=== PATIENT | female | born 1950 | race Caucasian/White ===

== ENCOUNTER 2016-02-27 21:38 | Emergency (ER) | payer OTHER, BC ==
[~2016-02-27] VITALS: Ht 160 cm; Wt 69.8 kg
[~2016-02-27 21:38] MED LIST: ATOR-22 PO; CZR50 PO
[2016-02-27 21:49] VITALS: Ht 160 cm; Wt 69.8 kg
[2016-02-27] MEDS ORDERED: ZPAK PO (21:57)
[2016-02-27] MEDS ORDERED: [UNRECOGNIZED DRUG - CODE] PO (21:57)
[2016-02-27] MEDS ORDERED: ALBUT/IPRATROP 3MG/0.5MG NEB 3 ML VIAL INH STA (22:27)
--- NOTE | 2016-02-27 22:45 | DIAGNOSTIC IMAGING REPORT ---
CHEST ONE VIEW PORTABLE CLINICAL HISTORY: EVALUATE RESPIRATORY DISTRESS. DYSPNEA dyspnea COMPARISON STUDY: 08/11/2015 FINDINGS: The bones soft tissues and hemidiaphragms are normal. The cardiomediastinal silhouette is normal. The lungs are clear. The pulmonary vasculature is normal. IMPRESSION: Negative chest. Electronically signed by: Pako Rodrigues M.D. 02/27/2016 10:43 PM
[2016-02-27 22:47] LABS: BASO % 0.2 %; BASO ABS # 0.01 K/uL (0-0.2); COMPLETE YES; EOS % 0.6 %; HEMATOCRIT 42.7 % (37-47); IG% 0.2 %; LYMPH ABS # 1.74 K/uL (1.2-3.4); MEAN CELL VOLUME 85.2 fL (80-100); MEAN CORPUSCULAR HEMOGLOBIN 29.3 pg (25-34); MEAN CORPUSCULAR HGB CONC 34.4 g/dl (32-36); MEAN PLATELET VOLUME 11.4 fL (7.4-10.4); MONO % 11.8 %; NEUT % 55.2 %; PLATELET COUNT 137 K/uL (130-400); RED BLOOD COUNT 5.01 M/uL (4.2-5.4); WHITE BLOOD COUNT 5.43 K/uL (4.8-10.8)
[2016-02-27 23:06] VITALS: O2SAT 93
[2016-02-27 23:28] LABS: ALT/SGPT 23 U/L (12-78); AST/SGOT 22 U/L (15-37); BLOOD UREA NITROGEN 12 mg/dl (7-18); BUN/CREATININE RATIO 12.4 (10-20); CHLORIDE 107 mmol/L (98-107); CREATININE 0.98 mg/dl (0.60-1.20); GLUCOSE 122 mg/dl (70-99); POTASSIUM 3.8 mmol/L (3.5-5.1); SODIUM 143 mmol/L (136-145)
[2016-02-27 23:32] LABS: ALKALINE PHOSPHATASE 93 U/L (45-117)
[2016-02-27] MEDS ORDERED: OSELTAMIVIR PHOSPHATE 75 MG CAP PO STA (23:41)
[2016-02-27 23:44] LABS: CALCIUM 8.7 mg/dl (8.5-10.1); CARBON DIOXIDE 27 mmol/L (21-32)
[2016-02-28] MEDS ORDERED: OSEL75CA12 PO (00:28)
[2016-02-28] MEDS ORDERED: ALBUTEROL HFA 8 GM INHALER INH ONE (00:30)
[2016-02-28 00:44] VITALS: BP 119/69; PULSE 81; TEMP 37.1; O2SAT 95
--- NOTE | 2016-02-28 02:32 | EMERGENCY ROOM VISIT NOTE ---
History Report prepared by Josselin: German Chapin Under the Supervision of: Dr. Pierre Wilson M.D. First contact with patient: 21:57 Chief Complaint: FLU LIKE SX Stated Complaint: FLU History of Present Illness The patient is a 66 year old female who presents to the Emergency Room with complaints of a persistent cough beginning last week. She has no history of lung problems. She has associated nausea and congestion. The patient states that she called her PCP's office four days ago, but was unable to be seen. Her PCP started her on a Zpak at this time. She feels that the Zpak has worsened her symptoms. Pt denies LOC, headache, fevers, chills, diaphoresis, visual changes, neck pain, chest pain, vomiting, abdominal pain, back pain, melena, hematochezia, urinary symptoms, numbness, weakness, lymphadenopathy, rash, or other complaints. Source of History: patient Onset: Last week Quality: other (cough) Timing: other (persistent) Associated Symptoms: + nausea, No abdominal pain, No vomiting Note: The patient has associated congestion. Review of Systems See HPI for pertinent positives and negatives. A total of ten systems were reviewed and were otherwise negative. Past Medical & Surgical Medical Problems: (1) Hypercholesteremia (2) Hypertension Family History Cancer Diabetes mellitus Gallbladder disease Heart disease Hypertension Social History Smoking Status: Never Smoker Marital Status: Housing Status: lives with family Occupation Status: retired Current/Historical Medications Scheduled Atorvastatin (Lipitor), 20 MG PO Q2D Azithromycin (Azithromycin), 1 TAB PO DIRECTED Dextromethorphan-Guaifenesin (Robitussin Cough & Chest 5-100 mg/5Ml), 1 ML PO DIRECTED Losartan Potassium (Cozaar *), 100 MG PO HS Oseltamivir (Tamiflu), 75 MG PO BID Allergies Coded Allergies: Pneumococcal Vaccine (Verified Allergy, Severe, REDNESS ,SWELLING @ SITE, 02/27/16) Aloe (Verified Allergy, Intermediate, RASH, 02/27/16) Penicillins (Verified Allergy, Intermediate, RASH, 02/27/16) Latex (Verified Adverse Reaction, Intermediate, "SORES IN MOUTH AFTER GOINGTO DENTIST", 02/27/16) Cefuroxime (Verified Adverse Reaction, Mild, C DIFF, 02/27/16) Physical Exam Vital Signs Date Time Temp Pulse Resp B/P Pulse Ox O2 Delivery O2 Flow Rate FiO2 02/28/16 00:44 37.1 81 16 119/69 95 02/27/16 23:45 97 18 94 Room Air 02/27/16 23:06 93 Room Air 02/27/16 23:06 Room Air 02/27/16 21:49 37.7 102 20 113/67 92 Room Air Physical Exam GENERAL: Awake, alert, well-appearing, in no distress HENT: Normocephalic, atraumatic. Oropharynx unremarkable. EYES: Normal conjunctiva. Sclera non-icteric. NECK: Supple. No nuchal rigidity. FROM. No JVD. RESPIRATORY: Few scattered rhonchi to auscultation. Heavy cough noted. CARDIAC: Regular rate, normal rhythm. Extremities warm and well perfused. Pulses equal. ABDOMEN: Soft, non-distended. No tenderness to palpation. No rebound or guarding. No masses. RECTAL: Deferred. MUSCULOSKELETAL: Chest examination reveals no tenderness. The back is symmetrical on inspection without obvious abnormality. There is no CVA tenderness to palpation. No joint edema. LOWER EXTREMITIES: Calves are equal size bilaterally and non-tender. No edema. No discoloration. NEURO: Normal sensorium. No sensory or motor deficits noted. SKIN: No rash or jaundice noted. Medical Decision & Procedures ER Provider Diagnostic Interpretation: X-ray: Per my interpretation, radiologist review. CHEST ONE VIEW PORTABLE FINDINGS: The bones soft tissues and hemidiaphragms are normal. The cardiomediastinal silhouette is normal. The lungs are clear. The pulmonary vasculature is normal. IMPRESSION: Negative chest. Electronically signed by: Pako Rodrigues M.D. Laboratory Results 02/27/16 22:25 Red Blood Count 5.01, Mean Corpuscular Volume 85.2, Mean Corpuscular Hemoglobin 29.3, Mean Corpuscular Hemoglobin Concent 34.4, Mean Platelet Volume 11.4, Neutrophils (%) (Auto) 55.2, Lymphocytes (%) (Auto) 32.0, Monocytes (%) (Auto) 11.8, Eosinophils (%) (Auto) 0.6, Basophils (%) (Auto) 0.2, Neutrophils # (Auto ) 3.00, Lymphocytes # (Auto) 1.74, Monocytes # (Auto) 0.64, Eosinophils # (Auto ) 0.03, Basophils # (Auto) 0.01 02/27/16 22:56 Test 02/27/16 22:25 02/27/16 22:49 02/27/16 22:55 02/27/16 22:56 White Blood Count 5.43 K/uL (4.8-10.8) Red Blood Count 5.01 M/uL (4.2-5.4) Hemoglobin 14.7 g/dL (12.0-16.0) Hematocrit 42.7 % (37-47) Mean Corpuscular Volume 85.2 fL (80-100) Mean Corpuscular Hemoglobin 29.3 pg (25-34) Mean Corpuscular Hemoglobin Concent 34.4 g/dl (32-36) Platelet Count 137 K/uL (130-400) Mean Platelet Volume 11.4 fL (7.4-10.4) Neutrophils (%) (Auto) 55.2 % Lymphocytes (%) (Auto) 32.0 % Monocytes (%) (Auto) 11.8 % Eosinophils (%) (Auto) 0.6 % Basophils (%) (Auto) 0.2 % Neutrophils # (Auto) 3.00 K/uL (1.4-6.5) Lymphocytes # (Auto) 1.74 K/uL (1.2-3.4) Monocytes # (Auto) 0.64 K/uL (0.11-0.59) Eosinophils # (Auto) 0.03 K/uL (0-0.5) Basophils # (Auto) 0.01 K/uL (0-0.2) RDW Standard Deviation 40.9 fL (36.4-46.3) RDW Coefficient of Variation 13.1 % (11.5-14.5) Immature Granulocyte % (Auto) 0.2 % Immature Granulocyte # (Auto) 0.01 K/uL (0.00-0.02) Influenza Type A Antigen POS for Influ A (NEG) Influenza Type B Antigen Neg for Influ B (NEG) Bedside Lactic Acid Venous 0.86 mmol/L (0.90-1.70) Anion Gap 9.0 mmol/L (3-11) Est Creatinine Clear Calc Drug Dose 52.2 ml/min Estimated GFR () 69.2 Estimated GFR (Non- 59.7 BUN/Creatinine Ratio 12.4 (10-20) Calcium Level 8.7 mg/dl (8.5-10.1) Total Bilirubin 0.3 mg/dl (0.2-1) Aspartate Amino Transf (AST/SGOT) 22 U/L (15-37) Alanine Aminotransferase (ALT/SGPT) 23 U/L (12-78) Alkaline Phosphatase 93 U/L (45-117) Troponin I < 0.015 ng/ml (0-0.045) Total Protein 7.1 gm/dl (6.4-8.2) Albumin 3.5 gm/dl (3.4-5.0) Globulin 3.6 gm/dl (2.5-4.0) Albumin/Globulin Ratio 1.0 (0.9-2) Laboratory results reviewed by me Medications Administered Medications (Trade) Dose Ordered Sig/Enoc Route Start Time Stop Time Status Last Admin Dose Admin Albuterol/ Ipratropium (Duoneb) 3 ml NOW STAT INH 02/27/16 22:27 02/27/16 22:28 DC 02/27/16 22:27 3 ML Oseltamivir Phosphate (Tamiflu Cap) 75 mg NOW STAT PO 02/27/16 23:41 02/27/16 23:42 DC 02/27/16 23:41 75 MG Albuterol (Ventolin Hfa Inhaler) 2 puffs NOW ONCE INH 02/28/16 00:30 02/28/16 00:31 DC 02/28/16 00:30 2 PUFFS ECG Indication: other (cough) Rate (beats per minute): 86 Rhythm: normal sinus Findings: no acute ischemic change, other (LAD. Poor R-wave progression. ) ED Course 2207: The patient was evaluated in room A9B. A complete history and physical exam was performed. 2227: Ordered DuoNeb 3 mL INH. 2302: I reassessed the patient. She is doing well. 2341: I checked in on the patient. She is feeling better. Ordered Tamiflu Cap 75 mg PO. 0005: I reevaluated the patient. Discussed results and discharge instructions: she verbalized understanding and agreement. 0030: Ordered Ventolin Hfa Inhaler 2 puffs INH. The patient is ready for discharge. Medical Decision Triage Nursing notes reviewed. The patient's presentation and history were concerning for respiratory complaints. Etiologies such as pneumonia, influenza, COPD, reactive airway disease, CHF, cardiac ischemia, pulmonary embolism, pneumothorax, musculoskeletal, infections , gastrointestinal, as well as others were entertained. The patient was evaluated. She had influenza-like symptoms. Chest x-ray was performed and was negative. CBC and chemistry panel unremarkable. Lactate was normal. Influenza testing was performed and came back positive for influenza A. She did receive a DuoNeb and was feeling better with this. She was treated with oral Tamiflu. She will be prescribed Tamiflu. If she worsens in any way she will be back. She will follow-up with her primary physician this week. I suspect that she got this from her who had flulike symptoms last week. By the evaluation outlined above other emergent etiologies such as those listed in the differential, as well as others, were deemed relatively unlikely. The patient and were informed about the findings as listed above. All questions were answered and they were pleased with the treatment. Return instructions were outlined and the patient was discharged in stable condition. The patient was referred to her PCP for follow-up for a recheck of the current condition. The chart was completed utilizing [employer] Speech voice recognition software. Grammatical errors, random word insertions, pronoun errors, and incomplete sentences are an occasional consequence of this system due to software limitations, ambient noise, and hardware issues. Any formal questions or concerns about the content, text, or information contained within the body of this dictation should be directly addressed to the physician for clarification. Impression Primary Impression: Influenza A Scribe Attestation The scribe's documentation has been prepared under my direction and personally reviewed by me in its entirety. I confirm that the note above accurately reflects all work, treatment, procedures, and medical decision making performed by me. Departure Information Dispostion Home / Self-Care Prescriptions Oseltamivir (Tamiflu) 75 Mg Cap 75 MG PO BID, #9 CAP Prov: Pierre Wilson MD 02/28/16 Referrals Matthew Schulz D.O. Pulmonary (PCP) Forms HOME CARE DOCUMENTATION FORM, IMPORTANT VISIT INFORMATION Patient Instructions A Signature Page, ED Flu, My [facility] Additional Instructions Diagnosis: 1. influenza A Tamiflu 75 mg twice daily for 5 days. Albuterol Inhaler: Take 2 puffs four times daily for seven days, then as needed. Acetaminophen(Tylenol) may be used for fever or pain. Use 1000mg every six hours as needed. Avoid using more than 4000mg in a 24 hour period. AND/OR Ibuprofen(Motrin, Advil) may be used for fever or pain. Use 600mg every six hours as needed. Take with food. Avoid using more than 2400mg in a 24 hour period. Do not use 2400mg per day for more than three consecutive days without physician direction. Prolonged inappropriate use can lead to stomach upset or ulcers. Controlling your fever with Tylenol and Ibuprofen as above will make you feel better. Rest and drink plenty of fluids. Avoid strenuous activity until your symptoms resolve and your breathing returns to normal. Return to the ER for chest pain, difficulty breathing, persistent fevers, vomiting, worsening of your condition, or as needed. Follow up with your primary physician in 2-3 days for a recheck of the current condition.
== END 2016-02-28 00:45 | disposition home or self-care (01) ==
LOC: C.EDB 21:39 → C.EDA 02-28 00:45
DX: J11.1 Influenza due to unidentified influenza virus with other respiratory manifestations (principal); E78.00 Pure hypercholesterolemia, unspecified; I10 Essential (primary) hypertension; Z83.3 Family history of diabetes mellitus; Z83.79 Family history of other diseases of the digestive system; Z82.49 Family history of ischemic heart disease and other diseases of the circulatory system

== ENCOUNTER 2017-01-19 07:50 | Inpatient (IN) | payer OTHER, BC ==
[~2017-01-19] VITALS: Ht 157.5 cm; Wt 74.3 kg
[~2017-01-19 07:50] MED LIST changes: +ZPAK PO; +[UNRECOGNIZED DRUG - CODE] PO
[2017-01-19] MEDS ORDERED: ONDANSETRON INJ 2 MG/ML 2 ML VIAL IV STA (08:14)
[2017-01-19] MEDS ORDERED: MoRPHine SULFATE 4 MG/ML 1 ML CARP\\VIAL IV STA ×2 (08:14→10:47)
[2017-01-19] MEDS ORDERED: OPTIRAY 320 IV PRN (08:30)
[2017-01-19 08:41] LABS: BASO % 0.3 %; BASO ABS # 0.03 K/uL (0-0.2); COMPLETE YES; EOS % 0.2 %; HEMATOCRIT 42.9 % (37-47); IG% 0.3 %; LYMPH % 13.1 %; LYMPH ABS # 1.24 K/uL (1.2-3.4); MEAN CELL VOLUME 86.7 fL (80-100); MEAN CORPUSCULAR HEMOGLOBIN 29.5 pg (25-34); MEAN PLATELET VOLUME 10.7 fL (7.4-10.4); MONO % 6.5 %; NEUT % 79.6 %; PLATELET COUNT 147 K/uL (130-400); RED BLOOD COUNT 4.95 M/uL (4.2-5.4); WHITE BLOOD COUNT 9.45 K/uL (4.8-10.8)
[2017-01-19 08:48] LABS: URINE APPEARANCE CLOUDY (CLEAR); URINE BILIRUBIN NEG (NEG); URINE COLOR DK YELLOW; URINE EPITHELIAL CELL AUTO >30 /lpf (0-5); URINE NITRITE NEG (NEG); URINE SPECIFIC GRAVITY 1.026 (1.000-1.030); UROBILINOGEN NEG (NEG)
[2017-01-19 08:50] LABS: MANUAL MICROSCOPIC REQUIRED? NO; REVIEW REQ? NO
[2017-01-19 08:57] LABS: BUN/CREATININE RATIO 15.2 (10-20); CALCIUM 10.3 mg/dl (8.5-10.1); CREATININE 0.88 mg/dl (0.60-1.20); POTASSIUM 3.8 mmol/L (3.5-5.1)
--- NOTE | 2017-01-19 09:03 | DIAGNOSTIC IMAGING REPORT ---
PA CHEST RADIOGRAPH AND UPRIGHT AND SUPINE AP RADIOGRAPHS OF THE ABDOMEN CLINICAL HISTORY: History of small bowel obstruction and malignancy. COMPARISON STUDY: KUB January 15, 2015 and chest radiograph August 26, 2016. FINDINGS: Lung volumes are normal. No consolidation is identified and there is no evidence of pulmonary edema. Cardiomediastinal silhouette is normal. There is no pneumothorax or pleural effusion. There are surgical clips within the lower abdomen and pelvis. There is no free air. There is oral contrast within the stomach and portions of the small bowel. Moderate small bowel dilatation is noted. IMPRESSION: 1. Moderate small bowel dilatation suggestive of a small bowel obstruction. 2. No free air. 3. No acute cardiopulmonary findings. Electronically signed by: Shon Aguayo M.D. 01/19/2017 9:01 AM Dictated Date/Time: 01/19/2017 8:59 AM
--- NOTE | 2017-01-19 11:28 | DIAGNOSTIC IMAGING REPORT ---
CT OF THE ABDOMEN AND PELVIS WITH CONTRAST CLINICAL HISTORY: Abdominal pain. History of malignancy. COMPARISON STUDY: CT of the abdomen and pelvis January 06, 2015 and abdominal series performed earlier today. TECHNIQUE: Following IV administration of 93 mL of Optiray-320, axial images of the abdomen and pelvis were obtained from the lung bases to the proximal femurs. Images were reviewed in the axial, sagittal, and coronal planes. IV contrast was administered without complication. A dose lowering technique was utilized adhering to the principles of ALARA. Oral contrast was administered. CT DOSE: 466.60 mGy.cm FINDINGS: The spleen, adrenal glands, kidneys and pancreas are unremarkable. A small amount of abdominal and pelvic ascites is noted. No pneumatosis, free air or portal venous gas is present. Several ventral hernias are noted, one of which contains small and large bowel. This does not result in the bowel obstruction. There is moderate dilatation of the proximal to mid small bowel with decompressed distal small bowel. Transition point within the right lower quadrant is noted shown on axial image 348 of 456. This is consistent with a moderate grade small bowel obstruction. Hepatic cysts are noted. A few lesions were not evident on CT of January 06, 2015. These include a 1.1 cm hypodense focus within segment 8 and an 8 mm hypodense focus within segment 7. No suspicious osseous lesion is present. The peritoneal/omental nodules seen on CT of January 06, 2015 have significantly decreased in size. At most, there are a few tiny residual nodules within the anterior abdomen shown on image 271 of 456. IMPRESSION: 1. Findings consistent with a moderate grade small bowel obstruction with transition point within the distal ileum, within the right lower quadrant. Statistically, this obstruction is due to adhesions. However, a malignant etiology cannot be excluded given the clinical history. 2. Significant interval decrease in size of multiple omental/peritoneal nodules shown on prior CT. At most, several tiny residual omental nodules. 3. Small amount of ascites. No pneumatosis, free air or portal venous gas. 4. Cholelithiasis. 5. A few hypodense hepatic lesions which were not evident on CT of January 06, 2015. These are indeterminate and should be assessed on subsequent imaging studies however may reflect cysts. Electronically signed by: Shon Aguayo M.D. 01/19/2017 11:27 AM Dictated Date/Time: 01/19/2017 11:12 AM
--- NOTE | 2017-01-19 12:09 | EMERGENCY ROOM VISIT NOTE ---
ED Visit Note First contact with patient: 08:01 I have seen and examined this patient with Pierre Rachel and generally agree with the treatment plan as discussed. Problem List Medical Problems: (1) Hypercholesteremia Status: Chronic (2) Hypertension Status: Chronic Current/Historical Medications Scheduled Atorvastatin (Lipitor), 20 MG PO Q2D Losartan Potassium (Cozaar *), 100 MG PO HS Allergies Coded Allergies: Pneumococcal Vaccine (Verified Allergy, Severe, REDNESS ,SWELLING @ SITE, 01/19/17) Aloe (Verified Allergy, Intermediate, RASH, 01/19/17) Penicillins (Verified Allergy, Intermediate, RASH, 01/19/17) Latex (Verified Adverse Reaction, Intermediate, "SORES IN MOUTH AFTER GOINGTO DENTIST", 01/19/17) Cefuroxime (Verified Adverse Reaction, Mild, C DIFF, 01/19/17) Vital Signs Date Time Temp Pulse Resp B/P (MAP) Pulse Ox O2 Delivery O2 Flow Rate FiO2 01/19/17 11:25 71 16 134/73 94 Room Air 01/19/17 10:53 78 15 146/85 94 Room Air 01/19/17 10:26 100 18 142/80 96 Room Air 01/19/17 09:19 75 01/19/17 09:13 77 16 148/84 95 Room Air 01/19/17 07:53 36.3 92 18 149/83 93 Room Air Laboratory Results 01/19/17 08:25 Red Blood Count 4.95, Mean Corpuscular Volume 86.7, Mean Corpuscular Hemoglobin 29.5, Mean Corpuscular Hemoglobin Concent 34.0, Mean Platelet Volume 10.7, Neutrophils (%) (Auto) 79.6, Lymphocytes (%) (Auto) 13.1, Monocytes (%) (Auto) 6.5, Eosinophils (%) (Auto) 0.2, Basophils (%) (Auto) 0.3, Neutrophils # (Auto) 7.52, Lymphocytes # (Auto) 1.24, Monocytes # (Auto) 0.61, Eosinophils # (Auto) 0.02, Basophils # (Auto) 0.03 01/19/17 08:25 Test 01/19/17 08:25 01/19/17 08:30 White Blood Count 9.45 K/uL (4.8-10.8) Red Blood Count 4.95 M/uL (4.2-5.4) Hemoglobin 14.6 g/dL (12.0-16.0) Hematocrit 42.9 % (37-47) Mean Corpuscular Volume 86.7 fL (80-100) Mean Corpuscular Hemoglobin 29.5 pg (25-34) Mean Corpuscular Hemoglobin Concent 34.0 g/dl (32-36) Platelet Count 147 K/uL (130-400) Mean Platelet Volume 10.7 fL (7.4-10.4) Neutrophils (%) (Auto) 79.6 % Lymphocytes (%) (Auto) 13.1 % Monocytes (%) (Auto) 6.5 % Eosinophils (%) (Auto) 0.2 % Basophils (%) (Auto) 0.3 % Neutrophils # (Auto) 7.52 K/uL (1.4-6.5) Lymphocytes # (Auto) 1.24 K/uL (1.2-3.4) Monocytes # (Auto) 0.61 K/uL (0.11-0.59) Eosinophils # (Auto) 0.02 K/uL (0-0.5) Basophils # (Auto) 0.03 K/uL (0-0.2) RDW Standard Deviation 41.3 fL (36.4-46.3) RDW Coefficient of Variation 13.1 % (11.5-14.5) Immature Granulocyte % (Auto) 0.3 % Immature Granulocyte # (Auto) 0.03 K/uL (0.00-0.02) Anion Gap 8.0 mmol/L (3-11) Est Creatinine Clear Calc Drug Dose 58.6 ml/min Estimated GFR () 78.8 Estimated GFR (Non- 68.0 BUN/Creatinine Ratio 15.2 (10-20) Calcium Level 10.3 mg/dl (8.5-10.1) Total Bilirubin 0.7 mg/dl (0.2-1) Direct Bilirubin 0.2 mg/dl (0-0.2) Aspartate Amino Transf (AST/SGOT) 16 U/L (15-37) Alanine Aminotransferase (ALT/SGPT) 22 U/L (12-78) Alkaline Phosphatase 80 U/L (45-117) Total Protein 7.0 gm/dl (6.4-8.2) Albumin 3.7 gm/dl (3.4-5.0) Lipase 141 U/L (73-393) Urine Color DK YELLOW Urine Appearance CLOUDY (CLEAR) Urine pH 5.0 (4.5-7.5) Urine Specific [place] 1.026 (1.000-1.030) Urine Protein 2+ (NEG) Urine Glucose (UA) NEG (NEG) Urine Ketones 1+ (NEG) Urine Occult Blood NEG (NEG) Urine Nitrite NEG (NEG) Urine Bilirubin NEG (NEG) Urine Urobilinogen NEG (NEG) Urine Leukocyte Esterase TRACE (NEG) Urine WBC (Auto) 5-10 /hpf (0-5) Urine RBC (Auto) 0-4 /hpf (0-4) Urine Hyaline Casts (Auto) 10-30 /lpf (0-5) Urine Epithelial Cells (Auto) >30 /lpf (0-5) Urine Bacteria (Auto) NEG (NEG) Medications Administered Medications (Trade) Dose Ordered Sig/Enoc Route Start Time Stop Time Status Last Admin Dose Admin Morphine Sulfate (MoRPHine SULFATE INJ) 4 mg NOW STAT IV 01/19/17 08:14 01/19/17 08:18 DC 01/19/17 08:31 4 MG Ondansetron HCl (Zofran Inj) 4 mg NOW STAT IV 01/19/17 08:14 01/19/17 08:18 DC 01/19/17 08:30 4 MG Morphine Sulfate (MoRPHine SULFATE INJ) 4 mg NOW STAT IV 01/19/17 10:47 01/19/17 10:48 DC 01/19/17 10:53 4 MG Departure Information Referrals Ana Laura Bourne D.O. (PCP) Patient Instructions My [facility]
[2017-01-19] MEDS ORDERED: ONDANSETRON INJ 2 MG/ML 2 ML VIAL IV PRN (12:30)
[2017-01-19 12:35] VITALS: O2SAT 94; Ht 157.5 cm; Wt 74.3 kg
[2017-01-19] MEDS ORDERED: ONDANSETRON INJ 2 MG/ML 2 ML VIAL ONE ×2 (13:00→13:57)
[2017-01-19] MEDS ORDERED: MoRPHine SULFATE 2 MG/ML CARP IV PRN (13:00)
--- NOTE | 2017-01-19 13:07 | History and Physical ---
History & Physical Date & Time of Service: Jan 19, 2017 at 13:07 Chief Complaint: Abd. Pain Primary Care Physician: Ana Laura Bourne D.O. History of Present Illness Source: patient, spouse, clinic records, hospital records 66 year-old female with PMH of Carcinoid tumor, small bowel obstruction, hysterectomy, small bowel resection, metastatic breast cancer present to the ER after developing constant abdominal pain associated with nausea and vomiting. Pt said that last night she developed 6/10 constant abdominal pain, located across the upper abdomen, non radiated, cramping that is more prominent in the LUQ. Pt said that around 3 am she started to vomit that was yellowish with food particles. Pt said that her last episode of vomiting was this morning at 7AM. She said that she feels bloating and her last BM was yesterday that was normal. Pt said that last week at the football game she developed the similar symptoms but that was resolved after few hours. Denies any chest pain, palpitation, dizziness, fever, dysuria and SOB. Past Medical/Surgical History Medical Problems: Hypercholesteremia Hypertension Carcinoid Tumor Small Bowel obstruction Hysterectomy Metastatic breast cancer Family History Cancer Diabetes mellitus Gallbladder disease Heart disease Hypertension Social History Smoking Status: Never Smoker Marital Status: Occupational Status: retired Immunizations History of Influenza Vaccine: Yes History of Tetanus Vaccine?: Yes History of Pneumococcal: No History of Hepatitis B Vaccine: No Multi-Drug Resistant Organisms History of MDRO: No Allergies Coded Allergies: Pneumococcal Vaccine (Verified Allergy, Severe, REDNESS ,SWELLING @ SITE, 01/19/17) Aloe (Verified Allergy, Intermediate, RASH, 01/19/17) Penicillins (Verified Allergy, Intermediate, RASH, 01/19/17) Latex (Verified Adverse Reaction, Intermediate, "SORES IN MOUTH AFTER GOINGTO DENTIST", 01/19/17) Cefuroxime (Verified Adverse Reaction, Mild, C DIFF, 01/19/17) Home Medications Scheduled Atorvastatin (Lipitor), 20 MG PO Q2D Losartan Potassium (Cozaar *), 100 MG PO HS Review of Systems Constitutional: No fever, No chills Eyes: No eye pain ENT: No unusual epistaxis, No nasal symptoms, No sore throat Respiratory: No cough, No sputum, No shortness of breath, No dyspnea on exertion Cardiovascular: No chest pain, No claudication, No palpitations Abdomen: + pain, + nausea, + vomiting, No diarrhea Musculoskeletal: No calf pain Genitourinary - Female: No dysuria, No urinary frequency Neurologic: No paralysis, No weakness Psychiatric: No substance abuse Endocrine: No excessive thirst Hematologic / Lymphatic: No abnormal bleeding/bruising Integumentary: No rash, No itch Physical Exam Vital Signs Date Time Temp Pulse Resp B/P (MAP) Pulse Ox O2 Delivery O2 Flow Rate FiO2 01/19/17 12:50 71 16 131/81 94 Room Air 01/19/17 12:35 94 Room Air 01/19/17 12:00 80 18 133/73 95 Room Air 01/19/17 11:25 71 16 134/73 94 Room Air 01/19/17 10:53 78 15 146/85 94 Room Air 01/19/17 10:26 100 18 142/80 96 Room Air 01/19/17 09:19 75 01/19/17 09:13 77 16 148/84 95 Room Air 01/19/17 07:53 36.3 92 18 149/83 93 Room Air General Appearance: WD/WN, no apparent distress Head: normocephalic, atraumatic Eyes: PERRL, sclerae normal ENT: hearing grossly normal Neck: no JVD, trachea midline Respiratory/Chest: lungs clear, no respiratory distress, no accessory muscle use Cardiovascular: no JVD, no murmur Abdomen/GI: + tenderness (More prominenet pain in LUQ ), + pertinent finding ( Hypoactive BS) Back: no CVA tenderness Extremities/Musculoskelatal: no calf tenderness Neurologic/Psych: no motor/sensory deficits, alert, oriented x 3 Skin: warm/dry, no rash Diagnostics Laboratory Results Results Past 24 Hours Test 01/19/17 08:25 01/19/17 08:30 Range/Units White Blood Count 9.45 4.8-10.8 K/uL Red Blood Count 4.95 4.2-5.4 M/uL Hemoglobin 14.6 12.0-16.0 g/dL Hematocrit 42.9 37-47 % Mean Corpuscular Volume 86.7 80-100 fL Mean Corpuscular Hemoglobin 29.5 25-34 pg Mean Corpuscular Hemoglobin Concent 34.0 32-36 g/dl Platelet Count 147 130-400 K/uL Mean Platelet Volume 10.7 7.4-10.4 fL Neutrophils (%) (Auto) 79.6 % Lymphocytes (%) (Auto) 13.1 % Monocytes (%) (Auto) 6.5 % Eosinophils (%) (Auto) 0.2 % Basophils (%) (Auto) 0.3 % Neutrophils # (Auto) 7.52 1.4-6.5 K/uL Lymphocytes # (Auto) 1.24 1.2-3.4 K/uL Monocytes # (Auto) 0.61 0.11-0.59 K/uL Eosinophils # (Auto) 0.02 0-0.5 K/uL Basophils # (Auto) 0.03 0-0.2 K/uL RDW Standard Deviation 41.3 36.4-46.3 fL RDW Coefficient of Variation 13.1 11.5-14.5 % Immature Granulocyte % (Auto) 0.3 % Immature Granulocyte # (Auto) 0.03 0.00-0.02 K/uL Sodium Level 141 136-145 mmol/L Potassium Level 3.8 3.5-5.1 mmol/L Chloride Level 106 98-107 mmol/L Carbon Dioxide Level 28 21-32 mmol/L Anion Gap 8.0 3-11 mmol/L Blood Urea Nitrogen 13 7-18 mg/dl Creatinine 0.88 0.60-1.20 mg/dl Est Creatinine Clear Calc Drug Dose 58.6 ml/min Estimated GFR () 78.8 Estimated GFR (Non- 68.0 BUN/Creatinine Ratio 15.2 10-20 Random Glucose 160 70-99 mg/dl Calcium Level 10.3 8.5-10.1 mg/dl Total Bilirubin 0.7 0.2-1 mg/dl Direct Bilirubin 0.2 0-0.2 mg/dl Aspartate Amino Transf (AST/SGOT) 16 15-37 U/L Alanine Aminotransferase (ALT/SGPT) 22 12-78 U/L Alkaline Phosphatase 80 45-117 U/L Total Protein 7.0 6.4-8.2 gm/dl Albumin 3.7 3.4-5.0 gm/dl Lipase 141 73-393 U/L Urine Color DK YELLOW Urine Appearance CLOUDY CLEAR Urine pH 5.0 4.5-7.5 Urine Specific [place] 1.026 1.000-1.030 Urine Protein 2+ NEG Urine Glucose (UA) NEG NEG Urine Ketones 1+ NEG Urine Occult Blood NEG NEG Urine Nitrite NEG NEG Urine Bilirubin NEG NEG Urine Urobilinogen NEG NEG Urine Leukocyte Esterase TRACE NEG Urine WBC (Auto) 5-10 0-5 /hpf Urine RBC (Auto) 0-4 0-4 /hpf Urine Hyaline Casts (Auto) 10-30 0-5 /lpf Urine Epithelial Cells (Auto) >30 0-5 /lpf Urine Bacteria (Auto) NEG NEG Diagnostic Radiology CT OF THE ABDOMEN AND PELVIS WITH CONTRAST CLINICAL HISTORY: Abdominal pain. History of malignancy. COMPARISON STUDY: CT of the abdomen and pelvis January 06, 2015 and abdominal series performed earlier today. TECHNIQUE: Following IV administration of 93 mL of Optiray-320, axial images of the abdomen and pelvis were obtained from the lung bases to the proximal femurs. Images were reviewed in the axial, sagittal, and coronal planes. IV contrast was administered without complication. A dose lowering technique was utilized adhering to the principles of ALARA. Oral contrast was administered. CT DOSE: 466.60 mGy.cm FINDINGS: The spleen, adrenal glands, kidneys and pancreas are unremarkable. A small amount of abdominal and pelvic ascites is noted. No pneumatosis, free air or portal venous gas is present. Several ventral hernias are noted, one of which contains small and large bowel. This does not result in the bowel obstruction. There is moderate dilatation of the proximal to mid small bowel with decompressed distal small bowel. Transition point within the right lower quadrant is noted shown on axial image 348 of 456. This is consistent with a moderate grade small bowel obstruction. Hepatic cysts are noted. A few lesions were not evident on CT of January 06, 2015. These include a 1.1 cm hypodense focus within segment 8 and an 8 mm hypodense focus within segment 7. No suspicious osseous lesion is present. The peritoneal/omental nodules seen on CT of January 06, 2015 have significantly decreased in size. At most, there are a few tiny residual nodules within the anterior abdomen shown on image 271 of 456. IMPRESSION: 1. Findings consistent with a moderate grade small bowel obstruction with transition point within the distal ileum, within the right lower quadrant. Statistically, this obstruction is due to adhesions. However, a malignant etiology cannot be excluded given the clinical history. 2. Significant interval decrease in size of multiple omental/peritoneal nodules shown on prior CT. At most, several tiny residual omental nodules. 3. Small amount of ascites. No pneumatosis, free air or portal venous gas. 4. Cholelithiasis. 5. A few hypodense hepatic lesions which were not evident on CT of January 06, 2015. These are indeterminate and should be assessed on subsequent imaging studies however may reflect cysts. Electronically signed by: Shon Aguayo M.D. 01/19/2017 11:27 AM Dictated Date/Time: 01/19/2017 11:12 AM PA CHEST RADIOGRAPH AND UPRIGHT AND SUPINE AP RADIOGRAPHS OF THE ABDOMEN CLINICAL HISTORY: History of small bowel obstruction and malignancy. COMPARISON STUDY: KUB January 15, 2015 and chest radiograph August 26, 2016. FINDINGS: Lung volumes are normal. No consolidation is identified and there is no evidence of pulmonary edema. Cardiomediastinal silhouette is normal. There is no pneumothorax or pleural effusion. There are surgical clips within the lower abdomen and pelvis. There is no free air. There is oral contrast within the stomach and portions of the small bowel. Moderate small bowel dilatation is noted. IMPRESSION: 1. Moderate small bowel dilatation suggestive of a small bowel obstruction. 2. No free air. 3. No acute cardiopulmonary findings. Electronically signed by: Shon Aguayo M.D. 01/19/2017 9:01 AM Dictated Date/Time: 01/19/2017 8:59 AM Impression Assessment and Plan Small Bowel Obstruction Present with abdominal pain associated with nausea and vomitin Possible related to adhesion CT abd/pelvis showed findings consistent with a moderate grade small bowel obstruction with transition point within the distal ileum, within the right lower quadrant. Continue pain control, Zofran and IVF Keep NPO Consider NGT insertion if vomiting reoccurs Surgery consult Repeat Abdominal Xray Continue monitor HTN On losartan Hold PO med since NPO Dyslipidemia Hold statin since NPO Hepatic Lesion Outpatient monitor DVT px Heparin subq (risk of DVT due to hx of cancer) SCDs CODE STATUS FULL CODE Level of Care Med/Surg Advanced Directives Existing Living Will: No Existing Power of Finance Professor: No Resuscitation Status FULL RESUSCITATION VTE Prophylaxis VTE Risk Assessment Done? Y/N: Yes Risk Level: Moderate Given or contraindicated: Unfractionated heparin SQ
[2017-01-19 13:20] VITALS: BP 131/81; PULSE 71; TEMP 36.3; O2SAT 94
--- NOTE | 2017-01-19 13:24 | Surgery Consultation ---
Consultation Date of Consultation: Jan 19, 2017. Attending Physician: History of Present Illness History of Present Illness: Ms. Felipe is a 66 year-old white female who ambulates into the ED accompanied by her complaining of bilateral mid quadrant abdominal pain. Historically patient reports carcinoid cancer, small bowel obstruction, 2 small bowel resections, hysterectomy, metastatic breast cancer and abdominal hernias. Patient reports a acute onset of bilateral mid quadrant abdominal pain that started approximately 10 hours ago. Since that time the pain has been constant and gradually increasing in intensity. The pain is currently described as cramping with left-sided prominence. The pain is nonradiating. She reports she has mild relief of her pain after vomiting. She has not identified any aggravating factors related to the pain. She currently rates her discomfort 6/ 10. Associated with the pain there has been sensations of abdominal bloating, decreased appetite, nausea, vomiting and decrease in bowel movements. Patient denies fevers, chills, sweats, skin eruptions, skin color changes, upper respiratory tract symptoms, shortness of breath, chest pain, diarrhea, constipation, rectal bleeding, black/tarry stools, urinary symptoms, hematuria, vaginal bleeding, vaginal discharge, back/flank pain. 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, pt denies bloody stool, no weight loss, Past Medical/Surgical History Medical Problems: (1) Allergic reaction Status: Acute (2) Chest pain Status: Acute (3) Musculoskeletal chest pain Status: Acute (4) Right-sided chest pain Status: Acute Family History Cancer Diabetes mellitus Gallbladder disease Heart disease Hypertension Social History Smoking Status: Never Smoker Smokeless Tobacco Use: No Alcohol Use: none Drug Use: none Marital Status: Housing Status: lives with family Occupation Status: retired Allergies Coded Allergies: Pneumococcal Vaccine (Verified Allergy, Severe, REDNESS ,SWELLING @ SITE, 01/19/17) Aloe (Verified Allergy, Intermediate, RASH, 01/19/17) Penicillins (Verified Allergy, Intermediate, RASH, 01/19/17) Latex (Verified Adverse Reaction, Intermediate, "SORES IN MOUTH AFTER GOINGTO DENTIST", 01/19/17) Cefuroxime (Verified Adverse Reaction, Mild, C DIFF, 01/19/17) Home Medications Scheduled Atorvastatin (Lipitor), 20 MG PO Q2D Losartan Potassium (Cozaar *), 100 MG PO HS Current Inpatient Medications Current Inpatient Medications Medications (Trade) Dose Ordered Sig/Enoc Route Start Time Stop Time Status Last Admin Dose Admin Ioversol (Optiray 320) 111 ml UD PRN IV 01/19/17 08:30 01/23/17 08:29 Ondansetron HCl (Zofran Inj) 4 mg Q6H PRN IV 01/19/17 12:30 02/18/17 12:29 UNV Morphine Sulfate (MoRPHine SULFATE INJ) 2 mg Q3HWA PRN IV 01/19/17 13:00 02/02/17 12:59 UNV Sodium Chloride 1,000 ml @ 80 mls/hr [id number] IV 01/19/17 13:00 02/18/17 12:59 UNV Heparin Sodium (Porcine) (Heparin Sq 5000 Unit/0.5ml) 5,000 unit Q12 SQ 01/19/17 21:00 02/18/17 20:59 UNV Ondansetron HCl (Zofran Inj) 4 mg Q4H PRN IV 01/19/17 13:15 02/18/17 13:14 UNV Review of Systems Constitutional: No fever, No chills, No sweats, No weight loss, No weakness, No fatigue, No problem reported Eyes: No worsening of vision, No eye pain, No redness, No discharge, No diplopia, No problem reported ENT: No hearing loss, No unusual epistaxis, No nasal symptoms, No sore throat, No tinnitus, No dental problems, No trouble swallowing, No problem reported Respiratory: No cough, No sputum, No wheezing, No shortness of breath, No dyspnea on exertion, No dyspnea at rest, No hemoptysis, No problem reported Cardiovascular: No chest pain, No orthopnea, No PND, No edema, No claudication , No palpitations, No problem reported Abdomen: + pain, + nausea, + vomiting, + problem reported (2 time small bowel resection, ) Musculoskeletal: No joint pain, No muscle pain, No swelling, No calf pain, No problem reported Genitourinary - Female: + problem reported (hysterectomy for tumor), No dysuria , No urinary frequency, No urinary urgency, No urinary incontinence, No urinary retention, No hematuria, No dysmenorrhea, No menorrhagia, No metrorrhagia, No rash, No vaginal bleeding, No vaginal discharge, No vaginal itching, No vulvodynia, No Neurologic: No memory loss, No paralysis, No weakness, No numbness/tingling, No vertigo, No balance problems, No problem reported Psychiatric: No depression symptoms, No anhedonism, No anxiety, No insomnia, No substance abuse, No problem reported Endocrine: No fatigue, No excessive thirst, No excessive urination, No problem reported Hematologic / Lymphatic: No abnormal bleeding/bruising, No clotting problems, No swollen lymph nodes, No night sweats, No problem reported Physical Exam Date Time Temp Pulse Resp B/P (MAP) Pulse Ox O2 Delivery O2 Flow Rate FiO2 01/19/17 12:50 71 16 131/81 94 Room Air 01/19/17 12:35 94 Room Air 01/19/17 12:00 80 18 133/73 95 Room Air 01/19/17 11:25 71 16 134/73 94 Room Air 01/19/17 10:53 78 15 146/85 94 Room Air 01/19/17 10:26 100 18 142/80 96 Room Air 01/19/17 09:19 75 01/19/17 09:13 77 16 148/84 95 Room Air 01/19/17 07:53 36.3 92 18 149/83 93 Room Air General Appearance: WD/WN, no apparent distress Head: normocephalic Eyes: normal inspection ENT: normal ENT inspection Neck: supple, no adenopathy Respiratory/Chest: chest non-tender, lungs clear, normal breath sounds Cardiovascular: regular rate, rhythm, no edema, no gallop, no JVD, no murmur Abdomen/GI: normal bowel sounds, non tender, soft, no organomegaly, no pulsatile mass, + tenderness (slight tenderness epigastric area, no rebound pain , ) Extremities/Musculoskelatal: normal inspection, no calf tenderness, normal capillary refill Neurologic/Psych: no motor/sensory deficits, alert, normal mood/affect Skin: normal color, warm/dry, no rash Laboratory Results Last 24 Hours Test 01/19/17 08:25 01/19/17 08:30 White Blood Count 9.45 K/uL Red Blood Count 4.95 M/uL Hemoglobin 14.6 g/dL Hematocrit 42.9 % Mean Corpuscular Volume 86.7 fL Mean Corpuscular Hemoglobin 29.5 pg Mean Corpuscular Hemoglobin Concent 34.0 g/dl Platelet Count 147 K/uL Mean Platelet Volume 10.7 fL Neutrophils (%) (Auto) 79.6 % Lymphocytes (%) (Auto) 13.1 % Monocytes (%) (Auto) 6.5 % Eosinophils (%) (Auto) 0.2 % Basophils (%) (Auto) 0.3 % Neutrophils # (Auto) 7.52 K/uL Lymphocytes # (Auto) 1.24 K/uL Monocytes # (Auto) 0.61 K/uL Eosinophils # (Auto) 0.02 K/uL Basophils # (Auto) 0.03 K/uL RDW Standard Deviation 41.3 fL RDW Coefficient of Variation 13.1 % Immature Granulocyte % (Auto) 0.3 % Immature Granulocyte # (Auto) 0.03 K/uL Sodium Level 141 mmol/L Potassium Level 3.8 mmol/L Chloride Level 106 mmol/L Carbon Dioxide Level 28 mmol/L Anion Gap 8.0 mmol/L Blood Urea Nitrogen 13 mg/dl Creatinine 0.88 mg/dl Est Creatinine Clear Calc Drug Dose 58.6 ml/min Estimated GFR () 78.8 Estimated GFR (Non- 68.0 BUN/Creatinine Ratio 15.2 Random Glucose 160 mg/dl Calcium Level 10.3 mg/dl Total Bilirubin 0.7 mg/dl Direct Bilirubin 0.2 mg/dl Aspartate Amino Transf (AST/SGOT) 16 U/L Alanine Aminotransferase (ALT/SGPT) 22 U/L Alkaline Phosphatase 80 U/L Total Protein 7.0 gm/dl Albumin 3.7 gm/dl Lipase 141 U/L Urine Color DK YELLOW Urine Appearance CLOUDY Urine pH 5.0 Urine Specific [place] 1.026 Urine Protein 2+ Urine Glucose (UA) NEG Urine Ketones 1+ Urine Occult Blood NEG Urine Nitrite NEG Urine Bilirubin NEG Urine Urobilinogen NEG Urine Leukocyte Esterase TRACE Urine WBC (Auto) 5-10 /hpf Urine RBC (Auto) 0-4 /hpf Urine Hyaline Casts (Auto) 10-30 /lpf Urine Epithelial Cells (Auto) >30 /lpf Urine Bacteria (Auto) NEG Assessment & Plan CT scan-IMPRESSION: 1. Findings consistent with a moderate grade small bowel obstruction with transition point within the distal ileum, within the right lower quadrant. Statistically, this obstruction is due to adhesions. However, a malignant etiology cannot be excluded given the clinical history. 2. Significant interval decrease in size of multiple omental/peritoneal nodules shown on prior CT. At most, several tiny residual omental nodules. 3. Small amount of ascites. No pneumatosis, free air or portal venous gas. 4. Cholelithiasis. 5. A few hypodense hepatic lesions which were not evident on CT of January 06, 2015. These are indeterminate and should be assessed on subsequent imaging studies however may reflect cysts. Assessment: pt is a 66 year old female who presents with 1 day history abdominal pain, with nausea and vomiting, CT scan- SMO, scar or recurrent tumor Plan; NG tube insertion, IV fluid control pain, repeat labs in am, will F/U.
[2017-01-19] MEDS ORDERED: NURSING VERBAL MED ORDER ONE (14:00)
[2017-01-19] MEDS: SODIUM CHLORIDE 0.9% 1000ML 1,000 ML IV SCH (14:28)
[2017-01-19 14:45] LABS: PARTIAL THROMBOPLASTIN RATIO 0.9; PROTHROMBIN TIME (PATIENT) 10.6 SECONDS (9.0-12.0)
[2017-01-19 14:53] VITALS: BP 125/71; PULSE 87; TEMP 36.5; O2SAT 94
[2017-01-19] MEDS: HEPARIN SOD 5000 UNIT/0.5 ML CARP SQ SCH (20:39)
[2017-01-19 23:39] VITALS: BP 111/64; PULSE 94; TEMP 36.5; O2SAT 91
[2017-01-20] MEDS: SODIUM CHLORIDE 0.9% 1000ML 1,000 ML IV SCH (01:36)
[2017-01-20 05:33] LABS: HEMATOCRIT 40.6 % (37-47); MEAN CELL VOLUME 88.6 fL (80-100); MEAN CORPUSCULAR HEMOGLOBIN 28.2 pg (25-34); MEAN CORPUSCULAR HGB CONC 31.8 g/dl (32-36); MEAN PLATELET VOLUME 10.8 fL (7.4-10.4); PLATELET COUNT 135 K/uL (130-400); RED BLOOD COUNT 4.58 M/uL (4.2-5.4); WHITE BLOOD COUNT 6.27 K/uL (4.8-10.8)
[2017-01-20] MEDS: HYDROmorphone INJ 1 MG/ML SYR IV PRN (05:53)
[2017-01-20 06:20] LABS: BUN/CREATININE RATIO 17.2 (10-20); CALCIUM 8.3 mg/dl (8.5-10.1); CREATININE 0.81 mg/dl (0.60-1.20); MAGNESIUM 1.8 mg/dl (1.8-2.4); POTASSIUM 3.4 mmol/L (3.5-5.1)
[2017-01-20] MEDS: NSS + 20MEQ KCL 1000ML 1,000 ML IV SCH ×2 (07:11→17:36)
--- NOTE | 2017-01-20 07:43 | EMERGENCY ROOM VISIT NOTE ---
ED Visit Note First contact with patient: 08:01 Chief Complaint: Abdominal pain History of Present Illness: Ms. Felipe is a 66 year-old white female who ambulates into the ED accompanied by her complaining of bilateral mid quadrant abdominal pain. Historically patient reports carcihoid cancer, small bowel obstruction, 2 small bowel resections, hysterectomy, metastatic breast cancer and abdominal hernias. Patient reports a acute onset of bilateral mid quadrant abdominal pain that started approximately 10 hours ago. Since that time the pain has been constant and gradually increasing in intensity. The pain is currently described as cramping with left-sided prominence. The pain is nonradiating. She reports she has mild relief of her pain after vomiting. She has not identified any aggravating factors related to the pain. She currently rates her discomfort 6/ 10. Associated with the pain there has been sensations of abdominal bloating, decreased appetite, nausea, vomiting and decrease in bowel movements. Patient denies fevers, chills, sweats, skin eruptions, skin color changes, upper respiratory tract symptoms, shortness of breath, chest pain, diarrhea, constipation, rectal bleeding, black/tarry stools, urinary symptoms, hematuria, vaginal bleeding, vaginal discharge, back/flank pain. Review of Systems: As noted above in history of present illness. All body systems were reviewed and found to be negative as noted above. Past Medical History: As previously noted and hypertension. Current Medications: Cozaar and Lipitor. Allergies to Medications: Cefuroxime, latex, penicillin, pneumococcal vaccination. Social History: Patient is not employed; she lives with her and feels safe in her home environment; she denies tobacco use and admits that social alcohol use. Physical Examination: Vital Signs: Date Time Temp Pulse Resp B/P (MAP) Pulse Ox O2 Delivery O2 Flow Rate FiO2 01/19/17 12:00 80 18 133/73 95 Room Air 01/19/17 11:25 71 16 134/73 94 Room Air 01/19/17 10:53 78 15 146/85 94 Room Air 01/19/17 10:26 100 18 142/80 96 Room Air 01/19/17 09:19 75 01/19/17 09:13 77 16 148/84 95 Room Air 01/19/17 07:53 36.3 92 18 149/83 93 Room Air GENERAL: 66-year-old female in mild distress due to pain, nontoxic-appearing, afebrile and hemodynamically stable. NEUROLOGICAL: Awake, alert and oriented to person, place and time. Answering questions appropriately and following commands. Normal gait. Good hand eye coordination. SKIN: Warm, dry and pink. No soft tissue eruptions or trauma noted. HEENT: Atraumatic and normocephalic. PERRLA. Sclera white and conjunctiva pink. Oral cavity moist and pink. Pharynx is nonerythematous or edematous. Speech normal. No lymphadenopathy. Trachea midline. No jugular venous distention. BACK: No tenderness over the bony spine. No CVA tenderness. THORAX: Lungs sounds are clear to auscultation and equal bilaterally with symmetrical chest wall. No wheezing, rales or rhonchi. No crepitus, tenderness , subcutaneous air or deformities noted. HEART: Regular rate and rhythm. No gallops, rubs or murmurs are appreciated. ABDOMEN: Mildly distended in the lower abdomen. Soft with diffuse tenderness throughout the left side of the abdomen and epigastric area and in the right mid quadrant area. Tenderness on the left is associated with mild guarding. Decreased bowel sounds in all quadrants. No rigidity or organomegaly. EXTREMITIES: Moves all extremities well on command and with purpose. All distal neurovascular statuses are intact and equal bilaterally. ED Course: Patient is assessed as noted above. Patient's medication list was reviewed. Laboratory Testing: Test 01/19/17 08:25 01/19/17 08:30 Range/Units White Blood Count 9.45 4.8-10.8 K/uL Red Blood Count 4.95 4.2-5.4 M/uL Hemoglobin 14.6 12.0-16.0 g/dL Hematocrit 42.9 37-47 % Mean Corpuscular Volume 86.7 80-100 fL Mean Corpuscular Hemoglobin 29.5 25-34 pg Mean Corpuscular Hemoglobin Concent 34.0 32-36 g/dl Platelet Count 147 130-400 K/uL Mean Platelet Volume 10.7 7.4-10.4 fL Neutrophils (%) (Auto) 79.6 % Lymphocytes (%) (Auto) 13.1 % Monocytes (%) (Auto) 6.5 % Eosinophils (%) (Auto) 0.2 % Basophils (%) (Auto) 0.3 % Neutrophils # (Auto) 7.52 1.4-6.5 K/uL Lymphocytes # (Auto) 1.24 1.2-3.4 K/uL Monocytes # (Auto) 0.61 0.11-0.59 K/uL Eosinophils # (Auto) 0.02 0-0.5 K/uL Basophils # (Auto) 0.03 0-0.2 K/uL RDW Standard Deviation 41.3 36.4-46.3 fL RDW Coefficient of Variation 13.1 11.5-14.5 % Immature Granulocyte % (Auto) 0.3 % Immature Granulocyte # (Auto) 0.03 0.00-0.02 K/uL Prothrombin Time 10.6 9.0-12.0 SECONDS Prothromb Time International Ratio 1.0 0.9-1.1 Activated Partial Thromboplast Time 23.4 21.0-31.0 SECONDS Partial Thromboplastin Ratio 0.9 Sodium Level 141 136-145 mmol/L Potassium Level 3.8 3.5-5.1 mmol/L Chloride Level 106 98-107 mmol/L Carbon Dioxide Level 28 21-32 mmol/L Anion Gap 8.0 3-11 mmol/L Blood Urea Nitrogen 13 7-18 mg/dl Creatinine 0.88 0.60-1.20 mg/dl Est Creatinine Clear Calc Drug Dose 58.6 ml/min Estimated GFR () 78.8 Estimated GFR (Non- 68.0 BUN/Creatinine Ratio 15.2 10-20 Random Glucose 160 70-99 mg/dl Calcium Level 10.3 8.5-10.1 mg/dl Total Bilirubin 0.7 0.2-1 mg/dl Direct Bilirubin 0.2 0-0.2 mg/dl Aspartate Amino Transf (AST/SGOT) 16 15-37 U/L Alanine Aminotransferase (ALT/SGPT) 22 12-78 U/L Alkaline Phosphatase 80 45-117 U/L Total Protein 7.0 6.4-8.2 gm/dl Albumin 3.7 3.4-5.0 gm/dl Lipase 141 73-393 U/L Urine Color DK YELLOW Urine Appearance CLOUDY CLEAR Urine pH 5.0 4.5-7.5 Urine Specific Lena 1.026 1.000-1.030 Urine Protein 2+ NEG Urine Glucose (UA) NEG NEG Urine Ketones 1+ NEG Urine Occult Blood NEG NEG Urine Nitrite NEG NEG Urine Bilirubin NEG NEG Urine Urobilinogen NEG NEG Urine Leukocyte Esterase TRACE NEG Urine WBC (Auto) 5-10 0-5 /hpf Urine RBC (Auto) 0-4 0-4 /hpf Urine Hyaline Casts (Auto) 10-30 0-5 /lpf Urine Epithelial Cells (Auto) >30 0-5 /lpf Urine Bacteria (Auto) NEG NEG Acute Abdominal Series: Were read by myself and the radiologist showing a normal -appearing chest with no signs of infiltrates, effusions, pneumothorax. Normal heart silhouette and bony anatomy. Abdominal component shows moderate small bowel dilatation consistent with a small bowel obstruction. No free air. Contrast Abdominal/Pelvic CT: Was reviewed by myself and read by the radiologist and shows moderate grade small bowel obstruction with the transition point within the distal ileum in the right lower quadrant. Significant interval decrease in size of multiple peritoneal nodules from previous CT. Small amount of ascites but no pneumatosis, free air or portal gas. Cholelithiasis. A few hypodense hepatic lesions that were not present on previous CT. Patient was hydrated with normal saline and initially received 4 mg of morphine IV for pain and 4 mg of Zofran IV for nausea. Patient was reassessed multiple times during her stay in the emergency department. On return from her CT patient reports she had a mild increase in pain and received an additional 4 mg of morphine IV for pain per Patient's case was reviewed with Dr. Valencia; we agreed on diagnostic approach , treatment, disposition and plan per Patient's case was consulted with case management and Dr. Mathur, hospitalist , for medical observation/admission. Patient was educated about today's findings. Clinical Impression: Small bowel obstruction. Decision-Making: Initially my differential diagnosis I considered small bowel obstruction, perforated viscus, constipation, colitis, and other causes. Disposition and Plan: Patient to be brought in the hospital by the hospitalist; please see their notes and orders for final disposition and plan.
[2017-01-20 07:44] VITALS: BP 132/74; PULSE 70; TEMP 36.8; O2SAT 94
[2017-01-20] MEDS: HEPARIN SOD 5000 UNIT/0.5 ML CARP SQ SCH ×2 (08:38→20:49)
[2017-01-20] MEDS ORDERED: POTASSIUM CHLR 10 MEQ / WTR 10 MEQ in PREMIXED WATER 100 ML IV SCH (09:00)
[2017-01-20] MEDS ORDERED: NURSING VERBAL MED ORDER ONE ×2 (09:15→16:00)
--- NOTE | 2017-01-20 09:47 | DIAGNOSTIC IMAGING REPORT ---
ABDOMEN 2 VIEWS HISTORY: bowel obstruction COMPARISON: Abdomen and pelvis CT 01/19/2017. FINDINGS: Oral contrast within the bowel now or size within the colon. Gas-filled dilated loops of small bowel persist. These measure up to 1.8 cm. Therefore, these findings are consistent with a partial small bowel obstruction. Multiple colonic diverticula. Surgical clips seen within the abdomen and pelvis. No pneumoperitoneum. No pneumatosis. Nasogastric tube terminates in the stomach. The lung bases are clear. IMPRESSION: Gas-filled distended loops of small bowel persist. However, the oral contrast now resides within the large bowel. Therefore, these findings are consistent with a partial small bowel obstruction. Electronically signed by: Ajith Longoria M.D. 01/20/2017 9:46 AM Dictated Date/Time: 01/20/2017 9:44 AM
[2017-01-20] MEDS: ONDANSETRON INJ 2 MG/ML 2 ML VIAL IV PRN (09:50)
--- NOTE | 2017-01-20 13:44 | Progress Note ---
Medicine Progress Note Date & Time of Visit: Jan 20, 2017 at 13:36. Subjective Pt was seen and examined Lying in bed with no distress Pt said that her abdominal pain improves slightly She has not had a BM yet She said that this morning she was feeling nauseated Denies any chest pain, palpitation, dizziness and SOB Objective Last 8 Hrs Date Time Temp Pulse Resp B/P (MAP) Pulse Ox O2 Delivery O2 Flow Rate FiO2 01/20/17 07:44 36.8 70 16 132/74 (93) 94 Room Air 01/20/17 07:15 Room Air Physical Exam: General- No acute distress Head- atraumatic Eyes- PERRL, EOMI ENT- oropharynx clear Neck- supple, no JVD Lungs- clear to auscultation Heart- regular rhythm Abdomen- Unable to hear bowel sounds,mild distention, +mild tenderness Extremities- no calf tenderness Neuro- alert, oriented x 3; PERRL, EOMI; no facial palsy; no dysarthria Skin- warm & dry Laboratory Results: Last 24 Hours Test 01/20/17 05:10 White Blood Count 6.27 K/uL Red Blood Count 4.58 M/uL Hemoglobin 12.9 g/dL Hematocrit 40.6 % Mean Corpuscular Volume 88.6 fL Mean Corpuscular Hemoglobin 28.2 pg Mean Corpuscular Hemoglobin Concent 31.8 g/dl RDW Standard Deviation 43.6 fL RDW Coefficient of Variation 13.5 % Platelet Count 135 K/uL Mean Platelet Volume 10.8 fL Sodium Level 141 mmol/L Potassium Level 3.4 mmol/L Chloride Level 108 mmol/L Carbon Dioxide Level 28 mmol/L Anion Gap 5.0 mmol/L Blood Urea Nitrogen 14 mg/dl Creatinine 0.81 mg/dl Est Creatinine Clear Calc Drug Dose 63.6 ml/min Estimated GFR () 87.1 Estimated GFR (Non- 75.2 BUN/Creatinine Ratio 17.2 Random Glucose 112 mg/dl Calcium Level 8.3 mg/dl Magnesium Level 1.8 mg/dl Total Bilirubin 0.8 mg/dl Aspartate Amino Transf (AST/SGOT) 13 U/L Alanine Aminotransferase (ALT/SGPT) 16 U/L Alkaline Phosphatase 65 U/L Total Protein 5.7 gm/dl Albumin 2.8 gm/dl Globulin 2.9 gm/dl Albumin/Globulin Ratio 1.0 Assessment & Plan Small Bowel Obstruction Present with abdominal pain associated with nausea and vomiting Possible related to adhesion since pt had many surgeries in the past CT abd/pelvis showed findings consistent with a moderate grade small bowel obstruction with transition point within the distal ileum, within the right lower quadrant. Continue pain control, Zofran and IVF Keep NPO Surgery on board Continue NGT insertion with low suction Abd Xray showed Gas-filled distended loops of small bowel persist Continue monitor Hypokalemia Continue K supplement mixed with NS HTN On losartan Hold PO med since NPO Stable Dyslipidemia Hold statin since NPO Hepatic Lesion Outpatient monitor DVT px Heparin subq (risk of DVT due to hx of cancer) SCDs CODE STATUS FULL CODE Consultants: Surgery Current Inpatient Medications: Current Inpatient Medications Medications (Trade) Dose Ordered Sig/Enoc Route Start Time Stop Time Status Last Admin Dose Admin Ioversol (Optiray 320) 111 ml UD PRN IV 01/19/17 08:30 01/23/17 08:29 Heparin Sodium (Porcine) (Heparin Sq 5000 Unit/0.5ml) 5,000 unit Q12 SQ 01/19/17 21:00 02/18/17 20:59 01/20/17 08:38 5,000 UNIT Ondansetron HCl (Zofran Inj) 4 mg Q4H PRN IV 01/19/17 13:15 02/18/17 13:14 01/20/17 09:50 4 MG Hydromorphone HCl (Dilaudid Inj) 1 mg Q4HWA PRN IV 01/19/17 14:15 02/02/17 14:14 01/20/17 05:53 1 MG Potassium Chloride/Sodium Chloride 1,000 ml @ 100 mls/hr Q10H IV 01/20/17 06:30 02/19/17 06:29 01/20/17 07:11 100 MLS/HR
[2017-01-20 15:11] VITALS: BP 134/77; PULSE 70; TEMP 36.9; O2SAT 94
--- NOTE | 2017-01-20 16:23 | Surgery Progress Note ---
Surgery Progress Note Date of Service Jan 20, 2017. Subjective + feeling well pt feels better, no abdominal pain, NG 500ml, but not pass gas or BM yet, Objective Vital Signs: Date Time Temp Pulse Resp B/P (MAP) Pulse Ox O2 Delivery O2 Flow Rate FiO2 01/20/17 15:11 36.9 70 16 134/77 (96) 94 Room Air 01/20/17 07:44 36.8 70 16 132/74 (93) 94 Room Air 01/20/17 07:15 Room Air 01/19/17 23:39 36.5 94 16 111/64 (80) 91 Room Air 01/19/17 23:25 Room Air 01/19/17 16:20 Room Air General Appearance: WD/WN, no apparent distress Head: normocephalic Neck: supple, no adenopathy Respiratory/Chest: chest non-tender, lungs clear, normal breath sounds Cardiovascular: regular rate, rhythm, no edema, no gallop, no JVD Abdomen: normal bowel sounds, non tender, non distended, soft, no organomegaly Extremities: normal range of motion, non-tender, normal inspection Laboratory Results: Results Past 24 Hours Test 01/20/17 05:10 Range/Units White Blood Count 6.27 4.8-10.8 K/uL Red Blood Count 4.58 4.2-5.4 M/uL Hemoglobin 12.9 12.0-16.0 g/dL Hematocrit 40.6 37-47 % Mean Corpuscular Volume 88.6 80-100 fL Mean Corpuscular Hemoglobin 28.2 25-34 pg Mean Corpuscular Hemoglobin Concent 31.8 32-36 g/dl RDW Standard Deviation 43.6 36.4-46.3 fL RDW Coefficient of Variation 13.5 11.5-14.5 % Platelet Count 135 130-400 K/uL Mean Platelet Volume 10.8 7.4-10.4 fL Sodium Level 141 136-145 mmol/L Potassium Level 3.4 3.5-5.1 mmol/L Chloride Level 108 98-107 mmol/L Carbon Dioxide Level 28 21-32 mmol/L Anion Gap 5.0 3-11 mmol/L Blood Urea Nitrogen 14 7-18 mg/dl Creatinine 0.81 0.60-1.20 mg/dl Est Creatinine Clear Calc Drug Dose 63.6 ml/min Estimated GFR () 87.1 Estimated GFR (Non- 75.2 BUN/Creatinine Ratio 17.2 10-20 Random Glucose 112 70-99 mg/dl Calcium Level 8.3 8.5-10.1 mg/dl Magnesium Level 1.8 1.8-2.4 mg/dl Total Bilirubin 0.8 0.2-1 mg/dl Aspartate Amino Transf (AST/SGOT) 13 15-37 U/L Alanine Aminotransferase (ALT/SGPT) 16 12-78 U/L Alkaline Phosphatase 65 45-117 U/L Total Protein 5.7 6.4-8.2 gm/dl Albumin 2.8 3.4-5.0 gm/dl Globulin 2.9 2.5-4.0 gm/dl Albumin/Globulin Ratio 1.0 0.9-2 Assessment & Plan F/U SBO continue treatment pt requests to sign to DR. Ferrer service tomorrow,
[2017-01-20] MEDS: PANTOprazole INJ 40 MG in SYRINGE 0 ML IV SCH (17:36)
[2017-01-20 22:48] VITALS: BP 151/83; PULSE 82; TEMP 37.2; O2SAT 95
[2017-01-21] MEDS: HYDROmorphone INJ 1 MG/ML SYR IV PRN
[2017-01-21] MEDS: ONDANSETRON INJ 2 MG/ML 2 ML VIAL IV PRN
[2017-01-21] MEDS: NSS + 20MEQ KCL 1000ML 1,000 ML IV SCH ×3 (02:49→23:48)
[2017-01-21 07:21] VITALS: BP_SYST 148; BP_SYST 149; BP_DIAS 78; BP_DIAS 89; PULSE 70; PULSE 82; TEMP 36.4; TEMP 37.1; O2SAT 93; O2SAT 96
[2017-01-21] MEDS: HEPARIN SOD 5000 UNIT/0.5 ML CARP SQ SCH ×2 (07:31→20:45)
[2017-01-21] MEDS: PANTOprazole INJ 40 MG in SYRINGE 0 ML IV SCH ×2 (07:34→20:44)
--- NOTE | 2017-01-21 08:45 | Surgery Progress Note ---
Surgery Progress Note Date of Service Jan 21, 2017. Subjective feeling better, formed BM last night, some flatus this AM, NG clamped for about an hour so far Objective Vital Signs: Date Time Temp Pulse Resp B/P (MAP) Pulse Ox O2 Delivery O2 Flow Rate FiO2 01/21/17 08:09 Room Air 01/21/17 07:21 37.1 82 17 149/78 (101) 93 Room Air 01/20/17 23:55 Room Air 01/20/17 22:48 37.2 82 18 151/83 (105) 95 Room Air 01/20/17 15:45 Room Air 01/20/17 15:11 36.9 70 16 134/77 (96) 94 Room Air Physical Exam: nasogastric drainage (390 overnight) Abdomen: non tender, soft, + distended (minimal) Laboratory Results: Results Past 24 Hours Test 01/21/17 08:26 Range/Units Assessment & Plan PSBO CT contrast in colon on yesterday XR passing flatus, had BM will clamp NG a few hours, should be able to remove later today discussed with Dr. Dee, Dr. Quach will be back tomorrow
[2017-01-21 09:16] LABS: BUN/CREATININE RATIO 12.9 (10-20); CREATININE 0.72 mg/dl (0.60-1.20); POTASSIUM 3.7 mmol/L (3.5-5.1)
[2017-01-21 09:18] LABS: ALB/GLOB RATIO 0.9 (0.9-2)
--- NOTE | 2017-01-21 09:29 | DIAGNOSTIC IMAGING REPORT ---
ABDOMEN 2 VIEWS CLINICAL HISTORY: SBO pain. Obstruction. COMPARISON STUDY: 01/20/2017 FINDINGS: Moderately improved bowel gas pattern. Contrast persists within the colon. Small bowel distention right central region is mildly improved with a 4.7 cm diameter liver small bowel currently measuring 3.5 cm. IMPRESSION: Improving study with no evidence for obstructive change on the current exam. Mild residual ileus. Nasogastric tube within the mid stomach. The above report was generated using voice recognition software. It may contain grammatical, syntax or spelling errors. Electronically signed by: Pako Rodrigues M.D. 01/21/2017 9:27 AM Dictated Date/Time: 01/21/2017 9:26 AM
[2017-01-21] MEDS ORDERED: MINERAL OIL 30 ML UDC PO ONE (10:45)
[2017-01-21] MEDS: SENNA 8.8 MG/5 ML UDP NG SCH ×2 (11:00→20:44)
[2017-01-21 15:05] VITALS: BP 158/79; PULSE 80; TEMP 37.1; O2SAT 95
--- NOTE | 2017-01-21 16:52 | Progress Note ---
Medicine Progress Note Date & Time of Visit: Jan 21, 2017 at 13:45. Subjective Pt was seen and examined Lying in bed with no distress Pt said that her abdominal pain improved She said that she had a small bowel movement last night she said that she feels her face is swelling Denies any chest pain, palpitation, dizziness and SOB Objective Last 8 Hrs Date Time Temp Pulse Resp B/P (MAP) Pulse Ox O2 Delivery O2 Flow Rate FiO2 01/21/17 15:15 Room Air 01/21/17 15:05 37.1 80 16 158/79 (105) 95 Room Air Physical Exam: General- No acute distress Head- atraumatic Eyes- PERRL, EOMI ENT- oropharynx clear Neck- supple, no JVD Lungs- clear to auscultation Heart- regular rhythm Abdomen- Hypoactive bowel sounds, +mild tenderness Extremities- no calf tenderness Neuro- alert, oriented x 3; PERRL, EOMI; no facial palsy; no dysarthria Skin- warm & dry Laboratory Results: Last 24 Hours Test 01/21/17 08:26 Sodium Level 144 mmol/L Potassium Level 3.7 mmol/L Chloride Level 108 mmol/L Carbon Dioxide Level 25 mmol/L Anion Gap 11.0 mmol/L Blood Urea Nitrogen 9 mg/dl Creatinine 0.72 mg/dl Est Creatinine Clear Calc Drug Dose 71.6 ml/min Estimated GFR () 100.4 Estimated GFR (Non- 86.7 BUN/Creatinine Ratio 12.9 Random Glucose 76 mg/dl Calcium Level 9.0 mg/dl Total Bilirubin 0.8 mg/dl Aspartate Amino Transf (AST/SGOT) 12 U/L Alanine Aminotransferase (ALT/SGPT) 16 U/L Alkaline Phosphatase 70 U/L Total Protein 6.5 gm/dl Albumin 3.1 gm/dl Globulin 3.4 gm/dl Albumin/Globulin Ratio 0.9 Assessment & Plan Small Bowel Obstruction Present with abdominal pain associated with nausea and vomiting Possible related to adhesion since pt had many surgeries in the past CT abd/pelvis showed findings consistent with a moderate grade small bowel obstruction with transition point within the distal ileum, within the right lower quadrant. Continue pain control, Zofran and IVF Keep NPO Surgery on board Continue NGT insertion with low suction Abd Xray showed Gas-filled distended loops of small bowel persist Continue monitor 01/21 Clinically improved NGT clamped, Plan to removed today Repeat xray showed improving study with no evidence for obstructive change on the current exam. Mild residual ileus. Continue NPO Continue PPI surgery on board Hypokalemia Continue K supplement mixed with NS Stable HTN BP elevated On losartan Hold PO med since NPO Will start on prn hydralazine Stable Dyslipidemia Hold statin since NPO Hepatic Lesion Outpatient monitor DVT px Heparin subq (risk of DVT due to hx of cancer) SCDs CODE STATUS FULL CODE Consultants: Surgery Current Inpatient Medications: Current Inpatient Medications Medications (Trade) Dose Ordered Sig/Enoc Route Start Time Stop Time Status Last Admin Dose Admin Ioversol (Optiray 320) 111 ml UD PRN IV 01/19/17 08:30 01/23/17 08:29 Heparin Sodium (Porcine) (Heparin Sq 5000 Unit/0.5ml) 5,000 unit Q12 SQ 01/19/17 21:00 02/18/17 20:59 01/21/17 07:31 5,000 UNIT Ondansetron HCl (Zofran Inj) 4 mg Q4H PRN IV 01/19/17 13:15 02/18/17 13:14 01/21/17 00:00 4 MG Hydromorphone HCl (Dilaudid Inj) 1 mg Q4HWA PRN IV 01/19/17 14:15 02/02/17 14:14 01/21/17 00:00 1 MG Potassium Chloride/Sodium Chloride 1,000 ml @ 100 mls/hr Q10H IV 01/20/17 06:30 02/19/17 06:29 01/21/17 15:04 100 MLS/HR Pantoprazole Sodium 40 mg/ Syringe 10 ml @ 5 mls/min BID IV 01/20/17 16:15 02/19/17 16:14 01/21/17 07:34 5 MLS/MIN Senna (Senokot Syrup) 8.8 mg BID NG 01/21/17 11:00 02/20/17 10:59 01/21/17 11:00 8.8 MG
[2017-01-21] MEDS ORDERED: HydrALAZINE HCL 20 MG/ML VIAL IV. PRN (17:00)
[2017-01-21 23:00] VITALS: BP 146/72; PULSE 73; TEMP 37; O2SAT 96
[2017-01-22 06:10] LABS: HEMATOCRIT 36.4 % (37-47); MEAN CELL VOLUME 87.5 fL (80-100); MEAN CORPUSCULAR HEMOGLOBIN 28.8 pg (25-34); MEAN PLATELET VOLUME 10.7 fL (7.4-10.4); PLATELET COUNT 122 K/uL (130-400); RED BLOOD COUNT 4.16 M/uL (4.2-5.4); WHITE BLOOD COUNT 5.51 K/uL (4.8-10.8)
--- NOTE | 2017-01-22 07:07 | Surgery Progress Note ---
Surgery Progress Note Date of Service Jan 22, 2017. Subjective + ambulating, + bowel movement, + flatus, + diet (tea last night), No nausea Objective Vital Signs: Date Time Temp Pulse Resp B/P (MAP) Pulse Ox O2 Delivery O2 Flow Rate FiO2 01/21/17 23:45 Room Air 01/21/17 23:00 37.0 73 14 146/72 (96) 96 Room Air 01/21/17 15:15 Room Air 01/21/17 15:05 37.1 80 16 158/79 (105) 95 Room Air 01/21/17 08:09 Room Air 01/21/17 07:21 37.1 82 17 149/78 (101) 93 Room Air Abdomen: non tender, non distended, soft Laboratory Results: Results Past 24 Hours Test 01/21/17 08:26 01/22/17 05:23 Range/Units Sodium Level 144 136-145 mmol/L Potassium Level 3.7 3.5-5.1 mmol/L Chloride Level 108 98-107 mmol/L Carbon Dioxide Level 25 21-32 mmol/L Anion Gap 11.0 3-11 mmol/L Blood Urea Nitrogen 9 7-18 mg/dl Creatinine 0.72 0.60-1.20 mg/dl Est Creatinine Clear Calc Drug Dose 71.6 ml/min Estimated GFR () 100.4 Estimated GFR (Non- 86.7 BUN/Creatinine Ratio 12.9 10-20 Random Glucose 76 70-99 mg/dl Calcium Level 9.0 8.5-10.1 mg/dl Total Bilirubin 0.8 0.2-1 mg/dl Aspartate Amino Transf (AST/SGOT) 12 15-37 U/L Alanine Aminotransferase (ALT/SGPT) 16 12-78 U/L Alkaline Phosphatase 70 45-117 U/L Total Protein 6.5 6.4-8.2 gm/dl Albumin 3.1 3.4-5.0 gm/dl Globulin 3.4 2.5-4.0 gm/dl Albumin/Globulin Ratio 0.9 0.9-2 White Blood Count 5.51 4.8-10.8 K/uL Red Blood Count 4.16 4.2-5.4 M/uL Hemoglobin 12.0 12.0-16.0 g/dL Hematocrit 36.4 37-47 % Mean Corpuscular Volume 87.5 80-100 fL Mean Corpuscular Hemoglobin 28.8 25-34 pg Mean Corpuscular Hemoglobin Concent 33.0 32-36 g/dl RDW Standard Deviation 40.8 36.4-46.3 fL RDW Coefficient of Variation 12.7 11.5-14.5 % Platelet Count 122 130-400 K/uL Mean Platelet Volume 10.7 7.4-10.4 fL Assessment & Plan PSBO, improving clears for breakfast, consider advancing after that will recheck later today Addendum: seen with Dr. Quach will advance diet as belia today to low fiber probably keep here overnight
[2017-01-22 07:11] VITALS: BP 152/82; PULSE 71; TEMP 37.1; O2SAT 94
[2017-01-22] MEDS: PANTOprazole INJ 40 MG in SYRINGE 0 ML IV SCH ×2 (08:52→20:38)
[2017-01-22] MEDS: SENNA 8.8 MG/5 ML UDP NG SCH ×2 (08:52→20:42)
[2017-01-22] MEDS: HEPARIN SOD 5000 UNIT/0.5 ML CARP SQ SCH ×2 (08:54→20:39)
[2017-01-22] MEDS: NSS + 20MEQ KCL 1000ML 1,000 ML IV SCH (11:48)
[2017-01-22 15:00] VITALS: BP 130/75; PULSE 71; TEMP 36.9; O2SAT 94
--- NOTE | 2017-01-22 18:33 | Progress Note ---
Internal Med Progress Note Date of Service: Jan 22, 2017. Provider Documentation: SUBJECTIVE: feels fine diet advanced to low fiber diet , tolerating diet had bowel movement earlier no nausea or vomiting , no abdominal pain OBJECTIVE: Vital Signs-as noted below Exam: General-well appearing female , no sign of distress Eyes-sclera non icteric , PERRLA/EOMI ENT-moist oral membrane, normal oropharynx Neck-trachea midline , no thyromegaly Lungs-clear to auscultate , no wheeze or rales Heart-regular S1/S2 Abdomen-soft, non tender ,bowel sound active Extremities-no lower ext edema, no rash or deformity Neuro-AAO x3, no focal deficit Lab data as noted below. ASSESSMENT & PLAN: Small Bowel Obstruction resolved with conservative approach with bowel rest and IVF abdominal pain has resolved , tolerating low fiber diet Present with abdominal pain associated with nausea and vomiting hx of multiple bowel surgery /hx of carcinoid tumor of intestine s/p resection / s/p total abdominal hysterectomy for mets /prior hx of bowel obstruction due to adhesion s/p resection CT abd/pelvis showed findings consistent with a moderate grade small bowel obstruction with transition point within the distal ileum, within the right lower quadrant. appreciate input form surgery initially required complete bowel rest with NG suction Clinically improved Repeat xray showed improving study with no evidence for obstructive change on the current exam. Mild residual ileus. NG tube removed ,gradual advancement of diet tolerating low fiber diet IVF D/davin Hypokalemia due to GI loss corrected HTN oral meds resumed Hepatic Lesion Outpatient monitor pt follows with Heme Onc in [place] DVT px Heparin subq (risk of DVT due to hx of cancer) SCDs CODE STATUS FULL CODE DISPOSITION possible discharge home tomorrow Medicine follow up with Dr Bourne Vital Signs: Date Time Temp Pulse Resp B/P (MAP) Pulse Ox O2 Delivery O2 Flow Rate FiO2 01/22/17 15:10 Room Air 01/22/17 15:00 36.9 71 16 130/75 (93) 94 Room Air 01/22/17 07:30 Room Air 01/22/17 07:11 37.1 71 16 152/82 (105) 94 Room Air 01/21/17 23:45 Room Air Lab Results: Results Past 24 Hours Test 01/22/17 05:23 Range/Units White Blood Count 5.51 4.8-10.8 K/uL Red Blood Count 4.16 4.2-5.4 M/uL Hemoglobin 12.0 12.0-16.0 g/dL Hematocrit 36.4 37-47 % Mean Corpuscular Volume 87.5 80-100 fL Mean Corpuscular Hemoglobin 28.8 25-34 pg Mean Corpuscular Hemoglobin Concent 33.0 32-36 g/dl RDW Standard Deviation 40.8 36.4-46.3 fL RDW Coefficient of Variation 12.7 11.5-14.5 % Platelet Count 122 130-400 K/uL Mean Platelet Volume 10.7 7.4-10.4 fL
[2017-01-22 23:12] VITALS: BP 136/79; PULSE 62; TEMP 36.9; O2SAT 95
--- NOTE | 2017-01-22 23:49 | Discharge Instructions ---
Discharge Instructions Date of Service Jan 22, 2017. Admission Reason for Admission: Sbo(Small Bowel Obstruction) Discharge Discharge Diagnosis / Problem: SMALL BOWEL OBSTRUCTION Discharge Goals Goal(s): Decrease discomfort, Improve function, Increase independence, Improve disease control, Diagnostic testing, Therapeutic intervention Activity Recommendations Activity Limitations: resume your previous activity . Instructions / Follow-Up Instructions / Follow-Up HOSPITAL FOLLOW UP 01/25/2017 9:50 AM Ana Laura Bourne DO [facility] INCIDENTAL FINDING OF FEW HYPODENSE LESION IN LIVER NEEDS REPEAT CT ABDOMEN /PELVIS IN 4-6 WEEKS TO RE EVALUATE FOLLOW UP WITH HEME ON[facility] DR Jacque Patel MD AT [place] PER SCHEDULE Current Hospital Diet Patient's current hospital diet: Low Fiber Diet Discharge Diet Recommended Diet: Low Fiber Diet Pending Studies Studies pending at discharge: no Medical Emergencies . Who to Call and When: Medical Emergencies: If at any time you feel your situation is an emergency, please call 911 immediately. . Non-Emergent Contact Non-Emergency issues call your: Primary Care Provider . . "Provider Documentation" section prepared by Tia Mo. . VTE Core Measure Inpt VTE Proph given/why not?: Unfractionated heparin SQ
--- NOTE | 2017-01-23 06:47 | SURGERY PROGRESS NOTE ---
DATE: 01/23/2017 Regina is doing very well. She ate low fiber diet yesterday including mashed potatoes and some chicken without any problem. She has no abdominal discomfort. She has moved her bowel, continues to have some diarrhea. Her last vitals showed a temperature of 36.9, pulse 62, respirations 14, blood pressure 136/79, O2 sats 95 on room air. At this point, the patient is completely back to normal; therefore, from my point of view, she can be discharged. I would see her back in the office on a p.r.n. basis. I advised her to keep on a low fiber diet and also keep track of her oral intake to see if certain foods trigger this abdominal bloating since we know she has gallstones. I am not 100% sure that all the etiology is based on a bowel obstruction, although that precipitated possible and could have been a biliary attack according to her history and sequence of events. Having said this, at this point, I have nothing further to add. There is no further testing that needs to be done and we will see her on a p.r.n. basis.
[2017-01-23 07:42] VITALS: BP 148/86; PULSE 61; TEMP 36.9; O2SAT 96
[2017-01-23 07:44] VITALS: O2SAT 96
[2017-01-23] MEDS: SENNA 8.8 MG/5 ML UDP NG SCH (08:30)
[2017-01-23] MEDS: HEPARIN SOD 5000 UNIT/0.5 ML CARP SQ SCH (08:36)
[2017-01-23] MEDS ORDERED: LOSARTAN POTASSIUM 50 MG TAB PO SCH (09:00)
[2017-01-23] MEDS ORDERED: PANTOprazole SOD 40 MG TAB PO SCH (09:00)
[2017-01-23] MEDS ORDERED: ATORVASTATIN 20 MG TAB PO SCH (09:00)
--- NOTE | 2017-01-23 12:12 | Discharge Summary ---
Discharge Summary Date of Service Jan 23, 2017. Discharge Summary Admission Date: Jan 19, 2017 at 12:20 Discharge Date: Jan 23, 2017 Discharge Disposition: Home Principal Diagnosis: SMALL BOWEL OBSTRUCTION-RESOLVED Procedures: XRAY OF ABDOMEN : 01/21/17 : IMPRESSION: Improving study with no evidence for obstructive change on the current exam. Mild residual ileus. Nasogastric tube within the mid stomach. CT ABDOMEN /PELVIS : IMPRESSION: 1. Findings consistent with a moderate grade small bowel obstruction with transition point within the distal ileum, within the right lower quadrant. Statistically, this obstruction is due to adhesions. However, a malignant etiology cannot be excluded given the clinical history. 2. Significant interval decrease in size of multiple omental/peritoneal nodules shown on prior CT. At most, several tiny residual omental nodules. 3. Small amount of ascites. No pneumatosis, free air or portal venous gas. 4. Cholelithiasis. 5. A few hypodense hepatic lesions which were not evident on CT of January 06, 2015. These are indeterminate and should be assessed on subsequent imaging studies however may reflect cysts. Consultations: Surgery Medication Reconciliation Continued Medications: Atorvastatin (Lipitor) 20 Mg Tab 20 MG PO Q2D, TAB Losartan Potassium (Cozaar *) 100 Mg Tab 100 MG PO HS, 0 Refills Admission Information HPI (per Admitting provider): 66 year-old female with PMH of Carcinoid tumor, small bowel obstruction, hysterectomy, small bowel resection, metastatic breast cancer present to the ER after developing constant abdominal pain associated with nausea and vomiting. Pt said that last night she developed 6/10 constant abdominal pain, located across the upper abdomen, non radiated, cramping that is more prominent in the LUQ. Pt said that around 3 am she started to vomit that was yellowish with food particles. Pt said that her last episode of vomiting was this morning at 7AM. She said that she feels bloating and her last BM was yesterday that was normal. Pt said that last week at the football game she developed the similar symptoms but that was resolved after few hours. Denies any chest pain, palpitation, dizziness, fever, dysuria and SOB. Physical Exam (per Admitting): General Appearance: WD/WN, no apparent distress Head: normocephalic, atraumatic Eyes: PERRL, sclerae normal ENT: hearing grossly normal Neck: no JVD, trachea midline Respiratory/Chest: lungs clear, no respiratory distress, no accessory muscle use Cardiovascular: no JVD, no murmur Abdomen/GI: + tenderness (More prominenet pain in LUQ ), + pertinent finding (Hypoactive BS) Back: no CVA tenderness Extremities/Musculoskelatal: no calf tenderness Neurologic/Psych: no motor/sensory deficits, alert, oriented x 3 Skin: warm/dry, no rash Hospital Course PHYSICAL EXAM : Exam: General-well appearing female , no sign of distress Eyes-sclera non icteric , PERRLA/EOMI ENT-moist oral membrane, normal oropharynx Neck-trachea midline , no thyromegaly Lungs-clear to auscultate , no wheeze or rales Heart-regular S1/S2 Abdomen-soft, non tender ,bowel sound active Extremities-no lower ext edema, no rash or deformity Neuro-AAO x3, no focal deficit Small Bowel Obstruction resolved with conservative approach with bowel rest and IVF abdominal pain has resolved , tolerating low fiber diet Presented with abdominal pain associated with nausea and vomiting hx of multiple bowel surgery /hx of carcinoid tumor of intestine s/p resection / s/p total abdominal hysterectomy for mets /prior hx of bowel obstruction due to adhesion s/p resection CT abd/pelvis showed findings consistent with a moderate grade small bowel obstruction with transition point within the distal ileum, within the right lower quadrant. appreciate input form surgery initially required complete bowel rest with NG suction Clinically improved Repeat xray showed improving study with no evidence for obstructive change on the current exam. Mild residual ileus. NG tube removed ,gradual advancement of diet tolerating low fiber diet stable to be discharged home today Hypokalemia due to GI loss corrected HTN oral meds resumed Hepatic Lesion Outpatient monitor pt follows with [facility] in [place] DVT px Heparin subq (risk of DVT due to hx of cancer) SCDs CODE STATUS FULL CODE DISPOSITION discharge home today Medicine follow up with Dr Bourne Total time spent on discharge = 35 MINS This includes examination of the patient, discharge planning, medication reconciliation, and communication with other providers. Discharge Instructions Discharge Instructions Date of Service Jan 22, 2017. Admission Reason for Admission: Sbo(Small Bowel Obstruction) Discharge Discharge Diagnosis / Problem: SMALL BOWEL OBSTRUCTION Discharge Goals Goal(s): Decrease discomfort, Improve function, Increase independence, Improve disease control, Diagnostic testing, Therapeutic intervention Activity Recommendations Activity Limitations: resume your previous activity . Instructions / Follow-Up Instructions / Follow-Up HOSPITAL FOLLOW UP 01/25/2017 9:50 AM Ana Laura Bourne DO [facility] INCIDENTAL FINDING OF FEW HYPODENSE LESION IN LIVER NEEDS REPEAT CT ABDOMEN /PELVIS IN 4-6 WEEKS TO RE EVALUATE FOLLOW UP WITH HEME ONC DR Jacque Patel MD AT [place] PER SCHEDULE Current Hospital Diet Patient's current hospital diet: Low Fiber Diet Discharge Diet Recommended Diet: Low Fiber Diet Pending Studies Studies pending at discharge: no Medical Emergencies . Who to Call and When: Medical Emergencies: If at any time you feel your situation is an emergency, please call 911 immediately. . Non-Emergent Contact Non-Emergency issues call your: Primary Care Provider . . "Provider Documentation" section prepared by Tia Mo. . VTE Core Measure Inpt VTE Proph given/why not?: Unfractionated heparin SQ Additional Copies To Ana Laura Bourne,[employer]
[2017-01-23 12:40] VITALS: BP 148/86; PULSE 61; TEMP 36.9; O2SAT 96
== END 2017-01-23 13:33 | disposition home or self-care (01) | DRG 390 ==
LOC: C.EDB 07:51 → C.MSW 12:20 → ENRESERV 12:47
PROVIDERS: ADMIT Internal Medicine; ATTEND Hospitalist
DX: K56.51 Intestinal adhesions [bands], with partial obstruction (principal); E87.6 Hypokalemia; K76.9 Liver disease, unspecified; I10 Essential (primary) hypertension; E78.00 Pure hypercholesterolemia, unspecified; E78.5 Hyperlipidemia, unspecified; Z51.81 Encounter for therapeutic drug level monitoring; Z79.899 Other long term (current) drug therapy; Z85.3 Personal history of malignant neoplasm of breast; Z82.49 Family history of ischemic heart disease and other diseases of the circulatory system; Z85.030 Personal history of malignant carcinoid tumor of large intestine; Z98.890 Other specified postprocedural states; Z90.710 Acquired absence of both cervix and uterus; Z83.3 Family history of diabetes mellitus

== ENCOUNTER 2018-05-06 16:06 | Inpatient (IN) ==
[2018-05-06] MEDS ORDERED: SODIUM CHLORIDE 0.9% 1000ML 500 ML IV ONE (17:32)
[2018-05-06] MEDS ORDERED: ONDANSETRON INJ 2 MG/ML 2 ML VIAL IV STA (17:32)
[2018-05-06] MEDS ORDERED: HYDROmorphone INJ 0.5 MG/0.5 ML SYR IV STA (17:32)
[2018-05-06] MEDS ORDERED: SODIUM CHLORIDE 0.9% 1000ML 1,000 ML IV SCH (17:45)
[2018-05-06 18:02] LABS: Albumin Level 3.6 gm/dl (3.4-5.0); Appearance Urine Clear (Clear); BUN Creatinine Ratio 14.9 (10-20); Bacteria Urine Automated Negative (Negative); Bilirubin Urine Negative (Negative); Blood Urine Trace (Negative); Calcium 9.1 mg/dl (8.5-10.1); Color Urine Yellow; Creatinine Clr Calc Pharmacy 47.6 ml/min; Epithelial Cell Urine Auto >30 /lpf (0-5); Est GFR (Non-African American) 56.1; Glucose Urine UA Negative (Negative); Ketones Urine 1+ (Negative); Leukocyte Esterase Urine Trace (Negative); Nitrite Urine Negative (Negative); Potassium 3.6 mmol/L (3.5-5.1); Protein Urine Negative (Negative); RBC Urine Automated 0-4 /hpf (0-4); Specific Gravity Urine 1.018 (1.000-1.030); Urobilinogen Urine Negative (Negative)
[2018-05-06 18:04] LABS: Albumin Globulin Ratio 0.9 (0.9-2); Bilirubin,Total 1.5 mg/dl (0.2-1); Total Protein 7.6 gm/dl (6.4-8.2)
[2018-05-06 18:25] LABS: Eosinophils # (auto) 0.04 K/uL (0-0.5); Eosinophils % (auto) 1.3 %; Hematocrit (blood only) 40.3 % (37-47); Hemoglobin 13.9 g/dL (12.0-16.0); Immature Granulocytes # (auto) 0.02 K/uL (0.00-0.02); Immature Granulocytes % (auto) 0.6 %; Lymphocytes # (auto) 1.13 K/uL (1.2-3.4); Lymphocytes % (auto) 35.3 %; Mean Corpuscular Hgb Conc 34.5 g/dL (32-36); Mean Corpuscular Volume 89.2 fL (80-100); Monocytes # (auto) 0.59 K/uL (0.11-0.59); Monocytes % (auto) 18.4 %; Neutrophils # (auto) 1.42 K/uL (1.4-6.5); Neutrophils % (auto) 44.4 %; Ovalocytes 1+; Platelet Count 97 K/uL (130-400); Platelet Estimate Decreased (Normal); RDW Coefficient of Variation 13.6 % (11.5-14.5); RDW Standard Deviation 44.3 fL (36.4-46.3); Red Blood Count 4.52 M/uL (4.2-5.4)
[2018-05-06] MEDS ORDERED: IOVERSOL 100ml IV PRN (18:51)
--- NOTE | 2018-05-06 19:18 | CT Scan Report ---
CT SCAN OF THE ABDOMEN AND PELVIS WITH IV CONTRAST CLINICAL HISTORY: Generalized abdominal pain. History of carcinoid tumor. COMPARISON STUDY: Abdominal CT dated 01/19/2017. Abdominal MRI dated 12/20/2010. TECHNIQUE: Following the IV administration of 94 cc of Optiray 320, CT scan of the abdomen and pelvi s is performed from the lung bases to the proximal femora. Images are reviewed in the axial, sagittal , and coronal planes. IV contrast was administered without complication. A dose lowering technique wa s utilized adhering to the principles of ALARA. CT DOSE: 367.89 mGy.cm FINDINGS: Lung bases: The heart is normal in size and without pericardial effusion. The lung bases are clear. T here is a small hiatal hernia. Liver: The contrast-enhanced liver is normal in size heterogeneous in attenuation. There is nodularit y of the hepatic surface contour suggesting early change of cirrhosis. There is no intrahepatic bilia ry ductal dilatation. The hepatic veins and portal veins are patent. Scattered hepatic cysts measure up to 14 mm. Additional subcentimeter hepatic hypodensities also likely represent cysts but are too s mall for definitive characterization. There is a subtle 14 mm lesion in the right lobe of the diaphra gm seen on image #51. This is been present dating back to 2010 and likely represents a small hemangio ma. Gallbladder: There are calcified gallstones, with no CT evidence of acute cholecystitis. Spleen: Normal in size and attenuation. Pancreas: There is moderate glandular atrophy of the pancreas. Scattered cystic foci within the pancr eas measuring up to 11 mm. 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 Adrenal glands: Unremarkable. Kidneys: The contrast enhanced kidneys demonstrate cortical atrophy and are without hydronephrosis. T he kidneys enhance symmetrically. Abdominal vasculature: The abdominal aorta is normal in course and caliber noting moderate atheroscle rotic calcification. Bowel: There is a large ventral hernia which contains a nonobstructed segment of the transverse colon . There are postoperative changes from small bowel resection, with small amount of stool is noted in the lower abdomen. The proximal small bowel loops are distended and fluid-filled, measuring up to 4.1 cm in diameter. The distal small bowel and colon are decompressed, and there is a transition point i nvolving matted loops of small bowel in the pelvis on image #[id number]. The appearance is consistent with a small bowel obstruction. No focally thick walled bowel loops are identified. There is no pneumatosis intestinalis or portal venous gas. There is mild colonic diverticulosis without CT evidence of acute diverticulitis. The appendix is not identified and reported surgically absent. Peritoneum: There is no intraperitoneal free air or abdominal ascites. Numerous subcentimeter mesente laura nodules/nodes are similar to previous. Lymphadenopathy: None. Pelvic viscera: The bladder is normal as visualized. The uterus is surgically absent. No adnexal lesi on is seen. Skeletal structures: The skeletal structures are osteopenic. Mild lumbosacral spondylosis is noted. N o lytic or blastic lesions are seen. IMPRESSION: 1. Findings are consistent with a small bowel obstruction. A transition point is identified in the pe lvis, and this is likely related to adhesions. 2. No focally thick walled bowel loops are identified. There is no intraperitoneal free air, pneumato sis intestinalis, or portal venous gas. 3. A large fat-containing ventral hernia contains a nonobstructed segment of the transverse colon. 4. Cholelithiasis. 5. Numerous tiny mesenteric nodules/nodes are similar to previous. There is no evidence of progressiv e metastatic disease in the abdomen or pelvis. 6. Additional findings as above. Electronically signed by: Mohamud Fallon M.D. 05/06/2018 7:16 PM
--- NOTE | 2018-05-06 21:45 | Emergency Department Note ---
Entered by Julio C Talamantes acting as a scribe for Rubi Dillon MD History of Present Illness General Chief complaint: Abdominal Pain Stated complaint: ABDOMINAL PAIN, VOMITING Source: patient History of Present Illness Onset (ago): day(s) 2 Location: abdomen Pain Consistency: + other (persistent) Quality: + other (pain traveling from the left to center abdomen) Associated symptoms: + nausea/vomiting and + other (low-grade fevers; feels somewhat bloated); no chest pain and no shortness of breath The patient is a 68 year old female who presents to the Emergency Room with complaints of persistent abdominal pain beginning two days ago. The patient reports that her pain started on the left side and has now traveled to the center abdomen. She notes that it temporarily felt improved yesterday but worsened again this morning. She states that she vomited two days ago and yesterday, but not today. She also notes that she has been eating less and feels somewhat bloated. She reports that she had a very small bowel movement yesterday and a small amount of diarrhea today without blood. She notes a low-grade fever two days ago. She denies chest pain or shortness of breath. 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 She notes that she is currently being treated with PRT for her cancer at [facility]. She notes that her most recent imaging showed that her tumors were stable. She also reports a history of small bowel obstruction that resolved without surgical intervention. Home Medications Home Medications Medication Instructions Recorded Confirmed Type atorvastatin 10 mg PO PM 05/06/18 05/06/18 History cholecalciferol (vitamin D3) 1 cap PO WK 05/06/18 05/06/18 History ondansetron HCl 8 mg PO DIRECTED PRN 05/06/18 05/06/18 History prochlorperazine maleate 10 mg PO DIRECTED PRN 05/06/18 05/06/18 History Allergies Allergy/AdvReac Type Severity Reaction Status Date / Time pneumococcal vaccine Allergy Severe REDNESS Verified 05/06/18 20:12 ,SWELLING @ SITE aloe Allergy Intermediate RASH Verified 05/06/18 20:12 Penicillins Allergy Intermediate RASH Verified 05/06/18 20:12 capecitabine Allergy Rash Unverified 05/06/18 20:12 latex AdvReac Intermediate "SORES IN Verified 05/06/18 20:12 MOUTH AFTER GOINGTO DENTIST" cefuroxime AdvReac Mild C DIFF Verified 05/06/18 20:12 Past Med/Surg History Medical History Ductal carcinoma in situ (DCIS) of left breast (Acute 12/28/13) "Abnormal left breast mammogram Status post needle localization lumpectomy revealing DCIS Stage pTisNX ER negative and DC negative 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" On 07/12/14 17:09 Nargis Maher wrote "Abnormal left breast mammogram Status post needle localization lumpectomy revealing DCIS Stage pTisNX 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" Carcinoid tumor (Acute) Hypertension (Chronic) Hypercholesteremia (Chronic) SBO (small bowel obstruction) (Acute) Surgical History H/O: hysterectomy (Acute) Hx of resection of small bowel (Acute) Family History Other Cancer Diabetes Gallbladder disease Heart disease Hypertension Social History Communication Ability: Effective Beliefs That Will Affect Care: None marital status: Current Living Situation: Spouse Other Information That Helps Us Care for You: No Feels Safe at Home: Yes Safety Concerns: Feels Safe At This Time Smoking Status: Never smoker Hx Alcohol Use: Yes Hx Substance Use: No Review of Systems See HPI for pertinent positives & negatives. and A total of 10 systems reviewed and were otherwise negative Physical Exam Vital Signs Vital Signs - 24 hr 05/07/18 07:45 05/07/18 12:00 05/07/18 15:01 Temperature 36.8 C 36.8 C Temperature Source Oral Oral Pulse Rate [Apical] 72 Pulse Rate [Right Finger] 76 Pulse Rhythm [Apical] Regular Pulse Strength [Apical] Normal Respiratory Rate 16 17 Respiratory Effort / Characteristics Non-Labored Spontaneous Non-Labored Spontaneous Respiratory Depth Normal Normal Normal Respiratory Pattern Regular Regular Blood Pressure [Left Arm] 122/70 113/63 Blood Pressure Mean [Left Arm] 87 79 Blood Pressure Position [Left Arm] Lying Lying Pulse Oximetry 95 96 Oxygen Delivery Method Room Air Room Air Room Air 05/07/18 22:55 Temperature 36.7 C Temperature Source Oral Pulse Rate [Apical] Pulse Rate [Right Finger] 65 Pulse Rhythm [Apical] Pulse Strength [Apical] Respiratory Rate 14 Respiratory Effort / Characteristics Respiratory Depth Respiratory Pattern Blood Pressure [Left Arm] 111/66 Blood Pressure Mean [Left Arm] 81 Blood Pressure Position [Left Arm] Lying Pulse Oximetry 97 Oxygen Delivery Method Room Air Vital signs reviewed. General: Well-appearing female, in no significant distress. HEENT: No scleral icterus, PERRLA, neck supple. Atraumatic. Cardiovascular: Regular rate and rhythm, no extra sounds. Pulmonary: Clear to auscultation bilaterally, normal work of breathing. Abdomen: Soft, nontender, mildly distended with positive tympani to percussion, positive bowel sounds. Musculoskeletal: Atraumatic, no peripheral edema. Neurologic: Patient awake alert and oriented x 3. Skin: Warm, dry, no rash Course 1726: Past medical records reviewed. The patient was evaluated in room A4B, and a complete history and physical examination were performed. 1939: I updated the patient on results. 1942: I consulted Dr. Thiago Garces Hospitalist. The patient will be reevaluated for hospitalization. Consultations Consultation #1: I consulted Dr. Thiago Garces Hospitalist. The patient will be reevaluated for hospitalization. Time: 19:43 Administered Medications Acetaminophen (Tylenol) 650 mg PO Q4H PRN PRN Reason: pain/fever Stop: 06/05/18 22:07 Last Admin: 05/07/18 13:23 Dose: 650 mg Documented by: [id number] Atorvastatin Calcium (Lipitor) 10 mg PO PM ANGELICA Stop: 06/06/18 20:59 Last Admin: 05/07/18 20:42 Dose: 10 mg Documented by: [id number] Potassium Chloride/Sodium Chloride (Normal Saline W/20 Meq Kcl) 20 meq in 1,000 mls @ 125 mls/hr IV .Q8H ANGELICA Stop: 06/05/18 21:44 Last Infusion: 05/07/18 22:14 Dose: 125 mls/hr Documented by: [id number] Admin: 05/07/18 19:40 Dose: 125 mls/hr Documented by: [id number] Infusion: 05/07/18 19:40 Dose: 125 mls/hr Documented by: [id number] Infusion: 05/07/18 11:49 Dose: 125 mls/hr Documented by: [id number] Admin: 05/07/18 11:49 Dose: 75 mls/hr Documented by: [id number] Infusion: 05/07/18 11:49 Dose: 75 mls/hr Documented by: [id number] Infusion: 05/07/18 06:17 Dose: 75 mls/hr Documented by: [id number] Admin: 05/06/18 23:27 Dose: 75 mls/hr Documented by: [id number] Prochlorperazine 5 mg/ Syringe 5 mls @ 5 mls/min IV Q6H PRN PRN Reason: Nausea And Vomiting Stop: 06/05/18 22:07 Last Admin: 05/06/18 23:27 Dose: 5 mls/min Documented by: [id number] Ketorolac Tromethamine (Toradol) 15 mg IV Q4H PRN PRN Reason: Pain Stop: 05/11/18 22:08 Last Admin: 05/07/18 20:44 Dose: 15 mg Documented by: [id number] Tramadol HCl (Ultram) 25 mg PO Q4H PRN PRN Reason: Pain Stop: 06/05/18 22:08 Last Admin: 05/07/18 19:28 Dose: 25 mg Documented by: [id number] Admin: 05/07/18 08:28 Dose: 25 mg Documented by: [id number] Admin: 05/06/18 23:27 Dose: 25 mg Documented by: [id number] Discontinued Medications Hydromorphone HCl (Dilaudid) 0.5 mg IV NOW STA Stop: 05/06/18 17:33 Last Admin: 05/06/18 17:55 Dose: 0.5 mg Documented by: [id number] Sodium Chloride (Nss 1000ml) 500 mls @ 999 mls/hr IV .Q31M ONE Stop: 05/06/18 18:02 Last Infusion: 05/06/18 18:33 Dose: 0 mls/hr Documented by: [id number] Admin: 05/06/18 17:54 Dose: 999 mls/hr Documented by: [id number] Sodium Chloride (Nss 1000ml) 1,000 mls @ 125 mls/hr IV .Q8H ANGELICA Stop: 06/05/18 17:44 Last Infusion: 05/06/18 23:16 Dose: 0 mls/hr Documented by: [id number] Admin: 05/06/18 18:33 Dose: 125 mls/hr Documented by: [id number] Ondansetron HCl (Zofran) 4 mg IV NOW STA Stop: 05/06/18 17:33 Last Admin: 05/06/18 17:55 Dose: 4 mg Documented by: [id number] Medical Decision Making Differential Diagnosis Differential diagnosis: Etiologies such as appendicitis, diverticulitis, PUD, biliary pathology, UTI, pancreatitis, small bowel obstruction, mesenteric ischemia, aortic pathology, infections, inflammatory bowel disease, renal colic, as well as others were entertained. Medical Records Attestation: I reviewed the patient's medical records. Home Medications Current Medication List: was personally reviewed by me Laboratory Data Attestation: I reviewed the patient's lab results. Result diagrams: 05/06/18 17:22 05/06/18 17:22 Lab Results 05/06/18 05/06/18 05/06/18 Range/Units 17:22 17:22 17:22 WBC 3.20 L (4.8-10.8) K/uL RBC 4.52 (4.2-5.4) M/uL Hgb 13.9 (12.0-16.0) g/dL Hct 40.3 (37-47) % MCV 89.2 (80-100) fL MCH 30.8 (25-34) pg MCHC 34.5 (32-36) g/dL RDW Std Deviation 44.3 (36.4-46.3) fL RDW Coeff of Katelyn 13.6 (11.5-14.5) % Plt Count 97 L (130-400) K/uL MPV 10.0 (7.4-10.4) fL Immature Gran % (Auto) 0.6 % Neut % (Auto) 44.4 % Lymph % (Auto) 35.3 % [place] % (Auto) 18.4 % Eos % (Auto) 1.3 % Baso % (Auto) 0.0 % Immature Gran # (Auto) 0.02 (0.00-0.02) K/uL Neut # (Auto) 1.42 (1.4-6.5) K/uL Lymph # (Auto) 1.13 L (1.2-3.4) K/uL [place] # (Auto) 0.59 (0.11-0.59) K/uL Eos # (Auto) 0.04 (0-0.5) K/uL Baso # (Auto) 0.00 (0-0.2) K/uL Platelet Estimate Decreased (Normal) Ovalocytes 1+ Sodium 136 (136-145) mmol/L Potassium 3.6 (3.5-5.1) mmol/L Chloride 101 (98-107) mmol/L Carbon Dioxide 28 (21-32) mmol/L Anion Gap 7.0 (3-11) BUN 15 (7-18) mg/dl Creatinine 1.02 (0.6-1.2) mg/dl Est Cr Clr Drug Dosing 47.6 ml/min Est GFR ( Amer) 65.0 Est GFR (Non-Af Amer) 56.1 BUN/Creatinine Ratio 14.9 (10-20) Glucose 98 (70-99) mg/dl Lactate (0.4-2.0) mmol/L Calcium 9.1 (8.5-10.1) mg/dl Magnesium (1.8-2.4) mg/dl Total Bilirubin 1.5 H (0.2-1) mg/dl AST 17 (15-37) U/L ALT 24 (12-78) U/L Alkaline Phosphatase 95 (45-117) U/L Total Protein 7.6 (6.4-8.2) gm/dl Albumin 3.6 (3.4-5.0) gm/dl Globulin 4.0 (2.5-4.0) gm/dl Albumin/Globulin Ratio 0.9 (0.9-2) Lipase 95 (73-393) U/L Urine Color Yellow Urine Appearance Clear (Clear) Urine pH 5.0 (4.5-7.5) Ur Specific [place] 1.018 (1.000-1.030) Urine Protein Negative (Negative) Urine Glucose (UA) Negative (Negative) Urine Ketones 1+ H (Negative) Urine Blood Trace H (Negative) Urine Nitrite Negative (Negative) Urine Bilirubin Negative (Negative) Urine Urobilinogen Negative (Negative) Ur Leukocyte Esterase Trace H (Negative) Urine WBC (Auto) 1-5 (0-5) /hpf Urine RBC (Auto) 0-4 (0-4) /hpf U Hyaline Cast (Auto) 1-5 (0-5) /lpf U Epithel Cells (Auto) >30 H (0-5) /lpf Urine Bacteria (Auto) Negative (Negative) 05/06/18 05/06/18 Range/Units 17:22 17:46 WBC (4.8-10.8) K/uL RBC (4.2-5.4) M/uL Hgb (12.0-16.0) g/dL Hct (37-47) % MCV (80-100) fL MCH (25-34) pg MCHC (32-36) g/dL RDW Std Deviation (36.4-46.3) fL RDW Coeff of Katelyn (11.5-14.5) % Plt Count (130-400) K/uL MPV (7.4-10.4) fL Immature Gran % (Auto) % Neut % (Auto) % Lymph % (Auto) % [place] % (Auto) % Eos % (Auto) % Baso % (Auto) % Immature Gran # (Auto) (0.00-0.02) K/uL Neut # (Auto) (1.4-6.5) K/uL Lymph # (Auto) (1.2-3.4) K/uL [place] # (Auto) (0.11-0.59) K/uL Eos # (Auto) (0-0.5) K/uL Baso # (Auto) (0-0.2) K/uL Platelet Estimate (Normal) Ovalocytes Sodium (136-145) mmol/L Potassium (3.5-5.1) mmol/L Chloride (98-107) mmol/L Carbon Dioxide (21-32) mmol/L Anion Gap (3-11) BUN (7-18) mg/dl Creatinine (0.6-1.2) mg/dl Est Cr Clr Drug Dosing ml/min Est GFR ( Amer) Est GFR (Non-Af Amer) BUN/Creatinine Ratio (10-20) Glucose (70-99) mg/dl Lactate 1.1 (0.4-2.0) mmol/L Calcium (8.5-10.1) mg/dl Magnesium 2.0 (1.8-2.4) mg/dl Total Bilirubin (0.2-1) mg/dl AST (15-37) U/L ALT (12-78) U/L Alkaline Phosphatase (45-117) U/L Total Protein (6.4-8.2) gm/dl Albumin (3.4-5.0) gm/dl Globulin (2.5-4.0) gm/dl Albumin/Globulin Ratio (0.9-2) Lipase (73-393) U/L Urine Color Urine Appearance (Clear) Urine pH (4.5-7.5) Ur Specific [place] (1.000-1.030) Urine Protein (Negative) Urine Glucose (UA) (Negative) Urine Ketones (Negative) Urine Blood (Negative) Urine Nitrite (Negative) Urine Bilirubin (Negative) Urine Urobilinogen (Negative) Ur Leukocyte Esterase (Negative) Urine WBC (Auto) (0-5) /hpf Urine RBC (Auto) (0-4) /hpf U Hyaline Cast (Auto) (0-5) /lpf U Epithel Cells (Auto) (0-5) /lpf Urine Bacteria (Auto) (Negative) Imaging Data Radiologist's Impression: Radiology results as stated below per my review and the radiologist's in terpretation: CT SCAN OF THE ABDOMEN AND PELVIS WITH IV CONTRAST CLINICAL HISTORY: Generalized abdominal pain. History of carcinoid tumor. COMPARISON STUDY: Abdominal CT dated 01/19/2017. Abdominal MRI dated 12/20/2010. TECHNIQUE: Following the IV administration of 94 cc of Optiray 320, CT scan of the abdomen and pelvis is performed from the lung bases to the proximal femora. Images are reviewed in the axial, sagittal, and coronal planes. IV contrast was administered without complication. A dose lowering technique was utilized adhering to the principles of ALARA. CT DOSE: 367.89 mGy.cm FINDINGS: Lung bases: The heart is normal in size and without pericardial effusion. The lung bases are clear. There is a small hiatal hernia. Liver: The contrast-enhanced liver is normal in size heterogeneous in attenuation. There is nodularity of the hepatic surface contour suggesting early change of cirrhosis. There is no intrahepatic biliary ductal dilatation. The hepatic veins and portal veins are patent. Scattered hepatic cysts measure up to 14 mm. Additional subcentimeter hepatic hypodensities also likely represent cysts but are too small for definitive characterization. There is a subtle 14 mm lesion in the right lobe of the diaphragm seen on image #51. This is been present dating back to 2011 and likely represents a small hemangioma. Gallbladder: There are calcified gallstones, with no CT evidence of acute cholecystitis. Spleen: Normal in size and attenuation. Pancreas: There is moderate glandular atrophy of the pancreas. Scattered cystic foci within the pancreas measuring up to 11 mm. These are unchanged dating back to 2011 and likely represent sidebranch IPMN's. Adrenal glands: Unremarkable. Kidneys: The contrast enhanced kidneys demonstrate cortical atrophy and are without hydronephrosis. The kidneys enhance symmetrically. Abdominal vasculature: The abdominal aorta is normal in course and caliber noting moderate atherosclerotic calcification. Bowel: There is a large ventral hernia which contains a nonobstructed segment of the transverse colon. There are postoperative changes from small bowel resection, with small amount of stool is noted in the lower abdomen. The proximal small bowel loops are distended and fluid-filled, measuring up to 4.1 cm in diameter. The distal small bowel and colon are decompressed, and there is a transition point involving matted loops of small bowel in the pelvis on image #283. The appearance is consistent with a small bowel obstruction. No focally thick walled bowel loops are identified. There is no pneumatosis intestinalis or portal venous gas. There is mild colonic diverticulosis without CT evidence of acute diverticulitis. The appendix is not identified and reported surgically absent. Peritoneum: There is no intraperitoneal free air or abdominal ascites. Numerous subcentimeter mesenteric nodules/nodes are similar to previous. Lymphadenopathy: None. Pelvic viscera: The bladder is normal as visualized. The uterus is surgically absent. No adnexal lesion is seen. Skeletal structures: The skeletal structures are osteopenic. Mild lumbosacral spondylosis is noted. No lytic or blastic lesions are seen. IMPRESSION: 1. Findings are consistent with a small bowel obstruction. A transition point is identified in the pelvis, and this is likely related to adhesions. 2. No focally thick walled bowel loops are identified. There is no intraperitoneal free air, pneumatosis intestinalis, or portal venous gas. 3. A large fat-containing ventral hernia contains a nonobstructed segment of the transverse colon. 4. Cholelithiasis. 5. Numerous tiny mesenteric nodules/nodes are similar to previous. There is no evidence of progressive metastatic disease in the abdomen or pelvis. 6. Additional findings as above. Electronically signed by: Mohamud Fallon M.D. 05/06/2018 7:16 PM Blood Pressure Blood Pressure Findings: Normal blood pressure Blood Pressure Disposition: did not require urgent referral MDM Narrative This patient was evaluated and appeared to be in no significant distress. IV access was obtained and laboratory work was drawn. Patient was placed on the cardiac technician. She was hydrated with normal saline solution, given IV Dilaudid and Zofran. CT imaging of the abdomen and pelvis reveals evidence of SBO. Patient has a history of recurrent SBO as well as carcinoid tumor of the bowel. Patient's laboratory work is fairly reassuring. She was not enthusiastic about an NG tube, stating she had "been through that before." As the patient is not actively vomiting and her pain is well controlled, an NG tube was not initiated in the emergency department. The case was discussed with the hospitalist service, Dr. Barros. He will evaluate the patient for further management. Impression & Plan SBO (small bowel obstruction) Discharge Plan Visit Data *Final* Discharge Date/Time: 05/06/18 22:26 Chief Complaint: Abdominal Pain Stated Complaint: ABDOMINAL PAIN, VOMITING ED Provider: Rubi Dillon Discharge Problem: SBO (small bowel obstruction) Patient Disposition: Admitted As Inpatient Discharge Instructions Interventions: ED Discharge Assessment Last Done: 05/06/18 22:26 The scribe's documentation has been prepared under my direction and personally reviewed by me in its entirety. I confirm that the note above accurately reflects all work, treatment, procedures, and medical decision making performed by me.
--- NOTE | 2018-05-06 21:58 | History & Physical Report ---
Date of Service May 06, 2018 Assessment & Plan (1) SBO (small bowel obstruction): Recurrent SBO Secondary to adhesions Past hx extensive surgery for intra-abdominal metastatic neuroendocrine tumor responsive to ongoing ongoing PRRT as of recent outpatient CT done at [place], [place] breast cancer left status post surgery, radiation hypertension, stable episodic thrombocytopenia GMF Bowel rest NGT decompression if with recurrent emesis Surgery consult RE recurrent SBO (Patient requesting for Dr. Quach.) DVT prophylaxis. SCDs RE thrombocytopenia Full code History of Present Illness Chief Complaint: Abdominal pain Primary Care Provider: Justyna Lee History obtained from patient, family, and records. Medical history significant for metastatic neuroendocrine tumor status post surgery, chemotherapy, ongoing PRRT (peptide receptor radionuclide therapy), breast cancer left status post surgery/radiation, hypertension, hyperlipidemia, episodic thrombocytopenia. Recent confinement December 2016 for small bowel obstruction which resolved with conservative management. Few days history of achy left-sided abdominal pain which crossed over to the right associated with nausea, emesis, loose stools episodes. No fever, no chills. Patient seen at PCP's office today and subsequently directed to the emergency room. 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 Allergies Allergy/AdvReac Type Severity Reaction Status Date / Time pneumococcal vaccine Allergy Severe REDNESS Verified 05/06/18 20:12 ,SWELLING @ SITE aloe Allergy Intermediate RASH Verified 05/06/18 20:12 Penicillins Allergy Intermediate RASH Verified 05/06/18 20:12 capecitabine Allergy Rash Unverified 05/06/18 20:12 latex AdvReac Intermediate "SORES IN Verified 05/06/18 20:12 MOUTH AFTER GOINGTO DENTIST" cefuroxime AdvReac Mild C DIFF Verified 05/06/18 20:12 Home Medications Home Medications Medication Instructions Recorded Confirmed Type atorvastatin 10 mg PO PM 05/06/18 05/06/18 History cholecalciferol (vitamin D3) 1 cap PO WK 05/06/18 05/06/18 History ondansetron HCl 8 mg PO DIRECTED PRN 05/06/18 05/06/18 History prochlorperazine maleate 10 mg PO DIRECTED PRN 05/06/18 05/06/18 History Past Med/Surg History Medical History Ductal carcinoma in situ (DCIS) of left breast (Acute 12/28/13) "Abnormal left breast mammogram Status post needle localization lumpectomy revealing DCIS Stage pTisNX ER negative and LA negative 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" On 07/12/14 17:09 Nargis Maher wrote "Abnormal left breast mammogram Status post needle localization lumpectomy revealing DCIS Stage pTisNX 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" Carcinoid tumor (Acute) Hypertension (Chronic) Hypercholesteremia (Chronic) SBO (small bowel obstruction) (Acute) Surgical History H/O: hysterectomy (Acute) Hx of resection of small bowel (Acute) Family History Other Cancer Diabetes Gallbladder disease Heart disease Hypertension Social History Communication Ability: Effective Beliefs That Will Affect Care: None marital status: Current Living Situation: Spouse Other Information That Helps Us Care for You: No Feels Safe at Home: Yes Safety Concerns: Feels Safe At This Time Smoking Status: Never smoker Hx Alcohol Use: Yes Hx Substance Use: No Review of Systems As per HPI, all 10 systems reviewed, all other ROS negative Physical Exam Vital Signs (Past 24 Hours): Last Vital Signs Pulse 79 05/06/18 21:10 Resp 14 05/06/18 21:10 BP 124/64 05/06/18 21:00 Pulse Ox 92 05/06/18 21:10 Physical Exam: GENERAL: Comfortable, looks younger than stated age, pleasant, no respiratory distress SKIN: Normal color, warm HEENT: Bespectacled, pink palpebral conjunctivae, no ptosis, dry buccal mucosa NECK : Supple, no tenderness CHEST : CTA, no tenderness HEART : RRR, no obvious murmurs ABDOMEN: Some distention, healed incisional scars, no overt tenderness EXTREMITIES : No LE swelling/tenderness, no other conspicuous deformities noted NEUROLOGIC : Coherent, no facial asymmetry, no other gross focality Results & Data Laboratory Results Laboratory Results WBC 3.20 K/uL (4.8-10.8) L 05/06/18 17: RBC 4.52 M/uL (4.2-5.4) 05/06/18 17: Hgb 13.9 g/dL (12.0-16.0) 05/06/18: Hct 40.3 % (37-47) 05/06/18 17: MCV 89.2 fL (80-100) 05/06/18 17: MCH 30.8 pg (25-34) 05/06/18: MCHC 34.5 g/dL (32-36) 05/06/18: RDW Std Deviation 44.3 fL (36.4-46.3) 05/06/18: RDW Coeff of Katelyn 13.6 % (11.5-14.5) 05/06/18: Plt Count 97 K/uL (130-400) L 05/06/18: MPV 10.0 fL (7.4-10.4) 05/06/18: Immature Gran % (Auto) 0.6 % 05/06/18: Neut % (Auto) 44.4 % 05/06/18: Lymph % (Auto) 35.3 % 05/06/18 17: [place] % (Auto) 18.4 % 05/06/18: Eos % (Auto) 1.3 % 05/06/18: Baso % (Auto) 0.0 % 05/06/18: Immature Gran # (Auto) 0.02 K/uL (0.00-0.02) 05/06/18: Neut # (Auto) 1.42 K/uL (1.4-6.5) 05/06/18: Lymph # (Auto) 1.13 K/uL (1.2-3.4) L 05/06/18 17: [place] # (Auto) 0.59 K/uL (0.11-0.59) 05/06/18: Eos # (Auto) 0.04 K/uL (0-0.5) 05/06/18 17:22 Baso # (Auto) 0.00 K/uL (0-0.2) 05/06/18 17:22 Platelet Estimate Decreased (Normal) 05/06/18 17:22 Ovalocytes 1+ 05/06/18 17:22 Sodium 136 mmol/L (136-145) 05/06/18 17:22 Potassium 3.6 mmol/L (3.5-5.1) 05/06/18 17:22 Chloride 101 mmol/L (98-107) 05/06/18 17:22 Carbon Dioxide 28 mmol/L (21-32) 05/06/18 17:22 Anion Gap 7.0 (3-11) 05/06/18 17:22 BUN 15 mg/dl (7-18) 05/06/18 17:22 Creatinine 1.02 mg/dl (0.6-1.2) 05/06/18 17:22 Est Cr Clr Drug Dosing 47.6 ml/min 05/06/18 17:22 Est GFR ( Amer) 65.0 05/06/18 17:22 Est GFR (Non-Af Amer) 56.1 05/06/18 17:22 BUN/Creatinine Ratio 14.9 (10-20) 05/06/18 17:22 Glucose 98 mg/dl (70-99) 05/06/18 17:22 Lactate 1.1 mmol/L (0.4-2.0) 05/06/18 17:46 Calcium 9.1 mg/dl (8.5-10.1) 05/06/18 17:22 Magnesium 2.0 mg/dl (1.8-2.4) 05/06/18 17:22 Total Bilirubin 1.5 mg/dl (0.2-1) H 05/06/18 17:22 AST 17 U/L (15-37) 05/06/18 17:22 ALT 24 U/L (12-78) 05/06/18 17:22 Alkaline Phosphatase 95 U/L (45-117) 05/06/18 17:22 Total Protein 7.6 gm/dl (6.4-8.2) 05/06/18 17:22 Albumin 3.6 gm/dl (3.4-5.0) 05/06/18 17: Globulin 4.0 gm/dl (2.5-4.0) 05/06/18 17: Albumin/Globulin Ratio 0.9 (0.9-2) 05/06/18 17: Lipase 95 U/L (73-393) 05/06/18 17:22 Urine Color Yellow 05/06/18 17: Urine Appearance Clear (Clear) 05/06/18: Urine pH 5.0 (4.5-7.5) 05/06/18: Ur Specific [place] 1.018 (1.000-1.030) 05/06/18 17: Urine Protein Negative (Negative) 05/06/18: Urine Glucose (UA) Negative (Negative) 05/06/18: Urine Ketones 1+ (Negative) H 05/06/18 17: Urine Blood Trace (Negative) H 05/06/18 17: Urine Nitrite Negative (Negative) 05/06/18: Urine Bilirubin Negative (Negative) 05/06/18: Urine Urobilinogen Negative (Negative) 05/06/18 17: Ur Leukocyte Esterase Trace (Negative) H 05/06/18 17:22 Urine WBC (Auto) 1-5 /hpf (0-5) 05/06/18: Urine RBC (Auto) 0-4 /hpf (0-4) 05/06/18: U Hyaline Cast (Auto) 1-5 /lpf (0-5) 05/06/18: U Epithel Cells (Auto) >30 /lpf (0-5) H 05/06/18: Urine Bacteria (Auto) Negative (Negative) 05/06/18 17:[address] abdomen pelvis: 1. Findings are consistent with a small bowel obstruction. A transition point is identified in the pelvis, and this is likely related to adhesions. 2. No focally thick walled bowel loops are identified. There is no intraperitoneal free air, pneumatosis intestinalis, or portal venous gas. 3. A large fat-containing ventral hernia contains a nonobstructed segment of the transverse colon. 4. Cholelithiasis. 5. Numerous tiny mesenteric nodules/nodes are similar to previous. There is no evidence of progressive metastatic disease in the abdomen or pelvis.
[2018-05-06] MEDS ORDERED: ACETAMINOPHEN 325 MG TAB PO PRN (22:08)
[2018-05-06] MEDS ORDERED: PROCHLORPERAZINE 5 MG in SYRINGE 4 ML IV PRN (22:08)
[2018-05-06] MEDS ORDERED: LORazepam 0.25 MG/0.5 ML VIAL IV PRN (22:09)
[2018-05-06] MEDS: NSS + 20MEQ KCL 20 MEQ/1,000 ML BAG IV SCH (23:27)
[2018-05-06] MEDS: TRAMADOL HCL 50 MG TABLET PO PRN (23:27)
[2018-05-07] MEDS: TRAMADOL HCL 50 MG TABLET PO PRN ×2 (08:28→19:28)
--- NOTE | 2018-05-07 11:25 | Surgery Consultation ---
Date of Consultation May 07, 2018 Assessment & Plan (1) SBO (small bowel obstruction): Her symptoms are already improving, she has not needed an NG. She can begin clear liquids. Will continue to follow. History of Present Illness Attending Physician: Lawrence Cai MD History of Present Illness 68 y/o female 8 years s/p resection of small bowel carcinoid admitted last night for SBO. She had some discomfort LUQ Saturday when waking up that progressed during the day to N/V. Had small loose BM on Saturday. Saw PCP yesterday who referred her to the ED. Pain and bloating are improved, she is now passing flatus. No vomiting since Saturday. Had ex lap for SBO in 2014 and was treated conservatively for several days in 01/11. Has been following low fiber diet but did have salad later last week. Has been getting PRRT in [place] since Nov. Has had 3 treatments, her last one is scheduled in 2 weeks. Allergies Allergy/AdvReac Type Severity Reaction Status Date / Time pneumococcal vaccine Allergy Severe REDNESS Verified 05/06/18 20:12 ,SWELLING @ SITE aloe Allergy Intermediate RASH Verified 05/06/18 20:12 Penicillins Allergy Intermediate RASH Verified 05/06/18 20:12 capecitabine Allergy Rash Unverified 05/06/18 20:12 latex AdvReac Intermediate "SORES IN Verified 05/06/18 20:12 MOUTH AFTER GOINGTO DENTIST" cefuroxime AdvReac Mild C DIFF Verified 05/06/18 20:12 Home Medications Home Medications Medication Instructions Recorded Confirmed Type atorvastatin 10 mg PO PM 05/06/18 05/06/18 History cholecalciferol (vitamin D3) 1 cap PO WK 05/06/18 05/06/18 History ondansetron HCl 8 mg PO DIRECTED PRN 05/06/18 05/06/18 History prochlorperazine maleate 10 mg PO DIRECTED PRN 05/06/18 05/06/18 History Patient History Medical History Ductal carcinoma in situ (DCIS) of left breast (Acute 12/28/13) "Abnormal left breast mammogram Status post needle localization lumpectomy revealing DCIS Stage pTisNX ER negative and [place] negative 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" On 07/12/14 17:09 Nargis Mays Maher wrote "Abnormal left breast mammogram Status post needle localization lumpectomy revealing DCIS Stage pTisNX 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" Carcinoid tumor (Acute) Hypertension (Chronic) Hypercholesteremia (Chronic) SBO (small bowel obstruction) (Acute) Surgical History H/O: hysterectomy (Acute) Hx of resection of small bowel (Acute) Family History Other Cancer Diabetes Gallbladder disease Heart disease Hypertension Social History Communication Ability: Effective Beliefs That Will Affect Care: None marital status: Current Living Situation: Spouse Other Information That Helps Us Care for You: No Feels Safe at Home: Yes Safety Concerns: Feels Safe At This Time Smoking Status: Never smoker Hx Alcohol Use: Yes Hx Substance Use: No Review of Systems Constitutional: no fever and no chills Gastrointestinal: + abdominal pain, + bloating, + nausea and + vomiting Physical Exam Vital Signs (Past 24 Hours): Last Vital Signs Temp 36.8 C 05/07/18 07:45 Pulse 72 05/07/18 07:45 Resp 16 05/07/18 07:45 BP 122/70 05/07/18 07:45 Pulse Ox 95 05/07/18 07:45 Constitutional: WD/WN, vitals as above no acute distress does not have NG Respiratory: normal respiratory effort Cardiovascular: Rate/Rhythm: regular rate Gastrointestinal (Abdomen): Inspection/Auscultation: + abdominal surgical scar (lower midline hernia, soft ); abdomen not distended Percussion/Palpation: abdomen soft; abdomen nontender
[2018-05-07] MEDS: NSS + 20MEQ KCL 20 MEQ/1,000 ML BAG IV SCH ×2 (11:49→19:40)
[2018-05-07] MEDS: ATORVASTATIN 10 MG TAB PO SCH (20:42)
[2018-05-07] MEDS: KETOROLAC TROMETHAMINE 15 MG/ML VIAL IV PRN (20:44)
--- NOTE | 2018-05-07 21:43 | Hospitalist Progress Note ---
Date of Service May 07, 2018 Assessment & Plan (1) SBO (small bowel obstruction): Recurrent SBO CT abd/pelvis showed findings are consistent with a small bowel obstruction. Clinically improves Surgery on board, conservative management Continue IVF and pain controlled NPO for now L Breast cancer Status post surgery and radiation Stable Hypertension BP stable Thrombocytopenia No signs of bleeding Monitor platelet DVT prophylaxis. SCDs due thrombocytopenia Full code Subjective Pt was seen and examined Lying in bed with no distress Pt said that pain improves denies any chest pain, palpitation, diszziness, N/V Physical Exam Vital Signs (Past 24 Hours): Last Vital Signs Temp 36.8 C 05/07/18 15:01 Pulse 76 05/07/18 15:01 Resp 17 05/07/18 15:01 BP 113/63 05/07/18 15:01 Pulse Ox 96 05/07/18 15:01 Physical Exam: General- No acute distress Head- atraumatic Eyes- PERRL, EOMI, ENT- oropharynx clear Neck- supple, no JVD Lungs- clear to auscultation Heart- regular rhythm Abdomen- normal bowel sounds, nontender Extremities- no calf tenderness Neuro- alert, oriented x 3; PERRL, EOMI; no facial palsy; no dysarthria Skin- warm & dry
[2018-05-08] MEDS: NSS + 20MEQ KCL 20 MEQ/1,000 ML BAG IV SCH ×3 (03:38→20:25)
--- NOTE | 2018-05-08 06:30 | Surgery Progress Note ---
Date of Service May 08, 2018 Assessment & Plan (1) SBO (small bowel obstruction): PAD 2 increase diet slowly will likely return gi function today keep in hospital until bowels move Her symptoms are already improving, she has not needed an NG. She can begin clear liquids. Will continue to follow. Subjective feels much better passing flatus Physical Exam Vital Signs (Past 24 Hours): Last Vital Signs Temp 36.7 C 05/07/18 22:55 Pulse 65 05/07/18 22:55 Resp 14 05/07/18 22:55 BP 111/66 05/07/18 22:55 Pulse Ox 97 05/07/18 22:55 Physical Exam: comfortable no pain abd completely benign
[2018-05-08] MEDS: KETOROLAC TROMETHAMINE 15 MG/ML VIAL IV PRN ×4 (07:26→23:23)
[2018-05-08] MEDS: ATORVASTATIN 10 MG TAB PO SCH (20:25)
--- NOTE | 2018-05-08 21:40 | Hospitalist Progress Note ---
Date of Service May 08, 2018 Assessment & Plan (1) SBO (small bowel obstruction): Recurrent SBO CT abd/pelvis showed findings are consistent with a small bowel obstruction. Clinically improves Surgery on board, conservative management Continue IVF and pain controlled Tolerated clear liquid diet, will advance as tolerated Will repeat abdominal xray in am L Breast cancer Status post surgery and radiation Stable Hypertension BP stable Thrombocytopenia No signs of bleeding Monitor platelet DVT prophylaxis. SCDs due thrombocytopenia Full code Disposition Possible discharge tomorrow if stable Subjective Pt was seen and examined Lying in bed with no distress Pt said that pain improves She said that she had a small BM today Tolerated clear liquid diet Denies any chest pain, palpitation and SOB Physical Exam Vital Signs (Past 24 Hours): Last Vital Signs Temp 36.7 C 05/08/18 15:02 Pulse 70 05/08/18 15:02 Resp 16 05/08/18 15:02 BP 120/75 05/08/18 15:02 Pulse Ox 97 05/08/18 15:02 Physical Exam: General- No acute distress Head- atraumatic Eyes- PERRL, EOMI, ENT- oropharynx clear Neck- supple, no JVD Lungs- clear to auscultation Heart- regular rhythm; no murmur Abdomen- nontender Extremities- no calf tenderness Neuro- alert, oriented x 3; PERRL, EOMI; no facial palsy; no dysarthria Skin- warm & dry
[2018-05-09 06:23] LABS: BUN Creatinine Ratio 7.8 (10-20); Calcium 8.8 mg/dl (8.5-10.1); Creatinine Clr Calc Pharmacy 67.7 ml/min; Est GFR (Non-African American) 85.4; Magnesium 1.7 mg/dl (1.8-2.4)
--- NOTE | 2018-05-09 07:26 | Surgery Progress Note ---
Date of Service May 09, 2018 Assessment & Plan (1) SBO (small bowel obstruction): PAD 3 can be discharged from my point of view eating and bowels moving discussed with pt incisional hernia indication for surgery at this time leave alone but if it continues to be symp then reevaluate for elective surgery if her general well being allows return to our office prn PAD 2 increase diet slowly will likely return gi function today keep in hospital until bowels move Her symptoms are already improving, she has not needed an NG. She can begin clear liquids. Will continue to follow. Subjective feels much better bowels moving some discomfort ventral hernia Physical Exam Vital Signs (Past 24 Hours): Last Vital Signs Temp 36.7 C 05/08/18 23:21 Pulse 69 05/08/18 23:21 Resp 15 05/08/18 23:21 BP 146/85 H 05/08/18 23:21 Pulse Ox 96 05/08/18 23:21 Physical Exam: alert in no distress abd neg ventral incisional hernia easily reducible
[2018-05-09] MEDS ORDERED: MAGNESIUM SULFATE / D5W 1 GM/100 ML BAG IV ONE (08:22)
--- NOTE | 2018-05-09 08:36 | XRay Report ---
XR [facility]UB CLINICAL HISTORY: 68 years-old Female presenting with f/u SBO. TECHNIQUE: Single supine view of the abdomen was obtained. COMPARISON: 01/21/2017. FINDINGS: Gaseous distention of small bowel with an apparent diameter of 6 cm in the left mid abdomen though th is is likely affected by magnification. Gas is also noted in the colon. Surgical clips project over t he mid abdomen and pelvis. No gross pneumoperitoneum. Allowing for bowel gas and stool, no calcifications to suggest nephrolithiasis. Osseous structures normal. Lung bases clear. Partially visualized left axillary or left breast surgic al clips. IMPRESSION: 1. Small bowel gaseous distention concerning for obstruction. Consider CT for further characterizati on if there is clinical assessment. The degree of apparent small bowel wall thickening is likely affe cted by magnification. Electronically signed by: Sylvester Warren M.D. 05/09/2018 8:35 AM
[2018-05-09] MEDS: NSS + 20MEQ KCL 20 MEQ/1,000 ML BAG IV SCH (13:00)
--- NOTE | 2018-05-09 16:37 | Hospitalist Progress Note ---
Date of Service May 09, 2018 Assessment & Plan (1) SBO (small bowel obstruction): Recurrent SBO CT abd/pelvis showed findings are consistent with a small bowel obstruction. Clinically improves Surgery on board, conservative management Continue IVF and pain controlled Diet advanced to soft and tolerated well Xray done showed small bowel gaseous distention concerning for obstruction. L Breast cancer Status post surgery and radiation Stable Hypertension BP stable Thrombocytopenia No signs of bleeding Monitor platelet DVT prophylaxis. SCDs due thrombocytopenia Full code Disposition Follow up with PCP Dr. Lee on 05/15 @ 11:05 AM (Dr. Abraham's Colleague) Subjective Pt was seen and examined Lying in bed with no distress Pt said that she feels much better She said that she tolerated her diet she had a BM Pain improves significantly denies any chest pain, palpitation, dizziness and SOB Physical Exam Vital Signs (Past 24 Hours): Last Vital Signs Temp 36.9 C 05/09/18 15:04 Pulse 70 05/09/18 15:04 Resp 16 05/09/18 15:04 BP 143/81 H 05/09/18 15:04 Pulse Ox 97 05/09/18 15:04 Physical Exam: General- No acute distress Head- atraumatic Eyes- PERRL, EOMI, ENT- oropharynx clear Neck- supple, no JVD Lungs- clear to auscultation Heart- regular rhythm; no murmur Abdomen- nontender, +BS Extremities- no calf tenderness Neuro- alert, oriented x 3; PERRL, EOMI; no facial palsy; no dysarthria Skin- warm & dry
--- NOTE | 2018-05-11 11:43 | Discharge Summary ---
Date of Service May 14, 2018 Admission HPI Per Admitting Provider History obtained from patient, family, and records. Medical history significant for metastatic neuroendocrine tumor status post surgery, chemotherapy, ongoing PRRT (peptide receptor radionuclide therapy), breast cancer left status post surgery/radiation, hypertension, hyperlipidemia, episodic thrombocytopenia. Recent confinement December 2016 for small bowel obstruction which resolved with conservative management. Few days history of achy left-sided abdominal pain which crossed over to the right associated with nausea, emesis, loose stools episodes. No fever, no chills. Patient seen at PCP's office today and subsequently directed to the emergency room. 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
--- NOTE | 2018-05-12 09:08 | Discharge Summary ---
Date of Service May 09, 2018 Admission HPI Per Admitting Provider History obtained from patient, family, and records. Medical history significant for metastatic neuroendocrine tumor status post surgery, chemotherapy, ongoing PRRT (peptide receptor radionuclide therapy), breast cancer left status post surgery/radiation, hypertension, hyperlipidemia, episodic thrombocytopenia. Recent confinement December 2016 for small bowel obstruction which resolved with conservative management. Few days history of achy left-sided abdominal pain which crossed over to the right associated with nausea, emesis, loose stools episodes. No fever, no chills. Patient seen at PCP's office today and subsequently directed to the emergency room. 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 Admission Exam Per Admitting Provider GENERAL: Comfortable, looks younger than stated age, pleasant, no respiratory distress SKIN: Normal color, warm HEENT: Bespectacled, pink palpebral conjunctivae, no ptosis, dry buccal mucosa NECK : Supple, no tenderness CHEST : CTA, no tenderness HEART : RRR, no obvious murmurs ABDOMEN: Some distention, healed incisional scars, no overt tenderness EXTREMITIES : No LE swelling/tenderness, no other conspicuous deformities noted NEUROLOGIC : Coherent, no facial asymmetry, no other gross focality Principal Diagnosis SBO (small bowel obstruction) Discharge Exam General- No acute distress Head- atraumatic Eyes- PERRL, EOMI, ENT- oropharynx clear Neck- supple, no JVD Lungs- clear to auscultation Heart- regular rhythm; no murmur Abdomen- nontender, +BS Extremities- no calf tenderness Neuro- alert, oriented x 3; PERRL, EOMI; no facial palsy; no dysarthria Skin- warm & dry Discharge Data Allergies Allergy/AdvReac Type Severity Reaction Status Date / Time pneumococcal vaccine Allergy Severe REDNESS Verified 05/06/18 20:12 ,SWELLING @ SITE aloe Allergy Intermediate RASH Verified 05/06/18 20:12 Penicillins Allergy Intermediate RASH Verified 05/06/18 20:12 capecitabine Allergy Rash Unverified 05/06/18 20:12 latex AdvReac Intermediate "SORES IN Verified 05/06/18 20:12 MOUTH AFTER GOINGTO DENTIST" cefuroxime AdvReac Mild C DIFF Verified 05/06/18 20:12 Consultations 05/06/18 19:43 ED Decision to Admit Stat 05/06/18 22:08 Consult General Surgery Routine Ordered Studies 05/06/18 17:32 CT abd pelvis IV con only Stat [facility] [place] [phone] CT Scan Report Patient: Stephen ROBERTS Date: 05/06/18 MR#: [id number] Acct ID:[id number]: Date: 1950[address] Zip: [place] [address] Age: 68Location: ED Sex: F Room/Bed: Att Phy: Diagnosis: ABDOMINAL PAIN, VOMITING Patricia Phy: Justyna Lee, DOService Date: 05/06/18 Fam Phy: Interpreting Phy: Mohamud Fallon MD Admit Phy: Ordering Phy: Rubi Dillon M.D. cc: ~ CT SCAN OF THE ABDOMEN AND PELVIS WITH IV CONTRAST CLINICAL HISTORY: Generalized abdominal pain. History of carcinoid tumor. COMPARISON STUDY: Abdominal CT dated 01/19/2017. Abdominal MRI dated 12/20/2010. TECHNIQUE: Following the IV administration of 94 cc of Optiray 320, CT scan of the abdomen and pelvis is performed from the lung bases to the proximal femora. Images are reviewed in the axial, sagittal, and coronal planes. IV contrast was administered without complication. A dose lowering technique was utilized adhering to the principles of ALARA. CT DOSE: 367.89 mGy.cm FINDINGS: Lung bases: The heart is normal in size and without pericardial effusion. The lung bases are clear. There is a small hiatal hernia. Liver: The contrast-enhanced liver is normal in size heterogeneous in attenuation. There is nodularity of the hepatic surface contour suggesting early change of cirrhosis. There is no intrahepatic biliary ductal dilatation. The hepatic veins and portal veins are patent. Scattered hepatic cysts measure up to 14 mm. Additional subcentimeter hepatic hypodensities also likely represent cysts but are too small for definitive characterization. There is a subtle 14 mm lesion in the right lobe of the diaphragm seen on image #51. This is been present dating back to 2010 and likely represents a small hemangioma. Gallbladder: There are calcified gallstones, with no CT evidence of acute cholecystitis. Spleen: Normal in size and attenuation. Pancreas: There is moderate glandular atrophy of the pancreas. Scattered cystic foci within the pancreas measuring up to 11 mm. These are unchanged dating back to 2010 and likely represent sidebranch IPMN's. Adrenal glands: Unremarkable. Kidneys: The contrast enhanced kidneys demonstrate cortical atrophy and are without hydronephrosis. The kidneys enhance symmetrically. Abdominal vasculature: The abdominal aorta is normal in course and caliber noting moderate atherosclerotic calcification. Bowel: There is a large ventral hernia which contains a nonobstructed segment of the transverse colon. There are postoperative changes from small bowel resection, with small amount of stool is noted in the lower abdomen. The proximal small bowel loops are distended and fluid-filled, measuring up to 4.1 cm in diameter. The distal small bowel and colon are decompressed, and there is a transition point involving matted loops of small bowel in the pelvis on image #283. The appearance is consistent with a small bowel obstruction. No focally thick walled bowel loops are identified. There is no pneumatosis intestinalis or portal venous gas. There is mild colonic diverticulosis without CT evidence of acute diverticulitis. The appendix is not identified and reported surgically absent. Peritoneum: There is no intraperitoneal free air or abdominal ascites. Numerous subcentimeter mesenteric nodules/nodes are similar to previous. Lymphadenopathy: None. Pelvic viscera: The bladder is normal as visualized. The uterus is surgically absent. No adnexal lesion is seen. Skeletal structures: The skeletal structures are osteopenic. Mild lumbosacral spondylosis is noted. No lytic or blastic lesions are seen. IMPRESSION: 1. Findings are consistent with a small bowel obstruction. A transition point is identified in the pelvis, and this is likely related to adhesions. 2. No focally thick walled bowel loops are identified. There is no intraperitoneal free air, pneumatosis intestinalis, or portal venous gas. 3. A large fat-containing ventral hernia contains a nonobstructed segment of the transverse colon. 4. Cholelithiasis. 5. Numerous tiny mesenteric nodules/nodes are similar to previous. There is no evidence of progressive metastatic disease in the abdomen or pelvis. 6. Additional findings as above. Electronically signed by: Mohamud Fallon M.D. 05/06/2018 7:16 PM Dictated: 05/06/181902 Transcribed: 05/06/181902 XR [facility]UB CLINICAL HISTORY: 68 years-old Female presenting with f/u SBO. TECHNIQUE: Single supine view of the abdomen was obtained. COMPARISON: 01/21/2017. FINDINGS: Gaseous distention of small bowel with an apparent diameter of 6 cm in the left mid abdomen though this is likely affected by magnification. Gas is also noted in the colon. Surgical clips project over the mid abdomen and pelvis. No gross pneumoperitoneum. Allowing for bowel gas and stool, no calcifications to suggest nephrolithiasis. Osseous structures normal. Lung bases clear. Partially visualized left axillary or left breast surgical clips. IMPRESSION: 1. Small bowel gaseous distention concerning for obstruction. Consider CT for further characterization if there is clinical assessment. The degree of apparent small bowel wall thickening is likely affected by magnification. Electronically signed by: Sylvester Warren M.D. 05/09/2018 8:35 AM Dictated: 05/09/18832 Transcribed: 05/09/18832 Hospital Course (1) SBO (small bowel obstruction): Recurrent SBO CT abd/pelvis showed findings are consistent with a small bowel obstruction. Clinically improves Surgery on board, conservative management Continue IVF and pain controlled Diet advanced to soft and tolerated well Xray done showed small bowel gaseous distention concerning for obstruction. L Breast cancer Status post surgery and radiation Stable Hypertension BP stable Thrombocytopenia No signs of bleeding Monitor platelet DVT prophylaxis. SCDs due thrombocytopenia Full code Disposition Follow up with PCP Dr. Lee on 05/15 @ 11:05 AM (Dr. Abraham's Colleague) Total Time Total Time Spent Total Time Spent (In Minutes): 35 minutes Total Time Includes: Examination of the Patient, Discharge Planning, Medication Reconciliation, Communication With Other Providers and Other Discharge Plan Discharge Items Patient Disposition: Home - Self-Care Reason For Visit: SBO Discharge Diagnosis: SBO (small bowel obstruction) Discharge Goals: Decrease discomfort, Improve disease control, Improve function and Increase independence Activity: Resume your previous activity Activity Comment: As tolerated Non-emergency contact: Primary Care Provider Call non-emergency contact if: you have any medication questions Follow-up/Referrals: Justyna Lee [Primary Care Provider] - Diet: Heart Healthy Addtl Provider Instructions: Follow up with your primary care provider (Please call to schedule for the follow up) Advanced diet as tolerated Prescriptions: Continued atorvastatin 10 mg tablet 10 mg PO PM RF: 0 cholecalciferol (vitamin D3) 50,000 unit capsule 1 cap PO WK RF: 0 ondansetron HCl 8 mg tablet 8 mg PO DIRECTED PRN (Reason: Nausea) RF: 0 prochlorperazine maleate 10 mg tablet 10 mg PO DIRECTED PRN (Reason: Nausea) RF: 0 Stand-Alone Forms: Call Back Authorization, [facility] Discharge Orders: Discharge Order (Routine); Ordered 05/09/18 Ordered By: Lawrence Cai Admission Data Admit Date/Time: 05/06/18 22:02 Attending Provider: Lawrence Cai Admit Provider: Manfred Das Primary Care Provider: Justyna Lee Other Providers: Manfred Das ; Ga Quach Service: Surgical Services Other Interventions: Discharge Summary Assessment (RN) Last Done: 05/09/18 17:18 DC Date/Time DO NOT enter until pt leaves facility: 05/09/18 17:49
== END 2018-05-09 17:49 | disposition home or self-care (01) | DRG 389 ==
LOC: ED 16:06 → 3W 22:02

== ENCOUNTER 2018-08-21 05:12 | Inpatient (IN) ==
--- NOTE | 2018-08-13 15:06 | PAT Medication Instructions ---
Medication Instructions Date of Service August 13, 2018 Home Medications atorvastatin 10 mg PO PM multivitamin 1 tab PO DAILY ondansetron HCl [Zofran] 8 mg PO TID PRN prochlorperazine maleate [Compazine] 10 mg PO TID PRN DO NOT take the morning of surgery multivitamin 1 tab PO DAILY Take morning of surgery With a small sip of water, OTHERWISE NOTHING TO EAT OR DRINK AFTER MIDNIGHT: ondansetron HCl [Zofran] 8 mg PO TID PRN (if needed) prochlorperazine maleate [Compazine] 10 mg PO TID PRN (if needed) Take evening before surgery ondansetron HCl [Zofran] 8 mg PO TID PRN (if needed) prochlorperazine maleate [Compazine] 10 mg PO TID PRN (if needed) Other Notes If you have any questions please call us at [phone] or [phone] or [phone] or [phone]
--- NOTE | 2018-08-14 08:28 | Anesthesiology Consultation ---
Date of Service August 14, 2018 Assessment & Plan (1) Encounter for pre-operative examination: - Possible difficult intubation due to anatomy Chart Review Chart Review: Acceptable Risk for Surgery and Patient seen in Pre Admission Testing Teaching & Discussion Pre-Anesthesia Teaching/Discussion Notes: Instructed NPO after midnight before surgery,except medications with 15 cc of water. Medication instructions provided according to the PAT guidelines. History Surgery Operation Date: 08/21/18 07:00 Proposed Procedures p Exploratory Laparotomy, Lysis of Adhesions, Possible Bowel Resection, Possible Incisional Hernia Repair with Mesh - Ga Quach MD Height/Weight Height: 5 ft 2.5 in Weight: 64.1 kg Allergies Allergy/AdvReac Type Severity Reaction Status Date / Time pneumococcal vaccine Allergy Severe REDNESS, Verified 08/13/18 15:04 SWELLING AT SITE aloe Allergy Intermediate RASH Verified 08/13/18 14:13 latex Allergy Intermediate MOUTH Verified 08/13/18 15:04 SORES (AT DENTIST) Penicillins Allergy Intermediate RASH Verified 08/13/18 14:13 capecitabine Allergy Mild Rash Unverified 08/13/18 14:13 cefuroxime AdvReac Mild C. DIFF Verified 08/13/18 15:04 nickel AdvReac Mild Rash Verified 08/13/18 14:14 Additional Notes: *OR made aware of nickel/latex allergy* Medications Home Medications Medication Instructions Recorded Confirmed Last Taken atorvastatin 10 mg PO PM 05/06/18 08/13/18 05/05/18 multivitamin 1 tab PO DAILY 08/13/18 08/13/18 Unknown ondansetron HCl [Zofran] 8 mg PO TID PRN 08/13/18 08/13/18 Unknown prochlorperazine maleate 10 mg PO TID PRN 08/13/18 08/13/18 Unknown [Compazine] Past Medical History Medical History Ductal carcinoma in situ (DCIS) of left breast (Acute 12/28/13) S/P XRT Carcinoid tumor (Acute) RADIATION (TARGETED TREATMENT) COMPLETED 04/2018, S/P CHEMO (SUMMER 2017) Hypertension (Chronic) HX OF Hypercholesteremia (Chronic) SBO (small bowel obstruction) (Acute) Abdominal adhesions GERD (gastroesophageal reflux disease) IN SETTING OF SBO Osteoarthritis Exercise / Class Metabolic Activity II 4-5 Yardwork/Stairs/Walk up hill Past Family History Family History Father Diabetes Sister Diabetes Mother Diabetes Grandmother (Maternal) Family hx of colon cancer Other Cancer Gallbladder disease Heart disease Hypertension Past Surgical History Surgical History Hx of resection of small bowel (Acute) TUMORS REMOVED (2 SURGERIES) H/O total hysterectomy History of appendectomy History of carpal tunnel release RT History of colonoscopy History of esophagogastroduodenoscopy (EGD) History of tooth extraction Hx of lumpectomy LEFT Past Anesthesia History No Hx of Anesthesia Complications and No Family Hx of Anesthesia Complications History of PONV No Hx of PONV and Hx of Motion Sickness Social History Smoking Status: Never smoker Do You Dip or Chew Tobacco: No Hx Alcohol Use: Yes Alcohol type: wine alcohol intake frequency: holidays/special occasions only Hx Substance Use: No substance use type: does not use Review of Systems Patient denies chest pain, shortness of breath, dyspnea on exertion, joint pain, reflux, cough, wheezing, palpitations. Physical Exam Vital Signs VITALS BP 120/79 P 81 TEMP 98.6 SP02 96%RA RESP 18 PHYSICAL Full neck and c-spine range of motion. Full TMJ range of motion. TMD 3 finger breaths Mallampati Score4 (small oral opening) Dentition: intact, lower front wire retainer Lungs: clear throughout to auscultation Cardiac: regular rate and rhythm, no murmurs noted Spine: normal Carotid arteries: negative bruit Extremities: no edema Testing Laboratory Results 08/14/18 08:35 Blood Type O Negative 08/14/18 08:35 Antibody Screen NEGATIVE 08/14/18 08:35 Surgeon made aware of low WBC/platelets* 08/11/18 SODIUM 144 POTASSIUM 4.1 CHLORIDE 104 CO2 27 BUN 14 CREATININE 1.0 GLUCOSE 107 Electrocardiogram Date: 08/14/18 NSR at 79bpm. LAD. Chest X-Ray Date: 08/14/18 Findings: + NAD
--- NOTE | 2018-08-14 08:57 | XRay Report ---
XR chest Pre-admission PA/Lat CLINICAL HISTORY: pat preoperative evaluation COMPARISON STUDY: No previous studies for comparison. FINDINGS: The bones soft tissues and hemidiaphragms are normal. The cardiomediastinal silhouette is n ormal. The lungs are clear. The pulmonary vasculature is normal. IMPRESSION: Negative chest. The above report was generated using voice recognition software. It may contain grammatical, syntax or spelling errors. Electronically signed by: Pako Rodrigues M.D. 08/14/2018 8:56 AM
[2018-08-14 10:55] LABS: Basophils # (auto) 0.01 K/uL (0-0.2); Basophils % (auto) 0.3 %; Eosinophils # (auto) 0.03 K/uL (0-0.5); Eosinophils % (auto) 0.8 %; Hematocrit (blood only) 37.8 % (37-47); Hemoglobin 12.9 g/dL (12.0-16.0); Immature Granulocytes # (auto) 0.01 K/uL (0.00-0.02); Immature Granulocytes % (auto) 0.3 %; Lymphocytes # (auto) 1.07 K/uL (1.2-3.4); Mean Corpuscular Hgb Conc 34.1 g/dL (32-36); Mean Corpuscular Volume 92.4 fL (80-100); Mean Platelet Volume 10.1 fL (7.4-10.4); Monocytes # (auto) 0.43 K/uL (0.11-0.59); Monocytes % (auto) 11.7 %; Neutrophils # (auto) 2.14 K/uL (1.4-6.5); Neutrophils % (auto) 57.9 %; Platelet Count 119 K/uL (130-400); RDW Coefficient of Variation 13.6 % (11.5-14.5); Red Blood Count 4.09 M/uL (4.2-5.4); White Blood Count 3.69 K/uL (4.8-10.8)
[2018-08-21] MEDS ORDERED: LR 15ML/HR IV SCH (06:00)
[2018-08-21] MEDS ORDERED: fentaNYL citrate 100 MCG/2 ML VIAL ONE ×2 (06:17→09:54)
[2018-08-21] MEDS ORDERED: MIDAZOLAM HCL 1 MG/ML 2ML VIAL ONE (06:17)
[2018-08-21] MEDS ORDERED: LIDOCAINE HCL 2% 2 ML VIAL/AMP(20MG/ML) INFIL ONE (06:19)
[2018-08-21] MEDS ORDERED: ONDANSETRON INJ 2 MG/ML 2 ML VIAL ONE (06:19)
[2018-08-21] MEDS ORDERED: DEXAMETHASONE SOD INJ 4 MG/ML VIAL ONE (06:19)
[2018-08-21] MEDS ORDERED: ROCURONIUM BROMIDE 10 MG/ML 5 ML VIAL ONE ×2 (06:19→07:49)
[2018-08-21] MEDS ORDERED: PROPOFOL IV EMULSION 10 MG/ML 20 ML VIAL IV ONE (06:19)
[2018-08-21] MEDS ORDERED: SCOPOLAMINE 1.5 MG TDSY ONE (06:34)
[2018-08-21] MEDS ORDERED: ATROPINE SULFATE 0.1 MG/ML 10ML SYR IV PRN (06:35)
[2018-08-21] MEDS ORDERED: ePHEDrine sulfate 50 MG/ML AMP IV PRN (06:35)
[2018-08-21] MEDS ORDERED: ONDANSETRON INJ 2 MG/ML 2 ML VIAL IV PRN (06:35)
--- NOTE | 2018-08-21 06:36 | History & Physical Bridge Note ---
Date of Service August 21, 2018 History & Physical Bridge Note I have examined the patient, reviewed the History & Physical and in the interval since the performance of the History & Physical I have noted the following changes of clinical significance: no changes noted all questioned answered passing flatus and bm but still bloated to be here later
[2018-08-21] MEDS ORDERED: GLYCOPYRROLATE 0.2 MG/ML VIAL ONE ×2 (07:33→09:34)
[2018-08-21] MEDS ORDERED: NEOSTIGMINE METHYLSULFATE 5 MG/5 ML SYR ONE (07:33)
[2018-08-21] MEDS ORDERED: HYDROmorphone INJ 2 MG/ML SYR/VIAL ONE (07:37)
[2018-08-21] MEDS ORDERED: SODIUM CHLORIDE 0.9% INJ 10 ML VIAL ONE ×2 (07:37)
[2018-08-21] MEDS ORDERED: PHENYLEPHRINE 100MCG/ML 5ML SYR ONE (07:56)
[2018-08-21] MEDS ORDERED: ALBUMIN HUMAN 5% 12.5 GM/250 ML VIAL IV ONE (08:59)
--- NOTE | 2018-08-21 09:54 | Post Operative Brief Note ---
Immediate Post Op Note v1 Date of Surgery August 21, 2018 Pre & Post Diagnosis Operation Date: 08/21/18 07:00 Pre-Op Diagnosis: Recurrent Small Bowel Obstruction, Incisional Hernia Post-Op Diagnosis: recurrent small bowel obstruction, abdominal carcinomatosis, Incisional Hernia Procedure Operation Date: 08/21/18 07:00 Actual Procedures p Exploratory Laparotomy, Lysis of Adhesions, Side to Side Ilealcolonic Anastomosis, Biopsy Abdominal Implant with Frozen Section, Repair Incisional Hernia Repair with Compartment Separation(Not Applicable) - Ga Quach MD Surgeon Ga Quach MD Cogeneration Operator B DARY JEFFREY Estimated Blood Loss 150 Findings Consistent with Post-Op Diagnosis Drains Rodrigo Drain (19Fr x2)
--- NOTE | 2018-08-21 10:21 | Operative Report ---
Post Operative Report Pre & Post Diagnosis Operation Date: 08/21/18 07:00 Pre-Op Diagnosis: Recurrent Small Bowel Obstruction, Incisional Hernia Post-Op Diagnosis: recurrent small bowel obstruction, abdominal carcinomatosis, Incisional Hernia Procedure Operation Date: 08/21/18 07:00 Actual Procedures p Exploratory Laparotomy, Lysis of Adhesions, Side to Side Ilealcolonic Jennifer stomosis, Biopsy Abdominal Implant with Frozen Section, Repair Incisional Hernia Repair with Compartment Separation(Not Applicable) - Ga Quach MD The patient was brought into the operating theater supine position general endotracheal anesthesia systemic antibiotics given abdomen prepped with solution Betadine properly draped timeout was had patient identified a [place] catheter had been placed made an elliptical incision around the upper aspect of the midline incision the area where the hernia was the incision approximately 12 cm long deepened subcutaneous tissue which we immediately met the significant amount of fibrosis in the scar on the wall defect identified some omentum preperitoneal fat was coming through the area took a while to find a plane of dissection we worked on both sides and on the undersurface of the abdominal wall after we had entered the abdominal defect we found that to get more exposure we needed to enlarge the incision eventually were used to hold midline almost to the symphysis pubis try to free up these adhesions we worked in the upper aspect first treatment were able to get into plane of dissection on the omentum laterally on the left side a week small bowel. We worked on that side is sufficient enough that then lead in the inferior aspect of the incision in the midline on the fascia followed small bowel was stuck to the omentum and the omentum was stuck to the anterior abdominal wall which we were able then to free up there is a significant amount of fibrosis no true tumor was appreciated it seemed like loops of bowel was going to that area creating partial obstruction I took a biopsy of that area which was mostly fibrotic tissue did not see anything impinging the bowel itself and they felt that this was probably a carcinoid adan or looked at the slides and it was similar to what they had a initial surgery about 9 years ago. We continued dissecting which were most other times is lysing these abdominal adhesions to the point that we had to take it even out of the pelvis with small bowel: Obviously was decompressed near the ileocecal valve we worked backwards and about 2 feet away from that there was a conglomerate of the small bowel come together there was no true obstruction noted. At this point I contemplated but resecting this area in total but I was concerned and eventually it was not obstructed and she may end up with a small bowel syndrome so there was not a significant amount of small bowel at this point I elected to do a side to side anastomosis from the descending colon to the proximal jejunal proximal ileum with 3-0 silk our layer 3-0 chromic interlayer as a bypass in case it would obstruct. We did take another area of biopsy of the omentum and send the summary for frozen section and this frozen section revealed that it was a little more aggressive type of tissue than initially felt and the pathologist was not sure if this was a carcinoid that is involved with time. Of note there was no significant palpable tumors in the abdomen these were small fibrotic areas in fact even towards the omentum and the mesenteric to the small bowel there was an area that has multiple small 2 to 3 mm implants on the surface of his mesentery and area about 10 cm or so this point an NG tube was positioned in the stomach marked at 65 or 55 the pelvis was drained with a Rodrigo drain down to the right lower quadrant stab wound the patient had an incisional hernia that at this point obviously with the bowel resection did not want to put any mesh therefore I freed the fascia anteriorly from the subcutaneous tissue and did a compartment separation in the upper aspect of the incision. With this point she was lax enough that then we were able to close the wound with a continuous #1 PDS one cephalad one caudad. Area about 2 inches or so then I put an interrupted [id number] of 2-0 PDS also his foot was buried subcutaneous retention suture placed a Rodrigo drain in the subcu attached to skin edge with 2- 0 silk the abdominal wall fascia fatty tissue was then reapproximated to the fascia with interrupted 2 and 1 PDS and the wound was closed with #1 Vicryl. [place] for skin edges. Dressing was applied procedure was tolerated well approximately 150 cc blood loss addendumb Blayne jeffrey was present throughout the procedure helped with exposure retraction and wound closure Surgeon Ga Quach MD Research Associate Molecular Biology Markus JEFFREY Estimated Blood Loss 150 Findings Consistent with Post-Op Diagnosis Specimens biopsy x2 Description of Procedure merda I attest to the content of the Intraoperative Record and any orders documented therein. Any exceptions are noted below.
[2018-08-21] MEDS: fentaNYL citrate 100 MCG/2 ML VIAL IV PRN ×4 (10:22→10:44)
[2018-08-21] MEDS: HYDROmorphone INJ 1 MG/ML SYRINGE IV PRN ×8 (10:50→11:32)
[2018-08-21] MEDS ORDERED: METOCLOPRAMIDE HCL INJ 5 MG/ML 2 ML VIAL IV STA (11:14)
[2018-08-21] MEDS ORDERED: METOCLOPRAMIDE HCL INJ 5 MG/ML 2 ML VIAL ONE (11:15)
[2018-08-21] MEDS ORDERED: ACETAMINOPHEN 1,000 MG/100 ML VIAL IV STA (11:36)
[2018-08-21] MEDS ORDERED: NALOXONE HCL 0.4 MG/1 ML VIAL/CARP IV PRN (11:36)
[2018-08-21] MEDS ORDERED: ACETAMINOPHEN 1000 MG/100 ML IV IV ONE (11:38)
[2018-08-21] MEDS ORDERED: HYDROmorphone HCL 0.5MG/ML 50 ML CASSETTE IV ONE (11:39)
[2018-08-21] MEDS: HYDROmorphone HCL 0.5MG/ML 50 ML CASSETTE IV PRN ×3 (11:52→16:11)
--- NOTE | 2018-08-21 12:26 | Anesthesiology Progress Note ---
Date of Service August 21, 2018 Anesthesia Post Procedure Vital Signs Vital Signs: Temp Pulse Pulse Resp BP Pulse Ox 08/21/18 11:50 98.6 F 90 12 155/66 H 100 08/21/18 11:40 92 H 13 140/60 100 08/21/18 11:30 91 H 12 156/65 H 100 08/21/18 11:20 90 14 153/63 H 100 08/21/18 11:10 88 15 151/66 H 100 08/21/18 11:00 90 13 163/66 H 100 08/21/18 10:50 88 12 146/61 H 100 08/21/18 10:40 83 12 158/69 H 100 08/21/18 10:29 85 16 148/65 H 100 08/21/18 10:15 88 14 145/77 H 100 08/21/18 10:09 98.1 F 89 18 155/63 H 100 08/21/18 05:31 97.7 F 80 20 131/70 96 Pain Intensity Abdomen: Pain Intensity: 6 Transfer of Care Handoff Completed per policy Notes Mental Status: alert / awake / arousable and participated in evaluation Patient Amnestic to Procedure: Yes Nausea / Vomiting: adequately controlled Pain: adequately controlled Airway Patency, RR, SpO2: stable & adequate BP & HR: stable & adequate Hydration State: stable & adequate Anesthetic Complications: no major complications apparent and Pt Satisfied with anesthetic care
[2018-08-21 13:15] LABS: INR 1.3 (0.9-1.1); Prothrombin Time 13.5 Seconds (9.0-12.0)
[2018-08-21] MEDS: SODIUM CHLORIDE 0.9% 1000ML 1,000 ML IV SCH (13:23)
[2018-08-21] MEDS: LACTATED RINGER'S 1,000 ML IV SCH ×2 (13:24→20:56)
[2018-08-21] MEDS: cefOXitin 2,000 MG in DEXTROSE 5% 50 ML IV SCH ×2 (14:04→18:19)
[2018-08-21] MEDS ORDERED: KETOROLAC TROMETHAMINE 15 MG/ML VIAL IV ONE (16:03)
[2018-08-21] MEDS: ACETAMINOPHEN 1,000 MG/100 ML VIAL IV SCH (20:58)
[2018-08-21] MEDS: HEPARIN SOD 5,000 UNIT/0.5 ML VIAL SQ SCH (21:01)
[2018-08-21] MEDS: KETOROLAC TROMETHAMINE 15 MG/ML VIAL IV PRN (23:45)
[2018-08-22] MEDS: cefOXitin 2,000 MG in DEXTROSE 5% 50 ML IV SCH ×2 (00:03→05:26)
[2018-08-22] MEDS: ACETAMINOPHEN 1,000 MG/100 ML VIAL IV SCH ×3 (03:06→20:33)
[2018-08-22] MEDS: LACTATED RINGER'S 1,000 ML IV SCH (05:26)
[2018-08-22] MEDS: HEPARIN SOD 5,000 UNIT/0.5 ML VIAL SQ SCH ×3 (05:26→21:27)
[2018-08-22 05:57] LABS: BUN Creatinine Ratio 19.3 (10-20); Calcium 8.6 mg/dl (8.5-10.1); Creatinine Clr Calc Pharmacy 42.6 ml/min; Est GFR (African American) 59.3; Est GFR (Non-African American) 51.2; Hematocrit (blood only) 32.7 % (37-47); Hemoglobin 11.4 g/dL (12.0-16.0); Mean Corpuscular Hgb Conc 34.9 g/dL (32-36); Mean Corpuscular Volume 90.1 fL (80-100); Potassium 4.4 mmol/L (3.5-5.1); RDW Coefficient of Variation 13.9 % (11.5-14.5); RDW Standard Deviation 45.7 fL (36.4-46.3); Red Blood Count 3.63 M/uL (4.2-5.4); White Blood Count 6.06 K/uL (4.8-10.8)
[2018-08-22 06:12] LABS: Mean Platelet Volume 9.7 fL (7.4-10.4); Platelet Count 75 K/uL (130-400)
[2018-08-22] MEDS: KETOROLAC TROMETHAMINE 15 MG/ML VIAL IV PRN ×2 (06:17→17:38)
[2018-08-22 06:25] LABS: Basophils # (auto) 0.01 K/uL (0-0.2); Basophils % (auto) 0.2 %; Echinocytes 2+; Eosinophils # (auto) 0.01 K/uL (0-0.5); Eosinophils % (auto) 0.2 %; Immature Granulocytes # (auto) 0.01 K/uL (0.00-0.02); Immature Granulocytes % (auto) 0.2 %; Lymphocytes # (auto) 0.91 K/uL (1.2-3.4); Monocytes # (auto) 0.84 K/uL (0.11-0.59); Monocytes % (auto) 13.9 %; Neutrophils # (auto) 4.28 K/uL (1.4-6.5); Neutrophils % (auto) 70.5 %
--- NOTE | 2018-08-22 08:46 | Surgery Progress Note ---
Date of Service August 22, 2018 Assessment & Plan (1) Hx of resection of small bowel: POD 1 ex lap, extensive HTAIS, ileocolic bypass, component separation for hernia repair seen with Dr. Quach cont SHEET METAL INSTALLER, Toradol, Ofirmev remove NG, keep on sips/ice for today d/c tafoya Subjective pain control better, stood at bedside last night Physical Exam Gastrointestinal (Abdomen): Inspection/Auscultation: + abdomen distended (mild) Percussion/Palpation: abdomen soft dressing dry, CAMILLE #1 10 cc, #2 20 cc Results & Data Vital Signs (Past 12 Hours) Vital Signs Temp Pulse Resp BP Pulse Ox 08/22/18 07:00 36.6 C 73 16 110/70 93 08/22/18 03:10 36.7 C 80 16 104/68 94 08/21/18 23:53 36.6 C 81 20 103/66 95
[2018-08-22] MEDS: D5W AND 1/2NSS 1,000 ML IV SCH ×2 (10:09→17:37)
--- NOTE | 2018-08-22 10:46 | Anesthesiology Progress Note ---
Date of Service August 22, 2018 Anesthesia Post Procedure Vital Signs Vital Signs: Temp Pulse Pulse Resp BP BP Pulse Ox 08/22/18 07:00 36.6 C 73 16 110/70 93 08/22/18 03:10 36.7 C 80 16 104/68 94 08/21/18 23:53 36.6 C 81 20 103/66 95 08/21/18 19:34 37.3 C 78 14 111/69 98 08/21/18 15:28 36.3 C L 86 7 L 123/73 97 08/21/18 14:25 86 14 125/74 97 08/21/18 13:26 92 H 12 128/71 99 08/21/18 12:55 86 12 133/72 100 08/21/18 12:25 36.7 C 89 12 146/74 H 100 08/21/18 11:50 37.0 C 90 12 155/66 H 100 08/21/18 11:40 92 H 13 140/60 100 08/21/18 11:30 91 H 12 156/65 H 100 08/21/18 11:20 90 14 153/63 H 100 08/21/18 11:10 88 15 151/66 H 100 08/21/18 11:00 90 13 163/66 H 100 08/21/18 10:50 88 12 146/61 H 100 Pain Intensity Abdomen: Pain Intensity: 6 Notes Mental Status: alert / awake / arousable and participated in evaluation Patient Amnestic to Procedure: Yes Nausea / Vomiting: adequately controlled Pain: adequately controlled Airway Patency, RR, SpO2: stable & adequate BP & HR: stable & adequate Hydration State: stable & adequate Anesthetic Complications: no major complications apparent and Pt Satisfied with anesthetic care
[2018-08-22] MEDS: SODIUM CHLORIDE 0.9% 1000ML 1,000 ML IV SCH (11:57)
[2018-08-23] MEDS: D5W AND 1/2NSS 1,000 ML IV SCH ×3 (01:17→17:23)
[2018-08-23] MEDS: ACETAMINOPHEN 1,000 MG/100 ML VIAL IV SCH ×2 (04:05→12:40)
[2018-08-23] MEDS: HEPARIN SOD 5,000 UNIT/0.5 ML VIAL SQ SCH ×3 (05:25→21:16)
[2018-08-23 07:17] LABS: Hematocrit (blood only) 28.7 % (37-47); Hemoglobin 9.8 g/dL (12.0-16.0); Mean Corpuscular Hgb Conc 34.1 g/dL (32-36); Mean Corpuscular Volume 92.3 fL (80-100); RDW Standard Deviation 47.1 fL (36.4-46.3); Red Blood Count 3.11 M/uL (4.2-5.4); White Blood Count 4.52 K/uL (4.8-10.8)
[2018-08-23 07:44] LABS: Mean Platelet Volume 9.7 fL (7.4-10.4); Platelet Count 84 K/uL (130-400)
[2018-08-23] MEDS: KETOROLAC TROMETHAMINE 15 MG/ML VIAL IV PRN ×2 (07:56→17:37)
[2018-08-23 08:00] LABS: BUN Creatinine Ratio 23.9 (10-20); Calcium 9.1 mg/dl (8.5-10.1); Creatinine Clr Calc Pharmacy 57.1 ml/min; Est GFR (African American) 84.6; Potassium 3.5 mmol/L (3.5-5.1)
[2018-08-23 08:03] LABS: Basophils # (auto) 0.01 K/uL (0-0.2); Basophils % (auto) 0.2 %; Echinocytes 2+; Eosinophils # (auto) 0.04 K/uL (0-0.5); Eosinophils % (auto) 0.9 %; Lymphocytes # (auto) 0.63 K/uL (1.2-3.4); Lymphocytes % (auto) 13.9 %; Monocytes # (auto) 0.52 K/uL (0.11-0.59); Monocytes % (auto) 11.5 %; Neutrophils # (auto) 3.32 K/uL (1.4-6.5); Neutrophils % (auto) 73.5 %
--- NOTE | 2018-08-23 11:14 | Surgery Progress Note ---
Date of Service August 23, 2018 Assessment & Plan (1) SBO (small bowel obstruction): POD#2 from lysis of adhesions, ileocolic bypass, hernia repair with component separation. Doing well overall. Will continue to increase activity and ambulate. She would like to try clear liquids today - given passage of flatus, this is reasonable. Will start clears. Present on Admission?: Yes Subjective Pt feels well overall. pain is well controlled with pain medications. Passing some flatus but no bowel movement yet. Mild nausea this morning, now resolved. No concerns. Physical Exam Constitutional: WD/WN, vitals as above Respiratory: normal respiratory effort, lungs clear to auscultation Cardiovascular: RRR, no murmur, no edema Gastrointestinal (Abdomen): Inspection/Auscultation: abdomen normal to inspection, normal bowel sounds and + abdominal surgical incision (dressing dry, CAMILLE drains serosanguinous, incision clean) Percussion/Palpation: abdomen soft Neurologic: PERRL, EOMI, accommodation nl, no face palsy, no dysarthria Psychiatric: A+Ox3, euthymic affect Results & Data Vital Signs (Past 12 Hours) Vital Signs Temp Pulse Resp BP Pulse Ox 08/23/18 07:44 36.8 C 87 16 120/61 99 08/23/18 03:39 36.8 C 89 18 114/74 95 08/22/18 23:24 36.7 C 82 17 107/66 94
[2018-08-23] MEDS: SODIUM CHLORIDE 0.9% 1000ML 1,000 ML IV SCH (12:40)
[2018-08-23] MEDS: HYDROmorphone HCL 0.5MG/ML 50 ML CASSETTE IV PRN (15:13)
[2018-08-23] MEDS: ONDANSETRON INJ 2 MG/ML 2 ML VIAL IV PRN (15:49)
[2018-08-24] MEDS: D5W AND 1/2NSS 1,000 ML IV SCH ×3 (01:26→17:49)
[2018-08-24] MEDS: HEPARIN SOD 5,000 UNIT/0.5 ML VIAL SQ SCH ×3 (05:52→21:54)
[2018-08-24] MEDS: ACETAMINOPHEN 1,000 MG/100 ML VIAL IV PRN ×2 (06:05→19:51)
[2018-08-24 06:23] LABS: Hematocrit (blood only) 28.4 % (37-47); Hemoglobin 9.5 g/dL (12.0-16.0); Mean Corpuscular Hgb Conc 33.5 g/dL (32-36); Mean Corpuscular Volume 92.8 fL (80-100); RDW Standard Deviation 47.8 fL (36.4-46.3); Red Blood Count 3.06 M/uL (4.2-5.4)
[2018-08-24 06:53] LABS: Mean Platelet Volume 9.6 fL (7.4-10.4); Platelet Count 75 K/uL (130-400)
[2018-08-24 07:01] LABS: BUN Creatinine Ratio 12.8 (10-20); Calcium 8.4 mg/dl (8.5-10.1); Creatinine Clr Calc Pharmacy 63.3 ml/min; Est GFR (African American) 95.8; Est GFR (Non-African American) 82.7; Potassium 3.4 mmol/L (3.5-5.1)
[2018-08-24 07:18] LABS: Echinocytes 2+; Eosinophils # (auto) 0.04 K/uL (0-0.5); Eosinophils % (auto) 1.9 %; Giant Platelets 1+; Immature Granulocytes # (auto) 0.01 K/uL (0.00-0.02); Immature Granulocytes % (auto) 0.5 %; Lymphocytes # (auto) 0.55 K/uL (1.2-3.4); Lymphocytes % (auto) 26.2 %; Monocytes # (auto) 0.34 K/uL (0.11-0.59); Monocytes % (auto) 16.2 %; Neutrophils # (auto) 1.16 K/uL (1.4-6.5); Neutrophils % (auto) 55.2 %
[2018-08-24] MEDS ORDERED: PROCHLORPERAZINE MALEATE 10 MG TAB PO PRN (09:36)
--- NOTE | 2018-08-24 09:39 | Surgery Progress Note ---
Date of Service August 24, 2018 Assessment & Plan (1) SBO (small bowel obstruction): POD#3 from lysis of adhesions, ileocolic bypass, hernia repair with component separation. Doing well overall. Will continue to increase activity and ambulate. Will continue clear liquids given intermittent nausea at times. Patch to be removed today - PO compazine ordered if needed in addition to zofran. Subjective pain control adequate. still passing small amounts of flatus. Not hungry and had episodes of nausea at times yesterday. Did not eat much of the clear liquids. Review of Systems Review of Systems: All systems reviewed & are unremarkable except as noted in HPI & below Physical Exam Constitutional: WD/WN, vitals as above Respiratory: normal respiratory effort, lungs clear to auscultation Cardiovascular: RRR, no murmur, no edema Gastrointestinal (Abdomen): Inspection/Auscultation: abdomen normal to inspection, normal bowel sounds and + abdominal surgical incision (dressing dry, CAMILLE drains serosanguinous, incision clean) Percussion/Palpation: abdomen soft Neurologic: PERRL, EOMI, accommodation nl, no face palsy, no dysarthria Psychiatric: A+Ox3, euthymic affect Results & Data Vital Signs (Past 12 Hours) Vital Signs Temp Pulse Resp BP Pulse Ox 08/24/18 07:39 36.8 C 73 18 119/63 95 08/23/18 23:12 36.5 C 83 18 114/71 95
[2018-08-24] MEDS: SODIUM CHLORIDE 0.9% 1000ML 1,000 ML IV SCH (09:40)
[2018-08-24] MEDS: ONDANSETRON INJ 2 MG/ML 2 ML VIAL IV PRN ×2 (12:01→20:12)
[2018-08-24] MEDS: KETOROLAC TROMETHAMINE 15 MG/ML VIAL IV PRN (12:01)
[2018-08-24] MEDS: HYDROmorphone HCL 0.5MG/ML 50 ML CASSETTE IV PRN (23:19)
[2018-08-25] MEDS: D5W AND 1/2NSS 1,000 ML IV SCH ×4 (01:06→20:26)
[2018-08-25] MEDS: ONDANSETRON INJ 2 MG/ML 2 ML VIAL IV PRN ×2 (04:08→22:01)
[2018-08-25] MEDS: HEPARIN SOD 5,000 UNIT/0.5 ML VIAL SQ SCH (05:52)
[2018-08-25] MEDS: KETOROLAC TROMETHAMINE 15 MG/ML VIAL IV PRN ×2 (06:01→16:41)
--- NOTE | 2018-08-25 07:46 | Surgery Progress Note ---
Date of Service no real complaints some nausea passing flatus feels rumbling August 25, 2018 Assessment & Plan (1) Hx of resection of small bowel: POD # 4 all questions answered will go slow with inc oral intake given long standing obstructive symptoms bowel disteded and thickened may take bit longer to regain activity lab reordered for today POD 1 ex lap, extensive THAIS, ileocolic bypass, component separation for hernia repair seen with Dr. 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
[2018-08-25 08:02] LABS: Hematocrit (blood only) 25.9 % (37-47); Hemoglobin 8.7 g/dL (12.0-16.0); Mean Corpuscular Hgb Conc 33.6 g/dL (32-36); Mean Corpuscular Volume 93.2 fL (80-100); RDW Coefficient of Variation 14.3 % (11.5-14.5); RDW Standard Deviation 48.4 fL (36.4-46.3); Red Blood Count 2.78 M/uL (4.2-5.4); White Blood Count 1.74 K/uL (4.8-10.8)
[2018-08-25 08:11] LABS: Mean Platelet Volume 8.9 fL (7.4-10.4); Platelet Count 77 K/uL (130-400)
[2018-08-25 08:24] LABS: BUN Creatinine Ratio 6.9 (10-20); Calcium 8.6 mg/dl (8.5-10.1); Est GFR (African American) 100.7; Est GFR (Non-African American) 86.9; Potassium 3.3 mmol/L (3.5-5.1)
[2018-08-25 08:33] LABS: Acanthocytes 1+; Eosinophils # (auto) 0.05 K/uL (0-0.5); Eosinophils % (auto) 2.9 %; Immature Granulocytes # (auto) 0.01 K/uL (0.00-0.02); Immature Granulocytes % (auto) 0.6 %; Lymphocytes # (auto) 0.59 K/uL (1.2-3.4); Lymphocytes % (auto) 33.9 %; Monocytes % (auto) 17.2 %; Neutrophils # (auto) 0.79 K/uL (1.4-6.5); Neutrophils % (auto) 45.4 %
[2018-08-25] MEDS ORDERED: POTASSIUM CHLORIDE 20 MEQ TABCR PO STA (09:41)
--- NOTE | 2018-08-25 10:19 | Hospitalist Consultation ---
Date of Consultation August 25, 2018 Assessment & Plan (1) History of abdominal surgery: -Postop day #4 small bowel obstruction release with lysis of adhesions, ileocolic bypass, hernia repair Dr. Quach -Patient with history of recurrent SBO's in the past due to underlying carcinomatosis -Currently tolerating clear liquids -Pain management as per surgery -CAMILLE drains in place -output 655 cc to date (2) Neutropenia: (3) Pancytopenia: -Labs today show WBC 1.7K, H&H 8.7/25.9, platelets 77K, ANC 790 -Received Lutathera at the end of April -Case was discussed with ELEANOR Marx with [facility] (where patient follows); [phone] -Suspect bone marrow suppression from stress of surgery in combination with previous chemotherapy treatments received -No fevers, no role for Neupogen at this time -Neutropenic precautions -Continue to follow labs; if counts continue to be low will re-discuss case with [facility] (4) Hypokalemia: -Mild, K+ 3.3 -Check magnesium -Replace, follow labs (5) Carcinoid tumor: -Received PRRT (peptide receptor radionuclide therapy) with Lutathera -Follows with [facility] in [facility] (6) DVT prophylaxis: -SQ heparin as per general surgery Thank you for this consultation. We will follow the patient with you during their hospital stay. You can reach a [facility] via pager @ [phone]. Supervising Physician Co-Signing Physician Notes I have seen and examined with nurse practitioner and agree with the assessment and plan as above and would like to comment this is a patient under general surgery team who on 08/21/18 had Exploratory Laparotomy, Lysis of Adhesions, Side to Side Ilealcolonic Anastomosis, Biopsy Abdominal Implant with Frozen Section, Repair Incisional Hernia Repair with Compartment Separation because of preop diagnosis of recurrent small bowel obstruction and history of incisional hernia with history of abdominal carcinomatosis The main consult question that hospitalist medicine team is asked to assess is leukopenia and neutropenia -Given that patient has not had fever on this admission and no underlying signs of infection at this time, patient does not require IV antibiotics for the neut ropenia. -if patient has a febrile temperature then blood cultures and urine cultures should be drawn and patient should be started on cefepime IV -there does not seem to be a role for NEUPOGEN (filgrastim) Injections at this time - will advise waiting for WBC cell counts and neutrophils to increase over time -agree with current neutropenic precautions -continue to monitor CBC and platelets - would hold heparin subcutaneous for now and encourage ambulation and SCDs while blood counts are low and as patient also getting ketorolac for pain -agree with not using scheduled narcotic medications to avoid worsening of ileus for hypokalemia and hypomagnesemia -patient's serum potassium is 3.3 and oral potassium supplements were given -serum magnesium 1.8 , ordered 2 grams of IV magnesium Other medical management as described by nurse practitioner Surgical management of the CAMILLE drains and for possible ileus On exam General: no distress Abdomen: there are dressing and 2 CAMILLE drains with serosanguinous fluid Lungs: clear to auscultation bilaterally Heart: regular rate Neuro: awake and alert and moves the extremities Extremities: no edema History of Present Illness Reason for Consultation: Leukopenia Requesting Physician: Dr. Quach Attending Physician: Dr. Jensen History of Present Illness 68-year-old female who is POD#4 small bowel obstruction release with lysis of adhesions, ileocolic bypass, hernia repair by Dr. Quach. Postoperatively, the patient has been doing well. She reports her pain is well controlled. She is having some nausea that is been controlled with Zofran and Compazine. No vomiting. She is passing flatus however no bowel movement yet. She is tolerating clear liquids. Patient denies chest pain shortness of breath. No lightheadedness or dizziness. Urinating without difficulty. Labs today show pancytopenia and we are consulted for evaluation. Allergies Allergy/AdvReac Type Severity Reaction Status Date / Time pneumococcal vaccine Allergy Severe REDNESS, Verified 08/21/18 05:37 SWELLING AT SITE aloe Allergy Intermediate RASH Verified 08/21/18 05:37 latex Allergy Intermediate MOUTH Verified 08/21/18 05:37 SORES (AT DENTIST) Penicillins Allergy Intermediate RASH Verified 08/21/18 05:37 capecitabine Allergy Mild Rash Verified 08/21/18 05:37 cefuroxime AdvReac Mild C. 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) RADIATION (TARGETED TREATMENT) COMPLETED 04/2018, S/P CHEMO (SUMMER 2017) Hypertension (Chronic) HX OF Hypercholesteremia (Chronic) Surgical History History of mastectomy (Chronic) H/O exploratory laparotomy (Chronic) SBO release x 3 History of carpal tunnel surgery (Chronic) H/O: hysterectomy (Chronic) Family History Father Diabetes Sister Diabetes Mother Diabetes Grandmother (Maternal) Family hx of colon cancer Social History Preferred Language: Rwandan Communication Ability: Effective Pnp Required: No Beliefs That Will Affect Care: None marital status: Current Living Situation: Spouse Other Information That Helps Us Care for You: No Feels Safe at Home: Yes Safety Concerns: Feels Safe At This Time Smoking Status: Never smoker Do You Dip or Chew Tobacco: No Second Hand Exposure: No Tobacco Cessation Education Requested by Patient: No Hx Alcohol Use: Yes Alcohol type: wine Hx Substance Use: No Review of Systems Review of Systems: ROS per HPI, all other systems reviewed and negative Physical Exam Constitutional: WD/WN, vitals as above Eyes: PERRL, conjunctivae normal, anicteric sclerae ENMT: external ear and nose normal, oropharynx normal Respiratory: normal respiratory effort, lungs clear to auscultation Cardiovascular: Rate/Rhythm: regular rate and regular rhythm Vessels: normal peripheral pulses Extremities: no edema Gastrointestinal (Abdomen): Inspection/Auscultation: + abdominal surgical incision (Surgical dressing dry and intact, CAMILLE drains x2 in place draining serosanguineous drainage); abdomen not distended and + abnormal bowel sounds (Hypoactive) Percussion/Palpation: + abdomen tender (Incisional) and abdomen soft; no hepatosplenomegaly Musculoskeletal: no cyanosis or clubbing, extremities motor strength 5/5 Skin: no rashes, warm and dry Neurologic: PERRL, EOMI, accommodation nl, no face palsy, no dysarthria Psychiatric: A+Ox3, euthymic affect Results & Data Vital Signs (Past 12 Hours) Vital Signs Temp Pulse Resp BP Pulse Ox 08/25/18 07:00 37.0 C 78 16 147/78 H 97 08/25/18 03:58 36.9 C 74 17 138/78 96 08/24/18 23:08 36.7 C 82 18 144/74 H 96 Laboratory Results Short CBC 08/25/18 Range/Units 07:46 WBC 1.74 L (4.8-10.8) K/uL Hgb 8.7 L (12.0-16.0) g/dL Hct 25.9 L (37-47) % Plt Count 77 L (130-400) K/uL BMP 08/25/18 07:46 Sodium 145 Potassium 3.3 L Chloride 111 H Carbon Dioxide 28 BUN 5 L D Creatinine 0.71 Glucose 150 H Calcium 8.6
[2018-08-25] MEDS: ACETAMINOPHEN 1,000 MG/100 ML VIAL IV PRN ×2 (11:07→21:56)
[2018-08-25] MEDS: MAGNESIUM SULFATE / D5W 1 GM/100 ML BAG IV SCH ×2 (12:25→13:42)
--- NOTE | 2018-08-25 15:10 | Oncology Consultation ---
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 She was found to have a lysis and adhesion. She underwent side to side to ileocolonic anastomosis, biopsy from abdominal implants and also underwent repair of incisional hernia. She is postop day 4. She also has a pancytopenia which is multifactorial including include surgical stress, underlying metastatic disease, and previous treatment for her disease. The last treatment she received was the peptide receptor radionuclide therapy (Lutahera )which is a form of radiation therapy. She received total of 4 doses of this treatment. Currently she is neutropenic but afebrile. She is at high risk for developing neutropenic fever. If she continues to drop her WBC count, start her on Neupogen 5 microgram/kg per day. She also has thrombocytopenia for the same reasons. As far as her platelet counts are above 20,000 and there is no bleeding, we can continue to monitor her. In case of any bleeding or the platelet counts below 20,000, transfuse platelet. 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 She received all her treatment at [facility] and she will continue to follow after the discharge. She has a follow-up appointment in October 2018. No treatment is needed at this point for metastatic neuroendocrine tumor. She will be seen by Dr. Jacobson at [facility] in 10/2018 History of Present Illness Reason for Consultation: Patient with history of a metastatic neuroendocrine tumor was admitted with a intestinal obstruction. 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 She was initially diagnosed in 2010 and underwent small bowel resection on 12/2010 for partial small bowel obstruction. Pathology was con sistent with a well-differentiated intermediate grade neuroendocrine tumor. Since she remained on surveillance with progressive enlargement to ovarian mass on imaging on 09/2013. She underwent a total abdominal hysterectomy and BSO on 09/2013 and pathology was consistent with metastatic well-differentiated grade 2 neuroendocrine tumor, 1/3 lymph nodes were positive for metastatic disease. She was started on Sandostatin with significant diarrhea then changed to lanreotide which was also poorly tolerated and discontinued. She required repeated small bowel resection for the local recurrence in 12/2014. She did well until 11/16/2015 when she presented with new disease and it was decided to follow her clinically. In 2016 she presented with the small bowel obstruction again. Symptoms improved with conservative management. In 04/2017 she had a PET scan done which shows metastatic disease involving the liver, omental/peritoneal disease, disease to the posterior mediastinum, left n kinza base. There was suspicious activity in pancreas. She was initially started on combination of capecitabine and temozolomide. But she developed a generalize rash after cycle 1 of this chemotherapy and capecitabine and was subsequently discontinued. She had a prior intolerance to Sandostatin. She was continued on single agent temozolomide but develop skin rash and thrombocytopenia. [address] scan shows further disease progression and she was started on PRRT with Lutathera. She received total of 4 doses. She had a follow-up gallium 68 scan on 07/10/2018 and shows a reduce tumor burden with no new disease. Now she was admitted with recurrent small bowel obstruction and abdominal carcinomatosis. She underwent exploratory laparotomy and a [id number] ileocolonic anastomosis. Biopsy of the implant is a consistent with metastatic well-differentiated neuroendocrine tumor grade 1 after 3 and the omental biopsies also positive for metastatic disease On admission her WBC count was 3.69 hemoglobin 12.9 and platelet count 119. After the surgery the blood counts went down and the last blood work done today shows WBC count 1.74 hemoglobin 8.7 and platelet count [id number] ANC is 790 Attending Physician: Eb Jensen MD Allergies Allergy/AdvReac Type Severity Reaction Status Date / Time pneumococcal vaccine Allergy Severe REDNESS, Verified 08/21/18 05:37 SWELLING AT SITE aloe Allergy Intermediate RASH Verified 08/21/18 05:37 latex Allergy Intermediate MOUTH Verified 08/21/18 05:37 SORES (AT DENTIST) Penicillins Allergy Intermediate RASH Verified 08/21/18 05:37 capecitabine Allergy Mild Rash Verified 08/21/18 05:37 cefuroxime AdvReac Mild C. 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) RADIATION (TARGETED TREATMENT) COMPLETED 04/2018, S/P CHEMO (SUMMER 2017) Hypertension (Chronic) HX OF Hypercholesteremia (Chronic) Surgical History History of mastectomy (Chronic) H/O exploratory laparotomy (Chronic) SBO release x 3 History of carpal tunnel surgery (Chronic) H/O: hysterectomy (Chronic) Family History Father Diabetes Sister Diabetes Mother Diabetes Grandmother (Maternal) Family hx of colon cancer Social History Preferred Language: Uruguayan Communication Ability: Effective 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 HEENT: No change in visual acuity, blurred or double vision. No epistaxis, facial pain, nasal discharge or change in hearing. Denies dysphagia, no muscosal ulceration, or sores noted. Cardiovascular: No chest pain, BLACKWELL, or palpitations Respiratory: No shortness of breath, cough, hemoptysis, or pleuritic chest pain Gastrointestinal: abdominal pain on and off, No nausea, vomiting, diarrhea, rectal pain or bleeding Genitourinary: Denies Hematuria or dysuria Musculoskeletal: No bone pain Skin: No skin rash or lesions noted Endocrine: No symptoms of hypothyroidism or hyperglycemia Hematologic: No bleeding or lymph nodes noted As mentioned above, all of the systems were reviewed in full and are unremarkable Physical Exam Physical Exam: PHYSICAL EXAMINATION: General Appearance: Healthy appearing patient in no acute distress HEENT: No oral or pharyngeal masses, ulceration or thrush noted, no sinus tenderness. Neck is supple with no thyromegaly or JVD noted. Lymph Nodes: No lymphadenopathy noted in the occipital, pre and post auricular, cervical, supra and infraclavicular, axillary, epitrochlear, inguinal, and popliteal region. Lungs/Thorax: Clear to auscultation, no accessory muscles of respiration being used. Heart: Regular rate and rhythm, normal S1, S2, no appreciable murmurs, rubs, gallops Abdomen: Soft, generalize tendernes , bowel sounds present, no appreciable hepatosplenomegaly Extremeties: Good pulses bilaterally, no peripheral edema. Skin: Normal skin tone with no rash, petechiae, ecchymosis noted. Musculoskeletal: No pain on palpation over bony prominence, no edema, no evidence of gout, no joint or bony deformity Results & Data Vital Signs (Past 12 Hours) Vital Signs Temp Pulse Resp BP Pulse Ox 08/25/18 11:11 36.8 C 79 16 145/76 H 97 08/25/18 07:00 37.0 C 78 16 147/78 H 97 08/25/18 03:58 36.9 C 74 17 138/78 96
[2018-08-25] MEDS: SODIUM CHLORIDE 0.9% 1000ML 1,000 ML IV SCH (15:55)
[2018-08-25] MEDS: HYDROmorphone HCL 0.5MG/ML 50 ML CASSETTE IV PRN (23:00)
[2018-08-26] MEDS: D5W AND 1/2NSS 1,000 ML IV SCH (03:21)
[2018-08-26 06:52] LABS: Hematocrit (blood only) 26.9 % (37-47); Hemoglobin 9.1 g/dL (12.0-16.0); Mean Corpuscular Hgb Conc 33.8 g/dL (32-36); Mean Corpuscular Volume 92.1 fL (80-100); RDW Coefficient of Variation 14.2 % (11.5-14.5); RDW Standard Deviation 48.1 fL (36.4-46.3); Red Blood Count 2.92 M/uL (4.2-5.4); White Blood Count 2.42 K/uL (4.8-10.8)
[2018-08-26 07:17] LABS: Acanthocytes 1+; Basophils # (auto) 0.01 K/uL (0-0.2); Basophils % (auto) 0.4 %; Eosinophils # (auto) 0.04 K/uL (0-0.5); Eosinophils % (auto) 1.7 %; Immature Granulocytes # (auto) 0.01 K/uL (0.00-0.02); Immature Granulocytes % (auto) 0.4 %; Lymphocytes # (auto) 0.62 K/uL (1.2-3.4); Lymphocytes % (auto) 25.6 %; Mean Platelet Volume 9.5 fL (7.4-10.4); Monocytes # (auto) 0.38 K/uL (0.11-0.59); Monocytes % (auto) 15.7 %; Neutrophils # (auto) 1.36 K/uL (1.4-6.5); Neutrophils % (auto) 56.2 %; Platelet Count 73 K/uL (130-400)
[2018-08-26] MEDS: HYDROmorphone HCL 0.5MG/ML 50 ML CASSETTE IV PRN (07:18)
[2018-08-26 07:26] LABS: BUN Creatinine Ratio 3.9 (10-20); Calcium 8.7 mg/dl (8.5-10.1); Creatinine Clr Calc Pharmacy 74.3 ml/min; Est GFR (African American) 106.1; Est GFR (Non-African American) 91.5; Magnesium 1.9 mg/dl (1.8-2.4); Potassium 3.3 mmol/L (3.5-5.1)
[2018-08-26] MEDS: KETOROLAC TROMETHAMINE 15 MG/ML VIAL IV PRN ×2 (07:30→19:13)
[2018-08-26] MEDS ORDERED: POTASSIUM CHLORIDE 20 MEQ TABCR PO STA (07:48)
[2018-08-26] MEDS ORDERED: MAGNESIUM SULFATE / D5W 1 GM/100 ML BAG IV ONE (08:00)
[2018-08-26] MEDS ORDERED: POTASSIUM CHLORIDE / WTR 10 MEQ/100 ML PLCT IV SCH (08:00)
--- NOTE | 2018-08-26 08:07 | Hospitalist Progress Note ---
Date of Service August 26, 2018 Assessment & Plan (1) History of abdominal surgery: -this is a patient under general surgery team who on 08/21/18 had Exploratory Laparotomy, Lysis of Adhesions, Side to Side Ilealcolonic Anastomosis, Biopsy Abdominal Implant with Frozen Section, Repair Incisional Hernia Repair with Compartment Separation because of preop diagnosis of recurrent small bowel obstruction and history of incisional hernia with history of abdominal carcinomatosis -since 08/25/18 afternoon, patient has been able to move her bowels multiple times -she is on clear liquid diet - continue and defer to general surgery on when she can be advanced the diet -patient has active IV fluid orders since 08/22/18 - as patient is passing bowel movements, will stop IV fluids on 08/26/18, defer to general surgery if they feel need to put back on IV fluids later -as per patient, general surgery will plan to take out the 2 CAMILLE drains from abdomen later on 08/26/18 (2) Neutropenia: on neutropenic precautions (3) Pancytopenia: -since the surgery on 08/21/18 , patient has been having worsening pancytopenia -patient on neutropenic precautions but no fever and not on antibiotics -however, as of 08/26/18, the WBC increasing to 2.42 and neutrophil increased to 1.36 compared to 08/25/18 when medicine was and oncology services were consulted. Also Hgb increased mildly to 9.1 compared to 08/25/18 -no NEUPOGEN (filgrastim) has been given at this time. Neupogen 5 microgram/kg per day was recommended by oncology services if counts are downtrending but Neupogen does not appear to not be needed at this time -agree with Oncology " As far as her platelet counts are above 20,000 and there is no bleeding, we can continue to monitor her. In case of any bleeding or the platelet counts below 20,000, transfuse platelet" -continue to monitor CBC and platelets -heparin subcutaneous was held since 08/25/18 for now and encourage ambulation and SCDs while blood counts are low and as patient also getting ketorolac prn for pain (4) Hypokalemia: Hypokalemia -medicine service gave oral potassium when serum potassium 3.3 on 08/25/18 -serum potassium remains 3.3 on 08/26/18, offered IV potassium replacements but patient preferrer oral potassium supplements, 40 meq ordered Hypomagnesemia -serum magnesium 1.8 on 08/25/18 and magnesium supplements were given -ideally should keep serum magnesium as 2 to optimize potassium repeltion -serum magnesium is 1.9 on 08/26/18, give IV magnesium (5) Carcinoid tumor: -Received PRRT (peptide receptor radionuclide therapy) with [facility] -Follows with [facility] in [facility]; further oncology information can be obtained ELEANOR Marx [phone] at [facility] (6) DVT prophylaxis: -hold subcutaneous heparin, encourage SCDs and ambulation Subjective since 08/25/18, patient reports as least 4 bowel movements which are first bowel movements since yesterday. as per patient, general surgery will plan to take out the 2 CAMILLE drains from abdomen later on 08/26/18. some abdomen discomfort but corina ent tolerating discomfort. no acute distress. no vomiting. she has been able to take liquid diet and pills. no shortness of breath. no chest pain. no lightheadedness. patient reports she has been able to ambulate Physical Exam Constitutional: WD/WN, vitals as above Eyes: PERRL, conjunctivae normal, anicteric sclerae EOM intact bilaterally ENMT: external ear and nose normal, oropharynx normal Neck: trachea midline, no thyromegaly normal visual inspection Respiratory: normal respiratory effort, lungs clear to auscultation Cardiovascular: RRR, no murmur, no edema Gastrointestinal (Abdomen): abdomen binders, 2 CAMILLE drains Musculoskeletal: no cyanosis or clubbing, extremities motor strength 5/5 Head/Neck/Chest: normocephalic and head atraumatic Neurologic: PERRL, EOMI, accommodation nl, no face palsy, no dysarthria CN's II-XI intact bilaterally Psychiatric: A+Ox3, euthymic affect Results & Data Vital Signs (Past 12 Hours) Vital Signs Temp Pulse Resp BP BP Pulse Ox 08/26/18 07:06 37.2 C 76 16 153/82 H 97 08/26/18 04:15 36.9 C 82 16 132/71 97 08/25/18 23:35 36.8 C 86 16 126/74 97
[2018-08-26] MEDS: SODIUM CHLORIDE 0.9% 1000ML 1,000 ML IV SCH (08:14)
[2018-08-26] MEDS ORDERED: OXYCODONE/ACETAMINOPHEN 5mg/325mg TAB PO PRN (08:57)
--- NOTE | 2018-08-26 09:03 | Surgery Progress Note ---
Date of Service August 26, 2018 Assessment & Plan (1) H/O exploratory laparotomy: POD 5 THAIS, ileocolic bypass, hernia repair seen earlier by Dr. 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
[2018-08-26] MEDS ORDERED: HYDROmorphone INJ 0.5 MG/0.5 ML SYR IV PRN (09:06)
[2018-08-26] MEDS: ACETAMINOPHEN 1,000 MG/100 ML VIAL IV PRN (11:03)
[2018-08-26] MEDS: ONDANSETRON INJ 2 MG/ML 2 ML VIAL IV PRN (19:07)
[2018-08-26] MEDS: OXYCODONE/ACETAMINOPHEN 5mg/325mg TAB PO PRN (23:41)
[2018-08-27 07:58] LABS: Hematocrit (blood only) 26.7 % (37-47); Mean Corpuscular Hgb Conc 33.7 g/dL (32-36); Mean Corpuscular Volume 91.8 fL (80-100); RDW Coefficient of Variation 13.9 % (11.5-14.5); RDW Standard Deviation 46.6 fL (36.4-46.3); Red Blood Count 2.91 M/uL (4.2-5.4); White Blood Count 2.97 K/uL (4.8-10.8)
--- NOTE | 2018-08-27 07:59 | Surgery Progress Note ---
Date of Service feels better tolerated more solid food loose bm August 27, 2018 Assessment & Plan (1) H/O exploratory laparotomy: POD 6 plan d/c today all questions answered will see in office 1 week lab pending ( medical records inaccurate multiple loose bm per pt but none report in I and O) instructions given POD 5 THAIS, ileocolic bypass, hernia repair seen earlier by Dr. 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
[2018-08-27 08:01] LABS: Mean Platelet Volume 9.6 fL (7.4-10.4); Platelet Count 75 K/uL (130-400)
[2018-08-27 08:22] LABS: Basophils # (auto) 0.01 K/uL (0-0.2); Basophils % (auto) 0.3 %; Dohle Bodies 1+; Echinocytes 1+; Eosinophils # (auto) 0.06 K/uL (0-0.5); Immature Granulocytes # (auto) 0.03 K/uL (0.00-0.02); Lymphocytes % (auto) 23.6 %; Monocytes # (auto) 0.37 K/uL (0.11-0.59); Monocytes % (auto) 12.5 %; Neutrophils % (auto) 60.6 %; Ovalocytes 1+
[2018-08-27 08:35] LABS: Albumin Globulin Ratio 0.8 (0.9-2); Albumin Level 2.4 gm/dl (3.4-5.0); BUN Creatinine Ratio 8.7 (10-20); Bilirubin,Total 0.7 mg/dl (0.2-1); Calcium 8.9 mg/dl (8.5-10.1); Creatinine Clr Calc Pharmacy 76.8 ml/min; Est GFR (African American) 107.2; Est GFR (Non-African American) 92.5; Phosphorus 3.4 mg/dl (2.5-4.9); Potassium 3.6 mmol/L (3.5-5.1); Total Protein 5.4 gm/dl (6.4-8.2)
[2018-08-27] MEDS: OXYCODONE/ACETAMINOPHEN 5mg/325mg TAB PO PRN (09:11)
--- NOTE | 2018-08-27 10:00 | Hospitalist Progress Note ---
Date of Service August 27, 2018 Assessment & Plan (1) History of abdominal surgery: Post op day# 6 S/P Exploratory laparotomy, lysis of adhesions, ileocolic bypass, repair incisional hernia repair for H/O recurrent SBO and H/O abdominal carcinomatosis by Dr Quach -Primary team advanced diet from clear liquids to low fiber diet on 08/26/18. Pt eating small amounts and reports tolerating -Reports 7 BM's on 08/26/18 -CAMILLE drains removed on 08/26/18 -Incentive spirometry -H/H stable at 11/20 -Pain controlled (2) Neutropenia: (3) Pancytopenia: WBC: 2.97 (was 2.42 on 08/26/18 and 1.74 on 08/25/18 H/H: 9.0/26.7 (was 9.1/26.9 on 08/26/18 and 8.7/25.9 on 08/25/18 Plt: 75. (was 73 on 08/26/28 and 77 on 08/25/18) Neutrophil 60% (was 45% on 08/25/18) Pt developed worsening pancytopenia after surgery and moderate neutropenia on 08/25/18 -Was on neutropenic precautions -Today no longer neutropenic. Improving WBC, Hgb, Plt as above -No fever/chills, no signs of infection. Was not on antibiotics -Dr Lucero with [facility] hematology/oncology was consulted on 08/25/18. It was recommended if pt had continued downtrending WBC to start Neupogen, and if Plt dropped below 20,000 or active bleeding to transfuse, however this was not needed. -Pt had no bleeding (4) Hypokalemia: K: 3.6 today. Was 3.3 on 08/25/18 & 08/26/18 -Had oral potassium supplement on 08/25/18 and 08/26/18 -Pt now eating and drinking (5) Hypomagnesemia: Magnesium: 2.0 today. Was 1.8 on 08/25/18 -IV magnesium supplements were given -Pt now transitioned to low fiber diet and tolerating for past 24 hours (6) Carcinoid tumor: H/O neuroendocrine tumor, abdominal carcinomatosis. -Follows with [facility] in [facility]; further oncology information can be obtained ELEANOR Marx [phone] at [facility] -Received peptide receptor radionuclide therapy with [facility] in 04/2018 (7) DVT prophylaxis: -Initially was on SQ heparin, which was then discontinued secondary to pancytopenia. Current SCDs and ambulation Disposition: Per primary team anticipated D/C home today. Medicine team agrees with d/c as long as pt can tolerate lunch today. Follow up appointment made for September 04, 2018 at 11:05AM with Dr Lee, Primary Care Provider Pt was seen and care coordinated with Dr Archuleta. See addendum Supervising Physician Co-Signing Physician Notes I have seen and examined the patient and have discussed the case with the provider above. I agree with the assessment and plan as stated. Physical exam performed with surgical site healing well, and soft nontender abdomen. She is feeling well and feels ready to go home. She has been hemodynamically stable and afebrile and is oxygenating, mentating and ambulating at her baseline. Stable for discharge from my perspective. Geremias, Subjective Pt seen and examined. Sitting up in bed Reports is doing well. Having some mild incisional abdominal pain. Reports 7 loose bowel movements yesterday. None yet this morning. Reports passing flatus. Started low fiber diet yesterday and pt states is "taking it slow" and eating small amounts and is tolerating. Denies N/V. Abdominal drains removed yesterday. No fevers recorded. Has been able to ambulate. Denies chills, diaphoresis, hematochezia, melena, CADET, dizziness, syncope, epistaxis, vision changes, neck pain, CP, SOB, orthopnea, cough, sore throat, choking, paresthesias, weakness, extremity edema, rashes, urinary symptoms. Review of Systems Review of Systems: All systems reviewed & are unremarkable except as noted in HPI & below Physical Exam Physical Exam: General: no acute distress, WDWN Head: normocephalic, atraumatic Eyes: PERRL, EOM's intact, conjunctiva non-injected, anicteric ENT: normal inspection external ears, nose, mucous membranes moist Neck: supple, trachea midline Lungs: clear, no respiratory distress, no wheezing/rhonchi/rales CV: RRR, no murmur, no JVD, no pretibial edema Abd: vertical incision mid abdomen with lila in place without erythema or discharge. bilateral lower abdomen with dressings in place and are dry and intact. normal BS, soft, mild tenderness to slight palpation Ext: no cyanosis, no calf tenderness Neuro: A&O x 3, no focal deficits noted, normal affect Skin: warm, dry Results & Data Vital Signs (Past 12 Hours) Vital Signs Temp Pulse Resp BP Pulse Ox 08/27/18 07:43 36.9 C 80 16 155/83 H 95 08/26/18 23:31 36.9 C 96 H 16 143/80 H 97 Laboratory Results Short CBC 08/27/18 Range/Units 07:36 WBC 2.97 L (4.8-10.8) K/uL Hgb 9.0 L (12.0-16.0) g/dL Hct 26.7 L (37-47) % Plt Count 75 L (130-400) K/uL BMP 08/27/18 07:36 Sodium 143 Potassium 3.6 Chloride 106 Carbon Dioxide 32 BUN 5 L Creatinine 0.61 Glucose 107 H Calcium 8.9 Liver Function 08/27/18 Range/Units 07:36 Total Bilirubin 0.7 (0.2-1) mg/dl AST 30 (15-37) U/L ALT 86 H (12-78) U/L Alkaline Phosphatase 237 H (45-117) U/L Albumin 2.4 L (3.4-5.0) gm/dl
--- NOTE | 2018-08-29 12:21 | Discharge Summary ---
Date of Service August 29, 2018 Principal Diagnosis 1. Metastatic Neuroendocrine tumor 2. Incisional hernia, recurrent small bowel obstructions 3. Pancytopenia, improved Discharge Data Allergies Allergy/AdvReac Type Severity Reaction Status Date / Time pneumococcal vaccine Allergy Severe REDNESS, Verified 08/21/18 05:37 SWELLING AT SITE aloe Allergy Intermediate RASH Verified 08/21/18 05:37 latex Allergy Intermediate MOUTH Verified 08/21/18 05:37 SORES (AT DENTIST) Penicillins Allergy Intermediate RASH Verified 08/21/18 05:37 capecitabine Allergy Mild Rash Verified 08/21/18 05:37 cefuroxime AdvReac Mild C. DIFF Verified 08/21/18 05:37 nickel AdvReac Mild Rash Verified 08/21/18 05:37 Consultations 08/25/18 08:42 Consult Oncology Routine 08/25/18 08:45 Consult Hospitalist Routine Procedures Performed Operation Date: 08/21/18 07:00 Actual Procedures p Exploratory Laparotomy, Lysis of Adhesions, Side to Side Ilealcolonic Anastomosis, Biopsy Abdominal Implant with Frozen Section, Repair Incisional Hernia Repair with Compartment Separation(Not Applicable) - Ga Quach MD Hospital Course (1) Carcinomatosis: 68 y/o female with history of carcinoid tumor with recurrent small bowel obstruction and incisional hernia taken to the operating room for exploration, lysis of adhesions and hernia repair with compartment separation. We also perf ormed a ileocolic bypass to prevent a future obstruction in an area of concern which would have otherwise required a more extensive resection. She was transferred to the surgical floor for post-op care. MACHINE CUTTER was used for analgesia and subcutaneous heparin for DVT prophylaxis. Nasogastric tube was removed on postop day 1 and clear liquids started on day 2. She had some nausea that was improving by day 4 when bowel function began to return. She then had pancytopenia, oncology and hospitalist services were consulted. She was placed on neutropenic precautions but by the next day her white count had increased above 2,000 and platelet count remained stable in the 70,000 range. No additional treatment was needed. She tolerated an advancing diet and radha drains were removed on day 5. On day 6 her white count was 3,000. She was tolerating low fiber diet and oral analgesics. Her incision was clean and dry. She was stable for discharge. Will follow-up in one week with Dr. Quach and with her PCP for repeat labs. Total Time Total Time Spent Total Time Spent (In Minutes): 15 Discharge Plan Discharge Items Patient Disposition: Home - Home Health Services Reason For Visit: Small Bowel Obstruction Discharge Diagnosis: lysis of adhesions, hernia repair Discharge Goals: Decrease discomfort Activity: Per 'Additional Instructions' section Lifting: No more than 10 pounds Bathing: No limitations Bathing Comment: ok to shower Driving/Machine Use Comment: when pain free Non-emergency contact: Surgeon Call non-emergency contact if: you have any medication questions, your pain is not controlled, you have a fever, your temperature is above 101.5, your wound has increased redness and your wound has increased drainage Follow-up/Referrals: Ga Quach MD [Surgeon] - (In 1 week, call to make an appt) Justyna Lee DO [Primary Care Provider] - Diet: Regular Addtl Provider Instructions: Prescriptions: New oxycodone-acetaminophen [Percocet] 5-325 mg tablet 1 - 2 tab PO Q4H PRN (Reason: pain) Qty: 15 RF: 0 Continued multivitamin Tablet 1 tab PO DAILY RF: 0 ondansetron HCl [Zofran] 8 mg Tablet 8 mg PO TID PRN (Reason: Nausea) RF: 0 prochlorperazine maleate [Compazine] 10 mg Tablet 10 mg PO TID PRN (Reason: Nausea) RF: 0 atorvastatin 10 mg tablet 10 mg PO PM RF: 0 Stand-Alone [facility] Discharge Orders: Discharge Order (Routine); Ordered 08/27/18 Ordered By: Enio Cisneros Admission Data Admit Date/Time: 08/21/18 10:21 Attending Provider: Ga Quach Admit Provider: Ga Quach Primary Care Provider: Justyna Lee Other Providers: Sami Gupta Sabrina M. Service: Surgical Services Other Interventions: Discharge Summary Assessment (RN) Last Done: 08/27/18 13:17 DC Date/Time DO NOT enter until pt leaves facility: 08/27/18 13:29
== END 2018-08-27 13:29 | disposition home health service (06) | DRG 329 ==
LOC: ASU 05:12 → SUATTDRO 10:21 → 3N 10:21
DX: D61.810 Antineoplastic chemotherapy induced pancytopenia; Z85.060 Personal history of malignant carcinoid tumor of small intestine; D05.10 Intraductal carcinoma in situ of unspecified breast; Z88.0 Allergy status to penicillin; Z83.3 Family history of diabetes mellitus; C78.6 Secondary malignant neoplasm of retroperitoneum and peritoneum; E78.00 Pure hypercholesterolemia, unspecified; E87.6 Hypokalemia; Z80.3 Family history of malignant neoplasm of breast; E83.42 Hypomagnesemia; K21.9 Gastro-esophageal reflux disease without esophagitis; I10 Essential (primary) hypertension; K43.0 Incisional hernia with obstruction, without gangrene; Z91.040 Latex allergy status; Z92.3 Personal history of irradiation; K63.5 Polyp of colon; H90.12 Conductive hearing loss, unilateral, left ear, with unrestricted hearing on the contralateral side

== ENCOUNTER 2018-08-30 20:49 | Inpatient (IN) ==
[2018-08-30] MEDS ORDERED: ONDANSETRON INJ 2 MG/ML 2 ML VIAL IV PRN (21:11)
[2018-08-30] MEDS ORDERED: PROMETHAZINE HCL 25 MG in SODIUM CHLORIDE 0.9% 50 ML IV PRN (21:11)
[2018-08-30] MEDS ORDERED: HYDROmorphone INJ 1 MG/ML SYRINGE IV PRN (21:11)
[2018-08-30] MEDS ORDERED: PROMETHAZINE HCL 12.5 MG in SODIUM CHLORIDE 0.9% 50 ML IV PRN (21:11)
[2018-08-30] MEDS ORDERED: SODIUM CHLORIDE 0.9% 1000ML 1,000 ML IV SCH (21:15)
--- NOTE | 2018-08-30 21:17 | History & Physical Report ---
Date of Service August 30, 2018 Assessment & Plan (1) H/O exploratory laparotomy: We will admit the patient to the hospital with nausea and abdominal pain and low-grade fever. We will treat her with IV fluid antiemetic IV pain medication and check a C. difficile. I am going to empirically give her p.o. Vanco in light of her recent neutropenia. We will check her laboratories closely and treat her as indicated. I am asking [facility] hospitalist to see the patient help me with her care. We will likely check her CAT scan in the morning. We are considering empiric IV antibiotics. History of Present Illness She has had a fever over 100 that her has documented. Primary Care Provider: Justyna Lee, Patient is to be directly admitted to the hospital after her called me from home and explained she is having nausea and abdominal pain and low-grade fever. On 08/21/2018 Dr. Quach performed extensive abdominal operation for small bowel obstruction. 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 He also closed an incisional hernia with a separation technique, there is no mesh placed. She has had nausea but no vomiting is able to drink. During her recent hospitalization he was neutropenic thrombocytopenia there was some sideration of treating her with Neupogen. Allergies Allergy/AdvReac Type Severity Reaction Status Date / Time pneumococcal vaccine Allergy Severe REDNESS, Verified 08/21/18 05:37 SWELLING AT SITE aloe Allergy Intermediate RASH Verified 08/21/18 05:37 latex Allergy Intermediate MOUTH Verified 08/21/18 05:37 SORES (AT DENTIST) Penicillins Allergy Intermediate RASH Verified 08/21/18 05:37 capecitabine Allergy Mild Rash Verified 08/21/18 05:37 cefuroxime AdvReac Mild C. DIFF Verified 08/21/18 05:37 nickel AdvReac Mild Rash Verified 08/21/18 05:37 Home Medications Home Medications Medication Instructions Recorded Confirmed Type atorvastatin 10 mg PO PM 05/06/18 08/21/18 History multivitamin 1 tab PO DAILY 08/13/18 08/21/18 History ondansetron HCl [Zofran] 8 mg PO TID PRN 08/13/18 08/21/18 History prochlorperazine maleate 10 mg PO TID PRN 08/13/18 08/21/18 History [Compazine] oxycodone-acetaminophen [Percocet] 1 - 2 tab PO Q4H PRN #15 tab 08/27/18 Rx Past Med/Surg History Social History Preferred Language: Tam[place] Communication Ability: Effective Beliefs That Will Affect Care: None marital status: Current Living Situation: Spouse Feels Safe at Home: Yes Smoking Status: Never smoker Second Hand Exposure: No Hx Alcohol Use: Yes Alcohol type: wine Hx Substance Use: No Review of Systems Review of Systems: All systems reviewed & are unremarkable except as noted in HPI & below Physical Exam Physical Exam: Clinically does not appear to be significantly ill. She is awake and alert her sclera are anicteric Neck is supple skin is pale She is breathing comfortably he has a regular rate Abdomen is mildly distended her incision is intact without erythema he does have some lila. He does have some ecchymosis from heparin injections. He does have active bowel is minimal tenderness her extremities are well-perfused and will
[2018-08-30 21:44] LABS: Hematocrit (blood only) 28.9 % (37-47); Hemoglobin 9.8 g/dL (12.0-16.0); Mean Corpuscular Volume 90.9 fL (80-100); RDW Coefficient of Variation 13.6 % (11.5-14.5); RDW Standard Deviation 44.9 fL (36.4-46.3); Red Blood Count 3.18 M/uL (4.2-5.4); White Blood Count 5.72 K/uL (4.8-10.8)
--- NOTE | 2018-08-30 21:49 | XRay Report ---
XR chest 1V portable HISTORY: 68 years-old Female r/o infiltrate acute shortness breath COMPARISON: Chest radiograph 08/14/2018 TECHNIQUE: Portable AP view of the chest FINDINGS: Unchanged mild right hemidiaphragmatic elevation. Cardiomediastinal and hilar silhouettes are within normal limits. There is no pneumothorax, pleural effusion, focal airspace consolidation or overt pulm onary edema. Bones of the chest appear grossly intact. IMPRESSION: No acute process. The above report was generated using voice recognition software. It may contain grammatical, syntax o r spelling errors. Electronically signed by: Bart Miller M.D. 08/30/2018 9:48 PM
[2018-08-30 21:59] LABS: Prothrombin Time 9.9 Seconds (9.0-12.0)
[2018-08-30] MEDS ORDERED: VANCOMYCIN HCL 250 MG/5 ML SOLN PO SCH (22:00)
[2018-08-30] MEDS ORDERED: RASPBERRY SYRUP 5 ML UDP PO SCH (22:00)
[2018-08-30 22:07] LABS: Albumin Level 2.5 gm/dl (3.4-5.0); Aspartate Aminotransferase 17 U/L (15-37); BUN Creatinine Ratio 11.3 (10-20); Blood Urea Nitrogen 8 mg/dl (7-18); Calcium 8.7 mg/dl (8.5-10.1); Carbon Dioxide 30 mmol/L (21-32); Chloride 104 mmol/L (98-107); Est GFR (African American) 102.9; Est GFR (Non-African American) 88.8; Glucose 183 mg/dl (70-99); Magnesium 1.7 mg/dl (1.8-2.4); Potassium 2.8 mmol/L (3.5-5.1); Sodium 140 mmol/L (136-145)
[2018-08-30 22:10] LABS: Alanine Aminotransferase 35 U/L (12-78); Albumin Globulin Ratio 0.7 (0.9-2); Alkaline Phosphatase 182 U/L (45-117); Bilirubin Direct 0.1 mg/dl (0-0.2); Bilirubin,Total 0.4 mg/dl (0.2-1); Globulin 3.5 gm/dl (2.5-4.0); Phosphorus 2.5 mg/dl (2.5-4.9)
[2018-08-30] MEDS ORDERED: POTASSIUM CHLORIDE 20 MEQ TABCR PO STA (22:20)
--- NOTE | 2018-08-30 22:29 | Hospitalist Consultation ---
Date of Consultation August 30, 2018 Assessment & Plan (1) Diarrhea: Final Assessment and Recommendations as follows : Diarrhea Rule out recurrent C. difficile Recent confinement for recurrent SBO status post surgery. Patient not septic. Hypokalemia, hypomagnesemia secondary to diarrheal illness hx metastatic neuroendocrine tumor status post surgery, chemotherapy hx PRRT (peptide receptor radionuclide therapy) breast cancer left status post surgery/radiation hypertension, stable Not currently on maintenance medications Hyperglycemia rule out DM Postop anemia, hemoglobin at baseline Chronic thrombocytopenia Stool C. difficile DC oral vancomycin if stool C. difficile negative Replace electrolytes Check hemoglobin A1c DVT prophylaxis. SCDs RE thrombocytopenia Thank you very much for this consultation. Dr. Archuleta will follow patient's progress. History of Present Illness Reason for Consultation: Medical management Requesting Physician: Dr. Dee Attending Physician: Lorenzo Dee MD, FACS History of Present Illness PCP : Dr. Lee History obtained from patient, family, and records. Medical history significant for metastatic neuroendocrine tumor status post surgery, chemotherapy, hx PRRT (peptide receptor radionuclide therapy), breast cancer left status post surgery/radiation, hypertension, hyperlipidemia, episodic thrombocytopenia, past history C. difficile. Recent confinement August 21 to August 29, 2018 under surgery service for recurrent SBO, incisional hernia status post surgery. Pancytopenia developed during confinement. Leukopenia improving upon discharge. Hemoglobin noted to be 9 at time of discharge. Loose stools also noted during confinement which was deemed post obstructive as per patient. No stool C. difficile test during confinement. At home, patient noted persistent nonbloody diarrhea symptoms, about 10 times a day as per patient associated with achy right-sided abdominal pain. Some nausea, no emesis. Low-grade fever as per patient at home. Denies cough, dysuria, chest pain, S OB. Patient requested by surgeon direct support professional home health to come to hospital as a direct admission. Patient received first dose of oral Vancomycin for presumptive C. difficile upon arrival at the floor. 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 Beliefs That Will Affect Care: None marital status: Current Living Situation: Spouse Feels Safe at Home: Yes Safety Concerns: Feels Safe At This Time Smoking Status: Never smoker Second Hand Exposure: No Hx Alcohol Use: No Hx Substance Use: No Review of Systems Review of Systems: As per HPI, all 10 systems reviewed, all other ROS negative Physical Exam Physical Exam: GENERAL: Pleasant, comfortable, no respiratory distress SKIN: Pallor , warm HEENT: Bespectacled, pale palpebral conjunctivae, no ptosis, dry buccal mucosa NECK : Supple, no tenderness CHEST : CTA, no tenderness HEART : RRR, no obvious murmurs ABDOMEN: Well coaptated incision with lila, ecchymosis, right anterior abdomen, some distention, right-sided abdominal tenderness EXTREMITIES : No LE swelling/tenderness, no other conspicuous deformities noted NEUROLOGIC : Coherent, no facial asymmetry, no other gross focality Results & Data Laboratory Results Laboratory Results WBC 5.72 K/uL (4.8-10.8) 08/30/18 21:28 RBC 3.18 M/uL (4.2-5.4) L 08/30/18 21:28 Hgb 9.8 g/dL (12.0-16.0) L 08/30/18 21:28 Hct 28.9 % (37-47) L 08/30/18 21:28 MCV 90.9 fL (80-100) 08/30/18 21:28 MCH 30.8 pg (25-34) 08/30/18 21:28 RDW Std Deviation 44.9 fL (36.4-46.3) 08/30/18 21:28 RDW Coeff of Katelyn 13.6 % (11.5-14.5) 08/30/18 21:28 PT 9.9 Seconds (9.0-12.0) 08/30/18 21:30 INR 1.0 (0.9-1.1) 08/30/18 21:30 Sodium 140 mmol/L (136-145) 08/30/18 21:28 Potassium 2.8 mmol/L (3.5-5.1) L 08/30/18 21:28 Chloride 104 mmol/L (98-107) 08/30/18 21:28 Carbon Dioxide 30 mmol/L (21-32) 08/30/18 21:28 Anion Gap 6.0 (3-11) 08/30/18 21:28 BUN 8 mg/dl (7-18) 08/30/18 21:28 Creatinine 0.69 mg/dl (0.6-1.2) 08/30/18 21:28 Est Cr Clr Drug Dosing Not Reportable 08/30/18 21:28 Est GFR ( Amer) 102.9 08/30/18 21:28 Est GFR (Non-Af Amer) 88.8 08/30/18 21:28 BUN/Creatinine Ratio 11.3 (10-20) 08/30/18 21:28 Glucose 183 mg/dl (70-99) H 08/30/18 21:28 Calcium 8.7 mg/dl (8.5-10.1) 08/30/18 21:28 Phosphorus 2.5 mg/dl (2.5-4.9) 08/30/18 21:28 Magnesium 1.7 mg/dl (1.8-2.4) L 08/30/18 21:28 Total Bilirubin 0.4 mg/dl (0.2-1) 08/30/18 21:28 Direct Bilirubin 0.1 mg/dl (0-0.2) 08/30/18 21:28 AST 17 U/L (15-37) 08/30/18 21:28 ALT 35 U/L (12-78) 08/30/18 21:28 Alkaline Phosphatase 182 U/L (45-117) H 08/30/18 21:28 Total Protein 6.0 gm/dl (6.4-8.2) L 08/30/18 21:28 Albumin 2.5 gm/dl (3.4-5.0) L 08/30/18 21:28 Globulin 3.5 gm/dl (2.5-4.0) 08/30/18 21:28 Albumin/Globulin Ratio 0.7 (0.9-2) L 08/30/18 21:28 Diagnostic Findings Chest x-ray: No acute process
[2018-08-30 22:30] LABS: Mean Corpuscular Hgb Conc 33.9 g/dL (32-36); Mean Platelet Volume 9.7 fL (7.4-10.4); Platelet Count 89 K/uL (130-400)
[2018-08-30] MEDS ORDERED: LACTATED RINGER'S 1,000 ML IV SCH (22:30)
[2018-08-30] MEDS ORDERED: MAGNESIUM SULFATE / D5W 1 GM/100 ML BAG IV ONE (22:30)
[2018-08-30 22:31] LABS: Acanthocytes 1+; Basophils # (auto) 0.02 K/uL (0-0.2); Basophils % (auto) 0.3 %; Eosinophils # (auto) 0.08 K/uL (0-0.5); Eosinophils % (auto) 1.4 %; Immature Granulocytes # (auto) 0.02 K/uL (0.00-0.02); Immature Granulocytes % (auto) 0.3 %; Lymphocytes # (auto) 0.86 K/uL (1.2-3.4); Monocytes # (auto) 0.53 K/uL (0.11-0.59); Monocytes % (auto) 9.3 %; Neutrophils # (auto) 4.21 K/uL (1.4-6.5); Neutrophils % (auto) 73.7 %; Ovalocytes 1+; Schistocytes 1+
[2018-08-30] MEDS: ACETAMINOPHEN 1,000 MG/100 ML VIAL IV PRN (22:51)
[2018-08-31] MEDS ORDERED: POTASSIUM CHLORIDE 20 MEQ TABCR PO ONE
[2018-08-31] MEDS: NORMOSOL-R 1,000 ML IV SCH ×2 (00:21→09:00)
[2018-08-31] MEDS ORDERED: MAGNESIUM SULFATE / D5W 1 GM/100 ML BAG IV ONE (02:30)
[2018-08-31] MEDS: ACETAMINOPHEN 1,000 MG/100 ML VIAL IV PRN (05:35)
[2018-08-31 06:58] LABS: Hematocrit (blood only) 25.2 % (37-47); Hemoglobin 8.6 g/dL (12.0-16.0); Mean Corpuscular Hgb Conc 34.1 g/dL (32-36); Mean Corpuscular Volume 91.6 fL (80-100); RDW Coefficient of Variation 13.8 % (11.5-14.5); RDW Standard Deviation 45.2 fL (36.4-46.3); Red Blood Count 2.75 M/uL (4.2-5.4); White Blood Count 5.28 K/uL (4.8-10.8)
[2018-08-31 07:27] LABS: Platelet Count 88 K/uL (130-400)
[2018-08-31 07:28] LABS: Basophils # (auto) 0.01 K/uL (0-0.2); Basophils % (auto) 0.2 %; Eosinophils # (auto) 0.07 K/uL (0-0.5); Eosinophils % (auto) 1.3 %; Immature Granulocytes # (auto) 0.03 K/uL (0.00-0.02); Immature Granulocytes % (auto) 0.6 %; Lymphocytes # (auto) 0.86 K/uL (1.2-3.4); Lymphocytes % (auto) 16.3 %; Monocytes # (auto) 0.57 K/uL (0.11-0.59); Monocytes % (auto) 10.8 %; Neutrophils # (auto) 3.74 K/uL (1.4-6.5); Neutrophils % (auto) 70.8 %; Ovalocytes 1+
[2018-08-31 07:38] LABS: BUN Creatinine Ratio 12.1 (10-20); Calcium 8.7 mg/dl (8.5-10.1); Creatinine Clr Calc Pharmacy 84.6 ml/min; Est GFR (African American) 110.9; Est GFR (Non-African American) 95.7; Magnesium 2.6 mg/dl (1.8-2.4); Potassium 3.8 mmol/L (3.5-5.1)
--- NOTE | 2018-08-31 07:57 | Progress Note ---
Date of Service August 31, 2018 Assessment & Plan (1) Diarrhea: K+ improved , wbc up- less abd pain c diff neg, off Vanco check CT , no oral contrast- pts request try metamucil and Imodium overall doing better Subjective see a/p Results & Data Vital Signs (Past 12 Hours) Vital Signs Temp Pulse Pulse Resp BP Pulse Ox 08/31/18 07:06 37.2 C 76 18 134/73 96 08/31/18 03:36 36.7 C 85 18 120/75 97 08/31/18 00:32 92 H 08/30/18 23:00 87 08/30/18 22:36 37 C 92 H 16 124/73 96
[2018-08-31] MEDS: HYDROmorphone INJ 0.5 MG/0.5 ML SYR IV PRN ×3 (08:59→22:45)
[2018-08-31] MEDS ORDERED: HEPARIN SOD 5,000 UNIT/0.5 ML VIAL SQ SCH (09:00)
[2018-08-31] MEDS: PSYLLIUM 58.6% POWDER PACKET PO SCH ×2 (09:01→22:42)
[2018-08-31] MEDS: POTASSIUM CHLORIDE 20 MEQ TABCR PO SCH (09:01)
[2018-08-31] MEDS: MULTIVITAMIN TAB PO SCH (09:02)
[2018-08-31] MEDS ORDERED: IOVERSOL 100ml IV PRN (09:52)
--- NOTE | 2018-08-31 10:26 | CT Scan Report ---
ABDOMEN AND PELVIS CT WITH IV CONTRAST CT DOSE: 279.42 mGy.cm HISTORY: Draining abdominal wall wound. History of prior fat-containing ventral abdominal wall hernia and carcinoid tumor. wound drainage TECHNIQUE: Multiaxial CT images of the abdomen and pelvis were performed following the use of intrave nous contrast. A dose lowering technique was utilized adhering to the principles of ALARA. COMPARISON STUDY: CT abdomen and pelvis 05/06/2018, PET CT 07/10/2018 FINDINGS: Mild dependent subsegmental bibasilar atelectasis. The imaged inferior cardiac chambers are unremarka ble with trace pericardial effusion. There is suggested hepatic steatosis. There are a few scattered cysts noted throughout the liver. Mild marginal nodularity of the inferior right hepatic lobe. Indete rminate slightly hypodense 9 mm lesion of the posterior right hepatic lobe. No correlate with the mul tiple hypermetabolic liver lesion seen on comparison PET/CT. No biliary ductal dilation. Patency of t he hepatic and portal veins. Spleen, and adrenal glands are unremarkable. 7 mm cystic focus of the pa ncreatic body on image 132 series 3 is unchanged from prior may reflect a sidebranch IPMN. Cholelithi asis without CT evidence of acute cholecystitis. No biliary ductal dilation identified. Kidneys and u reters are unremarkable. Partial distention of the urinary bladder with mild wall thickening and samantha vesicular stranding. Hysterectomy. No adnexal mass lesion. Moderate calcified plaque of the abdominal aorta without aneurysm. Multiple surgical clips of the pelvis and retroperitoneum suggestive of prio r isabel dissection. Prominent loops of fluid-filled small bowel are noted with circumferential wall thickening measuring up to approximately 3.5 cm transversely. No transition point identified. Stranding is noted about the abdominal right lower quadrant in addition to foci of extraluminal air which appear to be within the retroperitoneal structures (for example image 245 series 3). The appendix appears to be surgically a bsent. No definite pneumoperitoneum. There is stranding about the ventral abdominal wall about the falk rgical site. Postoperative changes from prior ventral abdominal wall hernia. Multiloculated air and f luid-filled collection is noted within the subcutaneous tissues with extension into the ventral abdom inal wall and also within the abdominal cavity, conglomerate foci measuring up to approximately 3.0 x 4.8 x 2.5 cm. Areas of this collection are noted with peripheral enhancement. Ventral abdominal wall skin lila. Stranding with trace free fluid about the central abdomen and pelvis. Bones appear int act. Multiple tiny mesenteric nodules redemonstrated. IMPRESSION: 1. Postoperative changes compatible with recent ventral abdominal wall hernia repair. There are multi ple small air and fluid-filled collections about the incision site which involves the subcutaneous ti ssues, rectus sheath and extends into the abdominal cavity with peripheral enhancement suggestive of multiple small abscesses. 2. Pneumoretroperitoneum about the right pericolic gutter adjacent to the cecum. This finding may be on a postsurgical basis with perforated viscus also within the differential. 3. Multiple prominent and mildly dilated loops of small bowel with bowel wall thickening is noted wit hout discrete transition point identified. Enteritis/ileus is the primary differential. Follow-up rec ommended. 4. Cholelithiasis without CT evidence of acute cholecystitis. 5. Additional findings as above. Electronically signed by: Bart Miller M.D. 08/31/2018 10:23 AM
--- NOTE | 2018-08-31 11:44 | Progress Note ---
Date of Service August 31, 2018 Assessment & Plan (1) Diarrhea: CT shows what I feel are postop chgs and no significant infection she looks very good clinically and her major problem is diarrhea (improved) and low K+ also improved h/o c diff with IV atbx adv diet , supportive care Results & Data Vital Signs (Past 12 Hours) Vital Signs Temp Pulse Pulse Resp BP Pulse Ox 08/31/18 11:21 37.3 C 80 18 138/81 97 08/31/18 09:00 82 08/31/18 07:06 37.2 C 76 18 134/73 96 08/31/18 03:36 36.7 C 85 18 120/75 97 08/31/18 00:32 92 H
--- NOTE | 2018-08-31 12:52 | Hospitalist Progress Note ---
Date of Service August 31, 2018 Assessment & Plan (1) Diarrhea: Per surgery, this is not unexpected and does not appear infectious. Imodium offerred. Cont IVf fo support and monitor clinical progress. Replace electrolytes as needed. She notably has a hx metastatic neuroendocrine tumor status post surgery, chemotherapy with hx PRRT (peptide receptor radionuclide therapy) (2) Post-operative state: Appears to be recovering with expected findings on CT study. Dr. Booker to see her in am. (3) Anemia: chronic, at baseline. (4) Thrombocytopenia: chronic and improved since recent discharge. No evidence of bleeding. (5) DVT prophylaxis: SCDs in setting of thrombocytopenia. Full Code Dispo-pending clinical progress. Mary Ellen Archuleta DO [facility] Hospitalist Subjective 68 yo F recently hospitalized for lysis of adhesions on 08/21/18. She went home and was feeling well but came to the ER last night after developing a couple of days of nausea without vomiting, and diarrhea with abdominal pain. There was no blood in stool and it has been screened for c-diff and is negative. Her abdominal pain was around the top of her incision site (stapled in vertical fashion-periumbilical). She is feeling better today. CT scan reviewed by General Surgery and findings consistent with post-op changes. Imodium given by Surgery for persistent diarrhea. Five episodes this morning. Review of Systems Review of Systems: All systems reviewed & are unremarkable except as noted in HPI & below Physical Exam Physical Exam: CONSTITUTIONAL: WNWD, vitals as above, generally well- appearing, eating without issue EYES: normal conjunctivae, no scleral icterus ENT: MMM RESPIRATORY: clear to auscultation bilaterally, no crackles, rales or wheezes, normal respiratory effort CARDIOVASCULAR: regular rate and rhythm, S1 and 2 heard without murmurs, gallops or rubs, no JVD, no peripheral edema GASTROINTESTINAL: normal bowel sounds, soft, some TTP in epigastric area. No areas of fluctuance noted. Incision site is stapled closed without drainage or erythema. Nondistended. MUSCULOSKELETAL: strength 5/5 throughout, head is normocephalic and atraumatic SKIN: warm and dry NEUROLOGIC: CN 2-12 grossly intact, normal cognition, no gross focal deficits. PSYCHIATRIC: alert cooperative and oriented to person, place and time. Results & Data Vital Signs (Past 12 Hours) Vital Signs Temp Pulse Pulse Resp BP Pulse Ox 07/07/19 11:21 37.3 C 80 18 138/81 97 08/31/18 09:00 82 08/31/18 07:06 37.2 C 76 18 134/73 96 08/31/18 03:36 36.7 C 85 18 120/75 97 Laboratory Results Short CBC 08/30/18 08/31/18 Range/Units 21:28 06:24 WBC 5.72 5.28 (4.8-10.8) K/uL Hgb 9.8 L 8.6 L (12.0-16.0) g/dL Hct 28.9 L 25.2 L (37-47) % Plt Count 89 L 88 L (130-400) K/uL BMP 08/30/18 08/31/18 21:28 06:24 Sodium 140 141 Potassium 2.8 L 3.8 D Chloride 104 106 Carbon Dioxide 30 29 BUN 8 7 Creatinine 0.69 0.55 L Glucose 183 H 112 H Calcium 8.7 8.7 Liver Function 08/30/18 Range/Units 21:28 Total Bilirubin 0.4 (0.2-1) mg/dl Direct Bilirubin 0.1 (0-0.2) mg/dl AST 17 (15-37) U/L ALT 35 (12-78) U/L Alkaline Phosphatase 182 H (45-117) U/L Albumin 2.5 L (3.4-5.0) gm/dl Diagnostic Findings ABDOMEN AND PELVIS CT WITH IV CONTRAST CT DOSE: 279.42 mGy.cm HISTORY: Draining abdominal wall wound. History of prior fat-containing ventral abdominal wall hernia and carcinoid tumor. wound drainage TECHNIQUE: Multiaxial CT images of the abdomen and pelvis were performed following the use of intravenous contrast. A dose lowering technique was utilized adhering to the principles of ALARA. COMPARISON STUDY: CT abdomen and pelvis 05/06/2018, PET CT 07/10/2018 FINDINGS: Mild dependent subsegmental bibasilar atelectasis. The imaged inferior cardiac chambers are unremarkable with trace pericardial effusion. There is suggested hepatic steatosis. There are a few scattered cysts noted throughout the liver. Mild marginal nodularity of the inferior right hepatic lobe. Indeterminate slightly hypodense 9 mm lesion of the posterior right hepatic lobe. No correlate with the multiple hypermetabolic liver lesion seen on comparison PET/CT. No biliary ductal dilation. Patency of the hepatic and portal veins. Spleen, and adrenal glands are unremarkable. 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 Cholelithiasis without CT evidence of acute cholecystitis. No biliary ductal dilation identified. Kidneys and ureters are unremarkable. Partial distention of the urinary bladder with mild wall thickening and perivesicular stranding. Hysterectomy. No adnexal mass lesion. Moderate calcified plaque of the abdominal aorta without aneurysm. Multiple surgical clips of the pelvis and retroperitoneum suggestive of prior isabel dissection. Prominent loops of fluid-filled small bowel are noted with circumferential wall thickening measuring up to approximately 3.5 cm transversely. No transition point identified. Stranding is noted about the abdominal right lower quadrant in addition to foci of extraluminal air which appear to be within the retroper itoneal structures (for example image 245 series 3). The appendix appears to be surgically absent. No definite pneumoperitoneum. There is stranding about the ventral abdominal wall about the surgical site. Postoperative changes from prior ventral abdominal wall hernia. Multiloculated air and fluid-filled collection is noted within the subcutaneous tissues with extension into the ventral abdominal wall and also within the abdominal cavity, conglomerate foci measuring up to approximately 3.0 x 4.8 x 2.5 cm. Areas of this collection are noted with peripheral enhancement. Ventral abdominal wall skin lila. Stranding with trace free fluid about the central abdomen and pelvis. Bones appear intact. Multiple tiny mesenteric nodules redemonstrated. IMPRESSION: 1. Postoperative changes compatible with recent ventral abdominal wall hernia repair. There are multiple small air and fluid-filled collections about the incision site which involves the subcutaneous tissues, rectus sheath and extends into the abdominal cavity with peripheral enhancement suggestive of multiple small abscesses. 2. Pneumoretroperitoneum about the right pericolic gutter adjacent to the cecum. This finding may be on a postsurgical basis with perforated viscus also within the differential. 3. Multiple prominent and mildly dilated loops of small bowel with bowel wall thickening is noted without discrete transition point identified. Enteritis/ileus is the primary differential. Follow-up recommended. 4. Cholelithiasis without CT evidence of acute cholecystitis. 5. Additional findings as above. Medications Administered Current Inpatient Medications Atorvastatin Calcium (Lipitor) 10 mg PO PM ANGELICA Stop: 09/30/18 20:59 Hydromorphone HCl (Dilaudid) 0.5 mg IV Q3HWA PRN PRN Reason: Pain Stop: 09/13/18 21:10 Last Admin: 08/31/18 08:59 Dose: 0.5 mg Documented by: Hydromorphone HCl (Dilaudid) 1 mg IV Q3HWA PRN PRN Reason: Pain Stop: 09/13/18 21:10 Acetaminophen (Ofirmev) 1,000 mg in 100 mls @ 400 mls/hr IV Q8H PRN PRN Reason: Pain Stop: 09/29/18 21:04 Last Infusion: 08/31/18 05:50 Dose: Infused Documented by: Promethazine HCl 12.5 mg/ (Sodium Chloride) 50.5 mls @ 204 mls/hr IV Q6H PRN PRN Reason: Nausea And Vomiting Stop: 09/29/18 21:10 Promethazine HCl 25 mg/ Sodium (Chloride) 51 mls @ 204 mls/hr IV Q6H PRN PRN Reason: Nausea And Vomiting Stop: 09/29/18 21:10 Ibuprofen (Motrin) 600 mg PO Q6H PRN PRN Reason: Pain Stop: 09/29/18 21:10 Ioversol (Optiray 320 100ml) 93 ml IV ONCE PRN PRN Reason: Interaction Checking Stop: 09/04/18 09:51 Last Admin: 08/31/18 09:52 Dose: 93 ml Documented by: Loperamide HCl (Imodium A-D Liquid) 4 mg PO Q6 PRN PRN Reason: Diarrhea Stop: 09/30/18 07:44 Multivitamins (Multivitamin Tab) 1 tab PO DAILY ANGELICA Stop: 09/30/18 08:59 Last Admin: 08/31/18 09:02 Dose: 1 tab Documented by: Ondansetron HCl (Zofran) 4 mg IV 4XDQ4H PRN PRN Reason: Nausea Stop: 09/29/18 21:10 Oxycodone HCl (Roxicodone Immediate Rel) 5 mg PO Q4HWA PRN PRN Reason: Pain Stop: 09/13/18 21:38 Potassium Chloride (Klor-Con M20) 20 meq PO QAM ANGELICA Stop: 09/30/18 08:59 Last Admin: 08/31/18 09:01 Dose: 20 meq Documented by: Psyllium Hydrophilic Mucilloid (Metamucil) 1 pkt PO BID ANGELICA Stop: 09/30/18 08:59 Last Admin: 08/31/18 09:01 Dose: 1 pkt Documented by:
[2018-08-31] MEDS: LOPERAMIDE LIQUID 120 ML BOTTLE PO PRN ×2 (13:13→19:11)
[2018-08-31] MEDS: OXYCODONE HCL IR 5 MG TAB (IMMEDIATE RELEASE) PO PRN (19:10)
[2018-08-31] MEDS: ATORVASTATIN 10 MG TAB PO SCH (22:42)
[2018-09-01 06:22] LABS: Estimated Average Glucose 103 mg/dl; Hemoglobin A1C 5.2 % (4.5-5.6)
[2018-09-01 07:48] LABS: Hematocrit (blood only) 26.5 % (37-47); Hemoglobin 9.2 g/dL (12.0-16.0); Mean Corpuscular Hgb Conc 34.7 g/dL (32-36); Mean Corpuscular Volume 91.7 fL (80-100); Platelet Count 86 K/uL (130-400); RDW Coefficient of Variation 13.9 % (11.5-14.5); Red Blood Count 2.89 M/uL (4.2-5.4); White Blood Count 5.55 K/uL (4.8-10.8)
[2018-09-01] MEDS: OXYCODONE HCL IR 5 MG TAB (IMMEDIATE RELEASE) PO PRN ×4 (08:11→21:36)
[2018-09-01] MEDS: POTASSIUM CHLORIDE 20 MEQ TABCR PO SCH (08:12)
[2018-09-01] MEDS: LOPERAMIDE LIQUID 120 ML BOTTLE PO PRN (08:12)
[2018-09-01] MEDS: MULTIVITAMIN TAB PO SCH (08:12)
[2018-09-01] MEDS: PSYLLIUM 58.6% POWDER PACKET PO SCH ×2 (08:14→20:05)
[2018-09-01 08:16] LABS: Albumin Level 2.4 gm/dl (3.4-5.0); Calcium 9.5 mg/dl (8.5-10.1); Creatinine Clr Calc Pharmacy 75.4 ml/min; Est GFR (African American) 109.6; Est GFR (Non-African American) 94.6; Magnesium 2.1 mg/dl (1.8-2.4); Potassium 3.9 mmol/L (3.5-5.1)
[2018-09-01 08:23] LABS: Albumin Globulin Ratio 0.7 (0.9-2); Bilirubin,Total 0.6 mg/dl (0.2-1); Globulin 3.5 gm/dl (2.5-4.0); Phosphorus 3.6 mg/dl (2.5-4.9); Total Protein 5.9 gm/dl (6.4-8.2)
--- NOTE | 2018-09-01 08:32 | Surgery Progress Note ---
Date of Service September 01, 2018 Assessment & Plan (1) Diarrhea: improved WBC normal, K+ replaced keep here today ambulate Subjective tolerating diet, less diarrhea after Imodium started, oxycodone for pain Physical Exam Gastrointestinal (Abdomen): Inspection/Auscultation: + abdominal surgical incision (dry, no erythema); abdomen not distended Percussion/Palpation: abdomen soft Results & Data Vital Signs (Past 12 Hours) Vital Signs Temp Pulse Pulse Resp BP Pulse Ox 09/01/18 07:22 37.1 C 85 18 114/72 96 09/01/18 04:47 37.3 C 94 H 20 120/72 97 08/31/18 23:44 37.2 C 82 20 127/77 97
--- NOTE | 2018-09-01 11:42 | Hospitalist Progress Note ---
Date of Service September 01, 2018 Assessment & Plan (1) Diarrhea: Per surgery sx are not unexpected Does not appear to be infectious Cdiff negative Stool culture still pending pain control per surgery continue supportive care, advance diet as tolerated continue with daily psyllium and imodium prn Replace electrolytes as needed Once diarrhea freq subsides/improves and pain controlled patient able to be discharged from medicine standpoint Pt does have a hx metastatic neuroendocrine tumor status post surgery, chemotherapy with hx PRRT (peptide receptor radionuclide therapy) (2) Hypokalemia: Replaced, serum K 3.9 today Likely secondary to diarrhea Follow (3) Post-operative state: POD #11 - 08/21/2018 Dr. Quach performed extensive abdominal operation for small bowel obstruction. 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 He also closed an incisional hernia with a separation technique, there is no mesh placed General Surgery Dr. Dee on board Per surgery symptoms expected post operatively encourage ambulation for dvt ppx (4) Anemia: H/H Stable at 9.2 and 26.5 no s/sx of bleeding, monitor (5) Thrombocytopenia: plt ct 86 monitor (6) DVT prophylaxis: encourage ambulation Disposition: D/C to home when able Follow up: appropriate general surgery follow; follow up with PCP Dr. Lee Patient was seen and examined in collaboration with Dr. Archuleta, please see addendum Thank you for this consultation. We will follow the patient with you during their hospital stay. You can reach a member of the [facility] Hospitalist Team 17/09 via pager @ [phone]. Supervising Physician Co-Signing Physician Notes I have seen and examined the patient and have discussed the case with the provider above. I agree with the assessment and plan as stated with the following exceptions. She has a small hard lump to the right of the proximal suture line on her abdomen. There is some discomfort and this appears to have developed today. She reports a low grade fever. Still with diarrhea that is improving with Imodium use this morning and regular roxicodone. Otherwise physical exam is unremarkable. Labs reviewed and within normal limits. Recommend slowing down on the Imodium in the setting of manuel for pain managment to avoid constipation. Recommend BRAT diet and no dairy while diarrhea ongoing. Minimize caffeine intake. These recommendations were shared with her and she verbalized understanding. Thank you for this consult. DO Geremias Subjective Patient seen and examined in room 259-1. Follow-up diarrhea. On 08/21/2018 Dr. Quach performed extensive abdominal operation for small bowel obstruction. 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 He also closed an incisional hernia with a separation technique, there is no mesh placed. Patient tried imodium, had 5 loose BM today. Complains on continued, but improved abdominal pain. Feels mostly incisional but does get crampy with diarrhea. Pain constant, wax/wanes in severity, currently 2/10, worse with walking and movement, improved but present with rest. Complains of nausea but no emesis. Denies f/c/s, dizziness, lightheaded, chest pain, sob, dysuria, hematuria, melena, hematochezia. Review of Systems Review of Systems: As noted per HPI, 10 systems reviewed and negative unless noted above. Physical Exam Physical Exam: Gen: WD/WN, F, sitting up in bed, NAD, A&O x3 HEENT: Normocephalic, atraumatic, conjunctivae moist, sclerae anicteric, mucous membranes moist. Lung: Clear to Auscultation bilaterally, no wheezes/rales/rhonchi Heart: Regular rate, regular rhythm, no murmurs, rubs, or gallops Abdomen: Soft, NT, ND +BS x 4, +vertical abd incision, lila CDI Extremities: No edema Skin: Warm, no rash, negative turgor. Results & Data Vital Signs (Past 12 Hours) Vital Signs Temp Pulse Pulse Resp BP Pulse Ox 09/01/18 07:22 37.1 C 85 18 114/72 96 09/01/18 04:47 37.3 C 94 H 20 120/72 97 08/31/18 23:44 37.2 C 82 20 127/77 97 Laboratory Results Short CBC 08/30/18 08/31/18 09/01/18 Range/Units 21:28 06:24 07:26 WBC 5.55 (4.8-10.8) K/uL Hgb 9.2 L (12.0-16.0) g/dL Hct 26.5 L (37-47) % Plt Count 86 L (130-400) K/uL BUN 8 7 (7-18) mg/dl Creatinine 0.69 0.55 L (0.6-1.2) mg/dl 09/01/18 Range/Units 07:26 WBC (4.8-10.8) K/uL Hgb (12.0-16.0) g/dL Hct (37-47) % Plt Count (130-400) K/uL BUN 6 L (7-18) mg/dl Creatinine 0.57 L (0.6-1.2) mg/dl BMP 09/01/18 07:26 Sodium 139 Potassium 3.9 Chloride 104 Carbon Dioxide 30 BUN 6 L Creatinine 0.57 L Glucose 112 H Calcium 9.5 Liver Function 09/01/18 Range/Units 07:26 Total Bilirubin 0.6 (0.2-1) mg/dl AST 17 (15-37) U/L ALT 28 (12-78) U/L Alkaline Phosphatase 162 H (45-117) U/L Albumin 2.4 L (3.4-5.0) gm/dl Medications Administered Atorvastatin Calcium (Lipitor) 10 mg PO PM ANGELICA Stop: 09/30/18 20:59 Last Admin: 08/31/18 22:42 Dose: 10 mg Documented by: [id number] Hydromorphone HCl (Dilaudid) 0.5 mg IV Q3HWA PRN PRN Reason: Pain Stop: 09/13/18 21:10 Last Admin: 08/31/18 22:45 Dose: 0.5 mg Documented by: [id number] Admin: 08/31/18 13:12 Dose: 0.5 mg Documented by: [id number] Admin: 08/31/18 08:59 Dose: 0.5 mg Documented by: [id number] Acetaminophen ([facility]) 1,000 mg in 100 mls @ 400 mls/hr IV Q8H PRN PRN Reason: Pain Stop: 09/29/18 21:04 Last Infusion: 08/31/18 05:50 Dose: 0 mls/hr Documented by: [id number] Admin: 08/31/18 05:35 Dose: 400 mls/hr Documented by: [id number] Infusion: 08/30/18 23:12 Dose: 0 mls/hr Documented by: [id number] Admin: 08/30/18 22:51 Dose: 400 mls/hr Documented by: [id number] Ioversol (Optiray 320 100ml) 93 ml IV ONCE PRN PRN Reason: Interaction Checking Stop: 09/04/18 09:51 Last Admin: 08/31/18 09:52 Dose: 93 ml Documented by: [id number] Loperamide HCl (Imodium A-D Liquid) 4 mg PO Q6 PRN PRN Reason: Diarrhea Stop: 09/30/18 07:44 Last Admin: 09/01/18 08:12 Dose: 4 mg Documented by: [id number] Admin: 08/31/18 19:11 Dose: 2 mg Documented by: [id number] Admin: 08/31/18 13:13 Dose: 4 mg Documented by: [id number] Multivitamins (Multivitamin Tab) 1 tab PO DAILY [facility] Stop: 09/30/18 08:59 Last Admin: 09/01/18 08:12 Dose: 1 tab Documented by: [id number] Admin: 08/31/18 09:02 Dose: 1 tab Documented by: [id number] Oxycodone HCl (Roxicodone Immediate Rel) 5 mg PO Q4HWA PRN PRN Reason: Pain Stop: 09/13/18 21:38 Last Admin: 09/01/18 08:11 Dose: 5 mg Documented by: [id number] Admin: 08/31/18 19:10 Dose: 5 mg Documented by: [id number] Potassium Chloride (Klor-Con M20) 20 meq PO QAM [facility] Stop: 09/30/18 08:59 Last Admin: 09/01/18 08:12 Dose: 20 meq Documented by: [id number] Admin: 08/31/18 09:01 Dose: 20 meq Documented by: [id number] Psyllium Hydrophilic Mucilloid (Metamucil) 1 pkt PO BID [facility] Stop: 09/30/18 08:59 Last Admin: 09/01/18 08:14 Dose: Not Given Documented by: [id number] Admin: 08/31/18 22:42 Dose: 1 pkt Documented by: [id number] Admin: 08/31/18 09:01 Dose: 1 pkt Documented by: [id number] Discontinued Medications Sodium Chloride (Nss 1000ml) 1,000 mls @ 80 mls/hr IV .[id number] ANGELICA Stop: 09/29/18 21:14 Last Infusion: 08/31/18 00:21 Dose: 0 mls/hr Documented by: [id number] Infusion: 08/31/18 00:21 Dose: 0 mls/hr Documented by: [id number] Admin: 08/30/18 22:26 Dose: 80 mls/hr Documented by: [id number] Magnesium Sulfate/Dextrose (Magnesium Sulfate / D5w) 1 gm in 100 mls @ 100 mls/hr IV ONE ONE Stop: 08/30/18 23:29 Last Infusion: 08/31/18 00:12 Dose: 0 mls/hr Documented by: [id number] Admin: 08/30/18 23:12 Dose: 100 mls/hr Documented by: [id number] Parenteral Electrolytes (Normosol-R) 1,000 mls @ 50 mls/hr IV .Q20H ANGELICA Stop: 08/31/18 10:29 Last Infusion: 08/31/18 19:20 Dose: 0 mls/hr Documented by: [id number] Admin: 08/31/18 09:00 Dose: 100 mls/hr Documented by: [id number] Infusion: 08/31/18 09:00 Dose: 50 mls/hr Documented by: [id number] Admin: 08/31/18 00:21 Dose: 100 mls/hr Documented by: [id number] Magnesium Sulfate/Dextrose (Magnesium Sulfate / D5w) 1 gm in 100 mls @ 100 mls/hr IV ONE ONE Stop: 08/31/18 03:29 Last Infusion: 08/31/18 04:18 Dose: 0 mls/hr Documented by: [id number] Admin: 08/31/18 03:18 Dose: 100 mls/hr Documented by: [id number] Potassium Chloride (Klor-Con M20) 40 meq PO NOW STA Stop: 08/30/18 22:21 Last Admin: 08/30/18 22:50 Dose: 40 meq Documented by: [id number] Potassium Chloride (Klor-Con M20) 40 meq PO NOW ONE Stop: 08/31/18 00:01 Last Admin: 08/30/18 23:49 Dose: 40 meq Documented by: [id number] Raspberry (Raspberry) 5 ml PO Q6 ANGELICA Stop: 09/13/18 21:59 Last Admin: 08/30/18 22:19 Dose: 5 ml Documented by: [id number] Vancomycin HCl (Vancomycin Hcl) 250 mg PO Q6 ANGELICA Stop: 09/09/18 21:59 Last Admin: 08/30/18 22:19 Dose: 250 mg Documented by: [id number]
[2018-09-01] MEDS: IBUPROFEN 600 MG TAB PO PRN ×2 (14:33→20:04)
[2018-09-01] MEDS: ATORVASTATIN 10 MG TAB PO SCH (20:04)
[2018-09-02] MEDS: OXYCODONE HCL IR 5 MG TAB (IMMEDIATE RELEASE) PO PRN ×4 (01:39→20:16)
[2018-09-02 05:49] LABS: Hematocrit (blood only) 26.6 % (37-47); Mean Corpuscular Hgb Conc 33.8 g/dL (32-36); Mean Corpuscular Volume 91.7 fL (80-100); RDW Coefficient of Variation 13.7 % (11.5-14.5); RDW Standard Deviation 45.2 fL (36.4-46.3); White Blood Count 5.44 K/uL (4.8-10.8)
[2018-09-02 06:10] LABS: Mean Platelet Volume 10.1 fL (7.4-10.4); Platelet Count 88 K/uL (130-400)
[2018-09-02 06:18] LABS: BUN Creatinine Ratio 13.7 (10-20); Calcium 8.9 mg/dl (8.5-10.1); Creatinine Clr Calc Pharmacy 64.1 ml/min; Est GFR (African American) 103.9; Est GFR (Non-African American) 89.7; Magnesium 2.1 mg/dl (1.8-2.4); Potassium 3.8 mmol/L (3.5-5.1)
--- NOTE | 2018-09-02 06:54 | Surgery Progress Note ---
Date of Service September 02, 2018 Assessment & Plan (1) Diarrhea: 09/02/18 will check 5-HIAA 24 hr urine increase diet as tolerated will keep in hospital another day making sure can tolertae diet and diarrhea continues to improve all questions answered improved WBC normal, K+ replaced keep here today ambulate Subjective 09/02/18 feels better diarrhea dec at bedside Patient seen and examined in room 259-1. Follow-up diarrhea. On 08/21/2018 Dr. Quach performed extensive abdominal operation for small bowel obstruction. 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 He also closed an incisional hernia with a separation technique, there is no mesh placed. Patient tried imodium, had 5 loose BM today. Complains on continued, but improved abdominal pain. Feels mostly incisional but does get crampy with diarrhea. Pain constant, wax/wanes in severity, currently 2/10, worse with walking and movement, improved but present with rest. Complains of nausea but no emesis. Denies f/c/s, dizziness, lightheaded, chest pain, sob, dysuria, hematuria, melena, hematochezia. Physical Exam Physical Exam: abd soft upper aspect of incision palpable area consistent with small hematoma seen on ct scan Results & Data Vital Signs (Past 12 Hours) Vital Signs Temp Pulse Resp BP Pulse Ox 09/01/18 23:35 37.1 C 86 20 113/70 97
[2018-09-02] MEDS: POTASSIUM CHLORIDE 20 MEQ TABCR PO SCH (08:34)
[2018-09-02] MEDS: MULTIVITAMIN TAB PO SCH (08:34)
[2018-09-02] MEDS: PSYLLIUM 58.6% POWDER PACKET PO SCH ×2 (08:35→20:17)
[2018-09-02] MEDS ORDERED: OXYCODONE HCL IR 5 MG TAB (IMMEDIATE RELEASE) PO PRN (08:41)
[2018-09-02] MEDS ORDERED: ACETAMINOPHEN 500 MG TAB PO PRN (08:43)
[2018-09-02] MEDS: ONDANSETRON 4 MG OD TAB PO PRN (10:37)
[2018-09-02] MEDS: IBUPROFEN 600 MG TAB PO PRN ×2 (10:37→17:02)
--- NOTE | 2018-09-02 10:48 | Hospitalist Progress Note ---
Date of Service September 02, 2018 Assessment & Plan (1) Diarrhea: Does not appear infectious, Imodium PRN. She is also on roxicodone consistently which will aid resolution of diarrhea. She notably has a hx metastatic neuroendocrine tumor status post surgery, chemotherapy with hx PRRT (peptide receptor radionuclide therapy). 24 hr urine -HIAA is pending. (2) History of abdominal surgery: Appears to be recovering with expected findings on CT study. Dr. Hernándezelli to see her daily. He is aware of the small fluid collection and per patient feels this is a small hematoma. (3) Anemia: chronic with worsening 2/2 acute blood loss anemia post-operatively. Stable and improved since her surgery. (4) Thrombocytopenia: chronic, at baseline (5) DVT prophylaxis: SCDs/ambulation Chemoprophylaxis held 2/2 thrombocytopenia Full code Dispo-pending improvement in diarrhea Mary Ellen Archuleta DO [facility] Hospitalist Subjective Feeling well, still with some diarrhea today. Afebrile. Expected soreness in surgical site Review of Systems Review of Systems: All systems reviewed & are unremarkable except as noted in HPI & below Physical Exam Physical Exam: Gen: WD/WN, sitting up in bed, NAD, A&O x3 HEENT: Normocephalic, atraumatic, conjunctivae moist, sclerae anicteric, mucous membranes moist. Lung: Clear to Auscultation bilaterally, no wheezes/rales/rhonchi Heart: Regular rate, regular rhythm, no murmurs, rubs, or gallops Abdomen: Soft, NT, ND +BS x 4, +vertical abd incision, lila CDI, some progre ssion of small raised, nonfluctuant area on the superior right side of her incision. Extremities: No edema Skin: Warm, no rash, negative turgor. Results & Data Vital Signs (Past 12 Hours) Vital Signs Temp Pulse Resp BP Pulse Ox 09/02/18 07:19 37.3 C 89 18 120/76 95 09/01/18 23:35 37.1 C 86 20 113/70 97 Laboratory Results Short CBC 09/02/18 Range/Units 05:28 WBC 5.44 (4.8-10.8) K/uL Hgb 9.0 L (12.0-16.0) g/dL Hct 26.6 L (37-47) % Plt Count 88 L (130-400) K/uL BMP 09/02/18 05:28 Sodium 139 Potassium 3.8 Chloride 105 Carbon Dioxide 31 BUN 9 Creatinine 0.67 Glucose 106 H Calcium 8.9 Medications Administered Current Inpatient Medications Acetaminophen (Tylenol) 1,000 mg PO Q6H PRN PRN Reason: Fever Stop: 10/02/18 08:42 Atorvastatin Calcium (Lipitor) 10 mg PO PM ANGELICA Stop: 09/30/18 20:59 Last Admin: 09/01/18 20:04 Dose: 10 mg Documented by: Hydromorphone HCl (Dilaudid) 0.5 mg IV Q3HWA PRN PRN Reason: Pain Stop: 09/13/18 21:10 Last Admin: 08/31/18 22:45 Dose: 0.5 mg Documented by: Hydromorphone HCl (Dilaudid) 1 mg IV Q3HWA PRN PRN Reason: Pain Stop: 09/13/18 21:10 Promethazine HCl 12.5 mg/ (Sodium Chloride) 50.5 mls @ 204 mls/hr IV Q6H PRN PRN Reason: Nausea And Vomiting Stop: 09/29/18 21:10 Promethazine HCl 25 mg/ Sodium (Chloride) 51 mls @ 204 mls/hr IV Q6H PRN PRN Reason: Nausea And Vomiting Stop: 09/29/18 21:10 Ibuprofen (Motrin) 600 mg PO Q6H PRN PRN Reason: Pain Stop: 09/29/18 21:10 Last Admin: 09/02/18 10:37 Dose: 600 mg Documented by: Ioversol (Optiray 320 100ml) 93 ml IV ONCE PRN PRN Reason: Interaction Checking Stop: 09/04/18 09:51 Last Admin: 08/31/18 09:52 Dose: 93 ml Documented by: Loperamide HCl (Imodium A-D Liquid) 4 mg PO Q6 PRN PRN Reason: Diarrhea Stop: 09/30/18 07:44 Last Admin: 09/01/18 08:12 Dose: 4 mg Documented by: Multivitamins (Multivitamin Tab) 1 tab PO DAILY ANGELICA Stop: 09/30/18 08:59 Last Admin: 09/02/18 08:34 Dose: 1 tab Documented by: Ondansetron HCl (Zofran) 4 mg IV 4XDQ4H PRN PRN Reason: Nausea Stop: 09/29/18 21:10 Ondansetron HCl (Zofran Odt) 4 mg PO Q4H PRN PRN Reason: Nausea Stop: 10/02/18 08:45 Last Admin: 09/02/18 10:37 Dose: 4 mg Documented by: Oxycodone HCl (Roxicodone Immediate Rel) 5 mg PO Q4HWA PRN PRN Reason: Pain Stop: 09/13/18 21:38 Last Admin: 09/02/18 08:33 Dose: 5 mg Documented by: Potassium Chloride (Klor-Con M20) 20 meq PO QAM ANGELICA Stop: 09/30/18 08:59 Last Admin: 09/02/18 08:34 Dose: 20 meq Documented by: Psyllium Hydrophilic Mucilloid (Metamucil) 1 pkt PO BID ANGELICA Stop: 09/30/18 08:59 Last Admin: 09/02/18 08:35 Dose: Not Given Documented by:
[2018-09-02] MEDS: ATORVASTATIN 10 MG TAB PO SCH (20:17)
[2018-09-03] MEDS: OXYCODONE HCL IR 5 MG TAB (IMMEDIATE RELEASE) PO PRN ×5 (04:22→23:44)
--- NOTE | 2018-09-03 07:50 | Surgery Progress Note ---
Date of Service September 03, 2018 Assessment & Plan (1) Diarrhea: 09/03/18 we will keep here today and try to control yanni wall pain will had binder since pt has component sep of repair incisional hernia (no mesh) if no improvement by tomorrow repeat ct scan of abd discussed plans with pt and 09/02/18 will check 5-HIAA 24 hr urine increase diet as tolerated will keep in hospital another day making sure can tolertae diet and diarrhea continues to improve all questions answered improved WBC normal, K+ replaced keep here today ambulate Subjective 09/03/18 not had any diarrhea since 8 oclock last evening and reports it to be more solid in consistency complaining of pain around incision grades it 5-6 out of 10 at bedside Feeling well, still with some diarrhea today. Afebrile. Expected soreness in surgical site Physical Exam Physical Exam: abd softly distended no tenderness as one area right of upper midline incision unchanged most of discomfort right of lower part of incision area of drain site that showed some ecchymosis Results & Data Vital Signs (Past 12 Hours) Vital Signs Temp Pulse Resp BP Pulse Ox 09/03/18 07:01 36.9 C 99 H 18 109/68 95 09/02/18 23:11 36.9 C 81 20 101/63 98
[2018-09-03] MEDS: MULTIVITAMIN TAB PO SCH (08:21)
[2018-09-03] MEDS: POTASSIUM CHLORIDE 20 MEQ TABCR PO SCH (08:21)
[2018-09-03] MEDS: PSYLLIUM 58.6% POWDER PACKET PO SCH ×2 (08:22→20:52)
[2018-09-03] MEDS: LOPERAMIDE LIQUID 120 ML BOTTLE PO PRN (08:47)
[2018-09-03] MEDS: ONDANSETRON 4 MG OD TAB PO PRN (09:47)
[2018-09-03] MEDS: IBUPROFEN 600 MG TAB PO PRN ×2 (09:50→16:24)
--- NOTE | 2018-09-03 10:13 | Hospitalist Progress Note ---
Date of Service September 03, 2018 Assessment & Plan (1) Diarrhea: Does not appear infectious, Imodium PRN. She is also on roxicodone consistently which will aid resolution of diarrhea. She notably has a hx metastatic neuroendocrine tumor status post surgery, chemotherapy with hx PRRT (peptide receptor radionuclide therapy). 24 hr urine -HIAA is pending (2) History of abdominal surgery: Evaluated by Dr. Quach this morning. Will try abdominal binder for pain control. If no improvement by tomorrow will repeat ct scan of abd Increase diet as tolerated (3) Anemia: Chronic with worsening 2/2 acute blood loss anemia post-operatively. Stable and improved since her surgery. (4) Thrombocytopenia: Chronic, at baseline (5) DVT prophylaxis: SCDs/ambulation. Chemoprophylaxis held 2/2 thrombocytopenia Full code Dispo-Per primary service Patient seen in collaboration with Dr. Smith. Please see addendum. Supervising Physician Co-Signing Physician Notes Attending addendum Patient was seen and examined medical telemetry unit Recent confinement in [facility] from August 21 to August 29, 2018 under surgery service for recurrent SBO, incisional hernia status post surgery. Pancytopenia developed during confinement. Leukopenia improving upon discharge. Hemoglobin noted to be 9 at time of discharge. Loose stools also noted during confinement which was deemed post obstructive as per patient. No stool C. difficile test during confinement. Still complains to have diarrhea but has reduced in frequency Has throbbing abdominal pain right lower quadrant No fever and/or chills, no nausea and vomiting Full examination No apparent distress at rest Hemodynamically stable Abdomen-surgical site with lila seems to be stable without any surrounding inflammation and/or infection Tender right lower quadrant with rebound tenderness and a masslike feeling Chest-clear to auscultate bilaterally Labs and imaging studies noted Has been having diarrhea since surgery Stool have been negative for saline Ongoing abdominal pain, if not resolved or improved we will get CT of the abdomen tomorrow to rule out any abscess/collection of fluid Agree with assessment and plan as outlined above by CHARY Ruvalcaba DR Subjective Feeling well. Diarrhea improved yesterday but has had 2 episodes this morning. Afebrile. Expected soreness in surgical site. Some nausea following breakfast but no vomiting. Denies fever, chills, headache, lightheadedness, chest pain, palpitations, shortness of breath, dysuria, or constipation. Review of Systems Review of Systems: At least ten systems reviewed and negative except as noted in the HPI. Physical Exam Physical Exam: General Appearance: WD/WN, no apparent distress, resting comfortably Head: normocephalic, atraumatic Eyes: normal inspection, PERRL, EOMI ENT: hearing grossly normal, pharynx normal (moist mucous membranes) Neck: supple, no JVD, no adenopathy Respiratory/Chest: lungs clear to auscultation. No wheezes, rales or rhonci. No respiratory distress or accessory muscle use Cardiovascular: regular rate, rhythm, no murmur, normal peripheral pulses Abdomen/GI: normal bowel sounds, soft, mild distension in lower abdomen but no guarding. Midline incision with lila, no drainage. Mild ecchymosis in RLQ Extremities/Musculoskelatal: normal inspection, no calf tenderness, normal capillary refill, no pedal edema Neurologic/Psych: alert, normal mood/affect, oriented x 3 Skin: normal color, warm/dry Results & Data Vital Signs (Past 12 Hours) Vital Signs Temp Pulse Resp BP Pulse Ox 09/03/18 07:01 36.9 C 99 H 18 109/68 95 09/02/18 23:11 36.9 C 81 20 101/63 98
[2018-09-03] MEDS: ATORVASTATIN 10 MG TAB PO SCH (20:51)
[2018-09-04 06:15] LABS: BUN Creatinine Ratio 14.9 (10-20); Calcium 9.5 mg/dl (8.5-10.1); Creatinine Clr Calc Pharmacy 72.8 ml/min; Est GFR (African American) 108.4; Est GFR (Non-African American) 93.5; Potassium 3.9 mmol/L (3.5-5.1)
--- NOTE | 2018-09-04 06:31 | Surgery Progress Note ---
Date of Service September 04, 2018 Assessment & Plan (1) Diarrhea: 09/04/18 will check later this am pt feels like she can go home leave lila in for now 09/03/18 we will keep here today and try to control yanni wall pain will had binder since pt has component sep of repair incisional hernia (no mesh) if no improvement by tomorrow repeat ct scan of abd discussed plans with pt and 09/02/18 will check 5-HIAA 24 hr urine increase diet as tolerated will keep in hospital another day making sure can tolertae diet and diarrhea continues to improve all questions answered improved WBC normal, K+ replaced keep here today ambulate Subjective 09/04/18 feels better able to get up and about less abd discomfort diarrhea better can't wear binder Feeling well. Diarrhea improved yesterday but has had 2 episodes this morning. Afebrile. Expected soreness in surgical site. Some nausea following breakfast but no vomiting. Denies fever, chills, headache, lightheadedness, chest pain, palpitations, shortness of breath, dysuria, or constipation. Physical Exam Physical Exam: abd soft area around incision less painful incision intact Results & Data Vital Signs (Past 12 Hours) Vital Signs Temp Pulse Resp BP Pulse Ox 09/04/18 03:11 37.3 C 88 18 123/76 95 09/03/18 23:27 37.3 C 83 16 120/74 96
[2018-09-04] MEDS: POTASSIUM CHLORIDE 20 MEQ TABCR PO SCH (07:59)
[2018-09-04] MEDS: MULTIVITAMIN TAB PO SCH (07:59)
[2018-09-04] MEDS: PSYLLIUM 58.6% POWDER PACKET PO SCH (08:00)
[2018-09-04] MEDS: OXYCODONE HCL IR 5 MG TAB (IMMEDIATE RELEASE) PO PRN (09:42)
[2018-09-04] MEDS: LOPERAMIDE LIQUID 120 ML BOTTLE PO PRN (13:25)
[2018-09-04] MEDS: IBUPROFEN 600 MG TAB PO PRN (13:25)
[2018-09-09 18:36] LABS: 5-HIAA 28.4 mg/24 h (<=6.0); Creatinine 24 Hr Urine 0.7 g/24 h (0.50-2.15)
--- NOTE | 2018-09-10 02:01 | Discharge Summary ---
ATTENDING: Dr. Quach DISCHARGE DIAGNOSES: 1. Diarrhea and fever. 2. Metastatic neuroendocrine tumor. 3. Recent laparotomy for small bowel obstruction and incisional hernia repair with compartment separation. CONSULTATION: [facility] COURSE: The patient is a 68-year-old female discharged three days prior from surgery now complaining of fever, diarrhea and nausea. A CT showed multiple subcutaneous fluid collections along the abdominal wall which was where we did the component separation was considered postsurgical. She was admitted to surgical service, started on empiric vancomycin for her diarrhea. Her Clostridium difficile returned as negative. Her white count remained normal throughout admission. She had recovered from her recent pancytopenia. She was making slow progress. Her fevers resolved. She was able to tolerate an advancing diet. Her diarrhea improved when she was started on Imodium. She had some discomfort along her abdominal wall seemed to be in the area where she was given subcutaneous heparin injections. She was otherwise improving and tolerating regular diet. On hospital day #6, she was stable for discharge home. Her skin lila were removed. DISCHARGE INSTRUCTIONS: Discharge home. Follow up with Dr. Quach in 1 week. DISCHARGE MEDICATIONS: Imodium 4 mg every 6 hours as needed. Continue her home atorvastatin 10 mg daily, daily multivitamins, Compazine 10 mg as needed, Percocet 1-2 tablets every 4 hours as needed and Zofran 8 mg every 8 hours as needed. MTDD
== END 2018-09-04 15:23 | disposition home health service (06) | DRG 392 ==
LOC: 2W 21:10 → 4E 09-04 00:18

== ENCOUNTER 2021-10-22 15:08 | Inpatient (IN) ==
[2021-10-22] MEDS ORDERED: dilTIAZem HCl 5 MG/ML 5 ML VIAL IV ONE (15:27)
--- NOTE | 2021-10-22 15:34 | XRay Report ---
XR chest 1V portable CLINICAL HISTORY: Atypical chest pain. COMPARISON STUDY: Chest radiograph August 30, 2018. FINDINGS: Lung volumes are normal. Lungs are clear. There is no pneumothorax or pleural effusion. Car diac size is normal. Mediastinal contours are normal. There is no evidence for pulmonary edema. Patie nt is mildly rotated. IMPRESSION: No acute cardiopulmonary findings. ACT 112: Negative or not required by law. Electronically signed by: Shon Aguayo M.D. 10/22/2021 3:33 PM
[2021-10-22 15:39] LABS: Basophils # (auto) 0.04 K/uL (0-0.2); Basophils % (auto) 0.7 %; Eosinophils # (auto) 0.08 K/uL (0-0.50); Eosinophils % (auto) 1.4 %; Hematocrit (blood only) 44.7 % (34.1-44.9); Hemoglobin 14.7 g/dl (12.0-16.0); Immature Granulocytes # (auto) 0.01 K/uL (0.00-0.02); Immature Granulocytes % (auto) 0.2 %; Lymphocytes # (auto) 2.71 K/uL (1.2-3.4); Lymphocytes % (auto) 47.6 %; Mean Corpuscular Hemoglobin 30.4 pg (25.0-34.0); Mean Corpuscular Hgb Conc 32.9 g/dL (32.0-36.0); Mean Corpuscular Volume 92.4 fL (80.0-100.0); Mean Platelet Volume 10.1 fL (9.4-12.3); Monocytes # (auto) 0.63 K/uL (0.24-0.82); Monocytes % (auto) 11.1 %; Neutrophils # (auto) 2.22 K/uL (1.4-6.5); Platelet Count 159 K/uL (130-400); RDW Coefficient of Variation 12.3 % (11.5-14.5); RDW Standard Deviation 42.2 fL (36.4-46.3); Red Blood Count 4.84 M/uL (3.93-5.22); White Blood Count 5.69 K/ul (4.8-10.8)
[2021-10-22] MEDS ORDERED: ADENOSINE IV SOLN 3 MG/ML 2 ML VIAL IV ONE ×2 (15:47→15:48)
[2021-10-22 16:07] LABS: Albumin Globulin Ratio 1.5 (0.9-2); Albumin Level 4.2 gm/dl (3.4-5.0); BUN Creatinine Ratio 14.3 (10-20); Bilirubin,Total 0.5 mg/dl (0.2-1.0); Calcium 9.6 mg/dl (8.5-10.1); Creatinine Clr Calc Pharmacy 46.6 ml/min; Est GFR (African American) 66.8 ml/min; Est GFR (Non-African American) 57.6 ml/min; Globulin 2.8 gm/dl (2.5-4.0); Potassium 3.9 mmol/L (3.5-5.1); Troponin I High Sensitivity 4.6 pg/ml (0-14)
--- NOTE | 2021-10-22 16:19 | Emergency Department Note ---
Impression & Plan SVT (supraventricular tachycardia) Admit to the [facility] ED Provider Note NAME: BRAD ROBERTS AGE: 71 SEX: F ARRIVES VIA: Walk-In INFORMANT: Patient ED PROVIDER(S): Karen Sandy DO CHIEF COMPLAINT: Palpitations PLAN: Disposition: Admit to the [facility] Condition: Stable MEDICAL DECISION MAKING: This is a 71-year-old female patient who presents to the emergency department with her heart racing and shortness of breath. Patient was noted to be in atrial flutter with a heart rate greater than 150. She initially received Cardizem which had no impact on her rhythm or rate. She was given a dose of IV adenosine which dropped her rate into the 120s/130s and she was noted to be in atrial fibrillation. The patient was then anticoagulated with IV heparin and given another dose of Cardizem which dropped her rate into the low 100s. [facility] will [facility] for further management. Triage Nursing notes reviewed and agree with them. Additional history obtained from her who is at the bedside Prior medical records reviewed Vital Signs: reviewed and remarkable for tachycardia and hypertension Differential diagnosis: Cardiac dysrhythmia, cardiac ischemia, STEMI ER treatment provided: IV Cardizem IV adenosine IV normal saline bolus IV Cardizem Diagnostics interpreted by me: ECG: Atrial flutter at a rate of 156 with a 2-[address] segment depression in the lateral leads concerning for ischemia. ECG #2: Atrial fibrillation with rapid ventricular response at 122. There is no ST segment elevation or signs of ischemia. There is some mild ST segment depression in leads I and aVL. Cardiac Monitoring: SVT at a rate of 156 Laboratory studies: See below Imaging studies: As per radiology Portable chest x-ray: See report HPI: 71/F arrives for evaluation of heart racing and shortness of breath. Patient states she has been experiencing fatigue for the past 1 week. She noticed that she had an episode of palpitations or rapid heartbeat last night that lasted approximately 1 hour but was self-limited. Over the past 60 to 90 minutes, she has felt her heart racing, some shortness of breath and a tightness in her jaw. ROS: See above HPI for pertinent positives & negatives. A total of 10 systems reviewed and were otherwise negative. PAST MEDICAL HISTORY:See Below PAST SURGICAL HISTORY:See Below FAMILY HISTORY:See Below SOCIAL HISTORY:See Below HOME MEDICATIONS:See list ALLERGIES:See list VITALS:See Below PHYSICAL EXAMINATION: HEENT: Head - normocephalic and atraumatic. Pupils are equal, round, and reactive to light. Extraocular eye muscles are intact, and sclera are anicteric. Nose - moist nasal mucosa without discharge. Mouth - moist buccal mucosa. Oropharynx is nonerythematous and there is no tonsillar exudate or edema noted. Neck: Supple; no JVD, nuchal rigidity, cervical lymphadenopathy, or auscultated bruits. Heart: Tachycardic rate and regular rhythm. There is a normal S1 and S2 with no murmurs, clicks, or gallops appreciated. Lungs: Clear to auscultation bilaterally with no wheezes, rales, or rhonchi. Abdomen: Soft, completely nontender, nondistended, with good bowel sounds. There are no palpable pulsatile masses or hepatosplenomegaly. There is no guarding, rigidity, or rebound noted. Extremities: No evidence of cyanosis, clubbing, or edema. There are easily palpable peripheral pulses. Skin: warm and dry with good turgor and no rashes. ED COURSE: Times/Reassessments: 1520: Patient was evaluated in room B7. A complete history and physical was performed. An IV lock was initiated and labs were drawn as above. Order was placed for continuous cardiac monitoring. The patient was in atrial flutter at a rate of 156. A twelve-lead EKG was obtained as described above. IV lock was initiated and labs are drawn as above. The patient was given 10 mg of IV Cardizem. She was given a bolus of IV normal saline solution. The patient remained significantly tachycardic with heart rates greater than 150. She was given given a dose of IV adenosine. This dropped her rates in the 130s and she was noted to be in atrial fibrillation at this time. Her blood pressure remained stable. Her stools were heme tested and were negative. She was placed on IV heparin. She was given another dose of IV Cardizem. I have personally spent greater than 65 minutes of critical care time in the direct management of this patient. This includes bedside care, interpretation of diagnostic studies, and testing, discussion with consultants, patient, and family members, and other required patient management activities. This 65 minutes is in excess of all separately billable procedures. 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) S/P XRT Hypercholesteremia Hypertension HX OF Surgical History H/O exploratory laparotomy (01/18/15) SBO release x 3 Exploratory Laparotomy; Small Bowel Resection; Lysis of Adhesions; Primary Repair Incisional Hernia H/O exploratory laparotomy (08/21/18) Exploratory Laparotomy, Lysis of Adhesions, Side to Side Ilealcolonic Anastomosis, Biopsy Abdominal Implant with Frozen Section, Repair Incisional Hernia Repair with Compartment Separation(Not Applicable) - Ga Quach MD 08/21/18 H/O: hysterectomy History of carpal tunnel surgery History of mastectomy S/P laparotomy (01/22/11) Diagnostic lap 01/22/11 Dr. Quach Family History Father Diabetes Sister Diabetes Mother Diabetes Grandmother (Maternal) Family hx of colon cancer Social History Smoking Status: Never smoker Second Hand Exposure: No; Hx Alcohol Use: Yes Alcohol type: wine Hx Substance Use: No Preferred Language: Kazakh Communication Ability: Effective Medical Pathologist Required: No Beliefs That Will Affect Care: None marital status: Current Living Situation: Spouse Other Information That Helps Us Care for You: No Feels Safe at Home: Yes Safety Concerns: Feels Safe At This Time Assistive Devices: None Allergies Allergies Allergy/AdvReac Type Severity Reaction Status Date / Time pneumococcal vaccine Allergy Severe REDNESS, Verified 10/22/21 17:56 SWELLING AT SITE aloe Allergy Intermediate RASH Verified 10/22/21 17:56 latex Allergy Intermediate MOUTH Verified 10/22/21 17:56 SORES (AT DENTIST) Penicillins Allergy Intermediate RASH Verified 10/22/21 17:56 capecitabine Allergy Mild Rash Verified 10/22/21 17:56 cefuroxime AdvReac Mild C. DIFF Verified 10/22/21 17:56 nickel AdvReac Mild Rash Verified 04/29/19 13:27 Home Meds Home Medications Medication Instructions Recorded Confirmed atorvastatin 10 mg tablet 10 mg PO Q2D@2100 05/06/18 10/22/21 cyanocobalamin (vitamin B-12) 1,000 mcg sublingual DAILY 10/22/21 10/22/21 1,000 mcg sublingual tablet multivitamin with minerals 1 tab PO DAILY 10/22/21 10/22/21 (Multiple Vitamin-Minerals tablet) ondansetron HCl 8 mg tablet 8 mg PO Q8H PRN Nausea 10/22/21 10/22/21 oxybutynin chloride 5 mg 5 mg PO QAM 10/22/21 10/22/21 tablet,extended release 24 hr prochlorperazine maleate 5 mg 5 mg PO TID PRN Nausea 10/22/21 10/22/21 tablet (Compazine) Results & Data (ED) Vital Signs Vital Signs - 24 hr 10/22/21 15:13 10/22/21 15:20 10/22/21 15:24 Temperature 36.5 C Temperature Source Temporal Artery Scan Pulse Rate 156 H Pulse Rate [Left] Pulse Rhythm Regular Pulse Strength Normal Respiratory Rate 20 20 Respiratory Effort / Characteristics Non-Labored Spontaneous Respiratory Depth Normal Respiratory Pattern Regular Blood Pressure 143/99 H Blood Pressure [Left Arm] Blood Pressure Mean 113 Blood Pressure Mean [Left Arm] Blood Pressure Position Sitting Blood Pressure Position [Left Arm] Pulse Oximetry 93 97 Oxygen Delivery Method Room Air Room Air Room Air Sepsis Recent Fever Within 48 Hours No Sepsis New/Unexplained Change in Mental Status No Sepsis Action Taken by Nursing No Action Required 10/22/21 16:08 Temperature Temperature Source Pulse Rate Pulse Rate [Left] 122 H Pulse Rhythm Pulse Strength Respiratory Rate 20 Respiratory Effort / Characteristics Non-Labored Respiratory Depth Normal Respiratory Pattern Blood Pressure Blood Pressure [Left Arm] 140/80 Blood Pressure Mean Blood Pressure Mean [Left Arm] 100 Blood Pressure Position Blood Pressure Position [Left Arm] Lying Pulse Oximetry 97 Oxygen Delivery Method Room Air Sepsis Recent Fever Within 48 Hours Sepsis New/Unexplained Change in Mental Status Sepsis Action Taken by Nursing Laboratory Data Result diagrams: 10/23/21 04:57 10/23/21 04:57 Lab Results 10/22/21 10/22/21 10/22/21 Range/Units 15:16 15:16 15:28 WBC 5.69 (4.8-10.8) K/ul RBC 4.84 (3.93-5.22) M/uL Hgb 14.7 (12.0-16.0) g/dl Hct 44.7 (34.1-44.9) % MCV 92.4 (80.0-100.0) fL MCH 30.4 (25.0-34.0) pg MCHC 32.9 (32.0-36.0) g/dL RDW Std Deviation 42.2 (36.4-46.3) fL RDW Coeff of Katelyn 12.3 (11.5-14.5) % Plt Count 159 (130-400) K/uL MPV 10.1 (9.4-12.3) fL Immature Gran % (Auto) 0.2 % Neut % (Auto) 39.0 % Lymph % (Auto) 47.6 % Levy % (Auto) 11.1 % Eos % (Auto) 1.4 % Baso % (Auto) 0.7 % Neut # (Auto) 2.22 (1.4-6.5) K/uL Lymph # (Auto) 2.71 (1.2-3.4) K/uL Levy # (Auto) 0.63 (0.24-0.82) K/uL Eos # (Auto) 0.08 (0-0.50) K/uL Baso # (Auto) 0.04 (0-0.2) K/uL Immature Gran # (Auto) 0.01 (0.00-0.02) K/uL PT 9.8 (9.0-12.0) Seconds INR 0.9 (0.9-1.1) Sodium 141 (136-145) mmol/L Potassium 3.9 (3.5-5.1) mmol/L Chloride 107 (98-107) mmol/L Carbon Dioxide 24 (21-32) mmol/L Anion Gap 10 (3-11) BUN 14 (6-23) mg/dl Creatinine 0.98 (0.6-1.2) mg/dl Est Cr Clr Drug Dosing 46.6 ml/min Est GFR ( Amer) 66.8 ml/min Est GFR (Non-Af Amer) 57.6 ml/min BUN/Creatinine Ratio 14.3 (10-20) Glucose 133 H (70-99(Fasting)) mg/dl Calcium 9.6 (8.5-10.1) mg/dl Magnesium (1.7-2.4) mg/dl Total Bilirubin 0.5 (0.2-1.0) mg/dl AST 16 (13-39) U/L ALT 14 (7-52) U/L Alkaline Phosphatase 68 (34-104) U/L Troponin I High Sens 4.6 (0-14) pg/ml Total Protein 7.0 (6.0-8.3) gm/dl Albumin 4.2 (3.4-5.0) gm/dl Globulin 2.8 (2.5-4.0) gm/dl Albumin/Globulin Ratio 1.5 (0.9-2) Lipase 45 (11-82) U/L TSH (0.300-4.500) uIu/ml SARS-CoV-2, RNA, NAAT (NEGATIVE) 10/22/21 10/22/21 10/22/21 Range/Units 15:28 15:28 16:35 WBC (4.8-10.8) K/ul RBC (3.93-5.22) M/uL Hgb (12.0-16.0) g/dl Hct (34.1-44.9) % MCV (80.0-100.0) fL MCH (25.0-34.0) pg MCHC (32.0-36.0) g/dL RDW Std Deviation (36.4-46.3) fL RDW Coeff of Katelyn (11.5-14.5) % Plt Count (130-400) K/uL MPV (9.4-12.3) fL Immature Gran % (Auto) % Neut % (Auto) % Lymph % (Auto) % Levy % (Auto) % Eos % (Auto) % Baso % (Auto) % Neut # (Auto) (1.4-6.5) K/uL Lymph # (Auto) (1.2-3.4) K/uL Levy # (Auto) (0.24-0.82) K/uL Eos # (Auto) (0-0.50) K/uL Baso # (Auto) (0-0.2) K/uL Immature Gran # (Auto) (0.00-0.02) K/uL PT (9.0-12.0) Seconds INR (0.9-1.1) Sodium (136-145) mmol/L Potassium (3.5-5.1) mmol/L Chloride (98-107) mmol/L Carbon Dioxide (21-32) mmol/L Anion Gap (3-11) BUN (6-23) mg/dl Creatinine (0.6-1.2) mg/dl Est Cr Clr Drug Dosing ml/min Est GFR ( Amer) ml/min Est GFR (Non-Af Amer) ml/min BUN/Creatinine Ratio (10-20) Glucose (70-99(Fasting)) mg/dl Calcium (8.5-10.1) mg/dl Magnesium 1.9 (1.7-2.4) mg/dl Total Bilirubin (0.2-1.0) mg/dl AST (13-39) U/L ALT (7-52) U/L Alkaline Phosphatase (34-104) U/L Troponin I High Sens (0-14) pg/ml Total Protein (6.0-8.3) gm/dl Albumin (3.4-5.0) gm/dl Globulin (2.5-4.0) gm/dl Albumin/Globulin Ratio (0.9-2) Lipase (11-82) U/L TSH 1.740 (0.300-4.500) uIu/ml SARS-CoV-2, RNA, NAAT NEGATIVE (NEGATIVE) Administered Medications Acetaminophen (Acetaminophen 325 Mg Tab) 650 mg PO Q4H PRN PRN Reason: Pain or Fever Stop: 11/21/21 18:55 Last Admin: 10/22/21 21:43 Dose: 650 mg Documented By: KIRILL Cyanocobalamin (Cyanocobalamin (B-12) 500 Mcg Tablet) 1,000 mcg PO DAILY ANGELICA Stop: 11/22/21 08:59 Last Admin: 10/23/21 09:25 Dose: 1,000 mcg Documented By: CHAI Heparin Sodium/Dextrose (Heparin Sodium/Dextrose) 25,000 units in 500 mls @ 20 mls/hr IV .Q24H ANGELICA; Protocol Stop: 11/21/21 17:14 Last Titration: 10/23/21 01:42 Dose: 1,000 units/hr, 20 mls/hr Documented By: KIRILL Co-signed By: HEATHER Admin: 10/22/21 18:37 Dose: 1,000 units/hr, 20 mls/hr Documented By: SHEMAR Co-signed By: MAXINE Metoprolol Tartrate (Metoprolol Tartrate 25 Mg Tab) 12.5 mg PO BID ANGELICA Stop: 11/21/21 20:59 Last Admin: 10/23/21 09:25 Dose: 12.5 mg Documented By: Admin: 10/22/21 19:52 Dose: 12.5 mg Documented By: KIRILL Multivitamins/Minerals (Cerovite Adv Formula Tab) 1 tab PO DAILY ANGELICA Stop: 11/22/21 08:59 Last Admin: 10/23/21 09:25 Dose: 1 tab Documented By: CHAI Oxybutynin Chloride (Oxybutynin Chloride Xl 5 Mg Tabcr) 5 mg PO QAM ANGELICA Stop: 11/22/21 08:59 Last Admin: 10/23/21 09:25 Dose: 5 mg Documented By: CHAI Discontinued Medications Adenosine (Adenosine Iv Soln 3 Mg/Ml 2 Ml Vial) Confirm Administered Dose 6 mg IV .STK-MED ONE Stop: 10/22/21 15:48 Last Admin: 10/22/21 16:08 Dose: Not Given Documented By: SHEMAR Adenosine (Adenosine Iv Soln 3 Mg/Ml 2 Ml Vial) Confirm Administered Dose 6 mg IV .STK-MED ONE Stop: 10/22/21 15:49 Last Admin: 10/22/21 16:07 Dose: 6 mg Documented By: SHEMAR Adenosine (Adenosine Iv Soln 3 Mg/Ml 2 Ml Vial) 6 mg IV NOW STA Stop: 10/22/21 22:06 Last Admin: 10/22/21 22:06 Dose: Not Given Documented By: SHEMAR Diazepam (Diazepam 5 Mg/Ml Inj 10ml Vial) Confirm Administered Dose 5 mg .ROUTE .STK-MED ONE Stop: 10/22/21 15:27 Last Admin: 10/22/21 15:32 Dose: Not Given Documented By: LATRICIA Diltiazem HCl (Diltiazem Hcl 5 Mg/Ml 5 Ml Vial) Confirm Administered Dose 25 mg IV .STK-MED ONE Stop: 10/22/21 15:28 Last Increment: 10/22/21 15:34 Dose: 10 mg Documented By: LATRICIA Co-signed By: SHEMAR Diltiazem HCl (Diltiazem Hcl 5 Mg/Ml 5 Ml Vial) 10 mg IV NOW STA Stop: 10/22/21 16:44 Last Admin: 10/22/21 17:05 Dose: 10 mg Documented By: SHEMAR Co-signed By: LATRICIA Heparin Sodium/Dextrose (Heparin Iv Adult Wt-Based Standard *No* Bolus Protocol) 1 each IV ONE ONE; Protocol Stop: 10/22/21 17:01 Last Admin: 10/22/21 18:37 Dose: 1 each Documented By: SHEMAR Magnesium Sulfate/Dextrose (Magnesium Sulfate / D5w) 1 gm in 100 mls @ 100 mls/hr IV NOW STA Stop: 10/22/21 18:31 Last Infusion: 10/22/21 20:15 Dose: 0 mls/hr Documented By: Admin: 10/22/21 19:15 Dose: 100 mls/hr Documented By: [facility] Diltiazem HCl 125 mg/ Dextrose 125 mls @ 15 mls/hr IV .Q8H20M ANGELICA; Protocol Stop: 11/21/21 17:59 Last Titration: 10/22/21 22:02 Dose: 0 mg/hr, 0 mls/hr Documented By: KIRILL Co-signed By: CMP Titration: 10/22/21 21:10 Dose: 15 mg/hr, 15 mls/hr Documented By: KIRILL Co-signed By: AMM Titration: 10/22/21 20:10 Dose: 10 mg/hr, 10 mls/hr Documented By: KIRILL Co-signed By: AMM Admin: 10/22/21 19:02 Dose: 5 mg/hr, 5 mls/hr Documented By: KIRILL Co-signed By: SAM Potassium Chloride (Potassium Chloride Crtab 20 Meq Tabcr) 20 meq PO NOW STA Stop: 10/22/21 17:33 Last Admin: 10/22/21 19:59 Dose: Not Given Documented By: KIRILL Imaging Data Radiologist's Impression: Chest X-Ray 10/22/21 15:16 XR chest 1V portable CLINICAL HISTORY: Atypical chest pain. COMPARISON STUDY: Chest radiograph August 30, 2018. FINDINGS: Lung volumes are normal. Lungs are clear. There is no pneumothorax or pleural effusion. Cardiac size is normal. Mediastinal contours are normal. There is no evidence for pulmonary edema. Patient is mildly rotated. IMPRESSION: No acute cardiopulmonary findings. ACT 112: Negative or not required by law. Electronically signed by: Shon Aguayo M.D. 10/22/2021 3:33 PM Discharge Plan Visit Data Chief Complaint: Cardiac Assessment Stated Complaint: TACHYCARDIA,HYPERTENSION ED Provider: Karen Sandy Discharge Problem: SVT (supraventricular tachycardia) Patient Disposition: Admitted As Inpatient Discharge Instructions Interventions: ED Discharge Assessment Last Done: 10/22/21 18:18
[2021-10-22] MEDS ORDERED: dilTIAZem HCl 5 MG/ML 5 ML VIAL IV STA (16:43)
[2021-10-22] MEDS ORDERED: Heparin IV Adult Wt-Based Standard *NO* Bolus Protocol IV ONE (17:00)
[2021-10-22 17:16] LABS: INR 0.9 (0.9-1.1); Prothrombin Time 9.8 Seconds (9.0-12.0)
[2021-10-22] MEDS ORDERED: MAGNESIUM SULFATE / D5W 1 GM/100 ML BAG IV STA (17:32)
[2021-10-22] MEDS ORDERED: POTASSIUM CHLORIDE CRTAB 20 MEQ TABCR PO STA (17:32)
[2021-10-22] MEDS ORDERED: STAT IV Infusion **Titration per Protocol STA (17:37)
[2021-10-22] MEDS ORDERED: dilTIAZem HCL 125 MG in DEXTROSE 5% 100 ML IV SCH (18:00)
--- NOTE | 2021-10-22 18:20 | History & Physical Report ---
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 Quach, status post PRRT therapy at [facility] in [place], [place] currently undergoing maintenance therapy for the past 3 and half years, history of left breast cancer status post partial mastectomy and radiation, HTN, HLD, history of thrombocytopenia, CKD stage III who presents to ER secondary to heart palpitations x1 day. Presented to ED with heart rates in the 150s concern for atrial flutter. Received 10 mg IV diltiazem bolus without improvement. Received 6 mg IV adenosine with improvement in rates in the 120s. Repeat EKG revealed it fibrillation with RVR. She then received a second 10 mg IV bolus of diltiazem. During my evaluation heart rate sustaining in the 110s to the 130s. Her symptoms have improved but she still feels heart palpitations. Atrial fibrillation with RVR admit to PCU initiate diltiazem gtt start metoprolol tartrate 12.5mg bid @ 2100 initiate heparin gtt - monitor plts closely, pt with hx of thrombocytopenia obtain echocardiogram give 20meq KCL and 1g mag sulfate to keep K > 4.0 and Mag > 2.[address] Dmitriy Oliver2Vasc (2-3, age, F, + or - HTN ( per [facility] hx of but not on current medical therapy) HLD continue statin q2d Neuroendocrine carcinoma s/p SB resection x 2 and SB bypass by Dr. Quach, last surg in 2019 Follows [facility] in [place], [place], Dr. Perez s/p PRRT tx and has been undergoing maintenance for the past 3 and half years She does not have carcinoid syndrome CKD stage III Creatinine baseline 1.1 Monitor closely History of left breast cancer Status postlumpectomy and radiation Hypertension Documented per [facility] Currently not on medical therapy We will monitor DVT prophylaxis: IV heparin Dispo: PCU PCP: Rosa FULL CODE Pt was seen and examined in collaboration with Dr. Archuleta, please see addendum History of Present Illness Chief Complaint: Heart palpitations x1 day. 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 is at bedside. Last evening around 7 or 8:00 she was sitting down when she noticed her heart was racing. This lasted for about 30 minutes and went away on its own. Today it started again approximately 130 to 2:00 where her heart was racing but it did not stop. At that time she was sitting down watching golf on TV. She also had a bilateral jaw heaviness sensation and pressure. She checked her blood pressure and on her blood pressure machine it read her pulse was in the 150s. She also used a pulse oximeter which was registering her pulse in the 150s as well. She opted to come to ER for further evaluation. At the time of both events she denies any lightheadedness, dizziness, presyncope, chest pain, shortness of breath, cough or vomiting. During today's episode she did experience some nausea. She also elicits over the past 2 weeks feeling extremely fatigued. She went and saw PCP last week secondary to her profound fatigue as well as urinary symptoms including nocturia, increased urinary urgency and dysuria. She had a full lab work-up as well as a urinalysis done. Urinalysis was negative for infection but did reveal some calcium oxalate crystals. She is being worked up with a renal ultrasound to eval for nephrolithiasis. Otherwise lab work was normal. She denies any other recent illness. Denies history of COVID-19. Her appetite has been good. She denies any fever, chills, sweats, chest pain, URI symptoms, vo miting, abdominal pain, melena, or hematochezia. In ED patient had heart rates in the 150s to 160s on arrival. She received a 10 mg IV diltiazem bolus without much improvement in heart rate. Initially EKG was reading a 2:1 a flutter. She then received 6 mg of IV adenosine which did slow down her heart rate and revealed more of a atrial fibrillation rhythm. She was given a second dose of 10 mg IV diltiazem with heart rate sustaining mostly in the 110s to 120s. CBC and CMP was generally unremarkable. Chest x-ray negative for acute abnormality. Allergies Allergy/AdvReac Type Severity Reaction Status Date / Time pneumococcal vaccine Allergy Severe REDNESS, Verified 10/22/21 17:56 SWELLING AT SITE aloe Allergy Intermediate RASH Verified 10/22/21 17:56 latex Allergy Intermediate MOUTH Verified 10/22/21 17:56 SORES (AT DENTIST) Penicillins Allergy Intermediate RASH Verified 10/22/21 17:56 capecitabine Allergy Mild Rash Verified 10/22/21 17:56 cefuroxime AdvReac Mild C. DIFF Verified 10/22/21 17:56 nickel AdvReac Mild Rash Verified 04/29/19 13:27 Home Medications Medication Instructions Recorded Confirmed Type atorvastatin 10 mg tablet 10 mg PO Q2D@2100 05/06/18 10/22/21 History cyanocobalamin (vitamin B-12) 1,000 mcg sublingual DAILY 10/22/21 10/22/21 History 1,000 mcg sublingual tablet multivitamin with minerals 1 tab PO DAILY 10/22/21 10/22/21 History (Multiple Vitamin-Minerals tablet) ondansetron HCl 8 mg tablet 8 mg PO Q8H PRN Nausea 10/22/21 10/22/21 History oxybutynin chloride 5 mg 5 mg PO QAM 10/22/21 10/22/21 History tablet,extended release 24 hr prochlorperazine maleate 5 mg 5 mg PO TID PRN Nausea 10/22/21 10/22/21 History tablet (Compazine) Past Med/Surg History Medical History (Updated 10/22/21 @ 18:24 by Rosa Jackson PA-C) Carcinoid tumor RADIATION (TARGETED TREATMENT) COMPLETED 04/2018, S/P CHEMO (SUMMER 2017) METS to uterus s/p Total hysterectomy 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) S/P XRT Hypercholesteremia Hypertension HX OF Surgical History H/O exploratory laparotomy (01/18/15) SBO release x 3 Exploratory Laparotomy; Small Bowel Resection; Lysis of Adhesions; Primary Repair Incisional Hernia H/O exploratory laparotomy (08/21/18) Exploratory Laparotomy, Lysis of Adhesions, Side to Side Ilealcolonic Anastomosis, Biopsy Abdominal Implant with Frozen Section, Repair Incisional Hernia Repair with Compartment Separation(Not Applicable) - Ga Quach MD 08/21/18 H/O: hysterectomy History of carpal tunnel surgery History of mastectomy S/P laparotomy (01/22/11) Diagnostic lap 01/22/11 Dr. 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: No Beliefs That Will Affect Care: None marital status: Current Living Situation: Spouse Other Information That Helps Us Care for You: No Feels Safe at Home: Yes Safety Concerns: Feels Safe At This Time Assistive Devices: Glasses Review of Systems Review of Systems: All systems reviewed & are unremarkable except as noted in HPI & below Physical Exam Physical Exam: Constitutional: WD/WN, vitals as above, NAD, sitting up in bed, pleasant, conversing easily Head: Normocephalic, Atraumatic Eyes: PERRL, conjunctivae normal, anicteric sclerae ENMT: external ear and nose normal, oropharynx normal Neck: trachea midline, no thyromegaly normal visual inspection Respiratory: normal respiratory effort, lungs clear to auscultation, no wheeze, rales, rhonchi. Normal insp/exp effort, no accessory muscle use Cardiovascular: Irregular rate, irregular rhythm, no murmur, no edema Vessels: no JVD or carotid bruit Chest: normal inspection of chest Abdomen: normal bowel sounds, soft, nontender, no hepatosplenomegaly Musculoskeletal: no cyanosis or clubbing, extremities motor strength 5/5 Skin: no rashes, warm and dry normal turgor Neurologic: PERRL, EOMI, accommodation nl, no face palsy, no dysarthria CN's II-XI intact bilaterally and moves all extremities Psychiatric: A+Ox3, euthymic affect Lymphatic: no cervical or axillary lymphadenopathy : deferred Results & Data Results & Data ([facility]) Vital Signs (Past 12 Hours) Vital Signs Temp Pulse Pulse Resp BP BP Pulse Ox 10/22/21 16:08 122 H 20 140/80 97 10/22/21 15:24 10/22/21 15:20 20 97 10/22/21 15:13 36.5 C 156 H 20 143/99 H 93 O2 Del Method 10/22/21 16:08 Room Air 10/22/21 15:24 Room Air 10/22/21 15:20 Room Air 10/22/21 15:13 Room Air Diagnostic Findings Chest X-Ray 10/22/21 15:16 XR chest 1V portable CLINICAL HISTORY: Atypical chest pain. COMPARISON STUDY: Chest radiograph August 30, 2018. FINDINGS: Lung volumes are normal. Lungs are clear. There is no pneumothorax or pleural effusion. Cardiac size is normal. Mediastinal contours are normal. There is no evidence for pulmonary edema. Patient is mildly rotated. IMPRESSION: No acute cardiopulmonary findings. ACT 112: Negative or not required by law. Electronically signed by: Shon Aguayo M.D. 10/22/2021 3:33 PM Medications Administered Medication List Discontinued Medications Adenosine (Adenosine Iv Soln 3 Mg/Ml 2 Ml Vial) Confirm Administered Dose 6 mg IV .STK-MED ONE Stop: 10/22/21 15:48 Last Admin: 10/22/21 16:08 Dose: Not Given Documented By: SHEMAR Adenosine (Adenosine Iv Soln 3 Mg/Ml 2 Ml Vial) Confirm Administered Dose 6 mg IV .STK-MED ONE Stop: 10/22/21 15:49 Last Admin: 10/22/21 16:07 Dose: 6 mg Documented By: SHEMAR Diazepam (Diazepam 5 Mg/Ml Inj 10ml Vial) Confirm Administered Dose 5 mg .ROUTE .STK-MED ONE Stop: 10/22/21 15:27 Last Admin: 10/22/21 15:32 Dose: Not Given Documented By: LATRICIA Diltiazem HCl (Diltiazem Hcl 5 Mg/Ml 5 Ml Vial) Confirm Administered Dose 25 mg IV .STK-MED ONE Stop: 10/22/21 15:28 Last Increment: 10/22/21 15:34 Dose: 10 mg Documented By: LATRICIA Co-signed By: SHEMAR Diltiazem HCl (Diltiazem Hcl 5 Mg/Ml 5 Ml Vial) 10 mg IV NOW STA Stop: 10/22/21 16:44 Last Admin: 10/22/21 17:05 Dose: 10 mg Documented By: SHEMAR Co-signed By: LATRICIA ECG Rate (beats per minute): 122 Rhythm: atrial fibrillation COVID-19 Results Results COVID-19 Adm Lab Results: RBC 4.84 M/uL (3.93-5.22) 10/22/21 WBC 5.69 K/ul (4.8-10.8) 10/22/21 Hgb 14.7 g/dl (12.0-16.0) 10/22/21 Hct 44.7 % (34.1-44.9) 10/22/21 Plt Count 159 K/uL (130-400) 10/22/21 Neutrophils (%) (Auto) 39.0 % 10/22/21 Lymphocytes (%) (Auto) 47.6 % 10/22/21 Monocytes # (Auto) 0.63 K/uL (0.24-0.82) 10/22/21 Eosinophils # (Auto) 0.08 K/uL (0-0.50) 10/22/21 Immature Granulocyte % (Auto) 0.2 % 10/22/21 Neutrophils # (Auto) 2.22 K/uL (1.4-6.5) 10/22/21 Lymphocytes # (Auto) 2.71 K/uL (1.2-3.4) 10/22/21 Monocytes # (Auto) 0.63 K/uL (0.24-0.82) 10/22/21 Eosinophils # (Auto) 0.08 K/uL (0-0.50) 10/22/21 Basophils # (Auto) 0.04 K/uL (0-0.2) 10/22/21 Immature Granulocyte # (Auto) 0.01 K/uL (0.00-0.02) 2 Na 141 mmol/L (136-145) 10/22/21 K 3.9 mmol/L (3.5-5.1) 10/22/21 Cl 107 mmol/L (98-107) 10/22/21 CO2 24 mmol/L (21-32) 10/22/21 Anion Gap 10 (3-11) 10/22/21 BUN 14 mg/dl (6-23) 10/22/21 Creatinine 0.98 mg/dl (0.6-1.2) 10/22/21 BUN/Creatinine Ratio 14.3 (10-20) 10/22/21 Glucose Level 133 mg/dl (70-99(Fasting)) H 10/22/21 Ca 9.6 mg/dl (8.5-10.1) 10/22/21 Total Bilirubin 0.5 mg/dl (0.2-1.0) 10/22/21 AST/SGOT 16 U/L (13-39) 10/22/21 ALT/SGPT 14 U/L (7-52) 10/22/21 Alkaline Phosphatase 68 U/L (34-104) 10/22/21 Total Protein 7.0 gm/dl (6.0-8.3) 10/22/21 Albumin 4.2 gm/dl (3.4-5.0) 10/22/21 Globulin 2.8 gm/dl (2.5-4.0) 10/22/21 Albumin/Globulin Ratio 1.5 (0.9-2) 10/22/21 PTT 22.0 Seconds (21.0-31.0) 10/22/21 INR 0.9 (0.9-1.1) 10/22/21 SARS-CoV-2, RNA, NAAT NEGATIVE (NEGATIVE) 10/22/21 Chest X-Ray 10/22/21 Code Status & VTE Plan Code Status Full code VTE Prophylaxis Plan VTE Prophylaxis will be ordered: Yes Supervising Physician Co-Signing Physician Notes I have seen and examined the patient and have discussed the case with the provider above. I agree with the assessment and plan as stated. 71 yo F presents with fatigue for 2 weeks and recent onset palpitations found to have new onset atrial fibrillation with rapid ventricular response. She was treated with diltiazem and adenosine but was still tachycardic in the 120s. Heparin drip started without bolus. No baseline PTT was drawn, so this was drawn 1 hr after starting heparin drip. Denies chest pain, shortness of breath or other acute symptoms aside from palpitations. She has ongoing carcinoid that is terminal and not technically in remission, but is not suffering from any symptoms of carcinoid syndrome at this time. She has no recent infections, and TSH is normal. Low risk for PE. CHADS-Vasc score is 2 for female sex and Age 71 yrs. She has been off hypertensive therapy for the past 3 years successfully. Exam reveals a WNWD female in NAD who has an irregularly irregular tachycardic heart rate and heart rhythm, clear lungs to auscultation, a soft NTND abdomen. Extremities are warm and well perfused with warm, dry skin and no peripheral edema or JVD. Agree with assessment above with plan to start patient on a diltiazem drip with Lopressor PO low dose in the background. Shortly after arriving on the floor, at 8:00p, she converted to sinus rhythm and the diltiazem drip was stopped. Cont investigation as noted above and cardiology consult in the morning. Mary Ellen Archuleta DO [facility]
[2021-10-22] MEDS: HEPARIN SODIUM/DEXTROSE 25,000 UNITS/500 ML BAG IV SCH (18:37)
[2021-10-22] MEDS ORDERED: MAGNESIUM HYDROXIDE SUSP 30 ML UDC PO PRN (18:56)
[2021-10-22] MEDS ORDERED: POLYETHYLENE (MIRALAX) 17 GM PACK PO PRN (18:56)
[2021-10-22] MEDS ORDERED: ALUMINUM/MAGNESIUM SUSP 30 ML UDC PO PRN (18:56)
[2021-10-22] MEDS ORDERED: ACETAMINOPHEN 325 MG TAB PO PRN (18:56)
[2021-10-22] MEDS ORDERED: ONDANSETRON INJ 2 MG/ML 2 ML VIAL IV PRN (18:56)
[2021-10-22] MEDS: METOPROLOL TARTRATE 25 MG TAB PO SCH (19:52)
[2021-10-22 20:10] LABS: Partial Thromboplastin Ratio 0.8
[2021-10-22] MEDS ORDERED: ADENOSINE IV SOLN 3 MG/ML 2 ML VIAL IV STA (22:05)
[2021-10-23 01:31] LABS: Partial Thromboplastin Ratio 1.9
[2021-10-23 05:42] LABS: Partial Thromboplastin Ratio 2.3
[2021-10-23 06:04] LABS: Partial Thromboplastin Time 62.3 Seconds (21.0-31.0)
[2021-10-23 06:24] LABS: Albumin Globulin Ratio 1.5 (0.9-2); Albumin Level 3.4 gm/dl (3.4-5.0); Bilirubin,Total 0.5 mg/dl (0.2-1.0); Creatinine Clr Calc Pharmacy 50.4 ml/min; Est GFR (Non-African American) 63.9 ml/min; Globulin 2.3 gm/dl (2.5-4.0); Magnesium 2.1 mg/dl (1.7-2.4); Potassium 4.1 mmol/L (3.5-5.1); Total Protein 5.7 gm/dl (6.0-8.3)
[2021-10-23 06:31] LABS: Hematocrit (blood only) 38.8 % (34.1-44.9); Hemoglobin 12.8 g/dl (12.0-16.0); Mean Corpuscular Hemoglobin 30.8 pg (25.0-34.0); Mean Corpuscular Volume 93.5 fL (80.0-100.0); Mean Platelet Volume 10.1 fL (9.4-12.3); Platelet Count 131 K/uL (130-400); RDW Coefficient of Variation 12.7 % (11.5-14.5); RDW Standard Deviation 43.4 fL (36.4-46.3); Red Blood Count 4.15 M/uL (3.93-5.22); White Blood Count 4.18 K/ul (4.8-10.8)
[2021-10-23 06:38] LABS: Basophils # (auto) 0.03 K/uL (0-0.2); Basophils % (auto) 0.7 %; Eosinophils # (auto) 0.07 K/uL (0-0.50); Eosinophils % (auto) 1.7 %; Immature Granulocytes # (auto) 0.01 K/uL (0.00-0.02); Immature Granulocytes % (auto) 0.2 %; Lymphocytes # (auto) 1.69 K/uL (1.2-3.4); Lymphocytes % (auto) 40.4 %; Monocytes # (auto) 0.55 K/uL (0.24-0.82); Monocytes % (auto) 13.2 %; Neutrophils # (auto) 1.83 K/uL (1.4-6.5); Neutrophils % (auto) 43.8 %; Ovalocytes 1+; Platelet Estimate Normal (Normal)
--- NOTE | 2021-10-23 06:45 | Electrocardiogram Report ---
Test Reason : Blood Pressure : / mmHG Vent. Rate : 156 BPM Atrial Rate : 312 BPM P-R Int : 000 ms QRS Dur : 088 ms QT Int : 330 ms P-R-T Axes : 244 -60 -41 degrees QTc Int : 531 ms Poor data quality, interpretation may be adversely affected Atrial flutter with 2:1 A-V conduction Left axis deviation Possible Inferior infarct , age undetermined Anterior infarct , age undetermined Abnormal ECG When compared with ECG of 14-AUG-2018 08:35, Atrial flutter has replaced Sinus rhythm Vent. rate has increased by 77 bpm Confirmed by Olivier Arvizu ([id number]) on 10/23/2021 6:44:57 AM Referred By: REFERRED SELF Confirmed By:Olivier Arvizu
--- NOTE | 2021-10-23 06:46 | Electrocardiogram Report ---
Test Reason : Blood Pressure : / mmHG Vent. Rate : 122 BPM Atrial Rate : 150 BPM P-R Int : 000 ms QRS Dur : 084 ms QT Int : 318 ms P-R-T Axes : 000 -43 049 degrees QTc Int : 453 ms Atrial fibrillation with rapid ventricular response Left axis deviation Low voltage QRS Poor R wave progression, consider anterior ID vs. lead placement vs. LVH Abnormal ECG When compared with ECG of 22-OCT-2021 15:20, Atrial fibrillation has replaced Atrial flutter Confirmed by Olivier Arvizu ([id number]) on 10/23/2021 6:46:11 AM Referred By: REFERRED SELF Confirmed By:Olivier Arvizu
[2021-10-23 08:32] LABS: Estimated Average Glucose 120 mg/dl; Hemoglobin A1C 5.8 % (4.5-5.6)
[2021-10-23] MEDS: CYANOCOBALAMIN (B-12) 500 MCG TABLET PO SCH (09:25)
[2021-10-23] MEDS: CEROVITE ADV FORMULA TAB PO SCH (09:25)
[2021-10-23] MEDS: METOPROLOL TARTRATE 25 MG TAB PO SCH ×2 (09:25→20:54)
[2021-10-23] MEDS: OXYBUTYNIN CHLORIDE XL 5 MG TABCR PO SCH (09:25)
--- NOTE | 2021-10-23 09:32 | Cardiology Consultation ---
Date of Consultation October 23, 2021 Assessment & Plan (1) Atrial fibrillation with RVR: 1. New onset symptomatic atrial flutter/fibrillation with a rapid ventricular response status post spontaneous conversion on 10/22/2021 at 20:02 without significant conversion pause and without overt clinical sequela. [id number] Score is 4 points for a 71 year old female with a history of hypertension and evidence of vascular disease (moderate calcified plaque of the abdominal aorta without aneurysm noted via prior Abdomen/[facility] CT dated 08/31/2018) 2. Abnormal EKG 3. Marked fatigue, undefined, following dental work/infection at the end of August 4. 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 Benefits, use, risks, and alternatives explained. Heparin to Eliquis anticoagulation, 5 mg twice a day, for at least the next 4-6 weeks. Risks, benefits, use, and alternatives discussed. Outpatient stress echocardiography to assess for significant underlying coronary artery disease. Supervising Physician Co-Signing Physician Notes Patient seen and examined with Pako Velez PA-C. Agree with findings and assessment as above. Above symptoms consistent with possible endocarditis, however, no significant lesions present on transthoracic echocardiogram or significant valvular regurgitation. Blood cultures will be drawn. Eliquis and metoprolol as above. History of Present Illness Reason for Consultation: New onset atrial fibrillation with a rapid ventricular response Requesting Physician: Renetat/Geremias Attending Physician: Arian History of Present Illness Mrs. Regina Felipe is a very pleasant 71-year-old female who was admitted to [facility] through the emergency room on October 22, 2021, presenting with palpitations. The night before yesterday the patient experienced palpitations, pressure/fluttering sensation in the upper chest/throat area that lasted for approximately 30 minutes and resolved spontaneously. That night she was able to sleep without difficulty however yesterday morning while watching golf on television she experienced recurrent palpitations, pressure/fluttering sensation in the upper throat that would not go away. Heart rate on her home blood pressure monitor was 160 bpm. She then used her 's apple watch which also revealed a heart rate of 160 bpm. EKG on initial presentation revealed atrial flutter with a ventricular rate of 156 bpm. Patient received 10 mg IV diltiazem followed by 6 mg of IV adenosine and another 10 mg IV bolus of diltiazem with improvement in heart rates. A second EKG in the emergency room revealed atrial fibrillation with a rapid ventricular response, 122 bpm. On admission, IV heparin and metoprolol tartrate 12.5 mg twice per day were initiated. Continuous telemetry monitoring revealed atrial fibrillation up to 180 bpm with patient notably converted from atrial fibrillation to sinus rhythm at 20:02 without significant conversion pause and without overt clinical sequela. Continuous telemetry monitoring following conversion has revealed sinus rhythm in the 60s and 70s. Resting echocardiography obtained this morning, pending interpretation. Patient notes having left-sided jaw discomfort towards the end of August, a week prior to vacationing in the [place] Patient notes starting the first phase of a root canal at the end of August. She notes being prescribed a penicillin antibiotic by Dr. Arredondo who was covering for her dentist that weekend, stopping the antibiotic after 3 days due to significant GI upset. She notes previously having C. difficile when taking Ceftin 25 years ago. Patient notes significant fatigue above her norm the last couple of weeks. She notes basically laying on the couch napping, not feeling like doing much of anything. She notes sending a note to her PCP and having thorough laboratory work done prior to evaluation last week (documentation not yet available for review). Past Medical and Surgical History: Carcinoid tumor of intestine, with metastasis, status post PRRT Breast cancer, left-sided, status post partial mastectomy and radiation Hypertension Dyslipidemia Exploratory laparotomy Status post small bowel resection x 2 Status post small bowel bypass Thrombocytopenia Pancreatic insufficiency Stage III chronic kidney disease Reflux Migraine headaches Diverticulosis total abdominal hysterectomy Breast biopsy Carpal tunnel surgery Colonoscopy Dental work Family History: Mother with carcinoid tumor, carcinoid syndrome, cardiac involvement. Father had his first CVA in his late 50s or early 60s. 2 brothers without cardiac issues. 2 sisters have passed, both with CAD. Social History: Non-smoker. Social alcohol, 1 to 2 glasses of wine per week. No illegal drug use. 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 , 1 son without cardiac issues. Allergies Allergy/AdvReac Type Severity Reaction Status Date / Time pneumococcal vaccine Allergy Severe REDNESS, Verified 10/22/21 17:56 SWELLING AT SITE aloe Allergy Intermediate RASH Verified 10/22/21 17:56 latex Allergy Intermediate MOUTH Verified 10/22/21 17:56 SORES (AT DENTIST) Penicillins Allergy Intermediate RASH Verified 10/22/21 17:56 capecitabine Allergy Mild Rash Verified 10/22/21 17:56 cefuroxime AdvReac Mild C. DIFF Verified 10/22/21 17:56 nickel AdvReac Mild Rash Verified 04/29/19 13:27 Home Medications Medication Instructions Recorded Confirmed Type atorvastatin 10 mg tablet 10 mg PO Q2D@2100 05/06/18 10/22/21 History cyanocobalamin (vitamin B-12) 1,000 mcg sublingual DAILY 10/22/21 10/22/21 History 1,000 mcg sublingual tablet multivitamin with minerals 1 tab PO DAILY 10/22/21 10/22/21 History (Multiple Vitamin-Minerals tablet) ondansetron HCl 8 mg tablet 8 mg PO Q8H PRN Nausea 10/22/21 10/22/21 History oxybutynin chloride 5 mg 5 mg PO QAM 10/22/21 10/22/21 History tablet,extended release 24 hr prochlorperazine maleate 5 mg 5 mg PO TID PRN Nausea 10/22/21 10/22/21 History tablet (Compazine) Patient History Medical History Carcinoid tumor RADIATION (TARGETED TREATMENT) COMPLETED 04/2018, S/P CHEMO (SUMMER 2017) METS to uterus s/p Total hysterectomy 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) S/P XRT Hypercholesteremia Hypertension HX OF Surgical History H/O exploratory laparotomy (01/18/15) SBO release x 3 Exploratory Laparotomy; Small Bowel Resection; Lysis of Adhesions; Primary Repair Incisional Hernia H/O exploratory laparotomy (08/21/18) Exploratory Laparotomy, Lysis of Adhesions, Side to Side Ilealcolonic Anastomosis, Biopsy Abdominal Implant with Frozen Section, Repair Incisional Hernia Repair with Compartment Separation(Not Applicable) - Ga Quach MD 08/21/18 H/O: hysterectomy History of carpal tunnel surgery History of mastectomy S/P laparotomy (01/22/11) Diagnostic lap 01/22/11 Dr. Quach Family History Father Diabetes Sister Diabetes Mother Diabetes Grandmother (Maternal) Family hx of colon cancer Social History Smoking Status: Never smoker Second Hand Exposure: No; Hx Alcohol Use: Yes Alcohol type: wine Hx Substance Use: No Preferred Language: Filipino Communication Ability: Effective Hand Splitter Required: No Beliefs That Will Affect Care: None marital status: Current Living Situation: Spouse Other Information That Helps Us Care for You: No Feels Safe at Home: Yes Safety Concerns: Feels Safe At This Time Assistive Devices: None Review of Systems Review of Systems: Complete Review of Systems: Constitutional: Chronic fatigue. No night sweats. Notes temperature regulation issues post PRRT. HEENT: No amaurosis fugax. Pulmonary: No history of pulmonary embolism. No history of asthma. Cardiac: No prior cardiac history. GI/Abd: See above. No melana or hematochezia. Vascular: Atherosclerosis via prior imaging. No claudication. No history of AAA. No personal history of carotid artery disease. Hematologic: See above. Musculoskeletal: See above. Skin: No rash. Neurologic: No history of TIA or CVA. Female : Frequent urination at night and intermittent dysuria last week. Endocrine: See above. No history of diabetes. No history of thyroid issues. Complete Review of Systems is as stated above, negative, or noncontributory. Physical Exam Physical Exam: General: A&Ox3. NAD. HENT: Normocephalic. Atraumatic. Eyes: PER. Conjunctiva pink, sclera clear. Neck: No carotid bruits. No JVD. No HJR. Heart: RRR, 70 bpm. Soft systolic murmur at the LLSB. No diastolic murmur. PMI is nondisplaced. Lungs: Clear to auscultation. Abdomen: +BS. Soft. Nontender. No masses or organomegaly. Extremities: No clubbing, cyanosis, or edema. Limited neurological examination is without focal deficits. Pulses: radial=2/4, posterior tibial=1-2/4. Results & Data ([facility]) Vital Signs (Past 12 Hours) Vital Signs Temp Pulse Pulse Resp BP Pulse Ox O2 Del Method 10/23/21 07:08 36.6 C 74 18 117/68 96 Room Air 10/23/21 04:44 36.7 C 72 18 119/65 95 Room Air 10/23/21 00:36 76 10/22/21 23:36 36.9 C 72 18 104/57 L 95 Room Air Laboratory Results Cardiac Enzymes 10/22/21 10/23/21 Range/Units 15:16 04:57 AST 16 13 (13-39) U/L Troponin I High Sens 4.6 (0-14) pg/ml Coagulation 10/22/21 10/22/21 10/23/21 Range/Units 15:28 19:34 00:49 PT 9.8 (9.0-12.0) Seconds APTT 22.0 53.0 H* (21.0-31.0) Seconds 10/23/21 Range/Units 04:57 PT (9.0-12.0) Seconds APTT 62.3 H* (21.0-31.0) Seconds CBC 10/22/21 10/23/21 Range/Units 15:16 04:57 WBC 5.69 4.18 L (4.8-10.8) K/ul RBC 4.84 4.15 (3.93-5.22) M/uL Hgb 14.7 12.8 (12.0-16.0) g/dl Hct 44.7 38.8 (34.1-44.9) % Plt Count 159 131 (130-400) K/uL Neut # (Auto) 2.22 1.83 (1.4-6.5) K/uL Lymph # (Auto) 2.71 1.69 (1.2-3.4) K/uL [place] # (Auto) 0.63 0.55 (0.24-0.82) K/uL Eos # (Auto) 0.08 0.07 (0-0.50) K/uL Baso # (Auto) 0.04 0.03 (0-0.2) K/uL Comprehensive Metabolic Panel 10/22/21 10/23/21 Range/Units 15:16 04:57 Sodium 141 143 (136-145) mmol/L Potassium 3.9 4.1 (3.5-5.1) mmol/L Chloride 107 111 H (98-107) mmol/L Carbon Dioxide 24 24 (21-32) mmol/L BUN 14 18 (6-23) mg/dl Creatinine 0.98 0.90 (0.6-1.2) mg/dl Glucose 133 H 107 H (70-99(Fasting)) mg/dl Calcium 9.6 9.0 (8.5-10.1) mg/dl AST 16 13 (13-39) U/L ALT 14 12 (7-52) U/L Alkaline Phosphatase 68 53 (34-104) U/L Total Protein 7.0 5.7 L (6.0-8.3) gm/dl Albumin 4.2 3.4 (3.4-5.0) gm/dl Intake and Output 10/22/21 10/23/21 10/23/21 22:59 06:59 14:59 Intake Total 328.667 / 470.334 141.667 / 470.334 Output Total 0 / 0 Balance 328.667 / 470.334 141.667 / 470.334 Intake: IV 128.667 / 270.334 141.667 / 270.334 Heparin Sodium/Dextrose 25,000 141.667 / 141.667 units In 500 ml @ 1,000 UNITS/ HR 20 mls/hr IV .Q24H ANGELICA Rx#: [id number] Magnesium Sulfate / D5w 1 gm In 100 / 100 100 ml @ 100 mls/hr IV NOW STA Rx#:[id number] dilTIAZem HCL 125 mg In 28.667 / 28.667 Dextrose 5% 100 ml @ 15 MG/HR 15 mls/hr IV .Q8H20M ANGELICA Rx#: [id number] Oral 200 / 200 0 / 200 Output: Urine 0 / 0 Other: Other Intake Source NPO # Unmeasured Voids 1 Weight 66 kg 66.1 kg Weight Measurement Method [facility] Findings EKG on October 22, 2021 revealed atrial flutter with 2 1 AV conduction, ventricular rate of 156 bpm. Left axis deviation. Possible inferior infarct. Possible anterior infarct. A second EKG on October 22, 2021 revealed atrial fibrillation with a rapid ventri cular response, 122 bpm. Left axis deviation. Low voltage QRS. Poor R wave progression, consider anterior ME versus lead placement versus LVH. EKG the morning of consultation, October 23, 2021, revealed normal sinus rhythm at 60 bpm with left axis deviation. Criteria for anterior infarct no longer present.
--- NOTE | 2021-10-23 16:03 | Electrocardiogram Report ---
Test Reason : Blood Pressure : / mmHG Vent. Rate : 060 BPM Atrial Rate : 060 BPM P-R Int : 152 ms QRS Dur : 088 ms QT Int : 448 ms P-R-T Axes : 068 -32 055 degrees QTc Int : 448 ms Poor data quality, interpretation may be adversely affected Normal sinus rhythm Left axis deviation Abnormal ECG When compared with ECG of 22-OCT-2021 16:20, Sinus rhythm has replaced Atrial fibrillation Vent. rate has decreased BY 62 BPM Minimal criteria for Anterior infarct are no longer Present Confirmed by Olivier Arvizu ([id number]) on 10/23/2021 4:02:54 PM Referred By: REFERRED SELF Confirmed By:Olivier Arvizu
--- NOTE | 2021-10-23 17:38 | Hospitalist Progress Note ---
Date of Service October 23, 2021 Assessment & Plan (1) Atrial fibrillation with RVR: Plan Patient is a 71 yr female with H/O Neuroendocrine carcinoma status post small bowel resection x2 and small bowel bypass by Dr. Quach, status post PRRT therapy at [facility] in [place], [place] currently undergoing maintenance therapy for the past 3 and half years, history of left breast cancer status post partial mastectomy and radiation, HTN, HLD, history of thrombocytopenia, CKD stage III who presents to ER secondary to heart palpitations x1 day. Atrial fibrillation with RVR ECHO: Mild concentric LVH, EF 60 to 65%, right ventricle systolic function is normal. Left atrium size is normal. Right atrium size is normal. No significant valvular pathology Blood Cx pending Normal TSH IV diltiazem discontinued Continue IV heparin, metoprolol Appreciate cardiology input Needs stress echo as outpatient Needs follow-up with cardiology upon discharge Plan to transition to oral Eliquis as able HLD continue statin Neuroendocrine carcinoma s/p SB resection x 2 and SB bypass by Dr. Quach, last surg in 2019 Follows [facility] in [place], [place], Dr. Perez s/p PRRT tx and has been undergoing maintenance for the past 3 and half years Follow-up as outpatient CKD stage III Cr baseline 1.1 Monitor renal function H/O left breast cancer S/P lumpectomy and radiation Hypertension Currently not on medical therapy monitor DVT Px: IV heparin Code Status FULL CODE Admission and Anticipated Discharge Date Admission Date: October 22, 2021 Subjective Patient is seen and examined at bedside States feeling much better today Converted to sinus Discussed with cardiology today Denies any chest pain, shortness breath, dizziness, nausea, abdominal pain Currently on IV heparin Review of Systems Review of Systems: All systems reviewed & are unremarkable except as noted in Subjective Physical Exam Physical Exam: Physical Exam: Vitals signs as noted above General Appearance:Moderately built and nourished, no apparent distress Head: normocephalic, Atraumatic Eyes: normal inspection, EOMI Neck: supple, Trachea midline Respiratory/Chest: Normal breath sounds, CTA, No accessory muscle use Cardiovascular: S1, S2, No murmur Abdomen/GI:Soft, Non tender, Bowel sounds present Extremities/Musculoskeletal:normal inspection, no edema Neurologic/Psych:AAOX3, grossly no focal neurological deficits Skin: normal color, warm Results & Data Results & Data ([facility]) Vital Signs (Past 12 Hours) Vital Signs Temp Pulse Pulse Resp BP Pulse Ox O2 Del Method 10/23/21 15:16 36.8 C 70 18 128/74 95 Room Air 10/23/21 08:00 66 10/23/21 12:00 36.9 C 64 18 130/74 95 Room Air 10/23/21 07:08 36.6 C 74 18 117/68 96 Room Air Laboratory Results Short CBC 10/23/21 Range/Units 04:57 WBC 4.18 L (4.8-10.8) K/ul Hgb 12.8 (12.0-16.0) g/dl Hct 38.8 (34.1-44.9) % Plt Count 131 (130-400) K/uL BMP 10/23/21 04:57 Sodium 143 Potassium 4.1 Chloride 111 H Carbon Dioxide 24 BUN 18 Creatinine 0.90 Glucose 107 H Calcium 9.0 Liver Function 10/23/21 Range/Units 04:57 Total Bilirubin 0.5 (0.2-1.0) mg/dl AST 13 (13-39) U/L ALT 12 (7-52) U/L Alkaline Phosphatase 53 (34-104) U/L Albumin 3.4 (3.4-5.0) gm/dl
[2021-10-23] MEDS: HEPARIN SODIUM/DEXTROSE 25,000 UNITS/500 ML BAG IV SCH (18:59)
[2021-10-23] MEDS ORDERED: ATORVASTATIN 10 MG TAB PO SCH (21:00)
[2021-10-24 06:43] LABS: BUN Creatinine Ratio 21.8 (10-20); Calcium 9.2 mg/dl (8.5-10.1); Creatinine Clr Calc Pharmacy 44.6 ml/min; Est GFR (African American) 64.4 ml/min; Est GFR (Non-African American) 55.6 ml/min; Potassium 4.1 mmol/L (3.5-5.1)
[2021-10-24 07:21] LABS: Partial Thromboplastin Ratio 3.2
[2021-10-24 07:23] LABS: Partial Thromboplastin Time 86.8 Seconds (21.0-31.0)
[2021-10-24] MEDS: CEROVITE ADV FORMULA TAB PO SCH (08:42)
[2021-10-24] MEDS: CYANOCOBALAMIN (B-12) 500 MCG TABLET PO SCH (08:42)
[2021-10-24] MEDS: METOPROLOL TARTRATE 25 MG TAB PO SCH (08:42)
[2021-10-24] MEDS: OXYBUTYNIN CHLORIDE XL 5 MG TABCR PO SCH (09:12)
--- NOTE | 2021-10-24 09:32 | Cardiology Progress Note ---
Date of Service October 24, 2021 Assessment & Plan (1) Atrial fibrillation with RVR: (2) HTN (hypertension): (3) Abnormal finding on EKG: Plan 1. New onset symptomatic atrial flutter/fibrillation with a rapid ventricular response status post spontaneous conversion on 10/22/2021 at 20:02 without significant conversion pause and without overt clinical sequela. 2. [id number] Score is 4 points for a 71 year old female with a history of hypertension and evidence of vascular disease (moderate calcified plaque of the abdominal aorta) 3. Abnormal EKG 4. Marked fatigue, undefined, following dental work/infection at the end of August, improved. TTE OK. Inflammatory markers normal. Blood cultures pending. 5. 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 Benefits, use, risks, and alternatives explained. Heparin to Eliquis anticoagulation, 5 mg twice a day, for at least the next 4-6 weeks. Risks, benefits, use, and alternatives discussed. Outpatient Lexiscan nuclear stress testing (office aware, patient notably unable to ambulate for JENNIFER due to left knee pain). Outpatient cardiology follow-up. Office aware; will call patient. Admission and Anticipated Discharge Date Admission Date: October 22, 2021 Supervising Physician Co-Signing Physician Notes Patient seen and examined with Pako Velez PA-C. Agree with findings and assessment as above. Feeling much better today. Eliquis and metoprolol as above. Okay to discharge to home from a cardiac standpoint. Subjective Patient seen and examined. Chart, medication, and telemetry reviewed. Feeling well. No reported palpitations, chest pain, unusual shortness of breath, orthopnea, PND, edema, dizziness, near syncope, melena, hematochezia, or hematuria. Telemetry: Currently sinus rhythm at 62 bpm. Bradycardic down to 52 bpm overnight. No further atrial fibrillation since spontaneous conversion on 10/22/2021 at 20:02. October 23, 2021 TTE Interpretation Summary ([facility], Dr. Tay): Mild concentric LVH. Normal LV systolic function. EF 60-65%. Normal RV systolic function. Normal LA size. Normal RA size. No significant valvular pathology. Review of Systems Review of Systems: Complete Review of Systems: Constitutional: Chronic fatigue. No night sweats. Notes temperature regulation issues post PRRT. HEENT: No amaurosis fugax. Pulmonary: No history of pulmonary embolism. No history of asthma. Cardiac: No prior cardiac history. GI/Abd: See above. No melana or hematochezia. Vascular: Atherosclerosis via prior imaging. No claudication. No history of AAA. No personal history of carotid artery disease. Hematologic: See above. Musculoskeletal: See above. Skin: No rash. Neurologic: No history of TIA or CVA. Female : Frequent urination at night and intermittent dysuria last week. Endocrine: See above. No history of diabetes. No history of thyroid issues. Complete Review of Systems is as stated above, negative, or noncontributory. Physical Exam Physical Exam: General: A&Ox3. NAD. HENT: Normocephalic. Atraumatic. Eyes: PER. Conjunctiva pink, sclera clear. Neck: No JVD. Heart: RRR, 60 bpm. Soft systolic murmur at the LLSB. Lungs: Clear to auscultation. Abdomen: +BS. Extremities: No clubbing, cyanosis, or edema. Limited neurological examination is without focal deficits. Results & Data ([facility]) Vital Signs (Past 12 Hours) Vital Signs Temp Pulse Pulse Resp BP Pulse Ox O2 Del Method 10/24/21 07:11 36.6 C 58 L 18 131/75 96 Room Air 10/24/21 03:03 36.3 C L 57 L 14 124/74 96 Room Air 10/24/21 00:10 56 L 10/23/21 23:13 36.7 C 61 20 110/66 95 Room Air Laboratory Results Coagulation 10/24/21 Range/Units 06:39 APTT 86.8 H* (21.0-31.0) Seconds Comprehensive Metabolic Panel 10/24/21 Range/Units 05:23 Sodium 140 (136-145) mmol/L Potassium 4.1 (3.5-5.1) mmol/L Chloride 107 (98-107) mmol/L Carbon Dioxide 28 (21-32) mmol/L BUN 22 (6-23) mg/dl Creatinine 1.01 (0.6-1.2) mg/dl Glucose 103 H (70-99(Fasting)) mg/dl Calcium 9.2 (8.5-10.1) mg/dl Intake and Output 10/23/21 10/24/21 10/24/21 22:59 06:59 14:59 Intake Total 448.000 / 684.333 236.333 / 684.333 10.333 / 10.333 Balance 448.000 / 684.333 236.333 / 684.333 10.333 / 10.333 Intake: IV 348.000 / 584.333 236.333 / 584.333 10.333 / 10.333 Heparin Sodium/Dextrose 25,000 348.000 / 584.333 236.333 / 584.333 10.333 / 10.333 units In 500 ml @ 1,000 UNITS/ HR 20 mls/hr IV .Q24H ANGELICA Rx#: [id number] Oral 100 / 100 Other: # Unmeasured Voids 1 1 Weight 65.2 kg Weight Measurement Method Built in [facility]
--- NOTE | 2021-10-24 13:56 | Electrocardiogram Report ---
Test Reason : Blood Pressure : / mmHG Vent. Rate : 072 BPM Atrial Rate : 072 BPM P-R Int : 150 ms QRS Dur : 082 ms QT Int : 396 ms P-R-T Axes : 053 -42 051 degrees QTc Int : 433 ms Normal sinus rhythm Left axis deviation Abnormal ECG When compared with ECG of 23-OCT-2021 05:19, No significant change was found Confirmed by Olivier Arvizu ([id number]) on 10/24/2021 1:55:37 PM Referred By: REFERRED SELF Confirmed By:Olivier Arvizu
--- NOTE | 2021-10-24 13:58 | Hospitalist Progress Note ---
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 Quach, status post PRRT therapy at [facility] in [place], [place] currently undergoing maintenance therapy for the past 3 and half years, history of left breast cancer status post partial mastectomy and radiation, HTN, HLD, history of thrombocytopenia, CKD stage III who presents to ER secondary to heart palpitations x1 day. Atrial fibrillation with RVR ECHO: Mild concentric LVH, EF 60 to 65%, right ventricle systolic function is normal. Left atrium size is normal. Right atrium size is normal. No significant valvular pathology Blood Cx: No growth to date Normal TSH IV diltiazem discontinued Continue IV heparin>>> transition to Eliquis 5 mg twice a day Continue metoprolol 12.5 mg BID Appreciate cardiology input Needs follow-up with cardiology upon discharge Outpatient Stress test arranged on Nov 03, 2021 HLD continue statin Neuroendocrine carcinoma s/p SB resection x 2 and SB bypass by Dr. Quach, last surg in 2019 Follows [facility] in [place], [place], Dr. Perez s/p PRRT tx and has been undergoing maintenance for the past 3 and half years Follow-up as outpatient CKD stage III Cr baseline 1.1 Monitor renal function H/O left breast cancer S/P lumpectomy and radiation Hypertension Continue Metoprolol monitor DVT Px: IV heparin Code Status FULL CODE Disposition Home Admission and Anticipated Discharge Date Admission Date: October 22, 2021 Subjective Patient is seen and examined at bedside Doing well No new complaints Discussed with cardiology today Denies any chest pain, shortness breath, dizziness, nausea, abdominal pain Plan to discharge home today Review of Systems Review of Systems: All systems reviewed & are unremarkable except as noted in Subjective Physical Exam Physical Exam: Physical Exam: Vitals signs as noted above General Appearance:Moderately built and nourished, no apparent distress Head: normocephalic, Atraumatic Eyes: normal inspection, EOMI Neck: supple, Trachea midline Respiratory/Chest: Normal breath sounds, CTA, No accessory muscle use Cardiovascular: S1, S2, No murmur Abdomen/GI:Soft, Non tender, Bowel sounds present Extremities/Musculoskeletal:normal inspection, no edema Neurologic/Psych:AAOX3, grossly no focal neurological deficits Skin: normal color, warm Results & Data Results & Data ([facility]) Vital Signs (Past 12 Hours) Vital Signs Temp Pulse Pulse Resp BP Pulse Ox O2 Del Method 10/24/21 12:31 36.7 C 58 L 18 149/74 H 96 Room Air 10/24/21 08:00 59 L 10/24/21 07:11 36.6 C 58 L 18 131/75 96 Room Air 10/24/21 03:03 36.3 C L 57 L 14 124/74 96 Room Air Laboratory Results [facility] 10/24/21 05:23 Sodium 140 Potassium 4.1 Chloride 107 Carbon Dioxide 28 BUN 22 Creatinine 1.01 Glucose 103 H Calcium 9.2
--- NOTE | 2021-10-24 14:10 | Discharge Summary ---
Date of Service October 24, 2021 Admission HPI Per Admitting Provider This is a 71-year-old female who has a significant past medical history of neuroendocrine carcinoma status post small bowel resection x2 and small bowel bypass, status post PRRT therapy at [facility] in [facility] currently undergoing maintenance therapy for the past 3 and half years, history of left breast cancer status post partial mastectomy and radiation, HTN, HLD, history of thrombocytopenia, CKD stage III who presents to ER secondary to heart palpitations x1 day. is at bedside. Last evening around 7 or 8:00 she was sitting down when she noticed her heart was racing. This lasted for about 30 minutes and went away on its own. Today it started again approximately 130 to 2:00 where her heart was racing but it did not stop. At that time she was sitting down watching golf on TV. She also had a bilateral jaw heaviness sensation and pressure. She checked her blood pressure and on her blood pressure machine it read her pulse was in the 150s. She also used a pulse oximeter which was registering her pulse in the 150s as well. She opted to come to ER for further evaluation. At the time of both events she denies any lightheadedness, dizziness, presyncope, chest pain, shortness of breath, cough or vomiting. During today's episode she did experience some nausea. She also elicits over the past 2 weeks feeling extremely fatigued. She went and saw PCP last week secondary to her profound fatigue as well as urinary symptoms including nocturia, increased urinary urgency and dysuria. She had a full lab work-up as well as a urinalysis done. Urinalysis was negative for infection but did reveal some calcium oxalate crystals. She is being worked up with a renal ultrasound to eval for nephrolithiasis. Otherwise lab work was normal. She denies any other recent illness. Denies history of COVID-19. Her appetite has been good. She denies any fever, chills, sweats, chest pain, URI symptoms, vomiting, abdominal pain, melena, or hematochezia. In ED patient had heart rates in the 150s to 160s on arrival. She received a 10 mg IV diltiazem bolus without much improvement in heart rate. Initially EKG was reading a 2:1 a flutter. She then received 6 mg of IV adenosine which did slow down her heart rate and revealed more of a atrial fibrillation rhythm. She was given a second dose of 10 mg IV diltiazem with heart rate sustaining mostly in the 110s to 120s. CBC and CMP was generally unremarkable. Chest x-ray negative for acute abnormality. Admission Exam Per Admitting Provider Physical Exam Physical Exam: Constitutional: WD/WN, vitals as above, NAD, sitting up in bed, pleasant, conversing easily Head: Normocephalic, Atraumatic Eyes: PERRL, conjunctivae normal, anicteric sclerae ENMT: external ear and nose normal, oropharynx normal Neck: trachea midline, no thyromegaly normal visual inspection Respiratory: normal respiratory effort, lungs clear to auscultation, no wheeze, rales, rhonchi. Normal insp/exp effort, no accessory muscle use Cardiovascular: Irregular rate, irregular rhythm, no murmur, no edema Vessels: no JVD or carotid bruit Chest: normal inspection of chest Abdomen: normal bowel sounds, soft, nontender, no hepatosplenomegaly Musculoskeletal: no cyanosis or clubbing, extremities motor strength 5/5 Skin: no rashes, warm and dry normal turgor Neurologic: PERRL, EOMI, accommodation nl, no face palsy, no dysarthria CN's II-XI intact bilaterally and moves all extremities Psychiatric: A+Ox3, euthymic affect Lymphatic: no cervical or axillary lymphadenopathy : deferred Principal Diagnosis Atrial fibrillation with RVR Discharge Data Allergies Allergy/AdvReac Type Severity Reaction Status Date / Time pneumococcal vaccine Allergy Severe REDNESS, Verified 10/22/21 17:56 SWELLING AT SITE aloe Allergy Intermediate RASH Verified 10/22/21 17:56 latex Allergy Intermediate MOUTH Verified 10/22/21 17:56 SORES (AT DENTIST) Penicillins Allergy Intermediate RASH Verified 10/22/21 17:56 capecitabine Allergy Mild Rash Verified 10/22/21 17:56 cefuroxime AdvReac Mild C. 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 Quach, status post PRRT therapy at [facility] in [place], [place] currently undergoing maintenance therapy for the past 3 and half years, history of left breast cancer status post partial mastectomy and radiation, HTN, HLD, history of thrombocytopenia, CKD stage III who presents to ER secondary to heart palpitations x1 day. Atrial fibrillation with RVR ECHO: Mild concentric LVH, EF 60 to 65%, right ventricle systolic function is normal. Left atrium size is normal. Right atrium size is normal. No significant valvular pathology Blood Cx: No growth to date Normal TSH IV diltiazem discontinued Continue IV heparin>>> transition to Eliquis 5 mg twice a day Continue metoprolol 12.5 mg BID Appreciate cardiology input Needs follow-up with cardiology upon discharge Outpatient Stress test arranged on Nov 03, 2021 HLD continue statin Neuroendocrine carcinoma s/p SB resection x 2 and SB bypass by Dr. Quach, last surg in 2019 Follows [facility] in [place], [place], Dr. Perez s/p PRRT tx and has been undergoing maintenance for the past 3 and half years Follow-up as outpatient CKD stage III Cr baseline 1.1 Monitor renal function H/O left breast cancer S/P lumpectomy and radiation Hypertension Continue Metoprolol monitor DVT Px: IV heparin Code Status FULL CODE Disposition Home Total Time Total Time Spent Total Time Spent (In Minutes): 50 minutes Discharge Plan Discharge Items Patient Disposition: Home - Self-Care Reason For Visit: AFIB RVR Discharge Diagnosis: Atrial fibrillation with RVR Activity: Per Instructions section Exercise/Sports: Gradually increase as tolerated Non-emergency contact: Primary Care Provider and Commercial Interior Designer Call non-emergency contact if: you have any medication questions, your symptoms worsen, your pain is concerning for you and you have a fever Follow-up/Referrals: Adelso Izaguirre DO [Physician] - (Date & Time 11/15/2021 2:00 PM Provider Adelso Izaguirre Jr., DO Department Cardiology, [facility] ) Justyna Lee DO [Primary Care Provider] - (Date & Time 10/27/2021 11:20 AM Provider Justyna Lee DO Department [facility] ) Diet: Heart Healthy Addtl Attending Provider Instructions: Follow-up with your primary care physician on 10/27/2021 11:20 AM Follow-up with your landcare facilitator Dr. Izaguirre in 2-3 weeks as scheduled --Get Cardiac Stress as outpatient as scheduled. Seek immediate medical attention if your symptoms reoccur or worsen Please take all medications as instructed on discharge list below. Please call if you have any questions or problems. You can reach a [facility] hospitalist on duty at [facility] 24 hours a day by calling [phone] Pending Studies at Discharge: No Stand-Alone Forms: My [facility], Smoking Cessation Medications and DC Order Prescriptions: New Eliquis 5 mg tablet 5 mg PO BID Qty: 60 1RF metoprolol tartrate 25 mg Tablet 12.5 mg PO BID Qty: 30 1RF Continued atorvastatin 10 mg tablet 10 mg PO Q2D@2100 oxybutynin chloride 5 mg Tablet Extended Release 24hr 5 mg PO QAM cyanocobalamin (vitamin B-12) [Vitamin B-12] 1,000 mcg Tablet, Sublingual 1,000 mcg SUBLINGUAL DAILY ondansetron HCl 8 mg Tablet 8 mg PO Q8H PRN (Reason: Nausea) Multiple Vitamin-Minerals Tablet 1 tab PO DAILY prochlorperazine maleate [Compazine] 5 mg Tablet 5 mg PO TID PRN (Reason: Nausea) Discharge Orders: Discharge Order (Routine); Ordered 10/24/21 Ordered By: Tello Don Admission Data Admit Date/Time: 10/22/21 16:59 Attending Provider: Tello Don Admit Provider: Mary Ellen Archuleta Primary Care Provider: Justyna Lee Other Providers: Mary Ellen Archuleta ; Adelso Izaguirre
[2021-10-24] MEDS ORDERED: APIXABAN 5 MG TABLET PO SCH (14:30)
--- NOTE | 2021-10-25 05:42 | Electrocardiogram Report ---
Test Reason : Blood Pressure : / mmHG Vent. Rate : 060 BPM Atrial Rate : 060 BPM P-R Int : 154 ms QRS Dur : 088 ms QT Int : 460 ms P-R-T Axes : 047 -39 040 degrees QTc Int : 460 ms Normal sinus rhythm Left axis deviation Abnormal ECG When compared with ECG of 23-OCT-2021 17:42, No significant change was found Confirmed by Olivier Arvizu ([id number]) on 10/25/2021 5:42:15 AM Referred By: REFERRED SELF Confirmed By:Olivier Arvizu
== END 2021-10-24 15:40 | disposition home or self-care (01) | DRG 310 ==
LOC: ED 15:08 → SUATTDRO 16:59 → 4W 16:59

== ENCOUNTER 2022-06-07 05:07 | Observation (INO) ==
--- NOTE | 2022-05-18 10:19 | PAT Medication Instructions ---
Medication Instructions Date of Service May 18, 2022 Home Medications Medication Instructions Recorded apixaban 5 mg tablet (Eliquis) 5 mg PO BID #60 tabs 10/24/21 metoprolol tartrate 25 mg tablet 12.5 mg PO BID #30 tabs 10/24/21 atorvastatin 10 mg tablet 10 mg PO Q2D@2100 cyanocobalamin (vitamin B-12) 1,000 mcg sublingual tablet 1,000 mcg sublingual QAM multivitamin with minerals (Multiple Vitamin-Minerals tablet) 1 tab PO QAM ondansetron HCl 8 mg tablet 8 mg PO Q8H PRN Nausea prochlorperazine maleate 5 mg tablet (Compazine) 5 mg PO TID PRN Nausea apixaban 5 mg tablet (Eliquis) 5 mg PO BID metoprolol tartrate 25 mg tablet 12.5 mg PO BID ASK your prescriber and surgeon apixaban 5 mg tablet (Eliquis) 5 mg PO BID (in order for spinal anesthesia, Apixaban/Eliquis needs to be stopped 72 hours before surgery. Please check if okay with doctor that prescribes this to you) DO NOT take the morning of surgery cyanocobalamin (vitamin B-12) 1,000 mcg sublingual tablet 1,000 mcg sublingual QAM multivitamin with minerals (Multiple Vitamin-Minerals tablet) 1 tab PO QAM Take morning of surgery With a small sip of water, OTHERWISE NOTHING TO EAT OR DRINK AFTER MIDNIGHT: ondansetron HCl 8 mg tablet 8 mg PO Q8H PRN Nausea (if needed) prochlorperazine maleate 5 mg tablet (Compazine) 5 mg PO TID PRN Nausea (if needed) metoprolol tartrate 25 mg tablet 12.5 mg PO BID Take evening before surgery atorvastatin 10 mg tablet 10 mg PO Q2D@2100 ondansetron HCl 8 mg tablet 8 mg PO Q8H PRN Nausea (if needed) prochlorperazine maleate 5 mg tablet (Compazine) 5 mg PO TID PRN Nausea (if needed) metoprolol tartrate 25 mg tablet 12.5 mg PO BID Other Notes If you have any questions please call us at [phone] or [phone] or [phone] or [phone]
--- NOTE | 2022-05-25 14:29 | Anesthesiology Consultation ---
Date of Service May 25, 2022 Assessment & Plan (1) Encounter for pre-operative examination: - COVID screening: Per assessment on 05/25: No known COVID-19 positive contacts in past 10 days or current COVID-19 related symptoms. Travel screen negative. Patient vaccinated. At surgeon discretion if preop Covid testing being done. - Eliquis instructions: patient made aware that in order for spinal anesthesia, Eliquis needs to be held 3 days/72 hours prior to surgery. Patient voiced understanding/will check if okay with prescriber. 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 Per patient, oncology is aware of upcoming orthopedic surgery/timing. Possible future clinical trial immune therapy being considered but not planned until Summer 2022. Reviewed with Dr. Mayer, nothing further needed in regards to carcinoid tumor/current progression from his perspective. - Cardiology office visit (03/20/22): "At this point she has not had any recurrences of the atrial fibrillation so I believe most prudent course of action would be continue her current doses of metoprolol and Eliquis. The Eliquis is a little expensive but she prefers to remain on it at this time. I have instructed her to obtain a cardia mobile device to check for any asymptomatic recurrences of her AFib and consideration can also be given to discontinuation of her Eliquis in the future. She would prefer not to switch to Coumadin. I will plan on seeing her back here in follow-up in 6 months." - Patient acceptable risk for surgery pending surgeon-ordered PCP preop evaluation (Dr. Lee/ERNESTINA Viera, appt 05/28). Chart Review Chart Review: Patient seen in Pre Admission Testing Teaching & Discussion Pre-Anesthesia Teaching/Discussion Notes: Instructed NPO after midnight before surgery,except medications with 15 cc of water. Medication instructions provided according to the PAT guidelines. History Surgery Operation Date: 06/07/22 07:00 Proposed Procedures p Left Total Knee Arthroplasty - Sylvester Robles MD Height/Weight Height: 5 ft 2.5 in Weight: 67.4 kg Allergies Allergy/AdvReac Type Severity Reaction Status Date / Time pneumococcal vaccine Allergy Severe REDNESS, Verified 05/17/22 15:09 SWELLING AT SITE aloe Allergy Intermediate RASH Verified 05/17/22 15:09 latex Allergy Intermediate MOUTH Verified 05/17/22 15:09 SORES (AT DENTIST) Penicillins Allergy Intermediate RASH Verified 05/17/22 15:09 capecitabine Allergy Mild Rash Verified 05/17/22 15:09 cefuroxime AdvReac Mild C. DIFF Verified 05/17/22 15:09 nickel AdvReac Mild Rash Verified 05/17/22 15:09 Medications Home Medications Medication Instructions Recorded Confirmed Last Taken atorvastatin 10 mg tablet 10 mg PO Q2D@2100 05/06/18 05/17/22 08/17/18 cyanocobalamin (vitamin B-12) 1,000 mcg sublingual QAM 10/22/21 05/17/22 Unknown 1,000 mcg sublingual tablet multivitamin with minerals 1 tab PO QAM 10/22/21 05/17/22 Unknown (Multiple Vitamin-Minerals tablet) ondansetron HCl 8 mg tablet 8 mg PO Q8H PRN Nausea 10/22/21 05/17/22 Unknown prochlorperazine maleate 5 mg 5 mg PO TID PRN Nausea 10/22/21 05/17/22 Unknown tablet (Compazine) apixaban 5 mg tablet (Eliquis) 5 mg PO BID #60 tabs 10/24/21 05/17/22 Unknown metoprolol tartrate 25 mg tablet 12.5 mg PO BID #30 tabs 10/24/21 05/17/22 Unknown Past Medical History Medical History (Updated 05/25/22 @ 16:31 by Irlanda Escobedo) Atrial fibrillation Dx 09/[address] 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 s/p chemo (summer 2017) METS to uterus s/p Total hysterectomy Per patient, some tumor growth progression (possible future clinical trial immune therapy, not planned until Summer 2022, oncology aware of upcoming orthopedic surgery) Carcinomatosis CKD (chronic kidney disease) stage 3, GFR 30-59 ml/min Ductal carcinoma in situ (DCIS) of left breast 2013, Left lumpectomy + XRT History of thrombocytopenia Platelets WNL on 04/2022 preop labs Hypercholesteremia Hypertension No recent issues per patient Exercise / Class Metabolic Activity II 4-5 Yardwork/Stairs/Walk up hill Past Family History Family History Father Diabetes Sister Diabetes Mother Diabetes Grandmother (Maternal) Family hx of colon cancer Past Surgical History Surgical History H/O exploratory laparotomy SBO release x3 Exploratory Laparotomy, THAIS, small bowel resection (08/21/18): Glidescope#3, EFF 7.5 at [facility]. Atraumatic. No issues noted per post-op anesthesia progress note. H/O exploratory laparotomy Exploratory Laparotomy, Lysis of Adhesions, Side to Side Ilealcolonic Anastomosis, Biopsy Abdominal Implant with Frozen Section, Repair Incisional Hernia Repair with Compartment Separation H/O: hysterectomy History of carpal tunnel surgery History of lumpectomy of left breast S/P laparotomy Diagnostic lap 01/22/11 Dr. Quach Past Anesthesia History No Hx of Anesthesia Complications and No Family Hx of Anesthesia Complications History of PONV No Hx of PONV and Hx of Motion Sickness Social History Smoking Status: Never smoker Do You Dip or Chew Tobacco: No Hx Alcohol Use: Yes Alcohol type: wine alcohol intake frequency: holidays/special occasions only Hx Substance Use: No substance use type: does not use Review of Systems Patient denies chest pain, shortness of breath, dyspnea on exertion, fever, chills, cough, wheezing, palpitations. Physical Exam Vital Signs VITALS BP 125/72 P 74 TEMP 98.6 SP02 96%RA RESP 16 PHYSICAL Full cervical extension range of motion. Full TMJ range of motion. TMD 3 finger breaths Mallampati Score 2 Dentition: missing molars, + permanent wire retainer on lower Lungs: clear throughout to auscultation Cardiac: regular rate and rhythm, no murmurs noted Spine: normal Carotid arteries: negative bruit Extremities: no edema Lab Results Anesthesia Preop Results Results Anesthesia Widget: WBC 4.64 K/ul (4.8-10.8) L 05/25/22 Hgb 13.0 g/dl (12.0-16.0) 05/25/22 Hct 37.9 % (37.0-47.0) 05/25/22 Plt 136 K/uL (130-400) 05/25/22 Na 142 mmol/L (136-145) 05/25/22 K 3.9 mmol/L (3.5-5.1) 05/25/22 Cl 108 mmol/L (98-107) H 05/25/22 CO2 28 mmol/L (21-32) 05/25/22 BUN 18 mg/dl (6-23) 05/25/22 Creat 1.06 mg/dl (0.6-1.2) 05/25/22 Glucose Level 122 mg/dl (70-99(Fasting)) H 05/25/22 PT 10.2 Seconds (9.0-12.0) 05/25/22 PTT 25.6 Seconds (21.0-31.0) 05/25/22 INR 1.0 (0.9-1.1) 05/25/22 HA1c 5.8 % (4.5-5.6) H 05/25/22 Urine Color Yellow 05/25/22 Urine Appearance Clear (Clear) 05/25/22 Urine pH 5.0 (4.5-7.5) 05/25/22 Urine Specific [place] 1.009 (1.000-1.030) 05/25/22 Urine Protein Negative (Negative) 05/25/22 Urine Glucose (UA) Negative (Negative) 05/25/22 Urine Ketones Negative (Negative) 05/25/22 Urine Blood Negative (Negative) 05/25/22 Urine Nitrite Negative (Negative) 05/25/22 Urine Bilirubin Negative (Negative) 05/25/22 Urine Urobilinogen Negative (Negative) 05/25/22 Urine Leukocyte Esterase Negative (Negative) 05/25/22 Blood Type O Negative 05/25/22 Antibody Screen NEGATIVE 05/25/22 Testing Electrocardiogram Date: 10/24/21 NSR at 60bpm. LAD. Chest X-Ray Date: 10/22/21 FINDINGS: Lung volumes are normal. Lungs are clear. There is no pneumothorax or pleural effusion. Cardiac size is normal. Mediastinal contours are normal. There is no evidence for pulmonary edema. Patient is mildly rotated. IMPRESSION: No acute cardiopulmonary findings. Echocardiogram Date: 10/23/21 EF 60-65%. Mild cLVH. No significant valvular disease. Stress Test Date: 11/03/21 Type: nuclear Myocardial perfusion imaging is normal. LVEF > 70%. No RWMA. 85% MPHR. Other Testing Abdomen/Pelvis/Chest CT (05/16/22) No definite suspicious pulmonayr nodule or new or enlarging intrathoracic adenopathy. Prior partial small bowel resection without definite evidence for local recurrence. Although bilobal hypervascular hepatic metastases have decreased in conspicuity/enhancement, a 1.6cm hypoenhancing segment II/III lesion has increased in size along with enlarging upper abdominal and retroperitoneal adenopathy concerning for isabel disease. Stable omental standing/nodularities. No significant change in pancreatic ductal dilatation and scattered cystic foci which can be seen with mixed type IPMN. COVID-19 Risk Screen Screening Information COVID-19 Screen Date: 05/25/22 Exposure 21 Days Family/Household +COVID Last 21 Days: No Exposure 10 Days Any COVID Exposure Last 10 Days: No Symptoms Last 10 Days Experienced COVID Sx Last 10 Days: No + COVID 0-90 Days COVID + in Last 0-90 Days: No
--- NOTE | 2022-05-28 15:56 | History & Physical Report ---
Date of Service May 28, 2022 Assessment & Plan (1) Left knee DJD: Plan: PRE-OP Diagnosis: Left knee osteoarthritis Planned Procedure: Left total knee arthroplasty Plan: Patient is scheduled to undergo this procedure at the [facility] with Dr. Robles on May. Risks and complications of the procedure such as: Infection, bleeding, pain, scarring, nerve blood vessel damage, weakness, wound problems, stiffness, incomplete r elief of symptoms, hardware failure, hardware loosening, wear, fracture, tendon or ligament injury, blood clots, embolism, cardiac, stroke and were explained to the patient at her visit today and informed consent for the procedure was obtained. Patient also understands risks of proceeding with surgical intervention during the COVID-19 pandemic. Currently she is asymptomatic and states that she has not been in contact with anyone positive for the virus recently. We will need to obtain preoperative medical clearance from the patient's primary care provider Dr. Lee. She is scheduled to meet with him next week. Patient is scheduled to meet with anesthesia at the hospital later today. While there she will obtain a CBC with differential, complete metabolic panel, PT/INR, PTT, blood type and screen, urinalysis, urine culture and sensitivity, EKG. During today's visit we reviewed the total knee packet. I provided the patient with paperwork to obtain obtaining a handicap placard for her vehicle. I provided her with information about lectures offered by [facility] in regards to joint replacement surgery. I provided her with an order to obtain a walker. I recommended that she purchase a shower chair and raised toilet seat. We discussed discharge planning from the hospital. Patient states she will most likely do in-home physical therapy for the first 2 weeks before transitioning to outpatient physical therapy. I advised the patient that she will be provided with a prescription for narcotic pain medication for postoperative pain control. We will have her on aspirin twice daily for the first 30 days postoperatively for blood clot prevention. Patient verbalized understanding of all information provided during today's visit. She thanks for the care that she received. If she has questions or concerns prior to her surgery, she will contact clinic. Patient be scheduled for 2-week postoperative follow-up visit with myself on June 22. This chart was completed utilizing [employer] voice recognition software. Grammatical errors, random word insertions, pronoun errors, and in complete sentences are an occasional consequence of the system. Any questions or concerns about the content, text, or information contained within the body of this dictation should be addressed directly to the physician for clarification. History of Present Illness Chief Complaint: Chief Complaint: Left knee pain Primary Care Provider: Justyna Lee DO History of Present Illness (including history relevant to procedure): This 72-year-old female has a longstanding history of bilateral knee pain with left being greater than right. Patient states she has had multiple corticosteroid injections, viscosupplementation injections has done extensive physical therapy, use oral nonsteroidal agents without any significant relief of her pain. She states that now it is starting to affect her ability to walk more than 5 to 10 minutes at a time. She is unable to do stairs due to the pain she experiences. She is electing to proceed with surgical intervention due to failed conservative management. Review Of Systems: A 12 point review of systems is performed and is unremarkable except for those things stated in the HPI and past medical history. Past Medical History: Problems: DJD (degenerative joint disease) of knee Right knee pain Left knee pain Afib History of squamous cell carcinoma Nevus Carcinoid tumor Elevated cholesterol HTN (hypertension) Procedure History Procedure Procedure Date Comments ASHER - Total abdominal hysterectomy Lumpectomy of breast - with re-excision followed by radiation tx Carpal tunnel Surgery - small bowel resection Electrodesiccation with curettage 02/11/2018 Allergies and Sensitivities: Allergy Not found in Search(capcetibin) pneumococcal vaccines(redness) pneumococcal vaccines(swelling) aloe vera topical(rash) penicillins(rash) Latex(blisters in mouth at dentist) Ceftin(c-diff) Current Home Meds: (Last Updated 05/25 13:03) apixaban (Eliquis 5 mg oral tablet) 5 mg PO bid atorvastatin (atorvastatin 10 mg oral tablet) 10 mg PO Daily cholecalciferol (Vitamin D3 1000 intl units oral capsule) 1,000 Int_Unit PO Daily cholecalciferol (Vitamin D3 50,000 intl units (1250 mcg) oral capsule) 1,250 mcg PO q7days cyanocobalamin (Vitamin B12 1000 mcg oral tablet) 1,000 mcg PO Daily metoprolol (Metoprolol Tartrate 25 mg oral tablet) 12.5 mg PO bid multivitamin 1 tab PO Daily ondansetron (Zofran 4 mg oral tablet) 4 mg PO ONCE PRN: as needed for nausea/vomiting sodium hyaluronate (Euflexxa 10 mg/mL intra-articular solution) 25 mg intra- articular q7days Allergies Allergy/AdvReac Type Severity Reaction Status Date / Time pneumococcal vaccine Allergy Severe REDNESS, Verified 05/17/22 15:09 SWELLING AT SITE aloe Allergy Intermediate RASH Verified 05/17/22 15:09 latex Allergy Intermediate MOUTH Verified 05/17/22 15:09 SORES (AT DENTIST) Penicillins Allergy Intermediate RASH Verified 05/17/22 15:09 capecitabine Allergy Mild Rash Verified 05/17/22 15:09 cefuroxime AdvReac Mild C. DIFF Verified 05/17/22 15:09 nickel AdvReac Mild Rash Verified 05/17/22 15:09 Home Medications Medication Instructions Recorded Confirmed Type atorvastatin 10 mg tablet 10 mg PO Q2D@2100 05/06/18 05/17/22 History cyanocobalamin (vitamin B-12) 1,000 mcg sublingual QAM 10/22/21 05/17/22 History 1,000 mcg sublingual tablet multivitamin with minerals 1 tab PO QAM 10/22/21 05/17/22 History (Multiple Vitamin-Minerals tablet) ondansetron HCl 8 mg tablet 8 mg PO Q8H PRN Nausea 10/22/21 05/17/22 History prochlorperazine maleate 5 mg 5 mg PO TID PRN Nausea 10/22/21 05/17/22 History tablet (Compazine) apixaban 5 mg tablet (Eliquis) 5 mg PO BID #60 tabs 10/24/21 05/17/22 Rx metoprolol tartrate 25 mg tablet 12.5 mg PO BID #30 tabs 10/24/21 05/17/22 Rx Past Med/Surg History Medical History Atrial fibrillation Dx 09/[address] 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 s/p chemo (summer 2017) METS to uterus s/p Total hysterectomy Per patient, some tumor growth progression (possible future clinical trial immune therapy, not planned until Summer 2022, oncology aware of upcoming orthopedic surgery) Carcinomatosis CKD (chronic kidney disease) stage 3, GFR 30-59 ml/min Ductal carcinoma in situ (DCIS) of left breast 2013, Left lumpectomy + XRT History of thrombocytopenia Platelets WNL on 04/2022 preop labs Hypercholesteremia Hypertension No recent issues per patient Surgical History H/O exploratory laparotomy SBO release x3 Exploratory Laparotomy, THAIS, small bowel resection (08/21/18): Glidescope#3, EFF 7.5 at [facility]. Atraumatic. No issues noted per post-op anesthesia progress note. H/O exploratory laparotomy Exploratory Laparotomy, Lysis of Adhesions, Side to Side Ilealcolonic Anastomosis, Biopsy Abdominal Implant with Frozen Section, Repair Incisional Hernia Repair with Compartment Separation H/O: hysterectomy History of carpal tunnel surgery History of lumpectomy of left breast S/P laparotomy Diagnostic lap 01/22/11 Dr. Quach Family History Father Diabetes Sister Diabetes Mother Diabetes Grandmother (Maternal) Family hx of colon cancer Social History Smoking Status: Never smoker Second Hand Exposure: No; Hx Alcohol Use: Yes Alcohol type: wine Hx Substance Use: No Preferred Language: [place] Communication Ability: Effective Hand Box Folder Required: No Beliefs That Will Affect Care: None marital status: Current Living Situation: Spouse Feels Safe at Home: Yes Assistive Devices: Contacts and Glasses Review of Systems All systems reviewed & are unremarkable except as noted in Subjective Physical Exam Physical Exam: Physical Exam: (relevant to the procedure, including heart and lung evaluation) General: Alert and oriented x3 with proper grooming and hygiene. Eyes: Pupils are equal and reactive to light with accommodation. Extraocular movements are intact. Throat: Posterior oropharynx clear with absence of edema, erythema or exudate. Dentition is appropriate Cardiac: Regular rate and rhythm with no murmurs or gallops appreciated Lungs: Clear to auscultation throughout with no wheezing, rales or rhonchi Abdomen: Nonobese, nondistended, nontender with NABS Extremities: Left knee; range of motion is from about 5 degrees of extension to 115 degrees of flexion. She experiences medial joint line tenderness when the knee is palpated in flexed position. She also has some mild lateral joint line tenderness. Her patella is nonmobile due to arthritic change. There is no laxity to varus valgus stressing. AP drawer sign Veronica test are negative. Patient is neurovascularly intact. Neuro: Cranial nerves II through XII are intact no motor or sensory deficit Skin: Normal in appearance with no open skin areas or discharge Results & Data Diagnostic Findings Studies (relevant to the procedure): MRI that was done on March 13, 2022, is reviewed. This shows bone marrow edema noted within the patella and medial femoral condyle with overlying full-thickness cartilage loss. She also has an area of full-thickness cartilage loss noted within the lateral tibial plateau. Tricompartmental osteophyte formation is also noted.
[2022-06-07] MEDS ORDERED: Scopolamine 1 MG TDSY TD SCH (06:00)
[2022-06-07] MEDS ORDERED: FAMOTIDINE 20 MG TAB PO SCH (06:00)
[2022-06-07] MEDS ORDERED: ROPIVACAINE 0.5% HCL/PF 150 MG, BUPIVACAINE 0.75% MPF 20 ML, EPINEPHrine 0.15 MG, Ketor... INFIL SCH (06:00)
[2022-06-07] MEDS ORDERED: TRANEXAMIC ACID 1,000 MG **IV Intra-op IV SCH (06:00)
[2022-06-07] MEDS ORDERED: LR 500ML BOLUS, THEN 15ML/HR IV SCH (06:00)
[2022-06-07] MEDS ORDERED: TRANEXAMIC ACID 1,000 MG **IV Pre-op IV SCH (06:00)
[2022-06-07] MEDS ORDERED: CeleBREX 200 MG CAP PO SCH (06:00)
[2022-06-07] MEDS ORDERED: dexAMETHasone 4 MG TAB PO SCH (06:00)
[2022-06-07] MEDS ORDERED: traMADol HCL 50 MG TABLET PO SCH (06:00)
[2022-06-07] MEDS ORDERED: LR 60ML/HR IV SCH (06:00)
[2022-06-07] MEDS ORDERED: ACETAMINOPHEN 500 MG TAB PO SCH (06:00)
[2022-06-07] MEDS ORDERED: ceFAZolin 2000MG 2,000 MG/15 ML SYR IV SCH (06:00)
[2022-06-07] MEDS ORDERED: ORTHO JOINT ANESTHETIC ONE (06:28)
[2022-06-07] MEDS ORDERED: ROPIVACAINE 0.5% 5 MG/ML 30 ML VIAL ONE (06:32)
[2022-06-07] MEDS ORDERED: BUPIVACAINE 0.5 % 5 MG/1 ML PF 10ML VIAL ONE (06:32)
[2022-06-07] MEDS ORDERED: EPINEPHrine INJ 1 MG/ML AMP ONE (06:32)
[2022-06-07] MEDS ORDERED: LIDOCAINE 2% MPF LOCAL 5 ML VIAL ONE (06:37)
[2022-06-07] MEDS ORDERED: PROPOFOL IV EMULSION 10 MG/ML 20 ML VIAL IV ONE ×3 (06:37→06:38)
[2022-06-07] MEDS ORDERED: MIDAZOLAM HCL 1 MG/ML 2ML VIAL ONE ×2 (06:38→07:24)
--- NOTE | 2022-06-07 06:45 | History & Physical Bridge Note ---
Date of Service June 07, 2022 History & Physical Bridge Note I have examined the patient, reviewed the History & Physical and in the interval since the performance of the History & Physical I have noted the following changes of clinical significance: no changes noted
[2022-06-07] MEDS ORDERED: ePHEDrine sulfate 50 MG/ML AMP IV PRN (07:15)
[2022-06-07] MEDS ORDERED: ATROPINE SULFATE 0.1 MG/ML 10ML SYR IV PRN (07:15)
[2022-06-07] MEDS ORDERED: ONDANSETRON INJ 2 MG/ML 2 ML VIAL ONE (07:24)
[2022-06-07] MEDS ORDERED: ePHEDrine sulfate 50 MG/ML SYR ONE (07:28)
--- NOTE | 2022-06-07 08:56 | Operative Report ---
Post Operative Report Pre & Post Diagnosis Operation Date: 06/07/22 07:00 Pre-Op Diagnosis: Left Knee Osteoarthritis Post-Op Diagnosis: Left Knee Osteoarthritis I identified the patient and participated in the time-out.: Yes Procedure Operation Date: 06/07/22 07:00 Actual Procedures p Left Total Knee Arthroplasty(Left) - Sylvester Robles MD Surgeon Sylvester Robles MD Finishing Machine Operator Automatic SUSAN Arthur PA-C. No resident or fellow was available to assist. Estimated Blood Loss 100 Findings Consistent with Post-Op Diagnosis Specimens Left knee bone and soft tissue contents Anesthesia Type Spinal MAC Complications none Disposition Disposition: Recovery Room Indications 72-year-old female with left knee osteoarthritis refractory to conservative management. I had a long discussion with her about the risks and benefits of surgery, alternatives to surgery, and expected outcomes. After reviewing all these she elected to proceed with surgery. All questions were answered. Informed consent was signed. Description of Procedure Patient was identified in the preoperative holding area where the surgical site, left knee, was marked. Spinal anesthetic was placed by anesthesia. Patient was brought back to the operating room, placed on the operating room table, and IV sedation was administered. A bump was placed underneath the ipsilateral hip. All bony prominences were padded. Perioperative antibiotics and tranexamic acid were administered. Exam under anesthesia was performed. This demonstrated range of motion from 5 to 110 degrees. Stable to varus and valgus stressing at 30 degrees. The surgical site was prepped and draped in the normal sterile fashion. Prior to incision a multidisciplinary timeout was called. All in the room were in agreement. We began by exsanguinating the limb with an Esmarch bandage. Tourniquet was inflated to 250 mmHg. A 14 cm long incision was made over the anterior aspect of the knee. I dissected through the subcutaneous tissues to the level of the fascia. Full-thickness flaps were raised above the fascia. Patient was noticed to have overlapping of her vastus medialis and vastus lateralis on the top of the quadriceps tendon. A median parapatellar arthrotomy was made. Half the fat pad was excised. A medial release was performed with Bovie electrocautery on the proximal tibia. Synovitis in the knee and suprapatellar pouch was removed. The patella was then everted and held with 2 towel clips. The thickness of the patella was measured at 22 mm. Patellar resection was performed. Caliper showed the patella thickness now to be 14 mm. A size 32 trial was placed and had a great fit. The 3 drill holes were placed then the trial button was placed. The patellar thickness was now 23 mm which I was very happy with. The patellar trial was then removed, and the knee was flexed up. Retractors were placed to protect the MCL and LCL. Osteophytes were removed from the femoral condyles and intercondylar notch. The ACL and PCL were excised. Intramedullary drill guide was drilled into the femur. Distal femoral cutting guide was placed set at 5 degrees of valgus to resect 10 mm off the distal femur. Distal femoral resection was made without difficulty. The tibia was then exposed. The lateral meniscus was sharply excised. The tibial cutting jig was positioned in line with the tibial shaft in the coronal plane and with 3 degrees of posterior slope in the sagittal plane to resect 9 mm off the less involved compartment. The jig was then pinned in position and the tibial cut was made. We then brought the knee into full extension. Lamina spreaders were placed. The medial meniscus was excised. The extension block was then placed for 9 mm thickness poly. This gave us full extension and excellent stability to varus and valgus stress. Next the extension block was removed, the knee was flexed up, collateral ligaments were protected, and the epicondylar axis and Whitesides line were marked out on the distal femoral cut. Femoral sizing guide was placed. External rotation was set at 4 degrees so that the posterior cut would be parallel with the epicondylar axis and perpendicular with Whitesides line. The patient sized to a size 4 femur. 2 pins were then placed through the jig into the distal femur. The jig was removed and the appropriately sized 4-in-1 cutting jig was placed over the pins, then fixated to the bone using threaded, headed pins. We confirmed that we would not notch the femur with our anterior cut. Our 4 cuts were then made. The cutting jig was removed. The flexion block was then placed with the knee held at 90 degrees. There was excellent stability to varus and valgus at 90 degrees with no gapping medially or laterally. Next the box cutting jig was placed on the distal femur. The box cut was made and the femoral trial was impacted into position. Lug holes were drilled in the distal femur. We then reexposed the tibia. The tibia was sized to a 4 for a fixed-bearing component. The tibial tray with a 9 mm thickness polyethylene liner was placed on the cut tibial surface and the knee was brought through a full range of motion. There was excellent stability to varus valgus stress throughout a full range of motion, which was approximately 0-125 degrees. Bovie electrocautery was used to alecia the tibia at the site where the tibial tray rested in full extension. We then flexed up the knee, removed the polyethylene liner, and pinned the tibial tray into position to match the cautery alecia. The intramedullary drill followed by the keel punch were used to prepare the tibia. Next the trial components were removed. I then injected the posterior capsule and periosteum with the periarticular injection cocktail. The bone cuts were then irrigated and dried while the cement was mixed on the back table. The femoral component was cemented on first. Excess cement was removed. A lap sponge was placed over the femoral component for protection, then the tibia was subluxated anteriorly. The all polyethylene tibial component was then cemented in place. Again excess cement was removed. The knee was brought into full extension and held there until the cement cured. The patella was cemented and clamped. Dilute Betadine solution was then allowed to soak in the knee while the cement cured. Once the cement was fully cured, the knee was irrigated out, the tourniquet was let down and meticulous hemostasis was ensured. The knee was brought through a full range of motion. I was were very happy with the patella tracking and the stability. We then began to close. Interrupted 0 Vicryl suture was used to repair the patellar retinaculum in [id number] fashion. The quadriceps and patellar tendons were run with #1 Vicryl. The deep dermal layer was closed with interrupted 2-0 Vicryl. Dermabond and Zipline was used for the skin, followed by a Silverlon dressing. A compressive Gilles wrap was placed and the knee was placed into a knee immobili zer. Patient's sedation was lifted and was transferred to recovery room in stable condition. Summary of implants: [employer] journey knee, posterior stabilized Oxinium, size 4 left Tibia fixed-bearing tray, size 4 9 mm thickness 3/4 tibial polyethylene insert 2 batches of antibiotic impregnated high viscosity bone cement Postoperative course: Patient will be admitted to the floor for pain control and monitoring. Weightbearing as tolerated with a walker with no knee range of motion for 48 hours. Aspirin for DVT prophylaxis. I attest to the content of the Intraoperative Record and any orders documented therein. Any exceptions are noted below.
--- NOTE | 2022-06-07 08:56 | Operative Report ---
Post Operative Report Pre & Post Diagnosis Operation Date: 06/07/22 07:00 Pre-Op Diagnosis: Left Knee Osteoarthritis Post-Op Diagnosis: Left Knee Osteoarthritis I identified the patient and participated in the time-out.: Yes Procedure Operation Date: 06/07/22 07:00 Actual Procedures p Left Total Knee Arthroplasty(Left) - Sylvester Robles MD Surgeon Sylvester Robles MD Director Of Cloud Services Seda Arthur PA-Joe Estimated Blood Loss 100 Findings Consistent with Post-Op Diagnosis Specimens left knee bone tissue Description of Procedure I was present during the entire procedure assisting with positioning, prepping, draping, wound retraction, wound closure, dressing and immobilizer placement. No fellow present. Please see Dr. Robles procedure note for specifics of the case. I attest to the content of the Intraoperative Record and any orders documented therein. Any exceptions are noted below.
[2022-06-07] MEDS ORDERED: ONDANSETRON INJ 2 MG/ML 2 ML VIAL IV PRN (08:57)
[2022-06-07] MEDS ORDERED: bisacodyL 10 MG SUPP PR PRN (08:57)
[2022-06-07] MEDS ORDERED: NALOXONE HCL 0.4 MG/1 ML VIAL/CARP IV PRN (08:57)
[2022-06-07] MEDS ORDERED: MAGNESIUM HYDROXIDE SUSP 30 ML UDC PO PRN (08:57)
[2022-06-07] MEDS ORDERED: METOCLOPRAMIDE HCL INJ 5 MG/ML 2 ML VIAL IV PRN (08:57)
[2022-06-07] MEDS ORDERED: HYDROmorphone INJ 0.5 MG/0.5 ML SYR IV PRN (09:00)
[2022-06-07] MEDS ORDERED: diphenhydrAMINE 50 MG/ML VIAL IV PRN (09:00)
[2022-06-07] MEDS ORDERED: ALUMINUM/MAGNESIUM SUSP 30 ML UDC PO PRN (09:00)
[2022-06-07] MEDS ORDERED: ONDANSETRON 8MG OD TAB PO PRN (09:03)
[2022-06-07] MEDS ORDERED: PROCHLORPERAZINE MALEATE 5 MG TAB PO PRN (09:03)
[2022-06-07] MEDS ORDERED: IRON PO SCH (09:15)
[2022-06-07] MEDS ORDERED: [UNRECOGNIZED DRUG - OTHER] PO SCH (09:15)
--- NOTE | 2022-06-07 09:25 | XRay Report ---
LEFT KNEE 2 VIEWS History: Left total knee arthroplasty. Degenerative arthritis. Postop. FINDINGS: The patient is status post a left total knee arthroplasty. The hardware is intact. No fract ure or dislocation. IMPRESSION: Left total knee arthroplasty. No evidence for hardware complication. ACT 112: Negative or not required by law. Electronically signed by: Ajith Longoria M.D. 06/07/2022 9:23 AM
--- NOTE | 2022-06-07 10:28 | Anesthesiology Progress Note ---
Date of Service June 07, 2022 Anesthesia Post Procedure Vital Signs Vital Signs: Temp Pulse Resp BP Pulse Ox O2 Del Method O2 Flow Rate 06/07/22 09:45 36.9 C 64 18 108/61 95 Room Air 06/07/22 09:35 66 18 116/59 L 95 Room Air 06/07/22 09:25 66 18 116/57 L 95 Room Air 06/07/22 09:15 71 18 121/52 L 95 Room Air 06/07/22 09:05 74 18 112/55 L 99 Oxymask 5 06/07/22 08:56 37.1 C 73 18 114/55 L 98 Oxymask 5 06/07/22 05:32 37 C 68 20 140/74 98 Room Air Pain Intensity Left Knee: Pain Intensity: 2 Transfer of Care Handoff Completed per policy Notes Mental Status: alert / awake / arousable Patient Amnestic to Procedure: Yes Nausea / Vomiting: adequately controlled Pain: adequately controlled Airway Patency, RR, SpO2: stable & adequate BP & HR: stable & adequate Hydration State: stable & adequate Neuraxial Anesthesia: was administered and sensory block is resolving Anesthetic Complications: no major complications apparent
[2022-06-07] MEDS: SODIUM CHLORIDE 0.9% 1000ML 1,000 ML IV SCH ×2 (10:33→21:28)
[2022-06-07] MEDS: DOCUSATE SODIUM 100 MG CAP PO SCH ×2 (10:40→20:06)
[2022-06-07] MEDS: KETOROLAC TROMETHAMINE 15 MG/ML VIAL IV SCH ×3 (10:40→20:04)
[2022-06-07] MEDS: MULTIVITAMIN TAB PO SCH (11:27)
[2022-06-07] MEDS: ACETAMINOPHEN 500 MG TAB PO SCH ×2 (13:18→22:47)
[2022-06-07] MEDS: oxyCODONE HCL IR 5 MG TAB (IMMEDIATE RELEASE) PO PRN (13:20)
[2022-06-07] MEDS ORDERED: TRANEXAMIC ACID / 0.7% NACL 1,000 MG/100 ML BAG IV SCH (15:00)
[2022-06-07] MEDS: ceFAZolin 2000MG 2,000 MG/15 ML SYR IV SCH ×2 (16:41→22:48)
[2022-06-07] MEDS: Scopolamine CHECK PATCH PLACEMENT SCH (16:42)
[2022-06-07] MEDS: METOPROLOL TARTRATE 25 MG TAB PO SCH (20:08)
[2022-06-07] MEDS ORDERED: ATORVASTATIN 10 MG TAB PO SCH (21:00)
[2022-06-07] MEDS ORDERED: SENNA 8.6 MG TAB PO SCH (21:00)
[2022-06-08] MEDS: Scopolamine CHECK PATCH PLACEMENT SCH ×2 (00:04→08:30)
[2022-06-08] MEDS: oxyCODONE HCL IR 5 MG TAB (IMMEDIATE RELEASE) PO PRN (01:37)
[2022-06-08] MEDS: KETOROLAC TROMETHAMINE 15 MG/ML VIAL IV SCH (04:00)
[2022-06-08] MEDS: ACETAMINOPHEN 500 MG TAB PO SCH (06:01)
[2022-06-08] MEDS: SODIUM CHLORIDE 0.9% 1000ML 1,000 ML IV SCH (06:05)
[2022-06-08 07:02] LABS: Hematocrit (blood only) 29.3 % (37.0-47.0); Mean Corpuscular Hemoglobin 30.7 pg (25.0-34.0); Mean Corpuscular Hgb Conc 34.1 g/dL (32.0-36.0); Mean Corpuscular Volume 89.9 fL (80.0-100.0); Mean Platelet Volume 11.2 fL (9.4-12.4); Platelet Count 97 K/uL (130-400); RDW Coefficient of Variation 12.9 % (11.5-14.5); RDW Standard Deviation 42.5 fL (36.4-46.3); Red Blood Count 3.26 M/uL (4.20-5.40); White Blood Count 10.62 K/ul (4.8-10.8)
[2022-06-08 07:17] LABS: BUN Creatinine Ratio 17.1 (10-20); Calcium 8.5 mg/dl (8.6-10.3); Creatinine Clr Calc Pharmacy 38.6 ml/min; Est GFR (African American) 53.5 ml/min; Est GFR (Non-African American) 46.2 ml/min; Potassium 4.2 mmol/L (3.5-5.1)
[2022-06-08] MEDS ORDERED: dexAMETHasone 4 MG TAB PO SCH (08:00)
[2022-06-08] MEDS: DOCUSATE SODIUM 100 MG CAP PO SCH (08:30)
[2022-06-08] MEDS: METOPROLOL TARTRATE 25 MG TAB PO SCH (08:30)
[2022-06-08] MEDS: MULTIVITAMIN TAB PO SCH (08:30)
[2022-06-08] MEDS ORDERED: CeleBREX 200 MG CAP PO SCH (09:00)
[2022-06-08] MEDS ORDERED: CYANOCOBALAMIN (B-12) 500 MCG TABLET PO SCH (09:00)
[2022-06-08] MEDS ORDERED: APIXABAN 5 MG TABLET PO SCH (09:00)
--- NOTE | 2022-06-08 09:29 | Orthopedic Progress Note ---
Date of Service June 08, 2022 Assessment & Plan (1) S/P total knee arthroplasty: Plan: Weightbearing as tolerated with walker assistance and immobilizer for first 48 hours postoperatively. PT/OT Ice with easy wrap DVT prophylaxis with Eliquis and UNIQUE stockings Pain controlled p.o. medication Keep Silverlon dressing intact until 2-week follow-up Plan is to discharge home later this morning with in-home physical therapy to begin this weekend Follow-up with [facility] orthopedics as previously scheduled With questions contact our clinic at [phone] Admission and Anticipated Discharge Date Admission Date: June 07, 2022 Subjective This 72-year-old female is day 1 status post left total knee arthroplasty. She is doing very well. Patient is dressed and ready to be discharged home soon as possible. She states her pain is well controlled with the p.o. pain medication. She states that last night she did have an episode of nausea after being administered her IV antibiotic but was treated with Zofran. She states that she has completed physical therapy and Occupational Therapy without issue. Currently she denies chest pain, shortness of breath, fever, chills, sweats, numbness or tingling in her left lower extremity. She also denies nausea, vomiting, diarrhea or difficulty voiding. Review of Systems Review of Systems: All systems reviewed & are unremarkable except as noted in Subjective Physical Exam Physical Exam: Left knee: Outer dressing is removed. Silverlon is clean dry and intact and left in place. Patient is able to easily perform an active straight leg raise test. She is able to actively dorsi and plantarflex her foot without issue. She is able to extend her knee to 0 degrees and flex beyond 90 degrees with only some slight pressure. There is no clunking or laxity with light varus or valgus stressing. There is a solid endpoint with Veronica testing. Patient does have some tenderness to palpation over the quadriceps tendon. Her quad strength is 4 out of 5. She is neurovascular intact in the left lower extremity. Results & Data Vital Signs (Past 12 Hours) Vital Signs Temp Pulse Resp BP Pulse Ox O2 Del Method 06/08/22 07:00 36.7 C 62 14 105/53 L 95 Room Air 06/08/22 03:10 36.6 C 50 L 18 117/68 95 Room Air 06/07/22 22:27 36.6 C 53 L 18 99/50 L 95 Room Air Diagnostic Findings Laboratory Results WBC 10.62 K/ul (4.8-10.8) 06/08/22 05:55 RBC 3.26 M/uL (4.20-5.40) L 06/08/22 05:55 Hgb 10.0 g/dl (12.0-16.0) L 06/08/22 05:55 Hct 29.3 % (37.0-47.0) L 06/08/22 05:55 MCV 89.9 fL (80.0-100.0) 06/08/22 05:55 MCH 30.7 pg (25.0-34.0) 06/08/22 05:55 MCHC 34.1 g/dL (32.0-36.0) 06/08/22 05:55 RDW Std Deviation 42.5 fL (36.4-46.3) 06/08/22 05:55 RDW Coeff of Katelyn 12.9 % (11.5-14.5) 06/08/22 05:55 Plt Count 97 K/uL (130-400) L 06/08/22 05:55 MPV 11.2 fL (9.4-12.4) 06/08/22 05:55 Sodium 140 mmol/L (136-145) 06/08/22 05:55 Potassium 4.2 mmol/L (3.5-5.1) 06/08/22 05:55 Chloride 111 mmol/L (98-107) H 06/08/22 05:55 Carbon Dioxide 23 mmol/L (21-32) 06/08/22 05:55 Anion Gap 6 (3-11) 06/08/22 05:55 BUN 20 mg/dl (6-23) 06/08/22 05:55 Creatinine 1.17 mg/dl (0.6-1.2) 06/08/22 05:55 Est Cr Clr Drug Dosing 38.6 ml/min 06/08/22 05:55 Est GFR ( Amer) 53.5 ml/min 06/08/22 05:55 Est GFR (Non-Af Amer) 46.2 ml/min 06/08/22 05:55 BUN/Creatinine Ratio 17.1 (10-20) 06/08/22 05:55 Glucose 136 mg/dl (70-99(Fasting)) H 06/08/22 05:55 Calcium 8.5 mg/dl (8.6-10.3) L 06/08/22 05:55 SARS-CoV-2, RNA, NAAT NEGATIVE (NEGATIVE) 06/07/22 05:28 Impressions Knee X-Ray 06/07/22 09:02 LEFT KNEE 2 VIEWS History: Left total knee arthroplasty. Degenerative arthritis. Postop. FINDINGS: The patient is status post a left total knee arthroplasty. The hardware is intact. No fracture or dislocation. IMPRESSION: Left total knee arthroplasty. No evidence for hardware complication. ACT 112: Negative or not required by law. Electronically signed by: Ajith Longoria M.D. 06/07/2022 9:23 AM
--- NOTE | 2022-06-08 09:35 | Discharge Summary ---
Date of Service June 08, 2022 Admission HPI Per Admitting Provider History of Present Illness (including history relevant to procedure): This 72-year-old female has a longstanding history of bilateral knee pain with left being greater than right. Patient states she has had multiple corticosteroid injections, viscosupplementation injections has done extensive physical therapy, use oral nonsteroidal agents without any significant relief of her pain. She states that now it is starting to affect her ability to walk more than 5 to 10 minutes at a time. She is unable to do stairs due to the pain she experiences. She is electing to proceed with surgical intervention due to failed conservative management. Review Of Systems: A 12 point review of systems is performed and is unremarkable except for those things stated in the HPI and past medical history. Past Medical History: Problems: DJD (degenerative joint disease) of knee Right knee pain Left knee pain Afib History of squamous cell carcinoma Nevus Carcinoid tumor Elevated cholesterol HTN (hypertension) Procedure History Procedure Procedure Date Comments ASHER - Total abdominal hysterectomy Lumpectomy of breast - with re-excision followed by radiation tx Carpal tunnel Surgery - small bowel resection Electrodesiccation with curettage 02/11/2018 Allergies and Sensitivities: Allergy Not found in Search(capcetibin) pneumococcal vaccines(redness) pneumococcal vaccines(swelling) aloe vera topical(rash) penicillins(rash) Latex(blisters in mouth at dentist) Ceftin(c-diff) Current Home Meds: (Last Updated 05/25 13:03) apixaban (Eliquis 5 mg oral tablet) 5 mg PO bid atorvastatin (atorvastatin 10 mg oral tablet) 10 mg PO Daily cholecalciferol (Vitamin D3 1000 intl units oral capsule) 1,000 Int_Unit PO Daily cholecalciferol (Vitamin D3 50,000 intl units (1250 mcg) oral capsule) 1,250 mcg PO q7days cyanocobalamin (Vitamin B12 1000 mcg oral tablet) 1,000 mcg PO Daily metoprolol (Metoprolol Tartrate 25 mg oral tablet) 12.5 mg PO bid multivitamin 1 tab PO Daily ondansetron (Zofran 4 mg oral tablet) 4 mg PO ONCE PRN: as needed for nausea/vomiting sodium hyaluronate (Euflexxa 10 mg/mL intra-articular solution) 25 mg intra- articular q7days Admission Exam Per Admitting Provider Physical Exam: (relevant to the procedure, including heart and lung evaluation) General: Alert and oriented x3 with proper grooming and hygiene. Eyes: Pupils are equal and reactive to light with accommodation. Extraocular movements are intact. Throat: Posterior oropharynx clear with absence of edema, erythema or exudate. Dentition is appropriate Cardiac: Regular rate and rhythm with no murmurs or gallops appreciated Lungs: Clear to auscultation throughout with no wheezing, rales or rhonchi Abdomen: Nonobese, nondistended, nontender with NABS Extremities: Left knee; range of motion is from about 5 degrees of extension to 115 degrees of flexion. She experiences medial joint line tenderness when the knee is palpated in flexed position. She also has some mild lateral joint line tenderness. Her patella is nonmobile due to arthritic change. There is no laxi ty to varus valgus stressing. AP drawer sign Veronica test are negative. Patient is neurovascularly intact. Neuro: Cranial nerves II through XII are intact no motor or sensory deficit Skin: Normal in appearance with no open skin areas or discharge Principal Diagnosis Left knee osteoarthritis Discharge Exam Left knee: Outer dressing is removed. Silverlon is clean dry and intact and left in place. Patient is able to easily perform an active straight leg raise test. She is able to actively dorsi and plantarflex her foot without issue. She is able to extend her knee to 0 degrees and flex beyond 90 degrees with only some slight pressure. There is no clunking or laxity with light varus or valgus stressing. There is a solid endpoint with Veronica testing. Patient does have some tenderness to palpation over the quadriceps tendon. Her quad strength is 4 out of 5. She is neurovascular intact in the left lower extremity. Discharge Data Allergies Allergy/AdvReac Type Severity Reaction Status Date / Time pneumococcal vaccine Allergy Severe REDNESS, Verified 06/07/22 05:40 SWELLING AT SITE aloe Allergy Intermediate RASH Verified 06/07/22 05:40 latex Allergy Intermediate MOUTH Verified 06/07/22 05:40 SORES (AT DENTIST) Penicillins Allergy Intermediate RASH Verified 06/07/22 05:40 capecitabine Allergy Mild Rash Verified 06/07/22 05:40 cefuroxime AdvReac Mild C. DIFF Verified 06/07/22 05:40 nickel AdvReac Mild Rash Verified 06/07/22 05:40 Procedures Performed Operation Date: 06/07/22 07:00 Actual Procedures p Left Total Knee Arthroplasty(Left) - Sylvester Robles MD Ordered Studies 06/07/22 05:00 US - OR guided needle placemen Routine Hospital Course (1) S/P total knee arthroplasty: Patient had an uneventful overnight stay following left total knee arthroplasty. She is very pleased with the results of her surgery. She states she is planning on doing in-home physical therapy for the first 2 weeks. She states that she has questions or concerns that should arise prior to her 2-week follow- up, she will contact our clinic. Weightbearing as tolerated with walker assistance and immobilizer for first 48 hours postoperatively. PT/OT Ice with easy wrap DVT prophylaxis with Eliquis and UNIQUE stockings Pain controlled p.o. medication Keep Silverlon dressing intact until 2-week follow-up Plan is to discharge home later this morning with in-home physical therapy to begin this weekend Follow-up with [facility] orthopedics as previously scheduled With questions contact our clinic at [phone] Total Time Total Time Spent Total Time Spent (In Minutes): 20 mins Discharge Plan Discharge Items Patient Disposition: Home - Home Health Services Reason For Visit: Left Total Knee Arthroplasty Discharge Diagnosis: Left Knee Osteoarthritis Activity: As commented below Lifting: None Bathing: Keep incision dry Bathing Comment: May shower tomorrow Sexual Activity: Wait until after follow-up appointment Exercise/Sports: Wait until after follow-up appointment Driving/Machine Use: No driving until cleared by center specialists Weightbearing: Left weightbearing Weightbearing Comment: as tolerated with walker assistance and immobilizer for first 48 hrs Non-emergency contact: Surgeon Call non-emergency contact if: you have any medication questions, your pain is not controlled, your temperature is above 101.5, your wound has increased drainage and your wound pain has increased Follow-up/Referrals: Justyna Lee, DO [Primary Care Provider] - Diet: Regular Addtl Attending Provider Instructions: Post-operative Instructions Dear Patient and Family/Friends, Before you are discharged from the hospital, it is important to know what to expect when you get home after surgery. To that end, we have created this sheet of discharge instructions which covers many commonly asked questions. Make sure you go through this sheet in its entirety with your nurse before you are discharged. Please note that we will go over the specifics of your surgery and recovery when you return for your first post-operative visit. Sincerely, Dr. Robles Medications 1. Oxycodone 5 mg: take 1-2 tabs every 4-6 hours for pain control. A prescription for this medication will be sent to your pharmacy. 2. Diclofenac Sodium 75 mg: take one tab twice daily for 30 days post operatively for pain control and inflammation relief. This will also be sent to your pharmacy with 1 refill. 3. Eliquis 5 mg: Resume your daily Eliquis regimen for control of your A. Fib and blood clot prevention. 4. Extra Strength Tylenol 500 mg: Take 2 tabs every 6-8 hour as needed for addtional pain relief. Please purchase this medication. Pain Expect to be in a fair amount of pain after surgery. Remember, our goal is not to eliminate your pain, but to make it tolerable. It is a good idea to stay ahead of your pain by taking the medications you were prescribed once you get home. Typically, the pain starts improving 3-7 days after surgery. You should start weaning off the narcotic pain medication (oxycodone, hydrocodone, hydromorphone, morphine) as soon as your pain improves. Please call our office if your pain is not adequately controlled. Ice Ice your operative site at least 5 times a day for 15-30 minutes at a time. Make sure you have a thin cloth between the ice or cooling unit and your skin to prevent connell bite. This is especially important if you received a nerve block. Continue icing your operative site for the first 5-7 days after surgery, then as needed. Diet/Nausea/Vomiting Start by drinking clear liquids and eating crackers. If you can tolerate this, then you may resume your normal diet. If you feel nauseated or vomit, take Zofran/ondansetron (if prescribed). Please call our office if you have intractable nausea or vomiting, or, if after hours, you may go to the Emergency Room for help. Constipation Constipation is a common side effect of narcotic pain medication. If you have not had a bowel movement within 2 days after surgery, we recommend purchasing an over the counter laxative such as Milk of Magnesia, Dulcolax, or Miralax from a local pharmacy, and taking it as instructed. Call our clinic if any questions. Slings and Braces If you were placed in a sling or brace, it must be worn at all times, including sleep. You may remove your sling or brace for physical therapy, home exercises, and showering. The length of time you will be in your brace and range of motion restrictions depends on what surgery you had; these details will be reviewed at your first post-operative appointment. Nerve block The anesthesia team sometimes places a nerve block to help with post-operative pain control. This results in significant numbness and inability to move the extremity. The nerve block usually wears off in 8-12 hours, but sometimes can last up to 24 hours. Please call our office if you are still unable to move your extremity after 24 hours, unless you received a pain pump to take home. Nerve blocks typically wear off quickly, so start taking pain medication as soon as you start feeling soreness near your surgical site. Weight bearing and Range of Motion. Do not bear any weight through your operative extremity immediately after surgery. If you had upper extremity surgery, do not lift anything with that arm. If you are in a knee brace, keep it locked in place until your follow-up. We will discuss your weight bearing, range of motion, and lifting restrictions in detail at your first post-operative appointment. Continuous Passive Motion (CPM) Machine If you were prescribed a CPM machine, it will start after your first post- operative appointment, at which time we will give you instructions on the range of motion settings and duration of treatment Physical therapy You will be given a prescription for physical therapy or occupational therapy at your first post-operative appointment. Typically, patients start therapy within 1 week of surgery Wound care and showering We will inspect your wound at your first post-operative visit, and may do a dressing change at that time. Most patients will be in a water-proof dressing that is removed 14 days after surgery. It is normal to see some dried blood on the dressing. Do not remove your dressing, paper strips or sutures yourself unless you are given permission. Showering is allowed the day after surgery. Do not scrub or remove any dressings. The wound should not be submerged underwater (i.e. in a bathtub or pool) until 4 weeks after surgery UNIQUE stockings If you were given white stockings, these are to be worn at all times except to shower (on both legs) for the first 2 weeks after surgery. Driving You may not drive while taking narcotic pain medication or while in a cast, splint, sling or brace. You, the patient, need to make the final determination about when you are safe to drive, however, the earliest you may consider driving after surgery is below: Hand/Wrist/Elbow Surgery: 3 days Shoulder Surgery: 2 weeks Hip,/Knee/Ankle Surgery: 4 weeks Fracture repair: 6 weeks Return to Work Your return to work depends on what surgery was done and what type of work you do. Please bring any paperwork your employer needs completed to your first post-operative visit. Also, bring a description of your job duties, as this helps us to understand what risks you may face at work. Travel Avoid long distance travel (greater than 1 hour) in airplanes and cars for the first 6 weeks after surgery. If you must travel, you need to have a Doppler ultrasound done before you travel to rule out a blood clot in your legs. Follow-up You should have a follow-up appointment already scheduled 1-2 days after surgery. If not, please contact our office to make this appointment before you leave the hospital. When to call the office It is normal to have swelling and bruising in the limb that was operated on. This will improve with time. It is also normal to have fevers for the first 2 days after surgery. Reasons you should call your doctor include: Uncontrolled pain; Nausea, vomiting, or constipation that does not improve with medication; Fevers over 101.5, chills, sweats; Drainage or bleeding from the wound; Foul odor; Spreading areas of redness; Any other concerns Pending Studies at Discharge: No Stand-Alone Forms: [facility] Medications and DC Order Prescriptions: New acetaminophen [Tylenol Extra Strength] 500 mg Tablet 1,000 mg PO Q8 30 Days Qty: 180 0RF oxycodone 5 mg Tablet 5 - 10 mg PO Q4H PRN (Reason: Postoperative pain control) Qty: 28 0RF diclofenac sodium 75 mg tablet,delayed release (DR/EC) 75 mg PO BID 30 Days Qty: 60 0RF Continued atorvastatin 10 mg tablet 10 mg PO Q2D@2100 cyanocobalamin (vitamin B-12) 1,000 mcg Tablet, Sublingual 1,000 mcg SUBLINGUAL QAM ondansetron HCl 8 mg Tablet 8 mg PO Q8H PRN (Reason: Nausea) prochlorperazine maleate [Compazine] 5 mg Tablet 5 mg PO TID PRN (Reason: Nausea) Eliquis 5 mg tablet 5 mg PO BID Qty: 60 1RF metoprolol tartrate 25 mg Tablet 12.5 mg PO BID Qty: 30 1RF Vitamin D3 Complete 18 mg iron-800 mcg-150 mg Tablet 1 tab PO WK Admission Data Admit Date/Time: 06/07/22 08:57 Attending Provider: Sylvester Robles Admit Provider: Sylvester Robles Primary Care Provider: Justyna Lee. Other Providers: [facility]
== END 2022-06-08 11:05 | disposition home health service (06) ==
LOC: ASU 05:07 → 3W 05:07
DX: I48.91 Unspecified atrial fibrillation; C7B.02 Secondary carcinoid tumors of liver; Z88.0 Allergy status to penicillin; G89.18 Other acute postprocedural pain; Z90.710 Acquired absence of both cervix and uterus; Z88.1 Allergy status to other antibiotic agents; Z96.652 Presence of left artificial knee joint; Z85.060 Personal history of malignant carcinoid tumor of small intestine; M17.12 Unilateral primary osteoarthritis, left knee; Z90.49 Acquired absence of other specified parts of digestive tract; M25.762 Osteophyte, left knee; Z92.3 Personal history of irradiation; Z92.21 Personal history of antineoplastic chemotherapy; Z79.01 Long term (current) use of anticoagulants; R59.0 Localized enlarged lymph nodes; Z88.7 Allergy status to serum and vaccine; Z91.09 Other allergy status, other than to drugs and biological substances; Z79.899 Other long term (current) drug therapy; Z20.822 Contact with and (suspected) exposure to COVID-19; Z91.040 Latex allergy status; M65.9 Synovitis and tenosynovitis, unspecified; Z88.8 Allergy status to other drugs, medicaments and biological substances

== ENCOUNTER 2023-01-19 15:00 | Inpatient (IN) ==
--- OUTSIDE RECORDS SUMMARY | 2023-01-19 15:08 | External Medical Summary | Summary of Care ---
Author Name Unknown Organization [facility] Address [address] [place] [address] Phone [phone] Care Team Providers Care Card Writer Hand Name Role Phone Justyna Lee DO Primary Care Provider Reason for Visit * Reason Comments Outpatient Testing Encounter Details Date Type Department Care Team Description 12/11/2022 Laboratory [facility] [place] [address] [place] [address] [place] [facility] [address] [place] [address] Abdominal pain, epigastric Allergies Active Allergy Reactions Severity Noted Date Comments Aloe Vera Rash Medium 07/02/2014 Capecitabine Rash 11/29/2017 Ceftin Diarrhea 01/04/2011 Patient developed C Diff. Latex Other (Please comment) 01/04/2011 Sores in mouth when at the dentist. Possible reaction. Nickel Rash Medium 08/02/2022 Penicillins Rash 01/04/2011 Pneumococcal Vaccine Other (Please comment) Site of injection became warm to touch, red, and swollen. documented as of this encounter (statuses as of 12/11/2022) Medications Medication Sig Dispensed Refills Start Date End Date Status Vitamin B-12 1000 MCG Sublingual Tablet Sublingual Place 1 Tablet under the tongue in the morning. 0 04/15/2021 Active Prochlorperazine Maleate 5 MG Oral TabletIndications:Mu ltiple metastatic carcinoid tumors (HCC) Take by mouth 1 Tablet every 6 hours as needed for Nausea. 30 Tablet 0 10/19/2021 Active Ondansetron HCl 8 MG Oral Tablet (Zofran)Indications: Hx SBO Take 1 Tablet by mouth every 8 hours as needed for Nausea. 30 Tablet 11 02/13/2022 Active Metoprolol Tartrate 25 MG Oral Tablet (Lopressor) TAKE 1/2 TABLET BY MOUTH IN THE MORNING AND TAKE 1/2 TABLET BY MOUTH AT BEDTIME 90 Tablet 1 09/12/2022 Active Atorvastatin Calcium 10 MG Oral Tablet (Lipitor) Take 1 Tablet by mouth every other day. 45 Tablet 3 11/22/2022 Active Vitamin D3 1.25 MG (10883 UT) Oral Capsule TAKE 1 CAPSULE BY MOUTH ONCE WEEKLY 12 Capsule 3 11/22/2022 Active Eliquis 5 MG Oral Tablet (Apixaban) TAKE 1 TABLET BY MOUTH EVERY DAY IN THE MORNING AND BEFORE BEDTIME 180 Tablet 3 11/21/2022 Active documented as of this encounter (statuses as of 12/11/2022) Active Problems Problem Noted Date S/P left knee arthroscopy 11/20/2022 History of squamous cell carcinoma 11/20 Prediabetes 06/04/2022 Overview: Per Prediabetes protocol Atrial fibrillation with rapid ventricul ar response 11/12/2021 Chronic kidney disease, stage 3a 022 Overview: Per CKD protocol Atrial fibrillation 09/25/2021 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 documented as of this encounter (statuses as of 12/11/2022) Resolved Problems Problem Noted Date Resolved Date Protein-calorie malnutrition 01/19/2019 Deep venous embolism and thrombosis 09/08/2018 09/08/2018 Other pancytopenia 09/08/2018 01/19/2019 Partial intestinal obstruction 06/18/2018 1 03/21/2018 Thrombocytopenia 04/17/2018 11/20/2022 Malignant (primary) neoplasm, unspecified 201609/06/2016 Malignant neoplasm of ovary 09/06/201608/25 Overview: carcinoid Malignant carcinoid tumor of ovary 09/06/2016 09/06/2016 HTN, goal below 140/90 09/06/2016 Pancreatic insufficiency 11/29/2014 017 Overview: Resolved. Was only when on chemotherapy sandostatin Abdominal pain 01/04/2011 09/06/2016 documented as of this encounter (statuses as of 12/11/2022) Immunizations Name Administration Dates Next Due COVID-19 mRNA, LNP-s, No Pre serve, 2-Dose Series (Moderna) 10/11/2020,04/29/2020,04/02/2020 COVID-19, MRNA-LNP, 23-24, P F, 30 MCG/0.3 mL, 12 YRS AND ABOVE, IM ([facility]) 11/21/2022 Covid-19, Mrna, Lnp-s, Pf, B ivalent, 30 Mcg, IM, 12 yrs and above (Pfizer) 11/08/2021 Pneumococcal Conjugate Vacc, 13 Valent (Prevnar) 07/16/2014 Pneumococcal Polysaccharide PPV23 (Pneumovax) 06/26/2015 Rsv Vac., Recomb, Adjuvant, Pf,0.5 Ml (Arexvy) 11/27/2022 Season Influenza, Cell Culte r, 18+ Yrs, With Preserv (Flucelvax) 11/23/2017 Seasonal Influenza, Quadriva lent Hd (Fluzone Hd) 11/24/2022,12/01/2021 Seasonal Influenza, Quadriva lent Hd, 65+ Yrs 10/15/2019 Seasonal Influenza, Quadriva lent, No Preserve, IM 11/20/2016 Seasonal Influenza, Trivalen t, High Dose, No Preserve, IM 10/18/2018,10/30/2017 TDAP (age 10 and older)(Boostrix) 11/30/2010 Varicella Zoster Vaccine (Adult) 01/26/2011 Zoster Vaccine Recombinant (Shingrix) 03/15/2020 ,12/29/2019 documented as of this encounter Social History Tobacco Use Types Packs/Day Years Used Date Smoking Tobacco: Never Smokeless Tobacco: Never Alcohol Use Standard Drinks/Week Comments Yes 0 (1 standard drink = 0.6 oz pur e alcohol) Occasional Food Insecurity Answer Date Recorded Within the past 12 months, y ou worried that your food would run out before you got money to buy more. Never true 04/11/2022 Within the past 12 months, t he food you bought just didn't last and you didn't have money to get more. Never true 04/11/2022 Sex Assigned at Date Recorded Female 05/15/2018 11:33 AM EDT Job Start Date Occupation Industry Not on file Not on file Not on file documented as of this encounter Functional Status Functional Status Response Date of Assess ment Are you deaf or do you have serious difficulty h earing? No 10/13/2013 Are you blind or do you have serious difficulty seeing, even when wearing glasses? No 10/13/2013 Do you have serious difficul ty walking or climbing stairs? (5 years old or older) No 10/13/2013 Do you have difficulty dress ing or bathing? (5 years old or older) No 10/13/2013 Because of a physical, menta l, or emotional condition, do you have difficulty doing errands alone such as visiting a doctor s office or shopping? (15 years old or older) No 10/14/19 14 Cognitive Status Response Date of Assessm ent Because of a physical, menta l, or emotional condition, do you have serious difficulty concentrating, remembering, or making decisions? (5 years old or older No 10/13/2013 documented as of this encounter Plan of Treatment Upcoming Encounters Date Type Specialty Care Team Description 12/13/2022 Imaging Radiology 01/07/2023 Office Visit Family Medicine Bonnie Washburn PA-C [address] [place] [address] 02/05/2023 Imaging Radiology 02/05/2023 Office Visit General Surgery Araceli Solorzano PA-C [address] [place] [address] 03/06/2023 Office Visit Cardiology Augustus Toro DO [address] [place] [address] 05/21/2023 Office Visit Family Medicine Justyna Lee DO [address] [place] [address] Pending Results Name Type Priority Associated Diagnoses Date /Time LIPASE Lab Routine Abdominal pain, epigastric 12/11/2022 9:04 AM EDT COMPREHENSIVE METABOLIC PANEL Lab Routine Abdominal pain, epigastric 12/11/2022 9:04 AM EDT Health Maintenance Due Date Last Done Comments Cologuard 1994 Fecal Occult Blood Test 1994 Sigmoidoscopy 1994 Depression Screening 04/08/2019 04/08/2018 DTaP,Tdap,and Td Vaccines (2 - Td or Tdap) 11/30/2020 11/30/2010 Mammogram 01/31/2023 01/31/2022, 12/26, 11/19/2019, Additional history exists Albumin/Creatinine Ratio 02/13/2023 02/13/2022 GFR 04/18/2023 10/16/2022, 04/27, 01/09/2022, Additional history exists Colonoscopy 07/01/2023 06/30/2013, 07/2013, 06/19/2011, Additional history exists Colorectal Cancer Screening 07/01/2023 CKD PHOS USE SMARTSET 45028 11/21/202310/27, 10/16/2013, 10/15/2013, Additional history exists HbA1c 11/21/2023 11/20/2022, 04/27, 11/13/2016 CKD HGB USE SMARTSET 90558 12/12/202312/11, 12/11/2022, 10/16/2022, Additional history exists DXA Scan 09/03/2025 09/03/2022, 07/27, 09/10/2016, Additional history exists Lipid Panel 10/17/2027 10/16/2022, 09/26, 11/07/2020, Additional history exists Pneumococcal Vaccine: 65+ Years Completed 06/26/2015, 07/16/2014 Zoster Vaccines Completed 03/15/2020, 11/0 04/2019, 01/26/2011 COVID-19 Vaccine Completed 11/21/2022, , 10/11/2020, Additional history exists Influenza Vaccine (FLU shot) Completed , 12/01/2021, 10/15/2019, Additional history exists GARDASIL-HPV IMMUNIZATION SERIES Aged Out No longer eligible based on patient's age to complete this topic Hepatitis B Aged Out No longer eligi ble based on patient's age to complete this topic MENINGOCOCCAL (MENACTRA/MENVEO) Aged Out No longer eligible based on patient's age to complete this topic documented as of this encounter Medical Devices Not on filedocumented as of this encounter Procedures Procedure Name Priority Date/Time Associated Diagnosis Comments DIFFERENTIAL, AUTOMATED Routine 12/11/2022 9:04 AM EDT Abdominal pain, epigastric CBC Routine 12/11/2022 9:04 AM EDT Abdominal pain, epigastric CBC Routine 12/11/2022 9:04 AM EDT Abdominal pain, epigastric documented in this encounter Results * (ABNORMAL) DIFFERENTIAL, AUTOMATED (12/11/2022 9:04 AM EDT) WBC 4.85 4.00 - 10.80 K/uL 12/11/2022 9:18 AM EDT [facility] Neutrophils % 49.0 40.0 - 75.0 % 12/11/2022 9:18 AM EDT [facility] Lymphocytes % 35.7 18.0 - 42.0 % 12/11/2022 9:18 AM EDT [facility] Monocytes % 12.6(H) 1.0 - 11.0 % 12/11/2022 9:18 AM EDT [facility]-02 Eosinophils % 2.5 0.0 - 6.0 % 12/11/2022 9:18 AM EDT [facility] 56- Basophils % 0.2 0.0 - 2.0 % 12/11/2022 9:18 AM EDT [facility] 56 Absolute Neutrophils 2.38 1.80 - 7.70 K/uL 12/11/2022 9:18 AM EDT [facility] 56 Absolute Lymphocytes 1.73 1.00 - 4.80 K/ul 12/11/2022 9:18 AM EDT [facility] 56- Absolute Monocytes 0.61 0.00 - 1.10 K/uL 12/11/2022 9:18 AM EDT [facility] 56- Absolute Eosinophils 0.12 0.00 - 0.70 K/uL 12/11/2022 9:18 AM EDT [facility] 56- Absolute Basophils 0.01 0.00 - 0.20 K/uL 12/11/2022 9:18 AM EDT [facility] Blood Venous blood specimen / Unknown Venipuncture / Unknown 12/11/2022 9:04 AM EDT 12/11/2022 9:04 AM EDT Justyna Lee DO LAB BLOOD ORDER [facility] [address] [place] [address] * CBC (12/11/2022 9:04 AM EDT) WBC 4.85 4.00 - 10.80 K/uL 12/11/2022 9:17 AM EDT [facility] 56- RBC 4.46 3.85 - 5.15 M/uL 12/11/2022 9:17 AM EDT [facility] 56 HGB 13.2 12.0 - 15.3 g/dL 12/11/2022 9:17 AM EDT [facility] 56- HCT 40.8 36.0 - 45.2 % 12/11/2022 9:17 AM EDT [facility] 56- MCV 91.5 81.5 - 97.5 fL 12/11/2022 9:17 AM EDT [facility] 56- MCH 29.6 27.0 - 34.0 pg 12/11/2022 9:17 AM EDT [facility] 56- MCHC 32.4 32.0 - 36.0 g/dL 12/11/2022 9:17 AM EDT [facility] 56- RDW 14.0 11.5 - 15.5 % 12/11/2022 9:17 AM EDT [facility] 56- PLT 166 140 - 400 K/uL 12/11/2022 9:17 AM EDT [facility] 56- MPV 10.9 6.6 - 11.1 fL 12/11/2022 9:17 AM EDT [facility] 56- Blood Venous blood specimen / Unknown Venipuncture / Unknown 12/11/2022 9:04 AM EDT 12/11/2022 9:04 AM EDT Justyna Lee DO LAB BLOOD ORDER [facility] [address] [facility] [address] documented in this encounter Visit Diagnoses Diagnosis Abdominal pain, epigastric documented in this encounter Advance Directives Latest Code Status on File Code Status Date Activated Date Inactivated Comments Full Code 03/16/2014 8:45 AM 03/16/2014 4:34 PM Question Answer Comments Discussion of Advance Direct clem occurred with: Not Discussed Does the patient have a Living Will? No Does the patient have Health Care Power of Immigration Judge? No Code Status History Code Status Date Activated Date Inactivated Comments Full Code 10/13/2013 4:54 PM 10/16/2013 4:29 PM This order reflects the patients wishes and were consensually agreed upon. Full Code 10/13/2013 1:22 PM 10/13/2013 4:54 PM This order reflects the patients wishes and were consensually agreed upon. Care Teams Card Writer Hand Relationship Specialty Start Date End Date Justyna Lee DO [address] [facility] [address] PCP - General Family Medicine 04/17/18 documented as of this encounter
--- OUTSIDE RECORDS SUMMARY | 2023-01-19 15:08 | External Medical Summary | Summary of Care ---
Author Name Unknown Organization [facility] Address [address] [place] [address] Phone [phone] Care Team Providers Care Loss Prevention Associate Name Role Phone Justyna Lee DO Primary Care Provider Reason for Visit * Reason Onset Date Comments Films 12/19/2022 Encounter Details Date Type Department Care Team (Late st Contact Info) Description 12/19/2022 Telephone Radiology Film File [address] [place], [place] [id number] Justyna Lee DO [address] [place] [address] Films Allergies Active Allergy Reactions Criticality Noted Date Comments Aloe Vera Rash Medium 07/02/2014 Capecitabine Rash 11/29/2017 Ceftin Diarrhea 01/04/2011 Patient developed C Diff. Latex Other (Please comment) 01/04/2011 Sores in mouth when at the dentist. Possible reaction. Nickel Rash Medium 08/02/2022 Penicillins Rash 01/04/2011 Pneumococcal Vaccine Other (Please comment) 05/15/2016 Site of injection became warm to touch, red, and swollen. documented as of this encounter (statuses as of 12/19/2022) Medications Medication Sig Dispensed Refills Start Date [...] 3 11/22/2022 Active Vitamin D3 1.25 MG (89302 UT) Oral Capsule TAKE 1 CAPSULE BY MOUTH ONCE WEEKLY 12 Capsule 3 11/22/2022 Active Eliquis 5 MG Oral Tablet (Apixaban) TAKE 1 TABLET BY MOUTH EVERY DAY IN THE MORNING AND BEFORE BEDTIME 180 Tablet 3 11/21/2022 Active documented as of this encounter (statuses as of 12/19/2022) Active Problems Problem Noted Date Diagnosed Date S/P left knee arthroscopy 11/20/2022 History of squamous cell carcinoma 11/20/2022 Prediabetes 06/04/2022 Overview: Per Prediabetes protocol Atrial fibrillation with rapid ventricular respo nse 11/12/2021 Chronic kidney disease, stage 3a 11/06/2021 Overview: Per CKD protocol Atrial fibrillation 09/25/2021 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 documented as of this encounter (statuses as of 12/19/2022) Resolved Problems Problem Noted Date Diagnosed Date Resolved Date Protein-calorie malnutrition 01/19/2019 11/12/2021 Deep venous embolism and thrombosis 09/08/2018 09/08/2018 Other pancytopenia 09/08/2018 9 Partial intestinal obstruction 06/18/2018 01/19/2019 Thrombocytopenia 04/17/2018 11/20/2022 Malignant (primary) neoplasm, unspecified 09/06/2016 09/06/2016 Malignant neoplasm of ovary 09/06/2016 09/06/2016 Overview: carcinoid Malignant carcinoid tumor of ovary 09/06/2016 09/06/2016 HTN, goal below 140/90 09/06/201611/20 Pancreatic insufficiency 11/29/2014 Overview: Resolved. Was only when on chemotherapy sandostatin Abdominal pain 01/04/2011 09/06/2016 documented as of this encounter (statuses as of 12/19/2022) Immunizations Name Administration Dates Next Due COVID-19 mRNA, LNP-s, No Pre serve, 2-Dose Series (Moderna) 10/11/2020,04/29/2020,04/02/2020 COVID-19, MRNA-LNP, 23-24, P F, 30 MCG/0.3 mL, 12 YRS AND ABOVE, IM ([facility] [email or web address]) 11/21/2022 Covid-19, Mrna, Lnp-s, Pf, B ivalent, 30 Mcg, IM, 12 yrs and above ([address]) 11/08/2021 Pneumococcal Conjugate Vacc, 13 Valent (Prevnar) [...] = 0.6 oz pur e alcohol) Occasional PHQ-2 Answer Date Recorded PHQ-2 Score 0 04/09/2018 Hunger Vital Sign Answer Date Recorded Within the past 12 months, y ou worried that your food would run out before you got the money to buy more. Never true 04/11/19 23 Within the past 12 months, t he food you bought just didn't last and you didn't have money to get more. Never true 04/11/2022 Sex and Gender Information Value Date Recorded Sex Assigned at Female 05/15/2018 11:33 AM EDT Gender Identity Female 05/15/2018 11:33 AM EDT Sexual Orientation Straight 05/15/2018 11 :33 AM EDT Job Start Date Occupation Industry [...] No 10/13/2013 documented as of this encounter Miscellaneous Notes * Telephone Encounter - COLTON Farmer - 12/19/2022 2:29 PM EDT Patient requested for 12-13-22 Ultrasound Image(s) and report(s) be prepared and available for pickup Disc created and placed at [facility] front office spec with Release of Information form Patient notified that disc ready for pickup Patient also requested for disc to be mailed to specialist in [place] for upcoming appointment. Disc/reports created and mailed to: [facility] Indira Perez [facility] [place] [address] documented in this encounter Plan of Treatment Upcoming Encounters Date Type Department Care Team (Late st Contact Info) Description 01/07/2023 11:00 AM EST Office Visit [facility] [address] [place] [address] Bonnie Washburn PA-C [address] [place] [address] 02/05/2023 11:45 AM EST Imaging Radiology [facility] [address] [place] [address] 02/05/2023 12:30 PM EST Office Visit General Surgery [facility] [address] [address] Araceli Solorzano PA-C [address] [place] [address] 03/06/2023 8:00 AM EST Office Visit Cardiology, [facility] [address] [facility] [place] [address] Augustus Toro, DO [address] [facility] [place] [address] 05/21/2023 8:40 AM EDT Office Visit [facility] [address] [place] [address] Justyna Lee, [address] [place] [address] Health Maintenance Due Date Last Done Comments Cologuard 1994 Fecal Occult Blood Test 1994 Sigmoidoscopy 1994 Depression Screening 04/08/2019 04/08/2018 DTaP,Tdap,and Td Vaccines (2 - Td or Tdap) 11/30/2020 11/30/2010 Mammogram 01/31/2023 01/31/2022, 12/26, 11/19/2019, Additional history exists Albumin/Creatinine Ratio 02/13/2023 02/13/2022 GFR 06/12/2023 12/11/2022, 09/26, 05/25/2022, Additional history exists Colonoscopy 07/01/2023 06/30/2013, 07/2013, 06/19/2011, Additional history exists Colorectal Cancer Screening 07/01/2023 CKD PHOS USE SMARTSET 53772 11/21/202310/27, 10/16/2013, 10/15/2013, Additional history exists HbA1c 11/21/2023 11/20/2022, 04/27, 11/13/2016 CKD HGB USE SMARTSET 88139 12/12/202312/11, 12/11/2022, 10/16/2022, Additional history exists DXA Scan 09/03/2025 09/03/2022, 07/27, 09/10/2016, Additional history exists Lipid Panel 10/17/2027 10/16/2022, 09/26, 11/07/2020, Additional history exists Pneumococcal Vaccine: 65+ Years Completed 06/26/2015, 07/16/2014 Zoster Vaccines Completed 03/15/2020, 110 04/2019, 01/26/2011 COVID-19 Vaccine Completed 11/21/2022, , [...] Not on filedocumented as of this encounter Advance Directives Latest Code Status on File Code Status Date Activated Date Inactivated Comments Full Code 03/16/2014 8:45 AM 03/16/2014 4:34 PM Question Answer Comments Discussion of Advance Direct clem occurred with: Not Discussed Does the patient have a Living Will? No Does the patient have Health Care Power of Lpn Care Manager? No Code Status History Code Status Date Activated Date Inactivated Comments Full Code 10/13/2013 4:54 PM 10/16/2013 4:29 PM This order reflects the patients wishes and were consensually agreed upon. Full Code 10/13/2013 1:22 PM 10/13/2013 4:54 PM This order reflects the patients wishes and were consensually agreed upon. Care Teams Loss Prevention Associate Relationship Specialty Start Date End Date Justyna Lee DO [address] [place] [address] PCP - General Family Medicine 04/17/18 documented as of this encounter
--- OUTSIDE RECORDS SUMMARY | 2023-01-19 15:08 | External Medical Summary | Summary of Care ---
Author Name Unknown Organization [facility] Address [address] [place] [address] Phone [phone] Care Team Providers Care Engineering Vice President Name Role Phone Justyna Lee DO Primary Care Provider Reason for Visit * Reason Comments Abdominal Pain Encounter Details Date Type Department Care Team (Late st Contact Info) Description 12/10/2022 4:40 PM EDT Office Visit Family Practice [facility] [address] [facility] [address] Justyna Lee DO [address] [facility] [place] [id number] Abdominal pain, epigastric*; Flank pain Allergies Active Allergy Reactions Criticality Noted Date [...] as of this encounter (statuses as of 01/03/2023) Medications Medication Sig Dispensed Refills Start Date [...] 3 11/22/2022 Active Vitamin D3 1.25 MG (76803 UT) Oral Capsule TAKE 1 CAPSULE BY MOUTH ONCE WEEKLY 12 Capsule 3 11/22/2022 Active Eliquis 5 MG Oral Tablet (Apixaban) TAKE 1 TABLET BY MOUTH EVERY DAY IN THE MORNING AND BEFORE BEDTIME 180 Tablet 3 11/21/2022 Active documented as of this encounter (statuses as of 01/03/2023) Active Problems Problem Noted Date Diagnosed Date [...] as of this encounter (statuses as of 01/03/2023) Resolved Problems Problem Noted Date Diagnosed Date [...] as of this encounter (statuses as of 01/03/2023) Immunizations Name Administration Dates Next Due COVID-19 mRNA, LNP-s, No Pre serve, 2-Dose Series (Moderna) 10/11/2020,04/29/2020,04/02/2020 COVID-19, MRNA-LNP, 23-24, P F, 30 MCG/0.3 mL, 12 YRS AND ABOVE, IM (Quack-Comirnat) 11/21/2022 Covid-19, Mrna, Lnp-s, Pf, B ivalent, [...] on file documented as of this encounter Last Filed Vital Signs Vital Sign Reading Time Taken Comments Blood Pressure 136/72 12/10/2022 4:31 PM EDT Pulse 70 12/10/2022 4:31 PM EDT Temperature 37.1 C (98.8 F) 12/10/2022 4:31 PM ED T Respiratory Rate 16 12/10/2022 4:31 PM EDT Oxygen Saturation 97% 12/10/2022 4:31 PM EDT Inhaled Oxygen Concentration - - Weight 66 kg (145 lb 6.4 oz) 12/10/2022 4:31 PM EDT Height - - Body Mass Index 26.17 09/20/2022 10:38 AM EDT documented in this encounter Functional Status Functional Status Response [...] No 10/13/2013 documented as of this encounter Progress Notes * Justyna Lee, DO - 12/10/2022 4:47 PM EDT Subjective: Regina Felipe is a 72 year old female. Chief Complaint Patient presents with Abdominal Pain HPI: Regina Felipe presents with complaints of upper abdominal pain that radiates around to her back for past 1.5 weeks. 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 Patient's past medical, surgical, family, and social history were reviewed. Medications, allergies, immunizations, and health care maintenance screenings were also reviewed. 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 45 Tablet 3 Vitamin D3 1.25 MG (46239 UT) Oral Capsule TAKE 1 CAPSULE BY MOUTH ONCE WEEKLY 12 Capsule 3 Eliquis 5 MG Oral Tablet (Apixaban) TAKE 1 TABLET BY MOUTH EVERY DAY IN THE MORNING AND BEFORE BEDTIME 180 Tablet 3 Metoprolol Tartrate 25 MG Oral Tablet (Lopressor) TAKE 1/2 TABLET BY MOUTH IN THE MORNING AND TAKE 1/2 TABLET BY MOUTH AT BEDTIME 90 Tablet 1 Ondansetron HCl 8 MG Oral Tablet (Zofran) Take 1 Tablet by mouth every 8 hours as needed for Nausea. 30 Tablet 11 Prochlorperazine Maleate 5 MG Oral Tablet Take by mouth 1 Tablet every 6 hours as needed for Nausea. 30 Tablet 0 Vitamin B-12 1000 MCG Sublingual Tablet Sublingual Place 1 Tablet under the tongue in the morning. No facility-administered medications prior to visit. Last reviewed on 12/10/2022 4:31 PM by Dodie Siu LPN Review of patient's allergies indicates: Allergen Reactions Aloe Vera Rash Nickel Rash Capecitabine Rash Ceftin Diarrhea Patient developed C Diff. Latex Other (Please comment) Sores in mouth when at the dentist. Possible reaction. Penicillins Rash Pneumococcal Vaccine Other (Please comment) Site of injection became warm to touch, red, and swollen. Objective: BP 136/72 | Pulse 70 | Temp 37.1 C (98.8 F) (Tympanic) | Resp 16 | Wt 66 kg (145 lb 6.4 oz) | SpO2 97% | BMI 26.17 kg/m | BSA 1.71 m Physical Exam: General: alert, healthy, and no distress Abdomen: abdomen soft, non-tender, normal bowel sounds, no masses or organomegaly, and no rebound or guarding ASSESSMENT/PLAN: Abdominal pain, epigastric (Primary) - LIPASE; Future; Expected date: 12/10/2022 - CBC WITH WBC DIFFERENTIAL; Future; Expected date: 12/10/2022 - COMPREHENSIVE METABOLIC PANEL; Future; Expected date: 12/10/2022 - US ABDOMEN LIMITED; Future; Expected date: 12/11/2022 - URINALYSIS, POINT OF CARE (ENTER/EDIT) Flank pain - URINALYSIS, POINT OF CARE (ENTER/EDIT) Follow Up: Return in about 4 weeks (around 01/07/2023), or if symptoms worsen or fail to improve, for Clinic Visit. | For: Clinic Visit | Check-out note: US abd 30 min spent with patient, reviewing history, performing physical exam, reviewing labs, studies, specialist OVNs, and reports, educating and coordinating care, discussing treatment and completing this note Justyna Lee DO documented in this encounter Nursing Notes * Dodie Siu LPN - 12/10/2022 4:34 PM EDT Regina Felipe presents with complaints of upper abdominal pain that radiates around to her back for past 1.5 weeks. documented in this encounter Plan of Treatment Upcoming Encounters Date Type Department Care Team (Late st Contact Info) Description 01/07/2023 11:00 AM EST Office Visit [facility] [address] [place] [address] Bonnie Washburn PA-C [address] [place] [address] 02/05/2023 11:45 AM EST Imaging Radiology [facility] [address] [place] [address] 02/05/2023 12:30 PM EST Office Visit General Surgery [facility] [address] [address] Araceli Solorzano PA-C [address] [place] [address] 03/06/2023 8:00 AM EST Office Visit Cardiology, [facility] [address] [facility] [place] [address] Augustus Toro DO [address] [facility] [place] [address] 05/21/2023 8:40 AM EDT Office Visit [facility] [address] [place] [address] Justyna Lee, DO [address] [place] [address] Health Maintenance Due Date Last Done Comments [...] Cancer Screening 07/01/2023 CKD PHOS USE SMARTSET 48284 11/21/202310/27, 10/16/2013, 10/15/2013, Additional history exists HbA1c 11/21/2023 11/20/2022, 04/27, 11/13/2016 CKD HGB USE SMARTSET 62233 12/12/202312/11, 12/11/2022, 10/16/2022, Additional history exists DXA [...] Procedure Name Priority Date/Time Associated Diagnosis Comments URINALYSIS, POINT OF CARE (ENTER/EDIT) Routine 12/10/2022 Abdominal pain, epigastric Flank pain documented in this encounter Results * US ABDOMEN LIMITED (12/13/2022 3:00 PM EDT) Anatomical Region Laterality Modality Abdomen, Body Ultrasound 12/13/2022 2:19 PM EDT Impressions 12/16/2022 7:52 AM EDT IMPRESSION: 1. Two slightly hypoechoic masses in the liver measuring 2.9 x 2.3 x 2.7 cm and the left lobe and 3 x 2.5 x 3.6 cm in the caudate region. Findings are concerning for possible neoplastic process and further nonemergent evaluation with CT or MRI with liver protocol is recommended if not previously obtained. By report patient has multiple prior CT imaging from outside institution and correlation with prior imaging is recommended. 2. Shadowing gallstones are present. No ultrasound evidence of acute cholecystitis. 3. Pancreatic duct is slightly prominent measuring 2.6 mm. 1.8 x 1.1 x 0.8 cm cyst in the midportion of the pancreas which is relatively simple in appearance. 4. Remainder of findings as described. THIS DOCUMENT HAS BEEN ELECTRONICALLY SIGNED BY JACQUE DOLAN MD Narrative 12/16/2022 7:52 AM EDT PROCEDURE INFORMATION: Exam: US Abdomen; Limited Exam date and time: 12/13/2022 2:19 PM Age: 72 years old Clinical indication: Epigastric pain; Additional info: Pain upper abdomn to back, h/o carcinoid with metastasis, surgery, multiple sbo, h/o pancreatic cysts, liver cysts, gb stones TECHNIQUE: Imaging protocol: Real time ultrasound of the abdomen with image documentation. Limited exam focused on the region of clinical interest. COMPARISON: CT ABDOMEN PELVIS WO(Adult) 04/04/2020 12:08 PM FINDINGS: Liver: Two slightly hypoechoic masses in the liver measuring 2.9 x 2.3 x 2.7 cm and the left lobe and 3 x 2.5 x 3.6 cm in the caudate region. Findings are concerning for possible neoplastic process and further nonemergent evaluation with CT or MRI with liver protocol is recommended if not previously obtained. 2 x 1.9 cm liver cyst noted for which no specific follow-up is required. Gallbladder: Shadowing gallstones are present. No ultrasound evidence of acute cholecystitis. Biliary ducts: The common bile duct measures 5 mm. Pancreas: Pancreatic duct is slightly prominent measuring 2.6 mm. 1.8 x 1.1 x 0.8 cm cyst in the midportion of the pancreas which is relatively simple in appearance. Right kidney: The right kidney measures 9.6 x 4.5 x 5 cm. No evidence of hydronephrosis or stones. Procedure Note Jacque Dolan MD - 12/16/2022 PROCEDURE INFORMATION: Exam: US Abdomen; Limited Exam date and time: 12/13/2022 2:19 PM Age: 72 years old Clinical indication: Epigastric pain; Additional info: Pain upper abdomnto back, h/o carcinoid with metastasis, surgery, multiple sbo, h/o pancreatic cysts, liver cysts, gb stones TECHNIQUE: Imaging protocol: Real time ultrasound of the abdomen with imagedocumentation. Limited exam focused on the region of clinical interest. COMPARISON: CT ABDOMEN PELVIS WO(Adult) 04/04/2020 12:08 PM FINDINGS: Liver: Two slightly hypoechoic masses in the liver measuring 2.9 x 2.3 x2.7 cm and the left lobe and 3 x 2.5 x 3.6 cm in the caudate region. Findings are concerning for possible neoplastic process and further nonemergentevaluation with CT or MRI with liver protocol is recommended if not previouslyobtained. 2 x 1.9 cm liver cyst noted for which no specific follow-up is required. Gallbladder: Shadowing gallstones are present. No ultrasound evidence ofacute cholecystitis. Biliary ducts: The common bile duct measures 5 mm. Pancreas: Pancreatic duct is slightly prominent measuring 2.6 mm. 1.8 x1.1 x 0.8 cm cyst in the midportion of the pancreas which is relatively simplein appearance. Right kidney: The right kidney measures 9.6 x 4.5 x 5 cm. No evidence of hydronephrosis or stones. IMPRESSION IMPRESSION: 1. Two slightly hypoechoic masses in the liver measuring 2.9 x 2.3 x 2.7cm and the left lobe and 3 x 2.5 x 3.6 cm in the caudate region. Findings are concerning for possible neoplastic process and further nonemergentevaluation with CT or MRI with liver protocol is recommended if not previouslyobtained. By report patient has multiple prior CT imaging from outside institutionand correlation with prior imaging is recommended. 2. Shadowing gallstones are present. No ultrasound evidence of acute cholecystitis. 3. Pancreatic duct is slightly prominent measuring 2.6 mm. 1.8 x 1.1 x0.8 cm cyst in the midportion of the pancreas which is relatively simple in appearance. 4. Remainder of findings as described. THIS DOCUMENT HAS BEEN ELECTRONICALLY SIGNED BY JACQUE DOLAN MD Justyna Lee DO RAD ULTRASOUND * COMPREHENSIVE METABOLIC PANEL (12/11/2022 9:04 AM EDT) BUN 12 6 - 20 mg/dL 12/11/2022 10:52 AM EDT [facility] 56- Creatinine 1.0 0.5 - 1.0 mg/dL 12/11/2022 10:52 AM EDT [facility] 56- Estimated Glomerular Filtration Rate 60 >=60 mL/min 12/11/2022 10:52 AM EDT [facility] 56- Comment:eGFR is calculated b ased on the CKD-EPI 2020 equation Sodium 143 135 - 146 mmol/L 12/11/2022 10:52 AM EDT [facility] 56- Potassium 4.1 3.5 - 5.1 mmol/L 12/11/2022 10:52 AM EDT [facility] 56- Chloride 104 98 - 107 mmol/L 12/11/2022 10:52 AM EDT [facility] 56- CO2 27 22 - 32 mmol/L 12/11/2022 10:52 AM EDT [facility] 56- Anion Gap 12 7 - 15 mmol/L 12/11/2022 10:52 AM EDT [facility] 56-02 Glucose 112 70 - 120 mg/dL 12/11/2022 10:52 AM EDT [facility] 5602 Albumin 4.1 3.8 - 5.0 g/dL 12/11/2022 10:52 AM EDT [facility] 5602 AST 17 10 - 35 U/L 12/11/2022 10:52 AM EDT [facility] 5602 Alkaline Phosphatase 100 35 - 130 U/L 12/11/2022 10:52 AM EDT [facility] 5602 Bilirubin, Total 0.5 <=1.2 mg/dL 12/11/2022 10:52 AM EDT [facility] 5602 Calcium 9.9 8.4 - 10.2 mg/dL 12/11/2022 10:52 AM EDT [facility] 5602 Protein 6.5 6.0 - 8.3 g/dL 12/11/2022 10:52 AM EDT [facility] 5602 ALT 12 10 - 35 U/L 12/11/2022 10:52 AM EDT [facility] 5602 Blood Venous blood specimen / Unknown Venipuncture / Unknown 12/11/2022 9:04 AM EDT 12/11/2022 9:04 AM EDT Justyna Lee DO LAB BLOOD ORDER [facility] [address] [place] [address] * LIPASE (12/11/2022 9:04 AM EDT) Lipase 25 13 - 60 U/L 12/11/2022 5:18 PM EDT [facility] Blood Venous blood specimen / Unknown Venipuncture / Unknown 12/11/2022 9:04 AM EDT 12/11/2022 9:04 AM EDT Justyna Lee DO LAB BLOOD ORDER [facility] [address] [place] [address] * URINALYSIS, POINT OF CARE (ENTER/EDIT) (12/10/2022) Color, Urine Yellow Yellow or Light Yellow Clarity, Urine Clear Clear Glucose, Urine Negative Negative mg/dL Bilirubin, Urine Negative Negative Ketone, Urine Negative Negative mg/dL Specific Bowdle, Urine 1.025 1.003 - 1.030 Blood, Urine Negative Negative pH, Urine 5.0 5.0 - 7.5 units Protein, Urine Negative Negative mg/dL Urobilinogen, Urine 0.2 0.2 - 1.0 mg/dL Nitrite, Urine Negative Negative Esterase, Urine Negative Negative Urine 12/10/2022 Justyna Lee DO LAB POINT OF CA RE TEST ENTER/EDIT ORDERABLES documented in this encounter Visit Diagnoses Diagnosis Abdominal pain, epigastric- Primary Flank pain Abdominal pain, unspecified site Abdominal pain, epigastric documented in this encounter Advance Directives Latest Code Status on File Code Status Date Activated Date Inactivated Comments Full Code 03/16/2014 8:45 AM 03/16/2014 4:34 PM Question Answer Comments Discussion of Advance Direct clem occurred with: Not Discussed Does the patient have a Living Will? No Does the patient have Health Care Power of Ela Teacher? No Code Status History Code Status Date Activated Date Inactivated Comments Full Code 10/13/2013 4:54 PM 10/16/2013 4:29 PM This order reflects the patients wishes and were consensually agreed upon. Full Code 10/13/2013 1:22 PM 10/13/2013 4:54 PM This order reflects the patients wishes and were consensually agreed upon. Care Teams Engineering Vice President Relationship Specialty Start Date End Date Justyna Lee DO [address] [place] [address] PCP - General Family Medicine 04/17/18 documented as of this encounter"
--- OUTSIDE RECORDS SUMMARY | 2023-01-19 15:09 | External Medical Summary | Summary of Care ---
Author Name Unknown Organization [facility] Address [address] [facility] [address] Phone [phone] Care Team Providers Care Weigh And Charge Worker Name Role Phone RosaJustyna DO Primary Care Provider Reason for Visit * Reason Onset Date Comments Test Results 10/17/2022 Encounter Details Date Type Department Care Team Description 10/17/2022 [facility] [address] [facility] [place] [address] Pako Velez PA-C [address] [facility] [place] [address] Test Results Allergies Active Allergy Reactions Severity Noted Date [...] as of this encounter (statuses as of 10/17/2022) Medications Medication Sig Dispensed Refills Start Date End Date Status Vitamin B-12 1000 MCG Sublingual Tablet Sublingual Place 1 Tablet under the tongue in the morning. 0 04/15/2021 Active Prochlorperazine Maleate 5 MG Oral TabletIndications: Multiple metastatic carcinoid tumors (HCC) Take by mouth 1 Tablet every 6 hours as needed for Nausea. 30 Tablet 0 10/19/2021 Active Apixaban 5 MG Oral Tablet (Eliquis) Take by mouth 1 Tablet in the morning AND 1 Tablet before bedtime. 180 Tablet 3 12/19/2021 Active Vitamin D3 1.25 MG (14440 UT) Oral Capsule TAKE 1 CAPSULE BY MOUTH ONCE WEEKLY 12 Capsule 3 01/09/2022 Active Ondansetron HCl 8 MG Oral Tablet (Zofran)Indication s:Hx SBO Take 1 Tablet by mouth every 8 hours as needed for Nausea. 30 Tablet 11 02/13/2022 Active Atorvastatin Calcium 10 MG Oral Tablet (Lipitor) TAKE 1 TABLET BY MOUTH EVERY DAY 90 Tablet 2 04/11/2022 Active Additional Information Patient taking differently: 10 mg Oral EVERY OTHER DAY, Reported on 08/02/2022 Metoprolol Tartrate 25 MG Oral Tablet (Lopressor) TAKE 1/2 TABLET BY MOUTH IN THE MORNING AND TAKE 1/2 TABLET BY MOUTH AT BEDTIME 90 Tablet 1 09/12/2022 Active Sulfamethoxazole-T rimethoprim 800-160 MG Oral Tablet (Bactrim DS) TAKE 1 TABLET BY MOUTH TWICE A DAY FOR 10 DAYS 0 09/14/2022 Active documented as of this encounter (statuses as of 10/17/2022) Active Problems Problem Noted Date Prediabetes 06/04/2022 Overview: Per Prediabetes protocol Atrial fibrillation with rapid ventricul ar response 11/12/2021 Chronic kidney disease, stage 3a 022 Overview: Per CKD protocol Neuro-endocrine carcinoma 04/11/2020 S/P exploratory laparotomy 09/08/2018 Hx SBO 09/08/2018 Thrombocytopenia 04/17/2018 Secondary malignant neoplasm of retroper itoneum and peritoneum 09/06/2016 Multiple metastatic carcinoid tumors HTN, goal below 140/90 09/06/2016 Hypercholesteremia 09/06/2016 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 documented as of this encounter (statuses as of 10/17/2022) Resolved Problems Problem Noted Date Resolved Date Protein-calorie malnutrition 01/19/2019 Deep venous embolism and thrombosis 09/08/2018 09/08/2018 Other pancytopenia 09/08/2018 01/19/2019 Partial intestinal obstruction 06/18/2018 1 03/21/2018 Malignant (primary) neoplasm, unspecified 201609/06/2016 Malignant neoplasm of ovary 09/06/201608/25 Overview: carcinoid Malignant carcinoid tumor of ovary 09/06/2016 09/06/2016 Pancreatic insufficiency 11/29/2014 017 Overview: Resolved. Was only when on chemotherapy sandostatin Abdominal pain 01/04/2011 09/06/2016 documented as of this encounter (statuses as of 10/17/2022) Immunizations Name Administration Dates Next Due COVID-19 mRNA, LNP-s, No Pre serve, 2-Dose Series (Moderna) 10/11/2020,04/29/2020,04/02/2020 Covid-19, Mrna, Lnp-s, Pf, B ivalent, 30 Mcg, IM, 12 yrs and above (Pricelock) 11/08/2021 Pneumococcal Conjugate Vacc, 13 Valent (Prevnar) 07/16/2014 Pneumococcal Polysaccharide PPV23 (Pneumovax) 06/26/2015 Season Influenza, Cell Culte r, 18+ Yrs, With Preserv (Flucelvax) 11/23/2017 Seasonal Influenza, Quadriva lent Hd (Fluzone Hd) 12/01/2021 Seasonal Influenza, Quadriva lent Hd, 65+ Yrs [...] encounter Miscellaneous Notes * Telephone Encounter - Valeria Moses CMA - 10/17/2022 11:59 AM EDT Portal message sent to pt * Telephone Encounter - Valeria Moses CMA - 10/17/2022 11:58 AM EDT ----- Message from Pako Velez PA-C sent at 10/16/2022 7:29 PM EDT ----- Lipids look good. Liver tests are normal. Kidney function stable. Continue as prescribed. documented in this encounter Plan of Treatment Upcoming Encounters Date Type Specialty Care Team Description 11/20/2022 Office Visit Family Medicine Justyna Lee, DO [address] [facility] [address] 02/05/2023 Imaging Radiology 02/05/2023 Office Visit General Surgery Araceli Solorzano PA-C [address] [facility] [place] [address] 03/06/2023 Office Visit Cardiology Augustus Toro, DO [address] [place] [address] Health Maintenance Due Date Last Done Comments Cologuard 1994 Fecal Occult Blood Test 1994 Sigmoidoscopy 1994 CKD PHOS USE SMARTSET 96132 10/16/201409/26, 10/15/2013, 10/14/2013 Depression Screening, Annual for Pts 12 and Over 04/08/2019 04/08/2018 DTaP,Tdap,and Td Vaccines (2 - Td or Tdap) 11/30/2020 11/30/2010 Influenza Vaccine (FLU shot) (#1) 2022 12/01/2021, 10/15/2019, 10/18/2018, Additional history exists Mammogram 01/31/2023 01/31/2022, 12/26, 11/19/2019, Additional history exists Albumin/Creatinine Ratio 02/13/2023 02/13/2022 GFR 04/18/2023 10/16/2022, 04/27, 01/09/2022, Additional history exists HbA1c 05/26/2023 05/25/2022, 11/13/2016 Colonoscopy 07/01/2023 06/30/2013, 0507/2013, 06/19/2011, Additional history exists Colorectal Cancer Screening 07/01/2023 CKD HGB USE SMARTSET 19583 10/17/202310/16, 10/16/2022, 05/25/2022, Additional history exists DXA Scan 09/03/2025 09/03/2022, 07/27, 09/10/2016, Additional history exists Lipid Panel 10/17/2027 10/16/2022, 09/26, 11/07/2020, Additional history exists Pneumococcal Vaccine: 65+ Years Completed 06/26/2015, 07/16/2014 Zoster Vaccines Completed 03/15/2020, 11/0 04/2019, 01/26/2011 COVID-19 Vaccine Completed 11/08/2021, , 04/29/2020, Additional history exists GARDASIL-HPV IMMUNIZATION SERIES Aged [...] the patient have Health Care Power of Blueprint Duplicator? No Code Status History Code Status Date Activated Date Inactivated Comments Full Code 10/13/2013 4:54 PM 10/16/2013 4:29 PM This order reflects the patients wishes and were consensually agreed upon. Full Code 10/13/2013 1:22 PM 10/13/2013 4:54 PM This order reflects the patients wishes and were consensually agreed upon. Care Teams Weigh And Charge Worker Relationship Specialty Start Date End Date Justyna Lee, [address] [place] [address] PCP - General Family Medicine 04/17/18 documented as of this encounter
--- OUTSIDE RECORDS SUMMARY | 2023-01-19 15:09 | External Medical Summary | Summary of Care ---
Author Name Unknown Organization [facility] Address [address] [place] [facility] [place] [address] Phone [phone] Care Team Providers Care Station Mechanic Name Role Phone Diana Lee DO Primary Care Provider Reason for Visit * Reason Comments eRx-Medication Refill Encounter Details Date Type Department Care Team Description 11/20/2022 Refill Family Practice [facility] [place] [address] [facility] [place] [id number] Diana Lee DO 200 [facility] [place] [address] Allergies Active Allergy Reactions Severity Noted Date [...] as of this encounter (statuses as of 11/22/2022) Medications Medication Sig Dispensed Refills Start Date End Date Status Vitamin B-12 1000 MCG Sublingual Tablet Sublingual Place 1 Tablet under the tongue in the morning. 0 04/15/2021 Active Prochlorperazine Maleate 5 MG Oral TabletIndications :Multiple metastatic carcinoid tumors (HCC) Take by mouth 1 Tablet every 6 hours as needed for Nausea. 30 Tablet 0 10/19/2021 Active Ondansetron HCl 8 MG Oral Tablet (Zofran)Indicatio ns:Hx SBO Take 1 Tablet by mouth every [...] 3 11/22/2022 Active Vitamin D3 1.25 MG (52678 UT) Oral Capsule TAKE 1 CAPSULE BY MOUTH ONCE WEEKLY 12 Capsule 3 11/22/2022 Active Eliquis 5 MG Oral Tablet (Apixaban) TAKE 1 TABLET BY MOUTH EVERY DAY IN THE MORNING AND BEFORE BEDTIME 180 Tablet 3 11/21/2022 Active Apixaban 5 MG Oral Tablet (Eliquis) Take by mouth 1 Tablet in the morning AND 1 Tablet before bedtime. 180 Tablet 3 12/19/2021 11/21/2022 Discontinued Vitamin D3 1.25 MG (33581 UT) Oral Capsule TAKE 1 CAPSULE BY MOUTH ONCE WEEKLY 12 Capsule 3 01/09/2022 11/22/2022 Discontinued Atorvastatin Calcium 10 MG Oral Tablet (Lipitor) TAKE 1 TABLET BY MOUTH EVERY DAY 90 Tablet 2 04/11/2022 11/22/2022 Discontinued documented as of this encounter (statuses as of 11/22/2022) Active Problems Problem Noted Date S/P left [...] as of this encounter (statuses as of 11/22/2022) Resolved Problems Problem Noted Date Resolved Date [...] as of this encounter (statuses as of 11/22/2022) Immunizations Name Administration Dates Next Due COVID-19 [...] encounter Miscellaneous Notes * Telephone Encounter - Diana Lee DO - 11/22/2022 7:51 AM EDTSigned Prescriptions: Disp Refills Atorvastatin Calcium 10 MG Oral Tablet (Li*45 Tab*3 Sig: Take 1 Tablet by mouth every other day. Authorizing Provider: DIANA LEE Vitamin D3 1.25 MG (91079 UT) Oral Capsule 12 Cap*3 Sig: TAKE 1 CAPSULE BY MOUTH ONCE WEEKLY Authorizing Provider: DIANA LEE Eliquis 5 MG Oral Tablet (Apixaban) 180 Ta*3 Sig: TAKE 1 TABLET BY MOUTH EVERY DAY IN THE MORNING AND BEFORE BEDTIME Authorizing Provider: DIANA LEE Ordering User: ABBIE CROWE * Telephone Encounter - Abbie Crowe [facility] - 11/21/2022 12:26 PM EDTPending Prescriptions: Disp Refills Atorvastatin Calcium 10 MG Oral Tablet (Li*45 Tab*3 Sig: Take 1 Tablet by mouth every other day. Vitamin D3 1.25 MG (36731 UT) Oral Capsule 12 Cap*3 Sig: TAKE 1 CAPSULE BY MOUTH ONCE WEEKLY Signed Prescriptions: Disp Refills Eliquis 5 MG Oral Tablet (Apixaban) 180 Ta*3 Sig: TAKE 1 TABLET BY MOUTH E VERY DAY IN THE MORNING AND BEFORE BEDTIME Authorizing Provider: DIANA LEE Ordering User: ABBIE CROWE * Telephone Encounter - Abbie Crowe [facility] - 11/21/2022 12:25 PM EDT Pended Atorvastatin to match how the patient is taking which is every OTHER DAY. Pending Prescriptions: Disp Refills Atorvastatin Calcium 10 MG Oral Tablet (L*45 Tab*3 Sig: Take 1 Tablet by mouth every other day. [facility] is currently not authorized to approve refills for the pended medication(s) per refill protocol. Please approve if appropriate. Thank you, Abbie Crowe [facility] Clinical Pharmacist Centralized Clinical Pharmacy Services (CCPS) (formerly Telepharmacy) 11/21/22 12:26 PM [phone] * Telephone Encounter - Abbie Crowe RP - 11/21/2022 12:24 PM EDT Did you pend patient's preferred pharmacy and medication before forwarding?yes Pharmacy: [id number] [address] [place] [address] Pending Prescriptions: Disp Refills Atorvastatin Calcium 10 MG Oral Tablet (L*45 Tab*3 Sig: Take 1 Tablet by mouth every other day. Vitamin D3 1.25 MG (35357 UT) Oral Capsul*12 Cap*3 Sig: TAKE 1 CAPSULE BY MOUTH ONCE WEEKLY Signed Prescriptions: Disp Refills Eliquis 5 MG Oral Tablet (Apixaban) 180 Ta*3 Sig: TAKE 1 TABLET BY MOUTH EVERY DAY IN THE MORNING AND BEFORE BEDTIME Authorizing Provider: DIANA ELE Ordering User: ABBIE CROWE Last Visit: 11/20/2022 (in office), 04/01/2020 (telemedicine) Next Visit: 05/21/2023 If no future appointments scheduled, and last appointment is greater than a year ago, please schedule patient for a follow-up appointment Last date the medication was ordered: 04/11/2022 and 01/09/2022 Is this request for a controlled substance?No Urine Drug Screen:No results found for this or any previous visit. Patient Phone Numbers Labs: Lab Results Component Value Date/Time CREAT 1.0 10/16/2022 07:58 AM CREAT 1.06 05/25/2022 12:00 AM CREAT 0.8 01/08/2019 07:53 AM POTASSIUM 4.1 10/16/2022 07:58 AM POTASSIUM 3.9 05/25/2022 12:00 AM POTASSIUM 4.0 01/08/2019 07:53 AM TSH 1.47 11/20/2022 11:07 AM TSH 1.88 01/08/2019 07:53 AM LDLCALC 87 10/20/2021 07:29 AM LDLCALC 72 01/08/2018 08:16 AM LDLDIRECT 66 10/16/2022 07:58 AM LDLDIRECT 86 08/20/2019 07:57 AM ALT 13 10/16/2022 07:58 AM ALT 18 01/08/2019 07:53 AM HGBA1C 5.7 (H) 11/20/2022 11:07 AM HGBA1C 5.8 (A) 05/25/2022 12:00 AM HGBA1C 5.6 11/13/2016 11:53 AM documented in this encounter Plan of Treatment Upcoming Encounters Date Type Specialty Care Team Description 02/05/2023 Imaging Radiology 02/05/2023 Office Visit General Surgery [facility] [address] 03/06/2023 Office Visit Cardiology Augusuts Toro DO [address] [place] [address] 05/21/2023 Office Visit Family Medicine Diana Lee [facility] [address] [facility] [address] Health Maintenance Due Date Last Done Comments [...] Cancer Screening 07/01/2023 CKD HGB USE SMARTSET 30570 10/17/202310/16, 10/16/2022, 05/25/2022, Additional history exists CKD PHOS USE SMARTSET 53734 11/21/20232 07/2022, 10/16/2013, 10/15/2013, Additional history exists HbA1c 11/21/2023 11/20/2022, 04/27, 11/13/2016 DXA Scan 09/03/2025 09/03/2022, 07/27, 09/10/2016, Additional history exists Lipid Panel 10/17/2027 10/16/2022, 09/26, 11/07/2020, Additional history exists Pneumococcal Vaccine: 65+ Years Completed 06/26/2015, 07/16/2014 Zoster Vaccines Completed 03/15/2020, 110 04/2019, 01/26/2011 COVID-19 Vaccine Completed 11/08/2021, , [...] the patient have Health Care Power of Call Out Clerk? No Code Status History Code Status Date Activated Date Inactivated Comments Full Code 10/13/2013 4:54 PM 10/16/2013 4:29 PM This order reflects the patients wishes and were consensually agreed upon. Full Code 10/13/2013 1:22 PM 10/13/2013 4:54 PM This order reflects the patients wishes and were consensually agreed upon. Care Teams Station Mechanic Relationship Specialty Start Date End Date Diana Lee DO [address] [place] [address] PCP - General Family Medicine 04/17/18 documented as of this encounter
--- OUTSIDE RECORDS SUMMARY | 2023-01-19 15:09 | External Medical Summary ---
Author Name Unknown Address Unknown Organization K01:[facility] [place] [address] [place] [address] Laboratory Report Ordering Provider Test Date Status SANTIAGO ORTIZ 11/20/2022 11:07:06 Final Deficient: <20 ng/mL
Ins ufficient: 20-29 ng/mL
Recommended/Optimum:30-50 ng/mL

Vitamin D intoxication is rare. If suspicious of Vitamin D toxicity, evaluation of serum Calcium and PTH is recommended. Observation Date Value Abnormality Reference (Units ) Status 25-OH Vitamin D total 11/20/2022 11:07:06 47 >19 (ng/mL) Final Performing Location [facility] - [address] [place] [address]
--- OUTSIDE RECORDS SUMMARY | 2023-01-19 15:09 | External Medical Summary ---
Author Name Unknown Address Unknown Organization K09:[facility] [place] [address] Laboratory Report Ordering Provider Test Date Status SANTIAGO ORTIZ 12/11/2022 09:04:31 Final Observation Date Value Abnormality Reference (Units ) Status WBC, Total 12/11/2022 09:04:31 4.85 4.00-10.8 0 (K/uL) Final RBC 12/11/2022 09:04:31 4.46 3.85-5.15 (M/uL) Final Hemoglobin 12/11/2022 09:04:31 13.2 12.0-15.3 (g/dL) Final HCT 12/11/2022 09:04:31 40.8 36.0-45.2 (%) Final MCV 12/11/2022 09:04:31 91.5 81.5-97.5 (fL) Final MCH 12/11/2022 09:04:31 29.6 27.0-34.0 (pg) Final MCHC 12/11/2022 09:04:31 32.4 32.0-36.0 (g/dL) Final RDW 12/11/2022 09:04:31 14.0 11.5-15.5 (%) Final Platelets 12/11/2022 09:04:31 166 140-400 (K /uL) Final MPV 12/11/2022 09:04:31 10.9 6.6-11.1 ( fL) Final Performing Location [facility] [place] [address]
--- OUTSIDE RECORDS SUMMARY | 2023-01-19 15:09 | External Medical Summary ---
Author Name Unknown Address Unknown Organization K01:[facility] [place] - [address] [facility] [address] Laboratory Report Ordering Provider Test Date Status SANTIAGO ORTIZ 11/20/2022 11:07:06 Final Observation Date Value Abnormality Reference (Units ) Status HbA1C 11/20/2022 11:07:06 5.7 Above high normal 4. 0-5.6 (%) Final The use of HbA1c to monitor glycemic status is based on normal hemoglobin and HbA composition. This test should not be used in patients with abnormal hemoglobin that affects the half life of the red blood cell or the in vivo glycation rates. Glucose, estimated average 11/20/2022 11:07:06 117 <126 (mg/dL) Final Performing Location [facility] [place] - [address] [facility] [address]
--- OUTSIDE RECORDS SUMMARY | 2023-01-19 15:09 | External Medical Summary ---
Author Name Unknown Address Unknown Organization K09:[facility] [place] [address] Laboratory Report Ordering Provider Test Date Status [address] 10/16/2022 08:01:18 Final Observation Date Value Abnormality Reference (Units ) Status WBC, Total 10/16/2022 08:01:18 5.04 4.00-10.8 0 (K/uL) Final RBC 10/16/2022 08:01:18 4.52 3.85-5.15 (M/uL) Final Hemoglobin 10/16/2022 08:01:18 13.0 12.0-15.3 (g/dL) Final HCT 10/16/2022 08:01:18 40.5 36.0-45.2 (%) Final MCV 10/16/2022 08:01:18 89.6 81.5-97.5 (fL) Final MCH 10/16/2022 08:01:18 28.8 27.0-34.0 (pg) Final MCHC 10/16/2022 08:01:18 32.1 32.0-36.0 (g/dL) Final RDW 10/16/2022 08:01:18 14.6 11.5-15.5 (%) Final Platelets 10/16/2022 08:01:18 145 140-400 (K /uL) Final MPV 10/16/2022 08:01:18 10.5 6.6-11.1 ( fL) Final Performing Location [facility] [place] [address]
--- OUTSIDE RECORDS SUMMARY | 2023-01-19 15:09 | External Medical Summary ---
Author Name Unknown Address Unknown Organization K09:[facility] [place] [address] Laboratory Report Ordering Provider Test Date Status SANTIAGO ORTIZ 11/20/2022 11:07:06 Final Observation Date Value Abnormality Reference (Units ) Status Phosphate 11/20/2022 11:07:06 2.9 2.5-4.8 (m g/dL) Final Performing Location [facility] [place] [address]
--- OUTSIDE RECORDS SUMMARY | 2023-01-19 15:09 | External Medical Summary | Summary of Care ---
Author Name Unknown Organization [facility] Address [address] [facility] [address] Phone [phone] Care Team Providers Care Laboratory Technology Teacher Name Role Phone PhillippamelaJustyna DO Primary Care Provider Reason for Visit * Reason Comments Emergency Department Follow-Up [facility] ED d ischarge follow up 09/14/2022. Patient states doing better. Encounter Details Date Type Department Care Team Description 09/20/2022 Office Visit General Internal Medicine [facility] [place] [address] [place] [address] Lamin Sterling PA-C 200 [facility] [place] [address] Acute cystitis without hematuria*; Carcinoid tumor of intestine Allergies Active Allergy Reactions Severity Noted Date [...] as of this encounter (statuses as of 09/20/2022) Medications Medication Sig Dispensed Refills Start Date End Date Status Vitamin B-12 1000 MCG Sublingual Tablet Sublingual Place 1 Tablet under the tongue in the morning. 0 04/15/2021 Active Prochlorperazine Maleate 5 MG Oral TabletIndication s:Multiple metastatic carcinoid tumors (HCC) Take by mouth 1 Tablet every 6 hours as needed for Nausea. 30 Tablet 0 10/19/2021 Active Apixaban 5 MG Oral Tablet (Eliquis) Take by mouth 1 Tablet in the morning AND 1 Tablet before bedtime. 180 Tablet 3 12/19/2021 Active Vitamin D3 1.25 MG (79198 UT) Oral Capsule TAKE 1 CAPSULE BY MOUTH ONCE WEEKLY 12 Capsule 3 01/09/2022 Active Ondansetron HCl 8 MG Oral Tablet (Zofran)Indicati ons:Hx SBO Take 1 Tablet by mouth every [...] AT BEDTIME 90 Tablet 1 09/12/2022 Active Sulfamethoxazole -Trimethoprim 800-160 MG Oral Tablet (Bactrim DS) TAKE 1 TABLET BY MOUTH TWICE A DAY FOR 10 DAYS 0 09/14/2022 Active Diclofenac Sodium 75 MG Oral Tablet Delayed Release (Voltaren) Take 1 Tablet by mouth in the morning and 1 Tablet before bedtime. 0 07/05/2022 3 Discontinued Gabapentin 300 MG Oral Capsule (Neurontin) Take 1 Capsule by mouth every afternoon. 0 07/20/2022 3 Discontinued documented as of this encounter (statuses as of 09/20/2022) Active Problems Problem Noted Date Prediabetes 06/04/2022 [...] as of this encounter (statuses as of 09/20/2022) Resolved Problems Problem Noted Date Resolved Date [...] as of this encounter (statuses as of 09/20/2022) Immunizations Name Administration Dates Next Due COVID-19 mRNA, LNP-s, No Pre serve, 2-Dose Series (Moderna) 10/11/2020,04/29/2020,04/02/2020 Covid-19, Mrna, Lnp-s, Pf, B ivalent, 30 Mcg, IM, 12 yrs and above (Pfizer) 11/08/2021 Pneumococcal Conjugate Vacc, 13 Valent (Prevnar) 07/16/2014 Pneumococcal Polysaccharide PPV23 (Pneumovax) 06/26/2015 Seasonal Influenza, Cell Cul ture, 18 Yrs & Older 11/23/2017 Seasonal Influenza, Quadriva lent Hd (Fluzone [...] Date Smoking Tobacco: Never Smokeless Tobacco: Never Tobacco Cessation:Counseling Given: Not Answered Alcohol Use Standard Drinks/Week Comments Yes 0 [...] Sign Reading Time Taken Comments Blood Pressure 120/68 09/20/2022 10:38 AM EDT Pulse 89 09/20/2022 10:38 AM EDT Temperature 37.2 C (99 F) 09/20/2022 10: 38 AM EDT Respiratory Rate - - Oxygen Saturation 98% 09/20/2022 10: 38 AM EDT Inhaled Oxygen Concentration - - Weight 66.6 kg (146 lb 12.8 oz) 023 10:38 AM EDT Height 158.8 cm (5' 2.5") 09/20/2022 10 :38 AM EDT Body Mass Index 26.42 09/20/2022 10:38 AM EDT documented in this [...] as of this encounter Progress Notes * Lamin Sterling PA-C - 09/20/2022 10:31 AM EDT Subjective: Regina Felipe is a 72 year old female. Chief Complaint Patient presents with Emergency Department Follow-Up [facility] ED discharge follow up 09/14/2022. Patient states doing better. HPI: 72 y/o female with hx DCIS, carcinoid tumors of the intestine, HTN, HLD, thrombocytopnenia, CKD III, atrial fibrillation prediabetes seen today to follow up on recent ER visit to [facility] on 09/14/22where she presented for complaint of possible UTI. 36 hours of right sided flank pain and urinary frequency along with temp of reported 100.2. (37.2 on arrival at ER). She was given 10 day course of Bactrim for UTI. Flank pain resolved. Urinary symptoms resolved. 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 Prochlorperazine Maleate 5 MG Oral Tablet Take by mouth 1 Tablet every 6 hours as needed for Nausea. 30 Tablet 0 Apixaban 5 MG Oral Tablet (Eliquis) Take by mouth 1 Tablet in the morning AND 1 Tablet before bedtime. 180 Tablet 3 Vitamin D3 1.25 MG (48144 UT) Oral Capsule TAKE 1 CAPSULE BY MOUTH ONCE WEEKLY 12 Capsule 3 Ondansetron HCl 8 MG Oral Tablet (Zofran) Take 1 Tablet by mouth every 8 hours as needed for Nausea. 30 Tablet 11 Atorvastatin Calcium 10 MG Oral Tablet (Lipitor) TAKE 1 TABLET BY MOUTH EVERY DAY (Patient taking differently: Take 1 Tablet by mouth every other day.) 90 Tablet 2 Metoprolol Tartrate 25 MG Oral Tablet (Lopressor) TAKE 1/2 TABLET BY MOUTH IN THE MORNING AND TAKE 1/2 TABLET BY MOUTH AT BEDTIME 90 Tablet 1 Sulfamethoxazole-Trimethoprim 800-160 MG Oral Tablet (Bactrim DS) TAKE 1 TABLET BY MOUTH TWICE A DAY FOR 10 DAYS No current facility-administered medications for this visit. Review of patient's allergies indicates: Allergen Reactions Aloe Vera Rash Nickel Rash Capecitabine Rash Ceftin Diarrhea Patient developed C Diff. Latex Other (Please comment) Sores in mouth when at the dentist. Possible reaction. Penicillins Rash Pneumococcal Vaccine Other (Please comment) Site of injection became warm to touch, red, and swollen. All other review of systems reviewed and negative other than mentioned in HPI. Objective: BP 120/68 | Pulse 89 | Temp 37.2 C (99 F) | Ht 1.588 m (5' 2.5") | Wt 66.6 kg (146 lb 12.8 oz) | SpO2 98% | BMI 26.42 kg/m | BSA 1.71 m Results for orders placed or performed in visit on 05/29/22 CHEMISTRY-OUTSIDE Result Value Ref Range CREATININE-OUTSIDE LAB 1.06 0.6 - 1.2 MG/DL EGFR-OUTSIDE LAB 52.0 ML/MIN POTASSIUM-OUTSIDE LAB 3.9 3.5 - 5.1 MMOL/L GLUCOSE-OUTSIDE LAB 122 (A) 70 - 99 MG/DL HOURS FASTING TRIGLYCERIDES-OUTSIDE LAB CHOLESTEROL-OUTSIDE LAB HDL-OUTSIDE LAB CHOL/HDL RATIO-OUTSIDE LAB LDL (CALCULATED)-OUTSIDE LAB LDL (DIRECT MEASURE)-OUTSIDE LAB HEMOGLOBIN, [id number] LAB 5.8 (A) 4.5 - 5.6 % PHOSPHORUS-OUTSIDE LAB PTH-OUTSIDE LAB MICROALBUMIN RATIO-OUTSIDE LAB PROTEIN, UA-OUTSIDE LAB NEGATIVE NEGATIVE HEMOGLOBIN-OUTSIDE LAB 13.0 12.0 - 16.0 G/DL Not all results display below - see scan for full detail ER records: CBC unremarkable. Na 135 and glucose 189 otherwise CMP unremarkable. UA was not clean catch CT noted some adenopathy, constipation Physical Exam Constitutional: General: She is not in acute distress. Appearance: Normal appearance. She is normal weight. She is not ill-appearing or toxic-appearing. HENT: Head: Normocephalic and atraumatic. Eyes: Extraocular Movements: Extraocular movements intact. Conjunctiva/sclera: Conjunctivae normal. Pupils: Pupils are equal, round, and reactive to light. Cardiovascular: Rate and Rhythm: Normal rate and regular rhythm. Heart sounds: Normal heart sounds. No murmur heard. No friction rub. No gallop. Pulmonary: Effort: Pulmonary effort is normal. Breath sounds: Normal breath sounds. No wheezing, rhonchi or rales. Abdominal: General: Bowel sounds are normal. There is no distension. Palpations: Abdomen is soft. There is no mass. Tenderness: There is no abdominal tenderness. There is no right CVA tenderness, left CVA tenderness, guarding or rebound. Neurological: Mental Status: She is alert. ASSESSMENT: Acute cystitis without hematuria (Primary) Symptoms resolved with Bactrim. Culture was not performed on urine. If has recurrence, can call fororders for repeat UA and culture if needed. Finish Bactrim. Carcinoid tumor of intestine Following with oncology. Has noted increase per patient. Upcoming MRI with possible treatment to follow. Was on hold secondary to surgery. Follow Up: Return if symptoms worsen or fail to improve. Lamin Sterling PA-C documented in this encounter Nursing Notes * Bruna Yun LPN - 09/20/2022 10:34 AM EDT Chief Complaint Patient presents with Emergency Department Follow-Up [facility] ED discharge follow up 09/14/2022. Patient states doing better. documented in this encounter Plan of Treatment Upcoming Encounters Date Type Specialty Care Team Description 11/20/2022 Office Visit Family Medicine Justyna Lee DO [address] [place] [address] 02/05/2023 Imaging Radiology 02/05/2023 Office Visit General Surgery Araceli Solorzano PA-C [address] [place] [address] 03/06/2023 Office Visit Cardiology Augustus Toro DO [address] [place] [address] Health Maintenance Due Date Last Done Comments Cologuard 1994 Fecal Occult Blood Test 1994 Sigmoidoscopy 1994 CKD PHOS USE SMARTSET 66341 10/16/201409/26, 10/15/2013, 10/14/2013 Depression Screening, Annual for Pts 12 and Over 04/08/2019 04/08/2018 DTaP,Tdap,and Td Vaccines (2 - Td or Tdap) 11/30/2020 11/30/2010 Influenza Vaccine (FLU shot) (#1) 2022 12/01/2021, 10/15/2019, 10/18/2018, Additional history exists GFR 11/24/2022 05/25/2022, 12/26, 10/13/2021, Additional history exists Mammogram 01/31/2023 01/31/2022, 12/26, 11/19/2019, Additional history exists Albumin/Creatinine Ratio 02/13/2023 02/13/2022 CKD HGB USE SMARTSET 42146 05/26/202305/25, 01/09/2022, 01/09/2022, Additional history exists HbA1c 05/26/2023 05/25/2022, 11/13/2016 Colonoscopy 07/01/2023 06/30/2013, 0507/2013, 06/19/2011, Additional history exists Colorectal Cancer Screening 07/01/2023 DXA Scan 09/03/2025 09/03/2022, 07/27, 09/10/2016, Additional history exists Lipid Panel 10/20/2026 10/20/2021, 10/26, 08/20/2019, Additional history exists Pneumococcal Vaccine: 65+ Years [...] Not on filedocumented as of this encounter Visit Diagnoses Diagnosis Acute cystitis without hematuria- Primary Acute cystitis Carcinoid tumor of intestine Neoplasm of unspecified nature of digestive system documented in this encounter Advance Directives Latest Code Status on File Code Status Date Activated Date Inactivated Comments Full Code 03/16/2014 8:45 AM 03/16/2014 4:34 PM Question Answer Comments Discussion of Advance Direct clem occurred with: Not Discussed Does the patient have a Living Will? No Does the patient have Health Care Power of Critical Care Unit Manager? No Code Status History Code Status Date Activated Date Inactivated Comments Full Code 10/13/2013 4:54 PM 10/16/2013 4:29 PM This order reflects the patients wishes and were consensually agreed upon. Full Code 10/13/2013 1:22 PM 10/13/2013 4:54 PM This order reflects the patients wishes and were consensually agreed upon. Care Teams Laboratory Technology Teacher Relationship Specialty Start Date End Date Justyna Lee DO [address] [facility] [place] [address] PCP - General Family Medicine 04/17/18 documented as of this encounter
--- OUTSIDE RECORDS SUMMARY | 2023-01-19 15:09 | External Medical Summary ---
Author Name Unknown Address Unknown Organization [id number]:[facility] [address] [place] [address] Laboratory Report Ordering Provider Test Date Status SANTIAGO ORTIZ 12/11/2022 09:04:31 Final Observation Date Value Abnormality Reference (Units ) Status BUN 12/11/2022 09:04:31 12 6-20 (mg/dL) Final Creatinine 12/11/2022 09:04:31 1.0 0.5-1.0 (mg/dL) Final Glomerular filtration rate/1.73 sq M.predicted [Volume Rate/Area] in Serum, Plasma or Blood by Creatinine-based formula (CKD-EPI) 12/11/2022 09:04:31 60 >=60 (mL/min) Final eGFR is calculated based on the CKD-EPI 2020 equation SODIUM 12/11/2022 09:04:31 143 135-146 (m mol/L) Final Potassium 12/11/2022 09:04:31 4.1 3.5-5.1 (m mol/L) Final Cl 12/11/2022 09:04:31 104 98-107 (mm ol/L) Final CO2 12/11/2022 09:04:31 27 22-32 (mmo l/L) Final Anion gap 12/11/2022 09:04:31 12 7-15 (mmol /L) Final Glucose 12/11/2022 09:04:31 112 70-120 (mg /dL) Final Albumin 12/11/2022 09:04:31 4.1 3.8-5.0 (g /dL) Final AST (Aspartate aminotransferase) 12/11/2022 09:04:31 17 10-35 (U/L) Final Alk Phos 12/11/2022 09:04:31 100 35-130 (U/ L) Final Bilirubin, Total 12/11/2022 09:04:31 0.5 <=1 .2 (mg/dL) Final Calcium 12/11/2022 09:04:31 9.9 8.4-10.2 ( mg/dL) Final Protein 12/11/2022 09:04:31 6.5 6.0-8.3 (g /dL) Final ALT (Alanine aminotransferase) 12/11/2022 09:04:31 12 10-35 (U/L) Final Performing Location [facility] [address]- [address] [place] [address]
--- OUTSIDE RECORDS SUMMARY | 2023-01-19 15:09 | External Medical Summary ---
Author Name Unknown Address Unknown Organization K01:[facility] [address] [place] [address] Laboratory Report Ordering Provider Test Date Status IRIS MOLINA 10/16/2022 07:58:16 Final Observation Date Value Abnormality Reference (Units ) Status LDL, (direct) 10/16/2022 07:58:16 66 <=129 (mg/dL) Final LDL Cholesterol Reference Ra nges (mg/dL):
<70 Target level for high risk ASCVD patient
<100 Optimal for general population
100-129 Near optimal for general population
130-159 Borderline high
160-189 High
>=190 Very high Performing Location [facility] - [address] [place] [address]
--- OUTSIDE RECORDS SUMMARY | 2023-01-19 15:09 | External Medical Summary ---
Author Name Unknown Address Unknown Organization [id number]:[facility] [place] [address] [place] [address] Laboratory Report Ordering Provider Test Date Status SANTIAGO ORTIZ 11/20/2022 11:07:06 Final Observation Date Value Abnormality Reference (Units ) Status Parathyrin.intact [Mass/volume] in Serum or Plasma 11/20/2022 11:07:06 52 15-65 (pg/mL) Final Performing Location [facility] [place] [address] [place] [address]
--- OUTSIDE RECORDS SUMMARY | 2023-01-19 15:09 | External Medical Summary | Summary of Care ---
Author Name Unknown Organization [facility] Address [address] [place] [address] Phone [phone] Care Team Providers Care Mail Processor Name Role Phone Rosa Justyna Colemanberly Primary Care Provider Reason for Visit * Reason Onset Date Comments Mycode Lab Reorder 11/30/2022 Encounter Details Date Type Department Care Team Description 11/30/2022 Orders Only Outcomes Research Department [address] [place] [address] Mary Redd CHRA MyCode Research Other*[id number]* Allergies Active Allergy Reactions Severity Noted Date [...] as of this encounter (statuses as of 11/30/2022) Medications Medication Sig Dispensed Refills Start Date [...] 3 11/22/2022 Active Vitamin D3 1.25 MG (99180 UT) Oral Capsule TAKE 1 CAPSULE BY MOUTH ONCE WEEKLY 12 Capsule 3 11/22/2022 Active Eliquis 5 MG Oral Tablet (Apixaban) TAKE 1 TABLET BY MOUTH EVERY DAY IN THE MORNING AND BEFORE BEDTIME 180 Tablet 3 11/21/2022 Active documented as of this encounter (statuses as of 11/30/2022) Active Problems Problem Noted Date S/P left [...] as of this encounter (statuses as of 11/30/2022) Resolved Problems Problem Noted Date Resolved Date [...] as of this encounter (statuses as of 11/30/2022) Immunizations Name Administration Dates Next Due COVID-19 [...] as of this encounter Progress Notes * BRANDEN Andino - 11/30/2022 8:30 AM EDT MyCode lab reordered. documented in this encounter Plan of Treatment Upcoming Encounters Date Type Specialty Care Team Description 02/05/2023 Imaging Radiology 02/05/2023 Office Visit General Surgery Araceli Solorzano PA-C [address] [place] [place] [address] 03/06/2023 Office Visit Cardiology Augustus Toro, DO [address] [place] [address] 05/21/2023 Office Visit Family Medicine Justyna Lee, DO [address] [place] [address] Scheduled Orders Name Type Priority Associated Diagnoses Orde r Schedule MYCODE SUBSEQUENT ADULT Lab Routine MyCode Research Other*[id number] Every 6 Months for 2 Occurrences starting 11/30/2022 until 12/20/2023 Health Maintenance Due Date Last Done Comments Cologuard 1994 Fecal Occult Blood Test 1994 Sigmoidoscopy 1994 Depression Screening 04/08/2019 04/08/2018 DTaP,Tdap,and Td Vaccines (2 - Td or Tdap) 11/30/2020 11/30/2010 COVID-19 Vaccine ( - season) 2022 11/08/2021, 10/11/2020, 04/29/2020, Additional history exists Influenza Vaccine (FLU shot) (#1) 2022 12/01/2021, 10/15/2019, 10/18/2018, Additional history exists Mammogram 01/31/2023 01/31/2022, 12/26, 11/19/2019, Additional history exists Albumin/Creatinine Ratio 02/13/2023 02/13/2022 GFR 04/18/2023 10/16/2022, 04/27, 01/09/2022, Additional history exists Colonoscopy 07/01/2023 06/30/2013, 0507/2013, 06/19/2011, Additional history exists Colorectal Cancer Screening 07/01/2023 CKD HGB USE SMARTSET 93663 10/17/202310/16, 10/16/2022, 05/25/2022, Additional history exists CKD PHOS USE SMARTSET 32935 11/21/202310/27, 10/16/2013, 10/15/2013, Additional history exists HbA1c 11/21/2023 11/20/2022, 04/27, 11/13/2016 DXA Scan 09/03/2025 09/03/2022, 07/27, 09/10/2016, Additional history exists Lipid Panel 10/17/2027 10/16/2022, 09/26, 11/07/2020, Additional history exists Pneumococcal Vaccine: 65+ Years Completed 06/26/2015, 07/16/2014 Zoster Vaccines Completed 03/15/2020, 11/0 04/2019, 01/26/2011 GARDASIL-HPV IMMUNIZATION SERIES Aged Out No longer [...] as of this encounter Visit Diagnoses Diagnosis MyCode Research Other*[id number]- Primary documented in this encounter Advance Directives Latest Code Status on File Code Status Date Activated Date Inactivated Comments Full Code 03/16/2014 8:45 AM 03/16/2014 4:34 PM Question Answer Comments Discussion of Advance Direct clem occurred with: Not Discussed Does the patient have a Living Will? No Does the patient have Health Care Power of Hands And Dial Inspector? No Code Status History Code Status Date Activated Date Inactivated Comments Full Code 10/13/2013 4:54 PM 10/16/2013 4:29 PM This order reflects the patients wishes and were consensually agreed upon. Full Code 10/13/2013 1:22 PM 10/13/2013 4:54 PM This order reflects the patients wishes and were consensually agreed upon. Care Teams Mail Processor Relationship Specialty Start Date End Date Justyna Lee DO [address] [place] [address] PCP - General Family Medicine 04/17/18 documented as of this encounter
--- OUTSIDE RECORDS SUMMARY | 2023-01-19 15:09 | External Medical Summary ---
Author Name Unknown Address Unknown Organization K09:[facility] [place] [address] [address] Laboratory Report Ordering Provider Test Date Status SANTIAGO ORTIZ 12/11/2022 09:04:31 Final Observation Date Value Abnormality Reference (Units ) Status SYNC LEUKOCYTES IN BLOOD BY AUTOMATED COUNT 12/11/2022 09:04:31 4.85 4.00-10.80 (K/uL) Final Segs 12/11/2022 09:04:31 49.0 40.0-75.0 (%) Final Lymphs % 12/11/2022 09:04:31 35.7 18.0-42.0 (%) Final Monos 12/11/2022 09:04:31 12.6 Above high normal 1.0-11.0 (%) Final Eosinophils 12/11/2022 09:04:31 2.5 0.0-6.0 (%) Final Basos 12/11/2022 09:04:31 0.2 0.0-2.0 (%) Final Absolute Segs 12/11/2022 09:04:31 2.38 1.80-7.70 (K/uL) Final Lymphs, absolute 12/11/2022 09:04:31 1.73 1.00-4.80 (K/ul) Final Monos, Abs 12/11/2022 09:04:31 0.61 0.00-1.10 (K/uL) Final Eos, Abs 12/11/2022 09:04:31 0.12 0.00-0.70 (K/uL) Final Basos, Abs 12/11/2022 09:04:31 0.01 0.00-0.20 (K/uL) Final Performing Location [facility] [address] [place] [address]
--- OUTSIDE RECORDS SUMMARY | 2023-01-19 15:09 | External Medical Summary | Summary of Care ---
Author Name Unknown Organization [facility] Address [address] [place] [address] Phone [phone] Care Team Providers Care Plant Attendant Name Role Phone Justyna Lee DO Primary Care Provider Reason for Visit * Reason Comments Outpatient Testing Encounter Details Date Type Department Care Team Description 10/16/2022 Laboratory [facility] [place] [address] [place] [address] [place] [address] [place] [address] Hypercholesteremia; Paroxysmal atrial fibrillation (HCC); Knee joint replacement status Allergies Active Allergy Reactions Severity Noted Date [...] as of this encounter (statuses as of 10/16/2022) Medications Medication Sig Dispensed Refills Start Date [...] 3 12/19/2021 Active Vitamin D3 1.25 MG (21820 UT) Oral Capsule TAKE 1 CAPSULE BY [...] as of this encounter (statuses as of 10/16/2022) Active Problems Problem Noted Date Prediabetes 06/04/2022 [...] as of this encounter (statuses as of 10/16/2022) Resolved Problems Problem Noted Date Resolved Date [...] as of this encounter (statuses as of 10/16/2022) Immunizations Name Administration Dates Next Due COVID-19 mRNA, LNP-s, No Pre serve, 2-Dose Series (Moderna) 10/11/2020,04/29/2020,04/02/2020 Covid-19, Mrna, Lnp-s, Pf, B ivalent, 30 Mcg, IM, 12 yrs and above ([employer]) 11/08/2021 Pneumococcal Conjugate Vacc, 13 Valent (Prevnar) [...] Visit Family Medicine Justyna Lee DO [address] [place] [address] 02/05/2023 Imaging Radiology 02/05/2023 Office Visit General Surgery Araceli Solorzano PA-C [address] [place] [address] 03/06/2023 Office Visit Cardiology Augustus Toro DO [address] [place] [address] Pending Results Name Type Priority Associated Diagnoses Date /Time LIPID PANEL WITH DIRECT LDL IF TG IS HIGH Lab Routine Hypercholesteremia 10/16/2022 7:58 AM EDT COMPREHENSIVE METABOLIC PANEL Lab Routine Hypercholesteremia 10/16/2022 7:58 AM EDT ERYTHROCYTE SEDIMENTATION RATE (ESR) Lab Routine Knee joint replacement status 10/16/2022 8:01 AM EDT CRP (INFLAMMATORY MARKER) Lab Routine Knee joint replacement status 10/16/2022 8:01 AM EDT Health Maintenance Due Date Last Done Comments Cologuard 1994 Fecal Occult Blood Test 1994 Sigmoidoscopy 1994 CKD PHOS USE SMARTSET 08859 10/16/201409/26, 10/15/2013, 10/14/2013 Depression Screening, Annual for Pts 12 and Over 04/08/2019 04/08/2018 DTaP,Tdap,and Td Vaccines (2 - Td or Tdap) 11/30/2020 11/30/2010 Influenza Vaccine (FLU shot) (#1) 2022 12/01/2021, 10/15/2019, 10/18/2018, Additional history exists GFR 11/24/2022 05/25/2022, 12/26, 10/13/2021, Additional history exists Mammogram 01/31/2023 01/31/2022, 12/26, 11/19/2019, Additional history exists Albumin/Creatinine Ratio 02/13/2023 02/13/2022 CKD HGB USE SMARTSET 77030 05/26/202310/16, 10/16/2022, 05/25/2022, Additional history exists HbA1c 05/26/2023 05/25/2022, 11/13/2016 Colonoscopy 07/01/2023 06/30/2013, 0507/2013, 06/19/2011, Additional history exists Colorectal Cancer Screening 07/01/2023 DXA Scan 09/03/2025 09/03/2022, 07/27, 09/10/2016, Additional history exists Lipid Panel 10/20/2026 10/20/2021, 10/26, 08/20/2019, Additional history exists Pneumococcal Vaccine: 65+ Years Completed 06/26/2015, 07/16/2014 Zoster Vaccines Completed 03/15/2020, 11/04/2019, 01/26/2011 COVID-19 Vaccine Completed 11/08/2021, , 04/29/2020, [...] Date/Time Associated Diagnosis Comments DIFFERENTIAL, AUTOMATED Routine 10/16/2022 8:01 AM EDT Knee joint replacement status CBC WITH WBC DIFFERENTIAL Routine 10/16/2022 8:01 AM EDT Knee joint replacement status CBC Routine 10/16/2022 8:01 AM EDT Knee joint replacement status documented in this encounter Results * (ABNORMAL) DIFFERENTIAL, AUTOMATED (10/16/2022 8:01 AM EDT) WBC 5.04 4.00 - 10.80 K/uL 10/16/2022 8:13 AM EDT [facility]-02 Neutrophils % 45.6 40.0 - 75.0 % 10/16/2022 8:13 AM EDT [facility] 56-02 Lymphocytes % 37.1 18.0 - 42.0 % 10/16/2022 8:13 AM EDT [facility] 56-02 Monocytes % 14.5(H) 1.0 - 11.0 % 10/16/2022 8:13 AM EDT [facility] 56-02 Eosinophils % 2.4 0.0 - 6.0 % 10/16/2022 8:13 AM EDT [facility] 56-02 Basophils % 0.4 0.0 - 2.0 % 10/16/2022 8:13 AM EDT [facility] 56-02 Absolute Neutrophils 2.30 1.80 - 7.70 K/uL 10/16/2022 8:13 AM EDT [facility] 56 Absolute Lymphocytes 1.87 1.00 - 4.80 K/ul 10/16/2022 8:13 AM EDT [facility] 56 Absolute Monocytes 0.73 0.00 - 1.10 K/uL 10/16/2022 8:13 AM EDT [facility] 56 Absolute Eosinophils 0.12 0.00 - 0.70 K/uL 10/16/2022 8:13 AM EDT [facility] 56 Absolute Basophils 0.02 0.00 - 0.20 K/uL 10/16/2022 8:13 AM EDT [facility] 56 Blood Venous blood specimen / Unknown Venipuncture / Unknown 10/16/2022 8:01 AM EDT 10/16/2022 8:01 AM EDT Sylvester Robles MD LAB BLOOD ORD ERABLES [facility] [address] [place] [address] * CBC (10/16/2022 8:01 AM EDT) WBC 5.04 4.00 - 10.80 K/uL 10/16/2022 8:13 AM EDT [facility] RBC 4.52 3.85 - 5.15 M/uL 10/16/2022 8:13 AM EDT [facility] HGB 13.0 12.0 - 15.3 g/dL 10/16/2022 8:13 AM EDT [facility] HCT 40.5 36.0 - 45.2 % 10/16/2022 8:13 AM EDT [facility] MCV 89.6 81.5 - 97.5 fL 10/16/2022 8:13 AM EDT [facility] 56 MCH 28.8 27.0 - 34.0 pg 10/16/2022 8:13 AM EDT [facility] 56 MCHC 32.1 32.0 - 36.0 g/dL 10/16/2022 8:13 AM EDT [facility] 56- RDW 14.6 11.5 - 15.5 % 10/16/2022 8:13 AM EDT [facility] 56- PLT 145 140 - 400 K/uL 10/16/2022 8:13 AM EDT [facility] 56- MPV 10.5 6.6 - 11.1 fL 10/16/2022 8:13 AM EDT [facility] 56- Blood Venous blood specimen / Unknown Venipuncture / Unknown 10/16/2022 8:01 AM EDT 10/16/2022 8:01 AM EDT Sylvester Robles MD LAB BLOOD ORD ERABLES [facility] 56- [address] [facility] [place] [address] documented in this encounter Visit Diagnoses Diagnosis Hypercholesteremia Pure hypercholesterolemia Paroxysmal atrial fibrillation (HCC) Atrial fibrillation Knee joint replacement status Knee joint replacement by other means documented in this encounter Advance Directives Latest Code Status on File Code Status Date Activated Date Inactivated Comments Full Code 03/16/2014 8:45 AM 03/16/2014 4:34 PM Question Answer Comments Discussion of Advance Direct clem occurred with: Not Discussed Does the patient have a Living Will? No Does the patient have Health Care Power of Title Specialist? No Code Status History Code Status Date Activated Date Inactivated Comments Full Code 10/13/2013 4:54 PM 10/16/2013 4:29 PM This order reflects the patients wishes and were consensually agreed upon. Full Code 10/13/2013 1:22 PM 10/13/2013 4:54 PM This order reflects the patients wishes and were consensually agreed upon. Care Teams Plant Attendant Relationship Specialty Start Date End Date Justyna Lee DO [address] [facility] [place] [address] PCP - General Family Medicine 04/17/18 documented as of this encounter
--- OUTSIDE RECORDS SUMMARY | 2023-01-19 15:09 | External Medical Summary ---
Author Name Unknown Address Unknown Organization K09:[facility] [address] [place] [address] Laboratory Report Ordering Provider Test Date Status IRIS MOLINA 10/16/2022 07:58:16 Final Observation Date Value Abnormality Reference (Units ) Status BUN 10/16/2022 07:58:16 14 6-20 (mg/dL) Final Creatinine 10/16/2022 07:58:16 1.0 0.5-1.0 (mg/dL) Final Glomerular filtration rate/1.73 sq M.predicted [Volume Rate/Area] in Serum, Plasma or Blood by Creatinine-based formula (CKD-EPI) 10/16/2022 07:58:16 59 Below low normal >=60 (mL/min) Final eGFR is calculated based on the CKD-EPI 2020 equation SODIUM 10/16/2022 07:58:16 143 135-146 (m mol/L) Final Potassium 10/16/2022 07:58:16 4.1 3.5-5.1 (m mol/L) Final Cl 10/16/2022 07:58:16 106 98-107 (mm ol/L) Final CO2 10/16/2022 07:58:16 25 22-32 (mmo l/L) Final Anion gap 10/16/2022 07:58:16 12 7-15 (mmol /L) Final Glucose 10/16/2022 07:58:16 99 70-120 (mg /dL) Final Albumin 10/16/2022 07:58:16 4.1 3.8-5.0 (g /dL) Final AST (Aspartate aminotransferase) 10/16/2022 07:58:16 16 10-35 (U/L) Final Alk Phos 10/16/2022 07:58:16 86 35-130 (U/ L) Final Bilirubin, Total 10/16/2022 07:58:16 0.5 <=1 .2 (mg/dL) Final Calcium 10/16/2022 07:58:16 9.9 8.4-10.2 ( mg/dL) Final Protein 10/16/2022 07:58:16 6.2 6.0-8.3 (g /dL) Final ALT (Alanine aminotransferase) 10/16/2022 07:58:16 13 10-35 (U/L) Final Performing Location [facility]- 02 [address] [place] [address]
--- OUTSIDE RECORDS SUMMARY | 2023-01-19 15:09 | External Medical Summary ---
Author Name Unknown Address Unknown Organization K09:[facility] [address] Laboratory Report Ordering Provider Test Date Status LAURE L[address] 10/16/2022 08:01:18 Final Observation Date Value Abnormality Reference (Units ) Status SYNC LEUKOCYTES IN BLOOD BY AUTOMATED COUNT 10/16/2022 08:01:18 5.04 4.00-10.80 (K/uL) Final Segs 10/16/2022 08:01:18 45.6 40.0-75.0 (%) Final Lymphs % 10/16/2022 08:01:18 37.1 18.0-42.0 (%) Final Monos 10/16/2022 08:01:18 14.5 Above high normal 1.0-11.0 (%) Final Eosinophils 10/16/2022 08:01:18 2.4 0.0-6.0 (%) Final Basos 10/16/2022 08:01:18 0.4 0.0-2.0 (%) Final Absolute Segs 10/16/2022 08:01:18 2.30 1.80-7.70 (K/uL) Final Lymphs, absolute 10/16/2022 08:01:18 1.87 1.00-4.80 (K/ul) Final Monos, Abs 10/16/2022 08:01:18 0.73 0.00-1.10 (K/uL) Final Eos, Abs 10/16/2022 08:01:18 0.12 0.00-0.70 (K/uL) Final Basos, Abs 10/16/2022 08:01:18 0.02 0.00-0.20 (K/uL) Final Performing Location [facility] [place] [address]
--- OUTSIDE RECORDS SUMMARY | 2023-01-19 15:09 | External Medical Summary | Continuity of Care Document ---
Author Name Unknown Organization [facility] [address] [id number] Care Team Providers Care Hospital Staff Pharmacist Name Role Phone PhillippamelaJustyna Primary Care Physician [phone] [id number] Date(s): 11/05/22 - 11/05/22 [facility] [address] [phone] Encounter Diagnosis SK (seborrheic keratosis)(Discharge Diagnosis) - 11/05/22 History of skin cancer(Discharge Diagnosis) - 11/05/22 Discharge Disposition: Home or Self Care Attending Physician: MD Ramirez David L Referring Physician: MD Ramirez David L Allergies, Adverse Reactions, Alerts Substance Reaction Severity Status aloe vera topical rash Active penicillins rash Active Ceftin c-diff Active Nickel hives Active Latex blisters in mouth at dentist Active pneumococcal vaccines swelling redness Active Allergy Not found in Search 1 capcetibin Active 1rash- oral cemo Assessment and Plan Extracted from: Title:Clinical Document Author:MD Ramirez David L Date:11/05/22 OUTPATIENT NOTE Name: BRAD ROBERTS Patient Number:1 [id number] : 1950 Date of Service: 11/05/2022 _ Ms. Roberts comes in for a recheck. 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 She also has history of carcinoid. Some irritated lesions on the back. She is recovering fairly well from a left knee replacement 5 months ago. Physical examination: She is a well-developed well-nourished white female with type I to type II skin. Alert and oriented x3. She does have an 8 mm hebert verruca hyperkeratotic Pap in the right parietal scalp. She has several hebert verruca hyperkeratotic papules in the back particularly the mid back with some irritation of the lesion under the bra line. The hands arms back chest abdomen legs and feet otherwise unremarkable. She is intact and well-healing scar on the left knee. Impression: #1 seborrheic keratosis and trunk. #2 irritated seborrheic keratosis in the mid back and right parietal scalp. #3 no evidence for new or recurrent skin cancer. Plan: After discussing the procedure risk benefits and scarring, she gives verbal consent for cryotherapy. Cryotherapy applied to the irritated SKs in the back and the right parietal scalp. She tolerated very well. Wound care instruction given. Sun protection was stressed. She will return for recheck in 6 months. Medications atorvastatin 10 mg oral tablet Start: 08/12/18 9:08:00 EDT, 1 tab, PO, Daily Start Date: 08/12/18 Status: Ordered clindamycin 300 mg oral capsule Start: 09/10/22 12:33:00 EDT, 2 tab, PO, ONCE, Disp# 2 tab, one hour prior to dental procedure, Pharmacy: [facility]/pharmacy #[id number] Start Date: 09/10/22 Status: Ordered Eliquis 5 mg oral tablet Start: 11/01/21 10:12:00 EDT, 1 tab, PO, bid Start Date: 11/01/21 Status: Ordered Metoprolol Tartrate 25 mg oral tablet Start: 11/01/21 10:12:00 EDT, 0.5 tab, PO, bid Start Date: 11/01/21 Status: Ordered multivitamin Start: 02/05/19 9:28:00 EST, 1 tab, PO, Daily Start Date: 02/05/19 Status: Ordered Vitamin B12 1000 mcg oral tablet Start: 02/05/19 9:28:00 EST, 1 tab, PO, Daily Start Date: 02/05/19 Status: Ordered Vitamin D3 1000 intl units oral capsule Start: 02/05/19 9:28:00 EST, 1 cap, PO, Daily Start Date: 02/05/19 Status: Ordered Vitamin D3 50,000 intl units (1250 mcg) oral capsule Start: 11/01/21 10:13:00 EDT, 1 cap, PO, q7days Start Date: 11/01/21 Stop Date: 01/24/22 Status: Ordered Mental Status 11/05/22 Barriers to Learning one year None evide nt Mandatory Health Literacy Documentation Yes Health Literacy Communication Barriers N ever Primary Language Italian Problem List Condition Confirmation Course Effective Dates Status Health St atus Informant Afib Confirmed Active Nevus Confirmed Active Carcinoid tumor Confirmed Active History of squamous cell carcinoma Confirmed Active S/P total knee arthroplasty Confirmed Active Elevated cholesterol Confirmed Active HTN (hypertension) Confirmed Active DJD (degenerative joint disease) of knee Confirmed Active Left knee pain Confirmed Active Right knee pain Confirmed Active Diagnosis Diagnosis Type Effective Dates Health Status Cl inical Service Informant History of skin cancer Discharge Diagnosis 11/05/22 SK (seborrheic keratosis) Discharge Diagnosis 11/05/22 Procedures Procedure Date Related Diagnosis Body Site Status Arthroplasty of left knee 06/07/22 Completed Electrodesiccation with curettage 02/11/18 Completed Carpal tunnel Completed Lumpectomy of breast 1 Co mpleted Surgery 2 Completed ASHER - Total abdominal hysterectomy Completed 1with re-excision followed by radiation tx 2small bowel resection Social History Social History Type Response Smoking Status Never smoked cigaret nayely Sex Female Outpatient Note * MD James, Adelso Garcia: PERFORM Event Display: .Outpt Note Authored Date: [id number] OUTPATIENT NOTE Name: BRAD ROBERTS Patient Number:1 [id number] : 1950 Date of Service: 11/05/2022 _ Ms. Roberts comes in for a recheck. 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 She also has history of carcinoid. Some irritated lesions on the back. She is recovering fairly well from a left knee replacement 5 months ago. Physical examination: She is a well-developed well-nourished white female with type I to type II skin. Alert and oriented x3. She does have an 8 mm hebert verruca hyperkeratotic Pap in the right parietal scalp. She has several hebert verruca hyperkeratotic papules in the back particularly the mid back with some irritation of the lesion under the bra line. The hands arms back chest abdomen legs and feetotherwise unremarkable. She is intact and well-healing scar on the left knee. Impression: #1 seborrheic keratosis and trunk. #2 irritated seborrheic keratosis in the mid back and right parietal scalp. #3 no evidence for new or recurrent skin cancer. Plan: After discussing the procedure risk benefits and scarring, she gives verbal consent for cryotherapy. Cryotherapy applied to the irritated SKs in the back and the right parietal scalp. She tolerated very well. Wound care instruction given. Sun protection was stressed. She will return for recheck in 6 months. Electronic Signature on File Electronically Reviewed/Signed by: Adelso Ramirez MD Author Signature Dt/Tm:11/05/2022 02:18 PM Department of Dermatology DLS Patient Care team information Care Team Personnel Name: DO Lee Carey K Position: Referring DIRECT Member Role: Primary Care Provider Address: Address: [address] [place] [address] [place] Care Team Related Persons Name: LONDON ROBERTS Address: home [address] [place], [place] [id number]
--- OUTSIDE RECORDS SUMMARY | 2023-01-19 15:09 | External Medical Summary ---
Author Name Unknown Address Unknown Organization K01:[facility] - [address] [place] [address] Laboratory Report Ordering Provider Test Date Status SANITAGO ORTIZ 11/20/2022 11:07:06 Final Observation Date Value Abnormality Reference (Units) Status Protein 11/20/2022 11:07:06 6.2 6.0-8.3 (g/dL) Final Albumin/Protein.total [Pure mass fraction] in Serum or Plasma by Electrophoresis 11/20/2022 11:07:06 3.35 3.30-4.40 (g/dL) Final Alpha 1 globulin/Protein.tota l [Pure mass fraction] in Serum or Plasma by Electrophoresis 11/20/2022 11:07:06 0.20 0.10-0.30 (g/dL) Final Alpha 2 globulin/Protein.tota l [Pure mass fraction] in Serum or Plasma by Electrophoresis 11/20/2022 11:07:06 0.98 0.60-1.00 (g/dL) Final Beta globulin/Protein.tota l [Pure mass fraction] in Serum or Plasma by Electrophoresis 11/20/2022 11:07:06 0.90 0.80-1.30 (g/dL) Final Gamma globulin/Protein.tota l [Pure mass fraction] in Serum or Plasma by Electrophoresis 11/20/2022 11:07:06 0.76 0.70-1.70 (g/dL) Final Protein Fractions [Interpretation] in Serum or Plasma by Electrophoresis Narrative 11/20/2022 11:07:06 Normal serum protein electrophoretic pattern. Final Performing Location [facility] - [address] [place] [address]
--- OUTSIDE RECORDS SUMMARY | 2023-01-19 15:09 | External Medical Summary ---
Author Name Unknown Address Unknown Organization K01:[facility] [place] - [address] [place] [address] Laboratory Report Ordering Provider Test Date Status SANTIAGO ORTIZ 11/20/2022 11:07:06 Final Observation Date Value Abnormality Reference (Units ) Status TSH 11/20/2022 11:07:06 1.47 0.27-4.20 (uIU/mL) Final Performing Location LABORATORY [facility] - [address] [place] [address]
--- OUTSIDE RECORDS SUMMARY | 2023-01-19 15:09 | External Medical Summary | Summary of Care ---
Author Name Unknown Organization [facility] Address [address] [place] [address] Phone [phone] Care Team Providers Care Trust And Estates Attorney Name Role Phone Justyna Lee DO Primary Care Provider Reason for Visit * Reason Comments Outpatient Testing Encounter Details Date Type Department Care Team Description 11/20/2022 Laboratory Laboratory [facility] [place] [address] [place] [address] [place], Lab Scenery [address] [place] [address] Prediabetes; High risk for fracture due to osteoporosis by DEXA scan; Screening for thyroid disorder Allergies Active Allergy Reactions Severity Noted Date [...] as of this encounter (statuses as of 11/20/2022) Medications Medication Sig Dispensed Refills Start Date [...] 3 12/19/2021 Active Vitamin D3 1.25 MG (88546 UT) Oral Capsule TAKE 1 CAPSULE BY [...] AT BEDTIME 90 Tablet 1 09/12/2022 Active documented as of this encounter (statuses as of 11/20/2022) Active Problems Problem Noted Date S/P left [...] as of this encounter (statuses as of 11/20/2022) Resolved Problems Problem Noted Date Resolved Date [...] as of this encounter (statuses as of 11/20/2022) Immunizations Name Administration Dates Next Due COVID-19 mRNA, LNP-s, No Pre serve, 2-Dose Series (Moderna) 10/11/2020,04/29/2020,04/02/2020 Covid-19, Mrna, Lnp-s, Pf, B ivalent, 30 Mcg, IM, 12 yrs and above (HALGI) 11/08/2021 Pneumococcal Conjugate Vacc, 13 Valent (Prevnar) [...] Surgery Araceli Solorzano PA-C [address] [address] 03/06/2023 Office Visit Cardiology Augustus Toro DO [address] [address] 05/21/2023 Office Visit Family Medicine Justyna Lee DO [address] [facility] [place] [address] Pending Results Name Type Priority Associated Diagnoses Date /Time HEMOGLOBIN A1C Lab Routine Prediabetes 11/20/2022 11:07 AM EDT PTH Lab Routine High risk for fracture due to osteoporosis by DEXA scan 11/20/2022 11:07 AM EDT 25-HYDROXY VITAMIN D Lab Routine High risk for fracture due to osteoporosis by DEXA scan 11/20/2022 11:07 AM EDT TSH WITH FREE T4 IF INDICATED Lab Routine Screening for thyroid disorder 11/20/2022 11:07 AM EDT SERUM PROTEIN ELECTROPHORESIS REFLEX PROFILE Lab Routine High risk for fracture due to osteoporosis by DEXA scan 11/20/2022 11:07 AM EDT Health Maintenance Due Date Last Done Comments Cologuard 1994 Fecal Occult Blood Test 1994 Sigmoidoscopy 1994 CKD PHOS USE SMARTSET 55680 10/16/201409/26, 10/15/2013, 10/14/2013 Depression Screening 04/08/2019 04/08/2018 DTaP,Tdap,and Td Vaccines (2 - Td or Tdap) 11/30/2020 11/30/2010 Influenza Vaccine (FLU shot) (#1) 2022 12/01/2021, 10/15/2019, 10/18/2018, Additional history exists Mammogram 01/31/2023 01/31/2022, 12/26, 11/19/2019, Additional history exists Albumin/Creatinine Ratio 02/13/2023 02/13/2022 GFR 04/18/2023 10/16/2022, 04/27, 01/09/2022, Additional history exists HbA1c 05/26/2023 05/25/2022, 11/13/2016 Colonoscopy 07/01/2023 06/30/2013, 07/2013, 06/19/2011, Additional history exists Colorectal Cancer Screening 07/01/2023 CKD HGB USE SMARTSET 16944 10/17/202310/16, 10/16/2022, 05/25/2022, Additional history exists DXA [...] as of this encounter Visit Diagnoses Diagnosis Prediabetes Other abnormal glucose High risk for fracture due to osteoporosis by DEXA scan Osteoporosis, unspecified Screening for thyroid disorder documented in this encounter Advance Directives Latest Code Status on File Code Status Date Activated Date Inactivated Comments Full Code 03/16/2014 8:45 AM 03/16/2014 4:34 PM Question Answer Comments Discussion of Advance Direct clem occurred with: Not Discussed Does the patient have a Living Will? No Does the patient have Health Care Power of Crop And Soil Technician? No Code Status History Code Status Date Activated Date Inactivated Comments Full Code 10/13/2013 4:54 PM 10/16/2013 4:29 PM This order reflects the patients wishes and were consensually agreed upon. Full Code 10/13/2013 1:22 PM 10/13/2013 4:54 PM This order reflects the patients wishes and were consensually agreed upon. Care Teams Trust And Estates Attorney Relationship Specialty Start Date End Date Justyna Lee DO [address] [place] [address] PCP - General Family Medicine 04/17/18 documented as of this encounter
--- OUTSIDE RECORDS SUMMARY | 2023-01-19 15:09 | External Medical Summary | Summary of Care ---
Author Name Unknown Organization [facility] Address [address] [place] [address] Phone [phone] Care Team Providers Care Motor Vehicle Lecturer Name Role Phone Justyna Lee DO Primary Care Provider Reason for Visit * Reason Comments Outpatient Testing Encounter Details Date Type Department Care Team Description 10/16/2022 Laboratory Laboratory [place] [place] [address] [place] [address] [place], Lab Scenery [address] [place] [address] Hypercholesteremia; Paroxysmal atrial fibrillation (HCC); Knee [...] 3 12/19/2021 Active Vitamin D3 1.25 MG (90445 UT) Oral Capsule TAKE 1 CAPSULE BY [...] 30 Mcg, IM, 12 yrs and above (Arnica) 11/08/2021 Pneumococcal Conjugate Vacc, 13 Valent (Prevnar) [...] Medicine Justyna Lee DO [address] [place] [address] 02/05/2023 Imaging Radiology 02/05/2023 Office Visit General Surgery Araceli Solorzano PA-C [address] [place] [address] 03/06/2023 Office Visit Cardiology Augustus Toro DO [address] [address] Pending Results Name Type Priority Associated Diagnoses Date /Time LIPID PANEL WITH DIRECT LDL IF TG IS HIGH Lab Routine Hypercholesteremia 10/16/2022 7:58 AM EDT COMPREHENSIVE METABOLIC PANEL Lab Routine Hypercholesteremia 10/16/2022 7:58 AM EDT CBC WITH WBC DIFFERENTIAL Lab Routine Knee joint replacement status 10/16/2022 8:01 AM EDT ERYTHROCYTE SEDIMENTATION RATE (ESR) Lab Routine Knee joint replacement status 10/16/2022 8:01 AM EDT CRP (INFLAMMATORY MARKER) Lab Routine Knee joint replacement status 10/16/2022 8:01 AM EDT CBC Lab Routine Knee joint replacement status 10/16/2022 8:01 AM EDT DIFFERENTIAL, AUTOMATED Lab Routine Knee joint replacement status 10/16/2022 8:01 AM EDT Health Maintenance Due Date Last Done Comments Cologuard 1994 Fecal Occult Blood Test 1994 Sigmoidoscopy 1994 CKD PHOS USE SMARTSET 83043 10/16/201409/26, 10/15/2013, 10/14/2013 Depression Screening, Annual for Pts 12 and Over 04/08/2019 04/08/2018 DTaP,Tdap,and Td Vaccines (2 - Td or Tdap) 11/30/2020 11/30/2010 Influenza Vaccine (FLU shot) (#1) 2022 12/01/2021, 10/15/2019, 10/18/2018, Additional history exists GFR 11/24/2022 05/25/2022, 12/26, 10/13/2021, Additional history exists Mammogram 01/31/2023 01/31/2022, 12/26, 11/19/2019, Additional history exists Albumin/Creatinine Ratio 02/13/2023 02/13/2022 CKD HGB USE SMARTSET 36454 05/26/202305/25, 01/09/2022, 01/09/2022, Additional history exists HbA1c 05/26/2023 05/25/2022, 11/13/2016 Colonoscopy 07/01/2023 06/30/2013, 0507/2013, 06/19/2011, Additional history exists Colorectal Cancer Screening 07/01/2023 DXA Scan 09/03/2025 09/03/2022, 07/27, 09/10/2016, Additional history exists Lipid Panel 10/20/2026 10/20/2021, 10/26, 08/20/2019, Additional history exists Pneumococcal Vaccine: 65+ Years Completed 06/26/2015, 07/16/2014 Zoster Vaccines Completed 03/15/2020, 1104/2019, 01/26/2011 COVID-19 Vaccine Completed 11/08/2021, , 04/29/2020, [...] as of this encounter Visit Diagnoses Diagnosis Hypercholesteremia Pure [...] the patient have Health Care Power of Electromechanical Assembler? No Code Status History Code Status Date Activated Date Inactivated Comments Full Code 10/13/2013 4:54 PM 10/16/2013 4:29 PM This order reflects the patients wishes and were consensually agreed upon. Full Code 10/13/2013 1:22 PM 10/13/2013 4:54 PM This order reflects the patients wishes and were consensually agreed upon. Care Teams Motor Vehicle Lecturer Relationship Specialty Start Date End Date Justyna Lee, [address] [place], [place] [address] PCP - General Family Medicine 04/17/18 documented as of this encounter
--- OUTSIDE RECORDS SUMMARY | 2023-01-19 15:09 | External Medical Summary | Continuity of Care Document ---
Author Name Unknown Organization [id number] Address [address] [place] [phone] Care Team Providers Care Jet Wiper Name Role Phone PhillippamelaJustyna Primary Care Physician [phone] [facility] [id number] Date(s): 10/12/22 - 10/12/22 [facility] [id number] [address] [place] [id number] Encounter Diagnosis S/P total knee replacement(Discharge Diagnosis) - 10/12/22 Discharge Disposition: Home or Self Care Attending Physician: MD Robles Paul K Allergies, Adverse Reactions, Alerts Substance Reaction Severity Status aloe vera topical rash Active penicillins rash Active Ceftin c-diff Active Latex blisters in mouth at dentist Active pneumococcal vaccines swelling redness Active Allergy Not found in Search 1 capcetibin Active 1rash- oral cemo Assessment and Plan Extracted from: Title:Sylvester Robles Author:Alisia Lynn ate:10/12/22 Impression:72-year-old Female s/p left TKA, DOS 06/07/2022, still having some pain and swelling, likely secondary to scarring and synovitis. Plan: -I discussed the patient's diagnosis and treatment options. -Patient is following up with her oncologist regarding treatment for her neuroendocrine tumor. -Given the patient's pain, I have ordered blood work (CBC, ESR, CRP) to screen for infection, although my suspicion for infection is low. We will contact her with the results of her blood work. - She was advised to use a foam roller for her lateral knee pain. -Follow up in 3 months, no X-rays needed. May consider knee aspiration at that visit if no improvement in pain. -Cortisone injection given to the right knee today (procedure note below) The patient understood all my instructions and explanation; all their questions were satisfactorily addressed. Procedure: After verbal informed consent was obtained the superior lateral aspect of the right knee was prepped with chlorhexidine and alcohol. Sterile ethylene chloride spray was used to numb the skin. Using sterile technique, I then injected the right knee with 7 cc of ropivacaine and 4 mg of dexamethasone. Band-Aid was applied. No immediate complications. Patient tolerated the procedure well. Medications atorvastatin 10 mg oral tablet Start: 08/12/18 9:08:00 EDT, 1 tab, PO, Daily Start Date: 08/12/18 Status: Ordered clindamycin 300 mg oral capsule Start: 09/10/22 12:33:00 EDT, 2 tab, PO, ONCE, Disp# 2 tab, one hour prior to dental procedure, Pharmacy: [facility]/pharmacy #[id number] Start Date: 09/10/22 Status: Ordered [...] Stop Date: 01/24/22 Status: Ordered Mental Status 10/12/22 Barriers to Learning one year None evide nt Mandatory Health Literacy Documentation Yes Health Literacy Communication Barriers N ever Primary Language Ukrainian Problem List Condition Confirmation Course Effective Dates [...] Diagnosis Diagnosis Type Effective Dates Health Status Clinical Service Informant S/P total knee replacement Discharge Diagnosis 10/12/22 Procedures Procedure Date Related Diagnosis Body Site Status Electrodesiccation with curettage 02/11/18 Completed Carpal tunnel Completed Lumpectomy of breast 1 Co mpleted Surgery 2 Completed ASHER - Total abdominal hysterectomy Completed 1with re-excision followed by radiation tx 2small bowel resection Social History Social History Type Response Smoking Status Never smoked cigaret nayely Sex Female Ortho Outpt Note * MD Robles Paul K: MODIFY MD Robles Paul K: MODIFY, MODIFY Event Display: Ortho Outpt Note Authored Date: [id number] Primary Care Provider DO Lee Carey K Chief Complaint Follow-up s/p left TKA, DOS 06/07/2022. History of Present Illness [id number] I am following for the above noted procedure. She recently visited the ER but was not admittedand was put on an antibiotic for 10 days. Patient is visiting her oncologist in [place] next week in hope to start neuroendocrine tumor treatment sometime this fall. She has no pain in her bones. Patient has lateral and posterior knee pain going down stairs and has pressure-like pain going up stairs, both of which have worsened since surgery. Her lateral knee pain is dull at rest but sharp when she goes up or down stairs. Her pain has not given out onher or caused her to fall and she is very cautious with movement. She walks about 20 minutes a day and is continuing with HEP. Patient reports knee stiffness after sitting for 30 minutes or longer and has numbness that travels down her anterior wagner. Patient has been using Voltaren gel for both legs. Her right knee, which has arthritis but has not been replaced has been bothering her, so she would alsolike a cortisone injection to her right kneetoday and states it has relieved her pain in the past. Review of Systems Refer to the HPI. Physical Exam Focusing on the patient'sleft lower extremity: 1+effusion - Medial joint line tenderness +Lateral facet tenderness Incision well healed, no redness or evidence of infection. No warmth. ROM 2-115 degrees Diagnostic Results X-ray imaginviews of theleft kneeobtained today and personally interpreted by me show hardware in good position with no evidence of loosening or complication. Assessment/Plan Impression:[id number] s/p left TKA, DOS 06/07/2022, still having some pain and swelling, likely secondary to scarring and synovitis. Plan: -I discussed the patient's diagnosis and treatment options. -Patient is following up with her oncologist regarding treatment for her neuroendocrine tumor. -Given the patient's pain, I have ordered blood work (CBC, ESR, CRP) to screen for infection, although my suspicion for infection is low. We will contact her with the results of her blood work. - She was advised to use a foam roller for her lateral knee pain. -Follow up in 3 months, no X-rays needed. May consider knee aspiration at that visit if no improvement in pain. -Cortisone injection given to the right knee today (procedure note below) The patient understood all my instructions and explanation; all their questions were satisfactorilyaddressed. Procedure: After verbal informed consent was obtained the superior lateral aspect of the right knee was prepped with chlorhexidine and alcohol. Sterile ethylene chloride spray was used to numb the skin. Using sterile technique, I then injected the right knee with 7 cc of ropivacaine and 4 mg of dexamethasone. Band-Aid was applied. No immediate complications. Patient tolerated the procedure well. Attestation I, Alisia Lynn, have scribed for, and in the presence of, Sylvester Robles on this date,10/12/2022 10:39:07. 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 Elevated cholesterol History of squamous cell carcinoma HTN (hypertension) Left knee pain Nevus Right knee pain S/P total knee arthroplasty Procedure/Surgical History Electrodesiccation with curettage (02/11/2018)SurgeryCarpal tunnelLumpectomy of breastTAH - Total abdominal hysterectomy Medications apixaban(Eliquis 5 mg oral tablet), 5 mg= 1 tab, PO, bid atorvastatin(atorvastatin 10 mg oral tablet), 10 mg= 1 tab, PO, Daily cholecalciferol(Vitamin D3 1000 intl units oral capsule), 1000 Int_Unit= 1 cap, PO, Daily cholecalciferol(Vitamin D3 50,000 intl units (1250 mcg) oral capsule), 1250 mcg= 1 cap, PO, q7days clindamycin(clindamycin 300 mg oral capsule), 600 mg= 2 tab, PO, ONCE cyanocobalamin(Vitamin B12 1000 mcg oral tablet), 1000 mcg= 1 tab, PO, Daily diclofenac(diclofenac sodium 75 mg oral delayed release tablet), 75 mg= 1 tab, PO, bid, PRN, 1 refills gabapentin(Neurontin 300 mg oral capsule), See Instructions, 2 refills metoprolol(Metoprolol Tartrate 25 mg oral tablet), 12.5 mg= 0.5 tab, PO, bid multivitamin, 1 tab, PO, Daily ondansetron(Zofran 4 mg oral tablet), 4 mg= 1 tab, PO, q8h, PRN oxyCODONE(oxyCODONE 5 mg oral tablet), See Instructions, PRN sodium hyaluronate(Euflexxa 10 mg/mL intra-articular solution), 25 mg, intra- articular, q7days, 3 refills traMADol(traMADol 50 mg oral tablet), 50 mg= 1 tab, PO, q4h, PRN traMADol(traMADol 50 mg oral tablet), 25 mg= 0.5 tab, PO, q4h, PRN traZODone(traZODone 50 mg oral tablet), 50 mg= 1 tab, PO, qhs Allergies Allergy Not found in Searchcapcetibin Ceftinc-diff Latexblisters in mouth at dentist aloe vera topicalrash penicillinsrash pneumococcal vaccinesswelling, redness Social History Smoking Status Never smoked cigarettes Alcohol - Denies Alcohol Use Substance Abuse - Denies Substance Abuse Tobacco - Denies Tobacco Use Recommendations Health Maintenance Pending(in the next year) OverDue Adult Influenza Vaccine due08/25/22and every 1year Due Adult COVID-19 Vaccination due10/12/22Unknown Frequency Adult Tdap/Td Vaccine due10/12/22Unknown Frequency Breast Cancer Screening due10/12/22Unknown Frequency Colorectal Cancer Screening due10/12/22Unknown Frequency Hepatitis C Screening due10/12/22One-time only Medicare Annual Wellness Visit due10/12/22and every 1year Osteoporosis Screening due10/12/22One-time only Shingles Vaccine due10/12/22One-time only Due In Future Body Mass Index not due until05/25/23and every 1year Satisfied(in the past 1 year) Satisfied Body Mass Index on05/25/22.Satisfied by BRITTNY Retana Mary Electronic Signature on File Electronically Reviewed/Signed by: Alisia Lynn Author Signature Dt/Tm:10/12/2022 11:14 AM Electronically Reviewed/Signed by: Sylvester Robles MD Cosigner Signature Dt/Tm: 10/12/2022 12:56 PM Division of Sports Medicine OA Patient Care team information Care Team Personnel Name: DO Lee Carey K Position: Referring DIRECT Member Role: Primary Care Provider Address: Address: [address] [place] [id number] [place] Care Team Related Persons Name: LONDON ROBERTS Address: home [address] [place] [phone]
--- OUTSIDE RECORDS SUMMARY | 2023-01-19 15:09 | External Medical Summary ---
Author Name Unknown Address Unknown Organization K[facility] [address] [place] [address] Laboratory Report Ordering Provider Test Date Status SANTIAGO ORTIZ 12/11/2022 09:04:31 Final Observation Date Value Abnormality Reference (Units ) Status Lipase 12/11/2022 09:04:31 25 13-60 (U/L ) Final Performing Location [facility] [address] [place] [address]
--- OUTSIDE RECORDS SUMMARY | 2023-01-19 15:09 | External Medical Summary ---
Author Name Unknown Address Unknown Organization K01[facility] [place] [facility] [address] [place] [address] Laboratory Report Ordering Provider Test Date Status LAURE L[address] 10/16/2022 08:01:18 Final Observation Date Value Abnormality Reference (Units ) Status CRP, low-sensitivity 10/16/2022 08:01:18 <3 <=5 (mg/L) Final Performing Location [facility] - [address] [place] [address]
--- OUTSIDE RECORDS SUMMARY | 2023-01-19 15:09 | External Medical Summary | Summary of Care ---
Author Name Unknown Organization [facility] Address [address] [place] [address] Phone [phone] Care Team Providers Care Jewel Hole Finish Opener Name Role Phone Justyna Lee DO Primary Care Provider Reason for Visit * Reason Comments Re-Check Encounter Details Date Type Department Care Team Description 11/20/2022 Office Visit Family Practice [facility] [place] [address] [facility] [place] [id number] Justyna Lee DO [address] [facility] [place] [address] Paroxysmal atrial fibrillation (HCC)*; Chronic kidney disease, stage 3a (HCC); Multiple metastatic carcinoid tumors (HCC); Neuro-endocrine carcinoma (HCC); 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 180 Tablet 3 12/19/2021 3 Discontinued Vitamin D3 1.25 MG (19830 UT) Oral Capsule TAKE 1 CAPSULE BY MOUTH ONCE WEEKLY 12 Capsule 3 01/09/2022 3 Discontinued Atorvastatin Calcium 10 MG Oral Tablet (Lipitor) TAKE 1 TABLET BY MOUTH EVERY DAY 90 Tablet 2 04/11/2022 3 Discontinued Sulfamethoxazole -Trimethoprim 800-160 MG Oral Tablet (Bactrim DS) TAKE 1 TABLET BY MOUTH TWICE A DAY FOR 10 DAYS 0 09/14/2022 3 Discontinued(Medi cation List Clean Up) documented as of this encounter (statuses as of 12/04/2022) Active Problems Problem Noted Date S/P left [...] as of this encounter (statuses as of 12/04/2022) Resolved Problems Problem Noted Date Resolved Date Protein-calorie malnutrition 01/19/2019 Deep venous embolism and thrombosis 09/08/2018 09/08/2018 Other pancytopenia 09/08/2018 01/19/2019 Partial intestinal obstruction 06/18/2018 1 03/21/2018 Thrombocytopenia 04/17/2018 11/20/2022 Malignant (primary) neoplasm, unspecified 201609/06/2016 Malignant neoplasm of ovary 09/06/201608/25 Overview: carcinoid Malignant carcinoid tumor of ovary 09/06/2016 09/06/2016 HTN, goal below 140/90 09/06/2016 3 Pancreatic insufficiency 11/29/2014 017 Overview: Resolved. Was only when on chemotherapy sandostatin Abdominal pain 01/04/2011 09/06/2016 documented as of this encounter (statuses as of 12/04/2022) Immunizations Name Administration Dates Next Due COVID-19 [...] Sign Reading Time Taken Comments Blood Pressure 122/66 11/20/2022 9:47 AM EDT Pulse 74 11/20/2022 9:47 AM EDT Temperature 37 C (98.6 F) 11/20/2022 9:47 AM EDT Respiratory Rate 16 11/20/2022 9:47 AM EDT Oxygen Saturation 97% 11/20/2022 9:47 AM EDT Inhaled Oxygen Concentration - - Weight 67.1 kg (148 lb) 11/20/2022 9:47 AM EDT Height - - Body Mass Index 26.64 09/20/2022 10:38 AM EDT documented in this [...] No 10/13/2013 documented as of this encounter Patient Instructions * Patient Instructions* Justyna Lee DO - 11/20/2022 10:54 AM EDT Images from the original note were not included. documented in this encounter Progress Notes * Justyna Lee DO - 11/20/2022 10:00 AM EDT Subjective: Regina Felipe is a 72 year old female. Chief Complaint Patient presents with Re-Check HPI: Regina Felipe presents for 6 month recheck. Patient's past medical, surgical, family, and social history were reviewed. Medications, allergies, immunizations, and health care maintenance screenings were also reviewed. Afib on metoprolol and eliquis. Carcinoid s/p multiple surgeries, and now increased metastases H/o DCIS, s/p partial mastectomy, radiation to L breast: Gen Surg OVN reviewed 02/15 REASON FOR VISIT: Surveillance; h/o Stage 0, pTisNx G3 DCIS of the Left Breast; ER/DC positive HPI: Regina Felipe is a 72 year old year old female with a history of left breast cancer, as per following: Date of treatment: 12/28/13 (surgery by Dr. 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 HER-2/annette receptors negative; Tumor size 4.5cm; Margins were positive on initial excision (03/16/14) and negative on re-excision (04/16/14) Surgical procedure performed: Left partial mastectomy followed by re-excision Radiation history: Left breast radiation Chemotherapy history: Genetic Testing: None Negative navabiitaDOCUSYS 27 gene panel 10/2016 (breast, colon, and hereditary paraganglioma/pheo genes) PHM: Patient Active Problem List Diagnosis Code [...] Prior to Visit Medication Sig Dispense Refill [DISCONTINUED] Sulfamethoxazole-Trimethoprim 800-160 MG Oral Tablet (Bactrim DS) TAKE 1 TABLET BY MOUTH TWICE A DAY FOR 10 DAYS Metoprolol Tartrate 25 MG Oral Tablet (Lopressor) TAKE 1/2 TABLET BY MOUTH IN THE MORNING AND TAKE 1/2 TABLET BY MOUTH AT BEDTIME 90 Tablet 1 [DISCONTINUED] Atorvastatin Calcium 10 MG Oral Tablet (Lipitor) TAKE 1 TABLET BY MOUTH EVERY DAY (Patient taking differently: Take 1 Tablet by mouth every other day.) 90 Tablet 2 Ondansetron HCl 8 MG Oral Tablet (Zofran) Take 1 Tablet by mouth every 8 hours as needed for Nausea. 30 Tablet 11 [DISCONTINUED] Vitamin D3 1.25 MG (23181 UT) Oral Capsule TAKE 1 CAPSULE BY MOUTH ONCE WEEKLY 12 Capsule 3 [DISCONTINUED] Apixaban 5 MG Oral Tablet (Eliquis) Take by mouth 1 Tablet in the morning AND 1 Tablet before bedtime. 180 Tablet 3 Prochlorperazine Maleate 5 MG Oral Tablet Take by mouth 1 Tablet every 6 hours as needed for Nausea. 30 Tablet 0 Vitamin B-12 1000 MCG Sublingual Tablet Sublingual Place 1 Tablet under the tongue in the morning. No facility-administered medications prior to visit. Last reviewed on 11/20/2022 10:54 AM by Justyna Lee DO Review of patient's allergies indicates: Allergen Reactions Aloe Vera Rash Nickel Rash Capecitabine Rash Ceftin Diarrhea Patient developed C Diff. Latex Other (Please comment) Sores in mouth when at the dentist. Possible reaction. Penicillins Rash Pneumococcal Vaccine Other (Please comment) Site of injection became warm to touch, red, and swollen. Objective: BP 122/66 | Pulse 74 | Temp 37 C (98.6 F) (Tympanic) | Resp 16 | Wt 67.1 kg (148 lb) | SpO2 97%| BMI 26.64 kg/m | BSA 1.72 m Physical Exam: General: alert, healthy, and no distress Head: Normocephalic, No masses, lesions, tenderness or abnormalities Neck: supple, no adenopathy, no bruits, thyroid normal size, non-tender, without nodularity Heart: regular rate & rhythm, no murmur, and no gallops Lungs: chest symmetric with normal AP diameter, no chest deformities noted, no chest wall tenderness, lungs clear to auscultation Pulses: carotid=2/4 w/o bruits Extremities: less than 2 second capillary refill, no joint deformities, effusion, or inflammation Latest Reference Range & Units 10/20/21 07:29 01/09/22 11:15 01/10/22 08:34 02/13/22 09:31 05/25/22 00:00 10/16/22 07:58 10/16/22 08:01 Triglycerides <=174 mg/dL 160 195 (H) Cholesterol <200 mg/dL 208 (H) 159 Non-HDL Cholesterol <=159 mg/dL 119 84 HDL Cholesterol >49 mg/dL 89 75 LDL Cholesterol <=129 mg/dL 87 LDL Cholesterol (Direct Measure) <=129 mg/dL 66 Sodium 135 - 146 mmol/L 144 143 Potassium 3.5 - 5.1 mmol/L 3.7 4.1 POTASSIUM-OUTSIDE LAB 3.5 - 5.1 MMOL/L 3.9 (E) Chloride 98 - 107 mmol/L 105 106 CO2 22 - 32 mmol/L 28 25 BUN 6 - 20 mg/dL 13 14 Creatinine 0.5 - 1.0 mg/dL 1.0 1.0 CREATININE-OUTSIDE LAB 0.6 - 1.2 MG/DL 1.06 (E) Estimated Glomerular Filtration Rate >=60 mL/min 63 59 (L) EGFR-OUTSIDE LAB ML/MIN 52.0 (E) Anion Gap 7 - 15 mmol/L 11 12 Glucose 70 - 120 mg/dL 108 99 GLUCOSE-OUTSIDE LAB 70 - 99 MG/DL 122 ! (E) Calcium 8.4 - 10.2 mg/dL 10.0 9.9 Protein 6.0 - 8.3 g/dL 6.2 6.2 25-Hydroxy Vitamin D >19 ng/mL 24 25-HYDROXY VITAMIN D Rpt HEMOGLOBIN, E4L-MACEDFV LAB 4.5 - 5.6 % 5.8 ! (E) CBC Rpt Rpt CBC WITH WBC DIFFERENTIAL Rpt ! Rpt ! WBC 4.00 - 10.80 K/uL 5.98 5.04 HGB 12.0 - 15.3 g/dL 13.6 13.0 HCT 36.0 - 45.2 % 41.1 40.5 MCV 81.5 - 97.5 fL 91.5 89.6 PLT 140 - 400 K/uL 159 145 Absolute Neutrophils 1.80 - 7.70 K/uL 3.17 2.30 Absolute Lymphocytes 1.00 - 4.80 K/ul 2.04 1.87 Absolute Monocytes 0.00 - 1.10 K/uL 0.68 0.73 Absolute Eosinophils 0.00 - 0.70 K/uL 0.08 0.12 Absolute Basophils 0.00 - 0.20 K/uL 0.01 0.02 CRP (Inflammatory Marker) <=5 mg/L <3 ESR <30 mm/hour 9 CLOSTRIDIUM DIFFICILE, PCR Rpt Clostridium difficile Result Negative Negative. No C. difficile toxin B gene DNA detected by PCR (Amplified Probe). Stool Consistency Semi-liquid GASTROINTESTINAL PATHOGEN PANEL, STOOL Rpt Campylobacter group by PCR Negative Negative Norovirus by PCR Negative Negative Rotavirus by PCR Negative Negative Salmonella species by PCR Negative Negative Shiga Toxin 1 Gene by PCR Negative Negative Shiga Toxin 2 Gene by PCR Negative Negative Shigella species by PCR Negative Negative Vibrio group by PCR Negative Negative Yersinia enterocolitica by PCR Negative Negative Albumin 3.8 - 5.0 g/dL 4.1 4.1 AST 10 - 35 U/L 18 16 ALT 10 - 35 U/L 9 (L) 13 Alkaline Phosphatase 35 - 130 U/L 77 86 Bilirubin, Total <=1.2 mg/dL 0.5 0.5 PROTEIN, UA-OUTSIDE LAB NEGATIVE NEGATIVE (E) Albumin / Creatinine Ratio, Urine <30 mg/g Creat 18 ALBUMIN / CREATININE RATIO, URINE Rpt Albumin, Random Urine mg/dL 3.65 Creatinine, Random Urine mg/dL 207 DXA RESULTS: Lumbar spine: 0.930 gms/cm2 T-score: -1.1 Left femoral neck: 0.576 gms/cm2 T-score: -2.5 FRAX not indicated. IMPRESSIONS: Fracture risk is based on current National Osteoporosis Foundation (www.nof.org) Clinicians Guide and [place] Association of Clinical Endocrinology (AACE) Guidelines (www.aace.com) and the application of current WHO FRAX tool (https://www.gary.ac.uk/FRAX/) as well as the 2017 [place] Collegeof Rheumatology Glucocorticoid Induced Osteoporosis (GIOP) Guidelines (rheumatology.org/Practice-Issac lity/Clinical-Support/Uvvespnm-Jhsnlzkk-Rsnybeirli) using Bone mineral density derived T-scores andclinical risk factors obtained from the patient questionnaire. 1. The fracture risk is HIGH (based on T-score at or below -2.5) 2. The quality of the examination is GOOD. 3. No previous study for comparison. SUGGESTIONS: Information concerning the evaluation and treatment of osteoporosis can be found at the National Osteoporosis Foundation website (www.nof.org) and Citizen [place] Association of Clinical Endocrinology (AACE-www.aace.com). Osteoporosis prevention and treatment begins by modifying risk factors (such as smoking cessation and avoiding alcohol excess) and by participating in weight-bearing activities and exercise. Issues related to fall prevention and home safety should be addressed. Current NOF guidelinessuggest 1200 to 1500 mg of calcium from diet and or supplemental sources. It is generally felt bestto get calcium from ones diet. Calcium carbonate and calcium citrate are common calcium supplement choices in most local pharmacies. If the patient is taking a proton pump inhibitor, then calcium citrate should be the preferred supplement, if that is necessary. NOF guidelines for vitamin D are 800 to 1000 units of vitamin D3 daily. However, this may best be guided by measurement of 25-OH vitamin-D level, aiming for a level between 30 to 50 units (ng/ml). Additional information can be found at the epicurioX website (https://www.gary.ac.uk/FRAX/), and the [place] College of Rheumatology website (https://www.rheumatology.org/Practice-Quality/Clinical-Support/Clinical-Practic e-Guidelines). 1. Treatment with a bisphosphonate (such as Fosamax/Alendronate, Actonel/Risedronate, or Boniva/Ibandronate) should be considered. If the patient is unable to use an oral bisphosphonate, another agent such as IV bisphosphonates (Boniva/Ibandronate or Reclast/Zoledronic Acid ), Prolia/Denosumab Forteo/Teriparatide, Tymlos/Abaloparatide, Evenity/Romosozumab, or a selective estrogen receptor modulator (Evista/Raloxifene) should be considered. Secondary causes of low bone density should be considered. A 25-OH Vitamin D, serum calcium, and creatinine should be obtained. Other studies can be considered which would include a PTH, IEP, TSH, or Testosterone (in men). (For users of [employer], there is an osteoporosis Smart Set #1146). 2. A repeat study should be considered in 2 years, after therapy is started RAUL ARANDA M.D. 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 Goal for you is a LDL LESS THAN 100, you are 89. Lets try a low fat, low cholesterol (red meat or eggs only ONCE a week), high fiber (fruits, vegetables, bran, whole grains) diet, exercise and weight loss first, recheck in about 6 months- may need a cholesterol lowering medication if you can not get to goal on your own. Prediabetes - HEMOGLOBIN A1C; Future; Expected date: 11/20/2022 Fasting sugar was a little high suggesting prediabetes or insulin resistance. This means you may develop diabetes in the next few years. You should do everything you can to prevent diabetes now including cutting out sugars, especially sugar sweetened beverages, watching carbs, switching to whole grains and eating 3-4 small servings daily. Exercising 30-60 minutes daily can help the insulin resistance a lot, and10% weight loss, if applicable can also help. S/P left knee arthroscopy History of squamous cell carcinoma High risk for fracture due to osteoporosis by DEXA scan - PTH; Future; Expected date: 11/20/2022 - 25-HYDROXY VITAMIN D; Future; Expected date: 11/20/2022 - SERUM PROTEIN ELECTROPHORESIS REFLEX PROFILE; Future; Expected date: 11/20/2022 Look for secondary causes, consider treatment, discussed options, rheum referral Screening for thyroid disorder - TSH WITH FREE T4 IF INDICATED; Future; Expected date: 11/20/2022 40 min spent with patient, reviewing history, performing physical exam, reviewing labs, studies, specialist OVNs, and reports, educating and coordinating care, discussing treatment and completing this note Justyna Lee DO documented in this encounter Nursing Notes * Dodie Siu LPN - 11/20/2022 9:41 AM EDT Regina Felipe presents for 6 month recheck. Medications & HM reviewed. documented in this encounter Plan of Treatment Upcoming Encounters Date Type Specialty Care Team Description 02/05/2023 Imaging Radiology 02/05/2023 Office Visit General Surgery Araceli Solorzano PA-C [address] [place] [address] [place] [id number] 03/06/2023 Office Visit Cardiology Augustus Toro DO [address] [place] [address] 05/21/2023 Office Visit Family Medicine Justyna Lee DO [address] [place] [address] Health Maintenance Due Date Last Done Comments Cologuard 1994 Fecal Occult Blood Test 1994 Sigmoidoscopy 1994 Depression Screening 04/08/2019 04/08/2018 DTaP,Tdap,and Td Vaccines (2 - Td or Tdap) 11/30/2020 11/30/2010 COVID-19 Vaccine ( season) 2022 11/08/2021, 10/11/2020, 04/29/2020, Additional history exists Influenza Vaccine (FLU shot) (#1) 2022 12/01/2021, 10/15/2019, 10/18/2018, Additional history exists Mammogram 01/31/2023 01/31/2022, 12/26, 11/19/2019, Additional history exists Albumin/Creatinine Ratio 02/13/2023 02/13/2022 GFR 04/18/2023 10/16/2022, 04/27, 01/09/2022, Additional history exists Colonoscopy 07/01/2023 06/30/2013, 07/2013, 06/19/2011, Additional history exists Colorectal Cancer Screening 07/01/2023 CKD HGB USE SMARTSET 14047 10/17/202310/16, 10/16/2022, 05/25/2022, Additional history exists CKD PHOS USE SMARTSET 12755 11/21/202310/27, 10/16/2013, 10/15/2013, Additional history exists HbA1c [...] Not on filedocumented as of this encounter Results * SERUM PROTEIN ELECTROPHORESIS REFLEX PROFILE (11/20/2022 11:07 AM EDT) Protein 6.2 6.0 - 8.3 g/dL 11/22/2022 3:29 PM EDT [facility] Albumin 3.35 3.30 - 4.40 g/dL 11/22/2022 3:29 PM EDT [facility] Alpha-1 Globulin 0.20 0.10 - 0.30 g/dL 11/22/2022 3:29 PM EDT [facility] Alpha-2 Globulin 0.98 0.60 - 1.00 g/dL 11/22/2022 3:29 PM EDT [facility] Beta-Globulin 0.90 0.80 - 1.30 g/dL 11/22/2022 3:29 PM EDT [facility] Gamma-Globulin 0.76 0.70 - 1.70 g/dL 11/22/2022 3:29 PM EDT [facility] Electrophoresis Interpretation Normal serum protein electrophoretic pattern. 11/22/2022 3:29 PM EDT [facility] Blood Venous blood specimen / Unknown Venipuncture / Unknown 11/20/2022 11:07 AM EDT 11/20/2022 11:07 AM EDT Justyna Lee DO LAB BLOOD ORDER CAROL [facility] [address] [place] [address] * TSH WITH FREE T4 IF INDICATED (11/20/2022 11:07 AM EDT) TSH 1.47 0.27 - 4.20 uIU/mL 11/20/2022 10:51 PM EDT [facility] Blood Venous blood specimen / Unknown Venipuncture / Unknown 11/20/2022 11:07 AM EDT 11/20/2022 11:07 AM EDT Justyna Lee DO LAB BLOOD ORDER CAROL Performing Organization Address City/[facility] Co de Phone Number [facility] [address] [place] [address] * 25-HYDROXY VITAMIN D (11/20/2022 11:07 AM EDT) 25-Hydroxy Vitamin D 47 >19 ng/mL 11/20/2022 10:51 PM EDT [facility] Blood Venous blood specimen / Unknown Venipuncture / Unknown 11/20/2022 11:07 AM EDT 11/20/2022 11:07 AM EDT Narrative [facility] - 11/20/2022 10:51 PM EDT Deficient: <20 ng/mL Insufficient: 20-29 ng/mL Recommended/Optimum:30-50 ng/mL Vitamin D intoxication is rare. If suspicious of Vitamin D toxicity, evaluation of serum Calcium and PTH is recommended. Justyna Lee DO LAB BLOOD ORDER CAROL Performing Organization Address City/[facility]/ZIP Co de Phone Number [facility] [address] [place] [address] * PTH (11/20/2022 11:07 AM EDT) PTH 52 15 - 65 pg/mL 11/20/2022 10:51 PM EDT [facility] Blood Venous blood specimen / Unknown Venipuncture / Unknown 11/20/2022 11:07 AM EDT 11/20/2022 11:07 AM EDT Justyna Lee DO LAB BLOOD ORDER CAROL Performing Organization Address [facility]/ZIP Co de Phone Number [facility] [address] [place] [address] * (ABNORMAL) HEMOGLOBIN A1C (11/20/2022 11:07 AM EDT) Hemoglobin A1C 5.7(H) 4.0 - 5.6 % 11/20/2022 6:15 PM EDT [facility] Comment:The use of HbA1c to monitor glycemic status is based on normal hemoglobin and HbA composition. This test should not be used in patients with abnormal hemoglobin that affects the half life of the red blood cell or the in vivo glycation rates. Estimated Average Glucose 117 <126 mg/dL 11/20/2022 6:15 PM EDT [facility] Blood Venous blood specimen / Unknown Venipuncture / Unknown 11/20/2022 11:07 AM EDT 11/20/2022 11:07 AM EDT Justyna Lee DO LAB BLOOD ORDER CAROL Performing Organization Address [facility] Co de Phone Number [facility] [address] [place] [address] documented in this encounter Visit Diagnoses Diagnosis Paroxysmal atrial fibrillation (HCC)- Primary Atrial fibrillation Chronic kidney disease, stage 3a (HCC) Multiple metastatic carcinoid tumors (HCC) Secondary neuroendocrine tumor of other sites Neuro-endocrine carcinoma (HCC) Malignant carcinoid tumor of unknown primary site 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 Neoplasm of unspecified nature of digestive system S/P small bowel resection Other postprocedural status S/P exploratory laparotomy Other postprocedural status History of ductal carcinoma in situ (DCIS) of breast History of partial mastectomy of left breast Hx SBO Personal history of other diseases of digestive system Hypercholesteremia Pure hypercholesterolemia Prediabetes Other abnormal glucose S/P left knee arthroscopy Other postprocedural status History of squamous cell carcinoma Personal history of malignant neoplasm of other site High risk for fracture due to osteoporosis [...] the patient have Health Care Power of Physician Ophthalmologist? No Code Status History Code Status Date Activated Date Inactivated Comments Full Code 10/13/2013 4:54 PM 10/16/2013 4:29 PM This order reflects the patients wishes and were consensually agreed upon. Full Code 10/13/2013 1:22 PM 10/13/2013 4:54 PM This order reflects the patients wishes and were consensually agreed upon. Care Teams Jewel Hole Finish Opener Relationship Specialty Start Date End Date Justyna Lee DO [address] [facility] [place] [address] PCP - General Family Medicine 04/17/18 documented as of this encounter"
--- OUTSIDE RECORDS SUMMARY | 2023-01-19 15:09 | External Medical Summary | Summary of Care ---
Author Name Unknown Organization [facility] Address [address] [place] [address] Phone [phone] Care Team Providers Care Drill Foreman Name Role Phone Justyna Lee DO Primary Care Provider Reason for Visit * Reason Comments Follow Up Encounter Details Date Type Department Care Team Description 08/02/2022 Office Visit Cardiology, [facility] [address] [place] [address] Pako Velez PA-C [address] [place] [address] Paroxysmal atrial fibrillation (HCC)*; Abnormal EKG; Hypercholesteremia; HTN, goal below 140/90 Allergies Active Allergy Reactions Severity Noted Date [...] as of this encounter (statuses as of 08/02/2022) Medications Medication Sig Dispensed Refills Start Date End Date Status Vitamin B-12 1000 MCG Sublingual Tablet Sublingual Place 1 Tablet under the tongue in the morning. 0 04/15/2021 Active Prochlorperazine Maleate 5 MG Oral TabletIndications: Multiple metastatic carcinoid tumors (HCC) Take by mouth 1 Tablet every 6 hours as needed for Nausea. 30 Tablet 0 10/19/2021 Active Metoprolol Tartrate 25 MG Oral Tablet (Lopressor) Take by mouth 0.5 Tablets in the morning AND 0.5 Tablets before bedtime. 90 Tablet 3 11/16/2021 Active Apixaban 5 MG Oral Tablet (Eliquis) Take by mouth 1 Tablet in the morning AND 1 Tablet before bedtime. 180 Tablet 3 12/19/2021 Active Vitamin D3 1.25 MG (79450 UT) Oral Capsule TAKE 1 CAPSULE BY [...] Oral EVERY OTHER DAY, Reported on 08/02/2022 Diclofenac Sodium 75 MG Oral Tablet Delayed Release (Voltaren) Take 1 Tablet by mouth in the morning and 1 Tablet before bedtime. 0 07/05/2022 Active Gabapentin 300 MG Oral Capsule (Neurontin) Take 1 Capsule by mouth every afternoon. 0 07/20/2022 Active documented as of this encounter (statuses as of 08/02/2022) Active Problems Problem Noted Date Prediabetes 06/04/2022 [...] as of this encounter (statuses as of 08/02/2022) Resolved Problems Problem Noted Date Resolved Date [...] as of this encounter (statuses as of 08/02/2022) Immunizations Name Administration Dates Next Due COVID-19 mRNA, LNP-s, No Pre serve, 2-Dose Series (Moderna) 10/11/2020,04/29/2020,04/02/2020 Covid-19, Mrna, Lnp-s, Pf, B ivalent, 30 Mcg, IM, 12 yrs and above (Capseo) 11/08/2021 Pneumococcal Conjugate Vacc, 13 Valent (Prevnar) [...] Sign Reading Time Taken Comments Blood Pressure 126/74 08/02/2022 2:03 PM EDT Pulse 80 08/02/2022 2:03 PM EDT Temperature - - Respiratory Rate 12 08/02/2022 2:03 PM EDT Oxygen Saturation 97% 08/02/2022 2:03 PM EDT Inhaled Oxygen Concentration - - Weight 67.2 kg (148 lb 4 oz) 08/02/2022 2:03 PM EDT Height - - Body Mass Index 26.68 01/31/2022 11:10 AM EST documented in this encounter Functional Status Functional [...] as of this encounter Progress Notes * Pako Velez PA-C - 08/02/2022 2:00 PM EDT History of present illness: Regina Felipe is a 74-year-old female previously followed by Dr. Izaguirre. Hospitalized at [facility] in May 2022, undergoing elective left total knee arthroplasty on June 07, [address] Robles without cardiac complication. On diclofenac, risks discussed today as requested. Feeling well. No palpitations. No atrial fibrillation via Apple Watch. No exertional chest pain.No unusual shortness of breath. No fluid retention. No reported lightheadedness, dizziness, near syncope, or syncope. No epistaxis, hemoptysis, melena, hematochezia, or hematuria. May be starting a chemo drug. Problem List: 1. New onset symptomatic atrial flutter/fibrillation with a rapid ventricular response status post spontaneous conversion on 10/22/2021 at 20:02 without significant conversion pause and without overt clinical sequela. 2. [id number] Score is 4 points 3. Hypertension 4. Evidence of vascular disease (moderate calcified plaque of the abdominal aorta without aneurysm noted via prior Abdomen/Pelvix CT dated 08/31/2018) 5. Dyslipidemia 6. Abnormal EKG 7. 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 Breast cancer 9. Thrombocytopenia 10. Stage 3 chronic kidney disease 11. 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 Migraine not a current problem Multiple metastatic carcinoid tumors (HCC) 09/06/2016 Neuroma 08/19/2011 c-scope rpt 1 year Pancreatic insufficiency 11/29/2014 Personal history of colonic polyps Reflux S/P small bowel resection 02/25/2011 Past Surgical History: Procedure Laterality Date BREAST BIOPSY-STEREOTACTIC benign lesion CARPAL TUNNEL SURGERY 03/2003 Carpal Tunnel repair Right wrist Dr Hendrickson COLONOSCOPY, DIAGNOSTIC (RECTUM) 06/19/2011 COLONOSCOPY FLEXIBLE PROXIMAL DIAGNOSTIC performed by BALWINDER PACHECO at [facility]: neuroma rpt c-scope 1 year COLONOSCOPY, DIAGNOSTIC (RECTUM) 06/30/2013 diverticulosis, repeat 5 yrs/COLONOSCOPY FLEXIBLE PROXIMAL DIAGNOSTIC performed by Balwinder Pacheco DO at [facility] DENTAL SURGERY PROCEDURE NEC EGD, FLEXIBLE,W/US GUIDE FNA TO JEJUNUM 03/29/2011 FNA & BX EXPLORATION OF ABDOMEN 01/22/2011 Diagnostic laparoscopy, laparotomy, small bowel resection approximately 2.5 feet, [id number] anastomosis, frozen section, Appendectomy 01/22/11 Dr. Quach at [facility] EXPLORATION OF ABDOMEN 10/13/2013 EXPLORATORY LAPAROTOMY performed by Jennifer Bucio DO at [facility] INFORMATION 12/2014 resection small bowel for obstruction recurrence carcinoid Dr. Quach MASTECTOMY, PARTIAL Left 03/16/2014 MASTECTOMY PARTIAL performed by Rachel Faust MD at [facility] MASTECTOMY, PARTIAL Left 04/16/2014 MASTECTOMY PARTIAL performed by Rachel Faust MD at OR [facility] REDUCTION OF BOWEL OBSTRUCTION 07/2018 end to end ileum to descending colon, THAIS, repair incisional hernia without mesh TOTAL ABD HYSTERECTOMY W/WO REMOVAL OF TUBE(S) 10/13/2013 TOTAL ABDOMINAL HYSTERECTOMY WITH OR WITHOUT TUBES AND OVARIES performed by Jennifer Bucio DO at [facility] Family History Problem Relation Age of Onset Cancer Mother 75 Breast/Carcinoid Tumor in ABD Breast Cancer Mother Diabetes Father Type 2 DM Heart Disorder Father CHF Cancer Father lymphoma Diabetes Sister Coronary Artery disease Sister Diabetes Sister Coronary Artery disease Sister Stroke Sister Heart failure Sister Arthritis Brother Thyroid Disorder Brother Cancer Grandmother (Maternal) colon Colon cancer Grandmother (Maternal) Cancer Aunt (Unspecified) colon? Breast Cancer Cousin (Maternal) Breast Cancer Cousin (Paternal) Breast Cancer Cousin (Paternal) Social History Socioeconomic History Marital status: Spouse name: Pierre Number of children: 1 Years of education: Not on file Highest education level: Not on file Occupational History Not on file Tobacco Use Smoking status: Never Smokeless tobacco: Never Vaping Use Vaping Use: Never used Substance and Sexual Activity Alcohol use: Yes Comment: Occasional Drug use: No Sexual activity: Yes Other Topics Concern Not on file Social History Narrative Not on file Social Determinants of Health Financial Resource Strain: Not on file Food Insecurity: No Food Insecurity Worried About Running Out of Food in the Last Year: Never true Ran Out of Food in the Last Year: Never true Transportation Needs: Not on file Physical Activity: Not on file Stress: Not on file Social Connections: Not on file Intimate Partner Violence: Not on file Housing Stability: Not on file Family History: Mother with carcinoid tumor, carcinoid syndrome, cardiac involvement. Father had his first CVA in his late 50s or early 60s. 2 brothers without cardiac issues. 2 sisters have passed, both with CAD. Social History: Non-smoker. Social alcohol, 1 to 2 glasses of wine per week. No illegal drug use. 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 , 1 son without cardiac issues. Complete Review of Systems is as stated above, negative, or noncontributory. Review of patient's allergies indicates: Allergen Reactions Aloe Vera Rash Nickel Rash Capecitabine Rash Ceftin Diarrhea Patient developed C Diff. Latex Other (Please comment) Sores in mouth when at the dentist. Possible reaction. Penicillins Rash Pneumococcal Vaccine Other (Please comment) Site of injection became warm to touch, red, and swollen. Current Outpatient Medications Medication Sig Dispense Refill Vitamin B-12 1000 MCG Sublingual Tablet Sublingual Place 1 Tablet under the tongue in the morning. Prochlorperazine Maleate 5 MG Oral Tablet Take by mouth 1 Tablet every 6 hours as needed for Nausea. 30 Tablet 0 Metoprolol Tartrate 25 MG Oral Tablet (Lopressor) Take by mouth 0.5 Tablets in the morning AND 0.5 Tablets before bedtime. 90 Tablet 3 Apixaban 5 MG Oral Tablet (Eliquis) Take by mouth 1 Tablet in the morning AND 1 Tablet before bedtime. 180 Tablet 3 Vitamin D3 1.25 MG (53137 UT) Oral Capsule TAKE 1 CAPSULE BY MOUTH ONCE WEEKLY 12 Capsule 3 Ondansetron HCl 8 MG Oral Tablet (Zofran) Take 1 Tablet by mouth every 8 hours as needed for Nausea. 30 Tablet 11 Atorvastatin Calcium 10 MG Oral Tablet (Lipitor) TAKE 1 TABLET BY MOUTH EVERY DAY (Patient taking differently: Take 1 Tablet by mouth every other day.) 90 Tablet 2 Diclofenac Sodium 75 MG Oral Tablet Delayed Release (Voltaren) Take 1 Tablet by mouth in the morning and 1 Tablet before bedtime. Gabapentin 300 MG Oral Capsule (Neurontin) Take 1 Capsule by mouth every afternoon. No current facility-administered medications for this visit. PHYSICAL EXAMINATION: BP 126/74 (BP Site: Left Arm, BP Position: Sitting, BP Cuff Size: Regular) | Pulse 80 | Resp 12 | Wt 67.2 kg (148 lb 4 oz) | SpO2 97% | BMI 26.68 kg/m | BSA 1.72 m General: alert, healthy, no distress, comfortable and cooperative Skin: No rash. Eyes: PER. Conjunctiva pink, sclera clear. HENT: Normocephalic. Atraumatic. Neck: No carotid bruits. No JVD. No HJR. Heart: RRR. Lungs: Clear to auscultation. Abdomen: +BS. Extremities: No clubbing, cyanosis, or edema. Pulses: Posterior tibial=2/4. Limited neurological examination: No focal deficit. Data: October 23, 2021 TTE Interpretation Summary ([facility], Dr. Tay): Mild concentric LVH. Normal LV systolic function. Ejection fraction 60 to 65%. Normal RV systolic function. Normal left atrial size. Normal right atrial size. No significant valvular pathology. November 03, 2021 Lexiscan Interpretation Summary (as per Dr. Izaguirre): Myocardial perfusion imaging is normal. Overall left ventricular systolic function was normal without regional wall motion abnormalities. The left ventricular ejection fraction was >70%. There are no prior studies available for comparison. ASSESSMENT AND RECOMMENDATIONS/PLAN: 1. Symptomatic paroxysmal atrial fibrillation/flutter with a rapid ventricular response on October 22, 2021 status post spontaneous conversion on 10/22/2021 at 20:02 without significant conversion pause and without overt clinical sequela. [id number] Score is 4 points. 2. Hypertension 3. Dyslipidemia. Chronically prescribed atorvastatin. LDL cholesterol 87 mg/dL in September 2021. 4. Evidence of vascular disease (moderate calcified plaque of the abdominal aorta without aneurysm noted via prior Abdomen/Pelvix CT dated 08/31/2018) 5. Diastolic dysfunction with normal LV systolic function Options of management discussed with patient and who was present for the entire visit. Continue current therapies as presently prescribed. Continue metoprolol and Eliquis as prescribed. Update lipids and LFTs in September, considering titration of atorvastatin in an attempt to achieve an optimal LDL cholesterol goal of less than 70 mg/dL. Recommend discontinuation of diclofenac as noted above. Routine cardiology follow-up. Patient will be transitioning to Dr. Toro who also cares for her following the departure of Dr. Izaguirre. Pako Velez PA-C Department of Cardiology documented in this encounter Nursing Notes * Angelia Patterson CMA - 08/02/2022 1:58 PM EDT Examination Room: 2 Name: Regina Felipe Date of : (1950). Reason for Visit: 4M f/u Interim Hospitalization(s): none Problems/Concerns: Denies any concerns at this time. States she has had no further episodes of afib. Chest Pain/SOB: denies [facility] Discussed: Not applicable [facility] is a way you can talk to your provider online through e-mail. Would you like to sign up? I can activate it for you? ALREADY ACTIVE Patient was instructed to not get up on the exam table until directed and assisted by their provider; patient is to remain seated in the chair/ wheelchair/ exam table for fall prevention and safety reasons. Patient is aware to have assistance to step down off exam table with personnel. Patient voiced full comprehension of instructions. documented in this encounter Plan of Treatment Upcoming Encounters Date Type Specialty Care Team Description 09/03/2022 Imaging Radiology 11/20/2022 Office Visit Family Medicine Justyna Lee, [address] [place] [id number] 02/05/2023 Imaging Radiology 02/05/2023 Office Visit General Surgery Araceli Solorzano PA-C [address] [place] [id number] 03/06/2023 Office Visit Cardiology Augustus Toor, DO [address] [place] [address] Scheduled Orders Name Type Priority Associated Diagnoses Orde r Schedule LIPID PANEL WITH DIRECT LDL IF TG IS HIGH Lab Routine Hypercholesteremia Expected: 11/02/2022, Expires: 08/03/2023 COMPREHENSIVE METABOLIC PANEL Lab Routine Hypercholesteremia Expected: 11/02/2022, Expires: 08/03/2023 CBC Lab Routine Paroxysmal atrial fibrillation (HCC) Expected: 11/02/2022, Expires: 08/03/2023 Health Maintenance Due Date Last Done Comments Cologuard 1994 Fecal Occult Blood Test 1994 Sigmoidoscopy 1994 CKD PHOS USE SMARTSET 33238 10/16/201409/26, 10/15/2013, 10/14/2013 Depression Screening, Annual for Pts 12 and Over 04/08/2019 04/08/2018 DTaP,Tdap,and Td Vaccines (2 - Td or Tdap) 11/30/2020 11/30/2010 DXA Scan 08/23/2022 08/24/2019, 08/25, 05/10/2005 GFR 11/24/2022 05/25/2022, 12/26, 10/13/2021, Additional history exists Mammogram 01/31/2023 01/31/2022, 12/26, 11/19/2019, Additional history exists Albumin/Creatinine Ratio 02/13/2023 02/13/2022 CKD HGB USE SMARTSET 26121 05/26/202305/25, 01/09/2022, 01/09/2022, Additional history exists HbA1c 05/26/2023 05/25/2022, 11/13/2016 Colonoscopy 07/01/2023 06/30/2013, 07/2013, 06/19/2011, Additional history exists Colorectal Cancer Screening 07/01/2023 Lipid Panel 10/20/2026 10/20/2021, 10/26, 08/20/2019, Additional history exists Pneumococcal Vaccine: 65+ Years Completed 06/26/2015, 07/16/2014 Zoster Vaccines Completed 03/15/2020, 04/2019, 01/26/2011 COVID-19 Vaccine Completed 11/08/2021, , 04/29/2020, Additional history exists Influenza Vaccine (FLU shot) Completed 08/2021, 10/15/2019, 10/18/2018, Additional history exists GARDASIL-HPV IMMUNIZATION SERIES Aged [...] as of this encounter Visit Diagnoses Diagnosis Paroxysmal atrial fibrillation (HCC)- Primary Atrial fibrillation Abnormal EKG Nonspecific abnormal electrocardiogram (ECG) (EKG) Hypercholesteremia Pure hypercholesterolemia HTN, goal below 140/90 Unspecified essential hypertension documented in this encounter Advance Directives Latest Code Status on File Code Status Date Activated Date Inactivated Comments Full Code 03/16/2014 8:45 AM 03/16/2014 4:34 PM Question Answer Comments Discussion of Advance Direct clem occurred with: Not Discussed Does the patient have a Living Will? No Does the patient have Health Care Power of Rod Buster Helper? No Code Status History Code Status Date Activated Date Inactivated Comments Full Code 10/13/2013 4:54 PM 10/16/2013 4:29 PM This order reflects the patients wishes and were consensually agreed upon. Full Code 10/13/2013 1:22 PM 10/13/2013 4:54 PM This order reflects the patients wishes and were consensually agreed upon. Care Teams Drill Foreman Relationship Specialty Start Date End Date Justyna Lee DO [address] [place] [address] PCP - General Family Medicine 04/17/18 documented as of this encounter"
[2023-01-19] MEDS ORDERED: SODIUM CHLORIDE 0.9% 1,000 ML IV ONE (15:42)
[2023-01-19] MEDS ORDERED: ONDANSETRON INJ 2 MG/ML 2 ML VIAL IV STA (15:42)
[2023-01-19] MEDS ORDERED: fentaNYL citrate PF 100 MCG/2 ML VIAL IV STA (15:42)
--- NOTE | 2023-01-19 15:45 | Emergency Department Note ---
Impression & Plan Abdominal pain, acute, right upper quadrant, Necrotizing inflammation of lymph node ED Provider Note HISTORY OF PRESENT ILLNESS: Patient is a 72-year-old female presenting with right upper quadrant abdominal pain. Patient reports that starting yesterday she developed pain in her right upper quadrant that radiates around her right flank and into her right middle back. States the pain has been constant since onset, but waxes and wanes in intensity. Reports nausea but no vomiting or diarrhea. She states that she knows she has gallstones from previous scans of her abdomen and is worried about her gallbladder. Denies any chest pain or shortness of breath. She is on Eliquis for previous history of A-fib. Denies any dysuria. She reports she had diarrhea 2 days ago, but that is not uncommon with her neuroendocrine cancer. She is not currently on any chemotherapy treatments. She states she has been nauseous at home and has been taking Zofran with little relief in her symptoms. She took a Tylenol and Zofran earlier today ROS: as above PHYSICAL EXAM: Constitutional: Patient appears in no acute distress. HENT: Head: Normocephalic and atraumatic. Eyes: EOMI, PERRL Mouth/Throat: Mucous membranes moist. Neck: Trachea midline. Neck supple. Cardiovascular: RRR, No murmurs, rubs or gallops. Intact distal pulses. Pulmonary/Chest: No respiratory distress. Breath sounds clear and equal bilaterally. No wheezes or rales. Abdominal: Abdomen soft, no rebound or guarding. RUQ TTP Musculoskeletal: No edema, tenderness or deformity noted. Skin: Warm and dry. No rash, erythema, pallor or cyanosis Psychiatric: Appropriate mood and affect for situation. Neurological: Alert and keenly responsive. CN II-XII grossly intact, moving all extremities equally and fully. MDM: - Vitals signs stable. - History obtained via patient. Patient presents with 5 quadrant abdominal pain. Pain started yesterday in her right upper quadrant and radiates into her right flank and right middle back. Pain has been constant since onset but waxes and wanes in intensity. Reports nausea but no vomiting or diarrhea. Denies any fevers - Chronic conditions affecting care: neuroendocrine cancer; CKD; Afib; HTN; HLD - Differential diagnoses include, but are not limited to: Biliary colic; cholangitis; cholecystitis; hepatitis; right lower lobe pneumonia; pulmonary embolism; pyelonephritis; herpes zoster; perforated duodenal ulcer - Order placed for continuous cardiac monitoring. At this time, monitor showed rate of 70 bpm with normal sinus rhythm, per my interpretation. - External medical records reviewed. Hematology oncology note dated 10/18/2022 was reviewed. 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 Noted to have an enlarged periportal lymph node which is now necrotic. Also noted to have mild pericholecystic fat stranding which may be secondary to acute cholecystitis. - UA negative for infection - Patient initially given 50 mcg IV fentanyl for pain control. On reassessment, patient still complaining of pain. Given 0.5 mg IV dilaudid. - Discussed case with general surgeon public information relations manager, Dr. Gamboa at [phone]. He states that the patient would not need any acute cholecystectomy at this time, as she needs further work-up to determine if her gallbladder is involved, such as a HIDA scan or MRCP versus ERCP. - Unclear whether the patient's symptoms are secondary to her necrotic lymph node in subsequent reactionary changes around that area versus gallbladder etiology. - Discussion was had with director long term care about patient's case and need for admission - Hospitalist consulted for admission - Patient admitted to [facility] for further evaluation and management. ASSESSMENT AND PLAN: Diagnosis: Right upper quadrant abdominal pain; necrotizing inflammation of lymph node Plan: admit Past Med/Surg History Medical History Atrial fibrillation Dx 09/[address] 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 Will start chemo following left TKA. Surgical History H/O exploratory laparotomy SBO release x3 Exploratory Laparotomy, THAIS, small bowel resection (08/21/18): Glidescope#3, EFF 7.5 at [facility]. Atraumatic. No issues noted per post-op anesthesia progress note. H/O exploratory laparotomy Exploratory Laparotomy, Lysis of Adhesions, Side to Side Ilealcolonic Anastomosis, Biopsy Abdominal Implant with Frozen Section, Repair Incisional Hernia Repair with Compartment Separation H/O: hysterectomy History of carpal tunnel surgery History of lumpectomy of left breast S/P laparotomy Diagnostic lap 01/22/11 Dr. Quach Family History Father Diabetes Sister Diabetes Mother Diabetes Grandmother (Maternal) Family hx of colon cancer Social History Smoking Status: Never smoker Second Hand Exposure: No; Do You Dip or Chew Tobacco: No; Hx Alcohol Use: Yes Alcohol type: wine Hx Substance Use: No Preferred Language: Japanese Communication Ability: Effective Dog Races Manager Required: No Beliefs That Will Affect Care: None marital status: Current Living Situation: Spouse Feels Safe at Home: Yes Assistive Devices: Walker Allergies Allergies Allergy/AdvReac Type Severity Reaction Status Date / Time pneumococcal vaccine Allergy Severe REDNESS, Verified 01/19/23 19:57 SWELLING AT SITE aloe Allergy Intermediate RASH Verified 01/19/23 19:57 latex Allergy Intermediate MOUTH Verified 01/19/23 19:57 SORES (AT DENTIST) Penicillins Allergy Intermediate RASH Verified 01/19/23 19:57 capecitabine Allergy Mild Rash Verified 01/19/23 19:57 cefuroxime AdvReac Mild C. DIFF Verified 01/19/23 19:57 nickel AdvReac Mild Rash Verified 01/19/23 19:57 Home Meds Home Medications Medication Instructions Recorded Confirmed atorvastatin 10 mg tablet 10 mg PO QPM 05/06/18 01/19/23 cyanocobalamin (vitamin B-12) 1,000 mcg sublingual QAM 10/22/21 01/19/23 1,000 mcg sublingual tablet ondansetron HCl 8 mg tablet 8 mg PO Q8H PRN Nausea 10/22/21 01/19/23 prochlorperazine maleate 5 mg 5 mg PO TID PRN Nausea 10/22/21 01/19/23 tablet (Compazine) cholecalciferol (vitamin D3) 1,250 50,000 unit PO WK 01/19/23 01/19/23 mcg (50,000 unit) capsule Previous Rx's Medication Instructions Recorded apixaban 5 mg tablet (Eliquis) 5 mg PO BID #60 tabs 10/24/21 metoprolol tartrate 25 mg tablet 12.5 mg (1/2 x 25 mg) PO BID #30 10/24/21 tabs Results & Data (ED) Vital Signs Vital Signs - 24 hr 01/19/23 15:06 01/19/23 15:38 01/19/23 16:00 Temperature 36.7 C Temperature Source Temporal Artery Scan Pulse Rate 78 Pulse Rate [Apical] 71 Respiratory Rate 18 18 Blood Pressure 161/76 H Blood Pressure [Left Arm] 153/91 H Blood Pressure Mean 104 Blood Pressure Mean [Left Arm] 111 Pulse Oximetry 96 97 93 Oxygen Delivery Method Room Air Room Air Room Air Sepsis Recent Fever Within 48 Hours No Sepsis New/Unexplained Change in Mental Status No Sepsis Action Taken by Nursing No Action Required 01/19/23 17:51 01/19/23 17:55 Temperature Temperature Source Pulse Rate 74 Pulse Rate [Apical] 68 Respiratory Rate 14 Blood Pressure Blood Pressure [Left Arm] 141/73 H Blood Pressure Mean Blood Pressure Mean [Left Arm] 95 Pulse Oximetry 95 Oxygen Delivery Method Room Air Sepsis Recent Fever Within 48 Hours Sepsis New/Unexplained Change in Mental Status Sepsis Action Taken by Nursing Laboratory Data 01/19/23 15:35 01/19/23 15:35 Lab Results 01/19/23 01/19/23 Range/Units 15:35 16:13 WBC 7.62 (4.8-10.8) K/ul RBC 4.72 (4.20-5.40) M/uL Hgb 14.0 (12.0-16.0) g/dl Hct 42.3 (37.0-47.0) % MCV 89.6 (80.0-100.0) fL MCH 29.7 (25.0-34.0) pg MCHC 33.1 (32.0-36.0) g/dL RDW Std Deviation 41.7 (36.4-46.3) fL RDW Coeff of Katelyn 12.7 (11.5-14.5) % Plt Count 157 (130-400) K/uL MPV 11.0 (9.4-12.4) fL Immature Gran % (Auto) 0.3 % Neut % (Auto) 67.8 % Lymph % (Auto) 17.2 % Gage % (Auto) 13.8 % Eos % (Auto) 0.5 % Baso % (Auto) 0.4 % Neut # (Auto) 5.17 (1.40-6.50) K/uL Lymph # (Auto) 1.31 (1.20-3.40) K/uL Gage # (Auto) 1.05 H (0.11-0.59) K/uL Eos # (Auto) 0.04 (0.00-0.50) K/uL Baso # (Auto) 0.03 (0.00-0.20) K/uL Immature Gran # (Auto) 0.02 (0.01-0.20) K/uL Sodium 139 (136-145) mmol/L Potassium 3.7 (3.5-5.1) mmol/L Chloride 101 (98-107) mmol/L Carbon Dioxide 30 (21-32) mmol/L Anion Gap 8 (3-11) BUN 10 (6-23) mg/dl Creatinine 1.06 (0.6-1.2) mg/dl Est Cr Clr Drug Dosing 41.6 ml/min Est GFR ( Amer) 60.3 ml/min Est GFR (Non-Af Amer) 52.0 ml/min BUN/Creatinine Ratio 9.4 L (10-20) Glucose 109 H (70-99(Fasting)) mg/dl Lactate 1.4 (0.4-2.0) mmol/L Calcium 10.5 H (8.6-10.3) mg/dl Total Bilirubin 0.9 (0.2-1.0) mg/dl AST 16 (13-39) U/L ALT 10 (7-52) U/L Alkaline Phosphatase 91 (34-104) U/L Total Protein 7.4 (6.0-8.3) gm/dl Albumin 4.4 (3.4-5.0) gm/dl Globulin 3.0 (2.5-4.0) gm/dl Albumin/Globulin Ratio 1.5 (0.9-2) Lipase 13 (11-82) U/L Urine Color Yellow Urine Appearance Clear (Clear) Urine pH 5.0 (4.5-7.5) Ur Specific [place] 1.010 (1.000-1.030) Urine Protein Negative (Negative) Urine Glucose (UA) Negative (Negative) Urine Ketones Trace H (Negative) Urine Blood Negative (Negative) Urine Nitrite Negative (Negative) Urine Bilirubin Negative (Negative) Urine Urobilinogen Negative (Negative) Ur Leukocyte Esterase Negative (Negative) Administered Medications Discontinued Medications Fentanyl Citrate (Fentanyl Citrate Pf 100 Mcg/2 Ml Vial) 50 mcg IV NOW STA Stop: 01/19/23 15:43 Last Admin: 01/19/23 15:55 Dose: 50 mcg Documented By: CHANDNI Hydromorphone HCl (Hydromorphone Inj 1 Mg/Ml Syringe) 1 mg IV NOW STA Stop: 01/19/23 18:08 Last Admin: 01/19/23 18:10 Dose: 1 mg Documented By: MAYELA Sodium Chloride (Nss) 1,000 mls @ 999 mls/hr IV .Q1H1M ONE Stop: 01/19/23 16:42 Last Infusion: 01/19/23 17:31 Dose: Infused Documented By: Admin: 01/19/23 15:54 Dose: 999 mls/hr Documented By: CHANDNI Ioversol (Optiray 320 500ml) 90 ml IV ONCE ONE Stop: 01/19/23 16:23 Last Admin: 01/19/23 16:22 Dose: 79 ml Documented By: TUAN Morphine Sulfate (Morphine Sulfate 4 Mg/Ml 1 Ml Carp\Vial) 4 mg IV NOW STA Stop: 01/19/23 18:00 Last Admin: 01/19/23 18:08 Dose: Not Given Documented By: MAYELA Ondansetron HCl (Ondansetron Inj 2 Mg/Ml 2 Ml Vial) 4 mg IV NOW STA Stop: 01/19/23 15:43 Last Admin: 01/19/23 15:54 Dose: 4 mg Documented By: [employer] Imaging Data Radiologist's Impression: Abdomen/Pelvis CT 01/19/23 15:[address] WITH IV CONTRAST CT DOSE: 728.67 mGy.cm HISTORY: RUQ abdominal pain TECHNIQUE: Multiaxial CT images of the abdomen and pelvis were performed following the use of intravenous contrast. A dose lowering technique was utilized adhering to the principles of ALARA. COMPARISON STUDY: Abdomen and pelvis CT 09/14/2022. FINDINGS: Bibasilar linear densities consistent with subsegmental atelectasis are scarring. No pneumoperitoneum. No pneumatosis. No suspicious lytic or blastic osseous lesions. Small fat-containing bilateral inguinal hernias again noted. There is a stable 8 mm nodule/diverticulum at the gastric fundus on image 33. Subtle nodular contour to the liver suggestive of early cirrhosis. There are few scattered hypodense lesions seen throughout the liver which remain unchanged. These favor cysts. Dominant lesion within the right hepatic lobe measures 18 mm. There is also a lobular 13 mm hypodense focus within the left hepatic lobe adjacent to the gallbladder fossa on image 102. This is also stable and therefore favors a benign lesion. The spleen and adrenal glands unremarkable. Bilateral cortical renal scarring remains unchanged. No hydronephrosis. Calcified plaque within the normal caliber abdominal aorta. No pelvic adenopathy. Trace pelvic fluid is noted. The bladder is unremarkable. Prior hysterectomy. There are surgical clips within the retroperitoneum and pelvic sidewalls. Colonic diverticulosis. No evidence for acute diverticulitis. No evidence for bowel obstruction. Small bowel anastomosis again noted within the right lower quadrant. The appendix is likely surgically absent. Cholelithiasis again noted. No significant gallbladder wall thickening. However, there is mild pericholecystic fat stranding. There is again noted periportal/upper retroperitoneal lymphadenopathy. One of these lymph nodes is now necrotic best seen on image 81 which measures 2.1 cm. This results in mild mass effect along the patent main portal vein. No intrahepatic bile duct dilatation. There is mild thickening and enhancement within the common bile duct and cystic duct best seen on image 85. The common bile duct remains normal in caliber. Inflammatory change/edema at the avi hepatis has also progressed. The dominant retrocaval lymph nodes in the prior study has essentially resolved in the interval. Focal narrowing within the proximal duodenum due to the mass effect from the adjacent inflammatory change and gallbladder. However, no evidence for an obstruction. There are few scattered subcentimeter hypodensities within the pancreas with dilatation of the proximal pancreatic duct measuring up to 7 mm. This is similar to the prior study and is therefore likely chronic. Subtle nodularity along the vaginal cuff with a few adjacent prominent lower mesenteric lymph nodes remains unchanged. Dominant mesenteric lymph node measures 6 mm. IMPRESSION: 1. Progressive inflammatory change/edema within the avi hepatis surrounding the persistent periportal/upper retroperitoneal lymphadenopathy. One of the enlarged periportal lymph nodes is now necrotic. This favors a neoplastic process. However, the progressive inflammatory change/edema raises the possibility of a superimposed infectious process. 2. There is mild thickening and enhancement within the common bile duct and cystic duct which could be reactive to the adjacent lymphadenopathy or represent an ascending cholangitis. Correlation with LFTs recommended. 3. Cholelithiasis again noted. There is mild pericholecystic fat stranding. This is likely reactive to the adjacent periportal abnormality. A developing acute cholecystitis is not excluded. 4. Periportal lymphadenopathy results in mild mass effect along the main portal vein and traversing proximal duodenum. 5. Subtle nodularity along the vaginal cuff with a few adjacent prominent lower mesenteric lymph nodes remains unchanged. 6. A few scattered hypodense lesions within the pancreas with mild dilatation of the proximal pancreatic duct. This is similar to the prior study. These favor small side branch intraductal papillary mucinous neoplasms. 7. Additional findings as described above. ACT 112: Negative or not required by law. Electronically signed by: Ajith Longoria M.D. 01/19/2023 4:48 PM Discharge Plan Visit Data Chief Complaint: Flank Pain Stated Complaint: PAIN RT SIDE GALLBLADDER ED Provider: Audrey Lawson Discharge Problem: Abdominal pain, acute, right upper quadrant, Necrotizing inflammation of lymph node Forms Stand Alone Forms: [employer] Prescriptions Prescriptions: No Action atorvastatin 10 mg tablet 10 mg PO QPM cyanocobalamin (vitamin B-12) 1,000 mcg Tablet, Sublingual 1,000 mcg SUBLINGUAL QAM ondansetron HCl 8 mg Tablet 8 mg PO Q8H PRN (Reason: Nausea) prochlorperazine maleate [Compazine] 5 mg Tablet 5 mg PO TID PRN (Reason: Nausea) Eliquis 5 mg tablet 5 mg PO BID Qty: 60 1RF metoprolol tartrate 25 mg Tablet 12.5 mg PO BID Qty: 30 1RF cholecalciferol (vitamin D3) 1,250 mcg (50,000 unit) capsule 50,000 unit PO WK Rx Instructions: Takes Q Fri Referrals Referrals: Justyna Lee DO [Primary Care Provider] -
[2023-01-19 16:00] LABS: Basophils # (auto) 0.03 K/uL (0.00-0.20); Basophils % (auto) 0.4 %; Eosinophils # (auto) 0.04 K/uL (0.00-0.50); Eosinophils % (auto) 0.5 %; Hematocrit (blood only) 42.3 % (37.0-47.0); Immature Granulocytes # (auto) 0.02 K/uL (0.01-0.20); Immature Granulocytes % (auto) 0.3 %; Lymphocytes # (auto) 1.31 K/uL (1.20-3.40); Lymphocytes % (auto) 17.2 %; Mean Corpuscular Hemoglobin 29.7 pg (25.0-34.0); Mean Corpuscular Hgb Conc 33.1 g/dL (32.0-36.0); Mean Corpuscular Volume 89.6 fL (80.0-100.0); Monocytes # (auto) 1.05 K/uL (0.11-0.59); Monocytes % (auto) 13.8 %; Neutrophils # (auto) 5.17 K/uL (1.40-6.50); Neutrophils % (auto) 67.8 %; Platelet Count 157 K/uL (130-400); RDW Coefficient of Variation 12.7 % (11.5-14.5); RDW Standard Deviation 41.7 fL (36.4-46.3); Red Blood Count 4.72 M/uL (4.20-5.40); White Blood Count 7.62 K/ul (4.8-10.8)
[2023-01-19 16:14] LABS: Albumin Globulin Ratio 1.5 (0.9-2); Albumin Level 4.4 gm/dl (3.4-5.0); BUN Creatinine Ratio 9.4 (10-20); Bilirubin,Total 0.9 mg/dl (0.2-1.0); Calcium 10.5 mg/dl (8.6-10.3); Creatinine Clr Calc Pharmacy 41.6 ml/min; Est GFR (African American) 60.3 ml/min; Potassium 3.7 mmol/L (3.5-5.1); Total Protein 7.4 gm/dl (6.0-8.3)
[2023-01-19] MEDS ORDERED: OPTIRAY 320 500ml IV ONE (16:22)
[2023-01-19 16:24] LABS: Appearance Urine Clear (Clear); Bilirubin Urine Negative (Negative); Blood Urine Negative (Negative); Color Urine Yellow; Glucose Urine UA Negative (Negative); Ketones Urine Trace (Negative); Leukocyte Esterase Urine Negative (Negative); Nitrite Urine Negative (Negative); Protein Urine Negative (Negative); Urobilinogen Urine Negative (Negative)
--- NOTE | 2023-01-19 16:50 | CT Scan Report ---
ABDOMEN AND PELVIS CT WITH IV CONTRAST CT DOSE: 728.67 mGy.cm HISTORY: RUQ abdominal pain TECHNIQUE: Multiaxial CT images of the abdomen and pelvis were performed following the use of intrave nous contrast. A dose lowering technique was utilized adhering to the principles of ALARA. COMPARISON STUDY: Abdomen and pelvis CT 09/14/2022. FINDINGS: Bibasilar linear densities consistent with subsegmental atelectasis are scarring. No pneumo peritoneum. No pneumatosis. No suspicious lytic or blastic osseous lesions. Small fat-containing bila teral inguinal hernias again noted. There is a stable 8 mm nodule/diverticulum at the gastric fundus on image 33. Subtle nodular contour to the liver suggestive of early cirrhosis. There are few scatter ed hypodense lesions seen throughout the liver which remain unchanged. These favor cysts. Dominant le vitaly within the right hepatic lobe measures 18 mm. There is also a lobular 13 mm hypodense focus with in the left hepatic lobe adjacent to the gallbladder fossa on image 102. This is also stable and ther efore favors a benign lesion. The spleen and adrenal glands unremarkable. Bilateral cortical renal sc arring remains unchanged. No hydronephrosis. Calcified plaque within the normal caliber abdominal aor ta. No pelvic adenopathy. Trace pelvic fluid is noted. The bladder is unremarkable. Prior hysterectom y. There are surgical clips within the retroperitoneum and pelvic sidewalls. Colonic diverticulosis. No evidence for acute diverticulitis. No evidence for bowel obstruction. Small bowel anastomosis agai n noted within the right lower quadrant. The appendix is likely surgically absent. Cholelithiasis aga in noted. No significant gallbladder wall thickening. However, there is mild pericholecystic fat stra nding. There is again noted periportal/upper retroperitoneal lymphadenopathy. One of these lymph node s is now necrotic best seen on image 81 which measures 2.1 cm. This results in mild mass effect along the patent main portal vein. No intrahepatic bile duct dilatation. There is mild thickening and enha ncement within the common bile duct and cystic duct best seen on image 85. The common bile duct remai ns normal in caliber. Inflammatory change/edema at the avi hepatis has also progressed. The dominan t retrocaval lymph nodes in the prior study has essentially resolved in the interval. Focal narrowing within the proximal duodenum due to the mass effect from the adjacent inflammatory change and gallbl adder. However, no evidence for an obstruction. There are few scattered subcentimeter hypodensities w ithin the pancreas with dilatation of the proximal pancreatic duct measuring up to 7 mm. This is taylor lar to the prior study and is therefore likely chronic. Subtle nodularity along the vaginal cuff with a few adjacent prominent lower mesenteric lymph nodes remains unchanged. Dominant mesenteric lymph n ode measures 6 mm. IMPRESSION: 1. Progressive inflammatory change/edema within the avi hepatis surrounding the persistent periport al/upper retroperitoneal lymphadenopathy. One of the enlarged periportal lymph nodes is now necrotic. This favors a neoplastic process. However, the progressive inflammatory change/edema raises the poss ibility of a superimposed infectious process. 2. There is mild thickening and enhancement within the common bile duct and cystic duct which could b e reactive to the adjacent lymphadenopathy or represent an ascending cholangitis. Correlation with LF Ts recommended. 3. Cholelithiasis again noted. There is mild pericholecystic fat stranding. This is likely reactive t o the adjacent periportal abnormality. A developing acute cholecystitis is not excluded. 4. Periportal lymphadenopathy results in mild mass effect along the main portal vein and traversing p roximal duodenum. 5. Subtle nodularity along the vaginal cuff with a few adjacent prominent lower mesenteric lymph node s remains unchanged. 6. A few scattered hypodense lesions within the pancreas with mild dilatation of the proximal pancrea tic duct. This is similar to the prior study. These favor small side branch intraductal papillary muc inous neoplasms. 7. Additional findings as described above. ACT 112: Negative or not required by law. Electronically signed by: Ajith Longoria M.D. 01/19/2023 4:48 PM
[2023-01-19] MEDS ORDERED: MoRPHine SULFATE 4 MG/ML 1 ML CARP\\VIAL IV STA (17:59)
[2023-01-19] MEDS ORDERED: HYDROmorphone INJ 1 MG/ML SYRINGE IV STA (18:07)
--- NOTE | 2023-01-19 21:03 | History & Physical Report ---
Date of Service January 19, 2023 History of Present Illness Chief Complaint: Flank pain Primary Care Provider: Justyna Lee DO Regina is a 72-year-old female with PMH of HTN, neuroendocrine cancer, CKD stage III, DCIS of the left breast, and A-fib with RVR (on Eliquis). She presented for RUQ and right-sided flank pain that radiates to her back x1 day. She also endorses nausea. Took morning meds; hasn't had eliquis, metoprolol, atorvastatin. Around someone who test positive covid this week; but test negative twice at home. Endorses having a big Thanksgiving dinner on night. Pain started Saturday morning. Started yesterday morning on Saturday Radiation around r-flank to back Located Took tylenol (2 extra strength tyelnol) and used heating pads; took zofran for nausea Change in diet Instense achy pain; constant 6/10; 8/10 at worst Lying on stomach with heating pad helped Morning meds? Prior experience similar to this in November; saw PCP; put on liquid diet; U/S; endorses radiation of scapular pain. ED course: NSS 1000 mL Zofran 4 mg IV Fentanyl 50 mcg IV Dilaudid 1 mg IV ROS: Patient endorses CADET, r-sided abdominal pain, diarrhea (which patient attributes to neuroendocrine cancer) Patient denies fever, chills, sweating, dizziness, lightheadedness, CP, cough, SOB, vomiting, blood in the urine/stool, burning with urination, or numbness/tingling/pain in the legs. Past surgical history: Hx of hysterectomy, appendectomy No prior history of cholecystectomy No PMHx of [place], DVT/PE, CVA, diabetes Active cancer Allergies Allergy/AdvReac Type Severity Reaction Status Date / Time pneumococcal vaccine Allergy Severe REDNESS, Verified 01/19/23 19:57 SWELLING AT SITE aloe Allergy Intermediate RASH Verified 01/19/23 19:57 latex Allergy Intermediate MOUTH Verified 01/19/23 19:57 SORES (AT DENTIST) Penicillins Allergy Intermediate RASH Verified 01/19/23 19:57 capecitabine Allergy Mild Rash Verified 01/19/23 19:57 cefuroxime AdvReac Mild C. DIFF Verified 01/19/23 19:57 nickel AdvReac Mild Rash Verified 01/19/23 19:57 Home Medications Medication Instructions Recorded Confirmed Type atorvastatin 10 mg tablet 10 mg PO QPM 05/06/18 01/19/23 History cyanocobalamin (vitamin B-12) 1,000 mcg sublingual QAM 10/22/21 01/19/23 History 1,000 mcg sublingual tablet ondansetron HCl 8 mg tablet 8 mg PO Q8H PRN Nausea 10/22/21 01/19/23 History prochlorperazine maleate 5 mg 5 mg PO TID PRN Nausea 10/22/21 01/19/23 History tablet (Compazine) apixaban 5 mg tablet (Eliquis) 5 mg PO BID #60 tabs 10/24/21 01/19/23 Rx metoprolol tartrate 25 mg tablet 12.5 mg (1/2 x 25 mg) PO BID #30 10/24/21 01/19/23 Rx tabs cholecalciferol (vitamin D3) 1,250 50,000 unit PO WK 01/19/23 01/19/23 History mcg (50,000 unit) capsule Past Med/Surg History Medical History Atrial fibrillation Dx 09/[address] 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 Will start chemo following left TKA. Surgical History H/O exploratory laparotomy SBO release x3 Exploratory Laparotomy, THAIS, small bowel resection (08/21/18): Glidescope#3, EFF 7.5 at [facility]. Atraumatic. No issues noted per post-op anesthesia progress note. H/O exploratory laparotomy Exploratory Laparotomy, Lysis of Adhesions, Side to Side Ilealcolonic Anastomosis, Biopsy Abdominal Implant with Frozen Section, Repair Incisional Hernia Repair with Compartment Separation H/O: hysterectomy History of carpal tunnel surgery History of lumpectomy of left breast S/P laparotomy Diagnostic lap 01/22/11 Dr. Quach Family History Father Diabetes Sister Diabetes Mother Diabetes Grandmother (Maternal) Family hx of colon cancer Social History Smoking Status: Never smoker Second Hand Exposure: No; Do You Dip or Chew Tobacco: No; Hx Alcohol Use: Yes Alcohol type: wine Hx Substance Use: No Preferred Language: Belgian Communication Ability: Effective Urology Nurse Required: No Beliefs That Will Affect Care: None marital status: Current Living Situation: Spouse Feels Safe at Home: Yes Assistive Devices: Walker Review of Systems Review of Systems: See HPI above Physical Exam Physical Exam: General: no acute distress; non-toxic appearing; well-nourished; cooperative HEENT: normocephalic, atraumatic; no scleral icterus; PERRLA w/ EOMs intact; moist mucus membrane; vision and hearing grossly intact Neck: supple; no JVD; no lymphadenopathy; trachea midline Skin: warm, dry without signs of tenting; no cyanosis; no rashes, bruising, lesions, or erythema noted CV: chest wall NTP; RRR; S1/S2 normal; no murmurs/rubs/gallops; pulses intact and symmetric at radial, DP, and PT Lungs: no acute respiratory distress; symmetrical chest wall expansion; clear breath sounds across all lung gunn w/o adventitious sounds; no wheezing ABD: Soft, NTP; BS present; no rebound/guarding; no ascites; no distention; negative CVA tenderness MSK: no tics or fasciculations; no edema noted in the LEs b/l Neuro: A&Ox3; normal mood and affect; fluent speech; CN2-12 intact; no focal deficits; sensation grossly intact Results & Data Results & Data Vital Signs (Past 12 Hours) Vital Signs Temp Pulse Pulse Resp BP BP Pulse Ox 01/19/23 19:00 78 18 96 01/19/23 17:55 68 14 141/73 H 95 01/19/23 17:51 74 01/19/23 16:00 71 18 153/91 H 93 01/19/23 15:38 97 01/19/23 15:06 36.7 C 78 18 161/76 H 96 O2 Del Method 01/19/23 19:00 Room Air 01/19/23 17:55 Room Air 01/19/23 17:51 01/19/23 16:00 Room Air 01/19/23 15:38 Room Air 01/19/23 15:06 Room Air Laboratory Results Abnormal lab results 01/19/23 01/19/23 Range/Units 15:35 16:13 [place] # (Auto) 1.05 H (0.11-0.59) K/uL BUN/Creatinine Ratio 9.4 L (10-20) Glucose 109 H (70-99(Fasting)) mg/dl Calcium 10.5 H (8.6-10.3) mg/dl Urine Ketones Trace H (Negative) PG Care Time/CCT Total # of Minutes Spent Total Time Spent with Patient: Total time spent is greater than 50% in coordination of care (as documented) at patient's floor/unit and/or counseling patient: Coding
[2023-01-19] MEDS ORDERED: ACETAMINOPHEN 325 MG TAB PO STA (22:14)
--- NOTE | 2023-01-19 22:14 | History & Physical Report ---
Date of Service January 19, 2023 Assessment & Plan (1) Abdominal pain, acute, right upper quadrant: Plan: 72-year-old female with past med significant for hypercholesterolemia, prediabetes, atrial fibrillation, multiple metastatic carcinoid tumors initially diagnosed in 2010 and recurred in 2013, history of ductal carcinoma in situ of breast, CKD stage III presents with right upper quadrant abdominal pain. Right upper quad abdominal pain Gallstones Possible cholecystitis versus cholangitis versus progressing metastatic carcinoid tumor No leukocytosis, lactic acid is 1.4 LFTs and lipase are okay Will keep her n.p.o. IV fluids IV invanz IV Dilaudid as needed IV antiemetics as needed MRCP no obvious cholecystitis. HIDA scan ordered. Will discuss with [facility]-called and talked with and and was notified that no transfer today. Pain control. will call back tomorrow and see how patient is doing and decide at that time.Ph No To Call : [phone]. History of A-fib Continue metoprolol On Eliquis Will hold if plan for surgery. Prediabetes Will follow HbA1c levels History of multiple metastatic carcinoid tumors Initial diagnosed in 2010 and recurrence in 2013 Had surgeries Had PRRT retreatment in 2018 and was stable But in MRI scan in October 2022 some progression of disease was noted Currently under observation with repeat MRI scan and follow-up coming week in few days and as per patient there is a plan for repeat PRRT treatment History of ductal carcinoma in situ of breast S/p partial left mastectomy 2014 and radiation treatment CKD stage III Presented creatinine 1.06 Will follow labs DVT prophylaxis SCDs for now Disposition Med/surg Full code History of Present Illness Chief Complaint: Abdominal pain Primary Care Provider: Justyna Lee DO 72-year-old female with past med significant for hypercholesterolemia, prediabetes, atrial fibrillation, multiple metastatic carcinoid tumors initially diagnosed in 2010 and recurred in 2013, history of ductal carcinoma in situ of breast, CKD stage III presents with right upper quadrant abdominal pain. Patient states she woke up on Saturday morning with severe right upper quadrant abdominal pain associate with nausea. No fevers. Normal bowel movements. Normal bladder movements. No chest pain or shortness of breath. No cough. No blurred visions. Ambulating okay. Patient had similar pain in November and was seen by PCP. Ultrasound was done Gallstones were seen but no acute cholecystitis was found. Patient knows that she has gallstones for some time because of scans she gets for carcinoid tumor. Patient follows with [place], [place] for metastatic carcinoid tumor. She had multiple surgeries. She had a PRRT treatment in 2018. Since then her cancers seems to be stable but in May of this year showed some slow progression on CAT scan. In October again she had MRI scan which showed some new lesions in the liver and plan was to observe and she has appointment coming week for repeat MRI scan. Patient states if she needs surgery she want to be seen by Dr. Quach and also she wants to notify her oncologist Dr. Indira Perez at [facility]. Past medical history. As mentioned above Past surgical history Per [facility] records:.diagnostic laparoscopy, laparotomy, small-bowel resection of approximately 2.5 feet, appendectomy on 01/22/2011 at [facility]. - laparotomy, total abdominal hysterectomy with bilateral salpingo-oophorectomy, bilateral pelvic and periaortic lymphadenectomy, removal of left pelvic sidewall nodule, optimal cytoreductive surgery of all gross macroscopic disease for bilateral ovarian masses, para-aortic lymphadenopathy by Dr. Bucio on 10/13/2013 at [facility] - Sandostatin every 4 weeks (07/02/2014, 07/30/2014), changed to Lanreotide (09/08/2014 - 12/27/2014) due to bloating, and diarrhea. - small bowel resection about [address] Quach at [facility] in 12/2014 for SBO. [facility] records: Breast biopsy, carpal tunnel surgery, colonoscopy, dental surgery, EGD, exploratory abdomen in 2010, and 2013. Left partial mastectomy in 2014. Left total knee replacement in May 2022. Social history. . No smoking. Alcohol occasional. No drug use. Family history. Maternal cousin had breast cancer. Paternal cousin with breast cancer. Mother had breast cancer. Mother had carcinoid tumor in the abdomen. Maternal grandmother had colon cancer. Father had lymphoma, diabetes, CHF. Sister had CAD. Sister had stroke. Allergies Allergy/AdvReac Type Severity Reaction Status Date / Time pneumococcal vaccine Allergy Severe REDNESS, Verified 01/19/23 19:57 SWELLING AT SITE aloe Allergy Intermediate RASH Verified 01/19/23 19:57 latex Allergy Intermediate MOUTH Verified 01/19/23 19:57 SORES (AT DENTIST) Penicillins Allergy Intermediate RASH Verified 01/19/23 19:57 capecitabine Allergy Mild Rash Verified 01/19/23 19:57 cefuroxime AdvReac Mild C. DIFF Verified 01/19/23 19:57 nickel AdvReac Mild Rash Verified 01/19/23 19:57 Home Medications Medication Instructions Recorded Confirmed Type atorvastatin 10 mg tablet 10 mg PO QPM 05/06/18 01/19/23 History cyanocobalamin (vitamin B-12) 1,000 mcg sublingual QAM 10/22/21 01/19/23 History 1,000 mcg sublingual tablet ondansetron HCl 8 mg tablet 8 mg PO Q8H PRN Nausea 10/22/21 01/19/23 History prochlorperazine maleate 5 mg 5 mg PO TID PRN Nausea 10/22/21 01/19/23 History tablet (Compazine) apixaban 5 mg tablet (Eliquis) 5 mg PO BID #60 tabs 10/24/21 01/19/23 Rx metoprolol tartrate 25 mg tablet 12.5 mg (1/2 x 25 mg) PO BID #30 10/24/21 01/19/23 Rx tabs cholecalciferol (vitamin D3) 1,250 50,000 unit PO WK 01/19/23 01/19/23 History mcg (50,000 unit) capsule Past Med/Surg History Medical History Atrial fibrillation Dx 09/[address] 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 Will start chemo following left TKA. Surgical History H/O exploratory laparotomy SBO release x3 Exploratory Laparotomy, THAIS, small bowel resection (08/21/18): Glidescope#3, EFF 7.5 at [facility]. Atraumatic. No issues noted per post-op anesthesia progress note. H/O exploratory laparotomy Exploratory Laparotomy, Lysis of Adhesions, Side to Side Ilealcolonic Anast omosis, Biopsy Abdominal Implant with Frozen Section, Repair Incisional Hernia Repair with Compartment Separation H/O: hysterectomy History of carpal tunnel surgery History of lumpectomy of left breast S/P laparotomy Diagnostic lap 01/22/11 Dr. Quach Family History Father Diabetes Sister Diabetes Mother Diabetes Grandmother (Maternal) Family hx of colon cancer Social History Smoking Status: Never smoker Second Hand Exposure: No; Do You Dip or Chew Tobacco: No; Hx Alcohol Use: No Hx Substance Use: No Preferred Language: Latvian Communication Ability: Effective Voice Over Announcer Required: No Beliefs That Will Affect Care: None marital status: Current Living Situation: Spouse Other Information That Helps Us Care for You: No Feels Safe at Home: Yes Assistive Devices: None Review of Systems Review of Systems: All systems reviewed & are unremarkable except as noted in HPI & below Physical Exam Physical Exam: General- Not in distress Head- atraumatic Eyes- PERRL. ENT- oropharynx clear Neck- supple, no JVD.No carotid bruit. Lungs- clear to auscultation no wheezing or crackles. Heart- regular rhythm; no murmur, no gallop. Abdomen- normal bowel sounds, soft, tenderness in RUQ. No rebound tenderness. Extremities- no pretibial edema, no erythema seen. Neuro- alert, oriented x 3; PERRL, EOMI; no facial palsy; no dysarthria; moves extremities Skin- warm & dry Results & Data Results & Data Vital Signs (Past 12 Hours) Vital Signs Temp Pulse Pulse Resp BP BP Pulse Ox 01/19/23 19:00 78 18 96 01/19/23 17:55 68 14 141/73 H 95 01/19/23 17:51 74 01/19/23 16:00 71 18 153/91 H 93 01/19/23 15:38 97 01/19/23 15:06 36.7 C 78 18 161/76 H 96 O2 Del Method 01/19/23 19:00 Room Air 01/19/23 17:55 Room Air 01/19/23 17:51 01/19/23 16:00 Room Air 01/19/23 15:38 Room Air 01/19/23 15:06 Room Air Diagnostic Findings Laboratory Results WBC 7.62 K/ul (4.8-10.8) 01/19/23 15:35 RBC 4.72 M/uL (4.20-5.40) 01/19/23 15:35 Hgb 14.0 g/dl (12.0-16.0) 01/19/23 15:35 Hct 42.3 % (37.0-47.0) 01/19/23 15:35 MCV 89.6 fL (80.0-100.0) 01/19/23 15:35 MCH 29.7 pg (25.0-34.0) 01/19/23 15:35 MCHC 33.1 g/dL (32.0-36.0) 01/19/23 15:35 RDW Std Deviation 41.7 fL (36.4-46.3) 01/19/23 15:35 RDW Coeff of Katelyn 12.7 % (11.5-14.5) 01/19/23 15:35 Plt Count 157 K/uL (130-400) 01/19/23 15:35 MPV 11.0 fL (9.4-12.4) 01/19/23 15:35 Immature Gran % (Auto) 0.3 % 01/19/23 15:35 Neut % (Auto) 67.8 % 01/19/23 15:35 Lymph % (Auto) 17.2 % 01/19/23 15:35 [place] % (Auto) 13.8 % 01/19/23 15:35 Eos % (Auto) 0.5 % 01/19/23 15:35 Baso % (Auto) 0.4 % 01/19/23 15:35 Neut # (Auto) 5.17 K/uL (1.40-6.50) 01/19/23 15:35 Lymph # (Auto) 1.31 K/uL (1.20-3.40) 01/19/23 15:35 [place] # (Auto) 1.05 K/uL (0.11-0.59) H 01/19/23 15:35 Eos # (Auto) 0.04 K/uL (0.00-0.50) 01/19/23 15:35 Baso # (Auto) 0.03 K/uL (0.00-0.20) 01/19/23 15:35 Immature Gran # (Auto) 0.02 K/uL (0.01-0.20) 01/19/23 15:35 Sodium 139 mmol/L (136-145) 01/19/23 15:35 Potassium 3.7 mmol/L (3.5-5.1) 01/19/23 15:35 Chloride 101 mmol/L (98-107) 01/19/23 15:35 Carbon Dioxide 30 mmol/L (21-32) 01/19/23 15:35 Anion Gap 8 (3-11) 01/19/23 15:35 BUN 10 mg/dl (6-23) 01/19/23 15:35 Creatinine 1.06 mg/dl (0.6-1.2) 01/19/23 15:35 Est Cr Clr Drug Dosing 41.6 ml/min 01/19/23 15:35 Est GFR ( Amer) 60.3 ml/min 01/19/23 15:35 Est GFR (Non-Af Amer) 52.0 ml/min 01/19/23 15:35 BUN/Creatinine Ratio 9.4 (10-20) L 01/19/23 15:35 Glucose 109 mg/dl (70-99(Fasting)) H 01/19/23 15:35 Lactate 1.4 mmol/L (0.4-2.0) 01/19/23 15:35 Calcium 10.5 mg/dl (8.6-10.3) H 01/19/23 15:35 Total Bilirubin 0.9 mg/dl (0.2-1.0) 01/19/23 15:35 AST 16 U/L (13-39) 01/19/23 15:35 ALT 10 U/L (7-52) 01/19/23 15:35 Alkaline Phosphatase 91 U/L (34-104) 01/19/23 15:35 Total Protein 7.4 gm/dl (6.0-8.3) 01/19/23 15:35 Albumin 4.4 gm/dl (3.4-5.0) 01/19/23 15:35 Globulin 3.0 gm/dl (2.5-4.0) 01/19/23 15:35 Albumin/Globulin Ratio 1.5 (0.9-2) 01/19/23 15:35 Lipase 13 U/L (11-82) 01/19/23 15:35 Urine Color Yellow 01/19/23 16:13 Urine Appearance Clear (Clear) 01/19/23 16:13 Urine pH 5.0 (4.5-7.5) 01/19/23 16:13 Ur Specific [place] 1.010 (1.000-1.030) 01/19/23 16:13 Urine Protein Negative (Negative) 01/19/23 16:13 Urine Glucose (UA) Negative (Negative) 01/19/23 16:13 Urine Ketones Trace (Negative) H 01/19/23 16:13 Urine Blood Negative (Negative) 01/19/23 16:13 Urine Nitrite Negative (Negative) 01/19/23 16:13 Urine Bilirubin Negative (Negative) 01/19/23 16:13 Urine Urobilinogen Negative (Negative) 01/19/23 16:13 Ur Leukocyte Esterase Negative (Negative) 01/19/23 16:13 Impressions Abdomen/Pelvis CT 01/19/23 15:[address] WITH IV CONTRAST CT DOSE: 728.67 mGy.cm HISTORY: RUQ abdominal pain TECHNIQUE: Multiaxial CT images of the abdomen and pelvis were performed following the use of intravenous contrast. A dose lowering technique was utilized adhering to the principles of ALARA. COMPARISON STUDY: Abdomen and pelvis CT 09/14/2022. FINDINGS: Bibasilar linear densities consistent with subsegmental atelectasis are scarring. No pneumoperitoneum. No pneumatosis. No suspicious lytic or blastic osseous lesions. Small fat-containing bilateral inguinal hernias again noted. There is a stable 8 mm nodule/diverticulum at the gastric fundus on image 33. Subtle nodular contour to the liver suggestive of early cirrhosis. There are few scattered hypodense lesions seen throughout the liver which remain unchanged. These favor cysts. Dominant lesion within the right hepatic lobe measures 18 mm. There is also a lobular 13 mm hypodense focus within the left hepatic lobe adjacent to the gallbladder fossa on image 102. This is also stable and therefore favors a benign lesion. The spleen and adrenal glands unremarkable. Bilateral cortical renal scarring remains unchanged. No hydronephrosis. Calcified plaque within the normal caliber abdominal aorta. No pelvic adenopathy. Trace pelvic fluid is noted. The bladder is unremarkable. Prior hysterectomy. There are surgical clips within the retroperitoneum and pelvic sidewalls. Colonic diverticulosis. No evidence for acute diverticulitis. No evidence for bowel obstruction. Small bowel anastomosis again noted within the right lower quadrant. The appendix is likely surgically absent. Cholelithiasis again noted. No significant gallbladder wall thickening. However, there is mild pericholecystic fat stranding. There is again noted periportal/upper retroperitoneal lymphadenopathy. One of these lymph nodes is now necrotic best seen on image 81 which measures 2.1 cm. This results in mild mass effect along the patent main portal vein. No intrahepatic bile duct dilatation. There is mild thickening and enhancement within the common bile duct and cystic duct best seen on image 85. The common bile duct remains normal in caliber. Inflammatory change/edema at the avi hepatis has also progressed. The dominant retrocaval lymph nodes in the prior study has essentially resolved in the interval. Focal narrowing within the proximal duodenum due to the mass effect from the adjacent inflammatory change and gallbladder. However, no evidence for an obstruction. There are few scattered subcentimeter hypodensities within the pancreas with dilatation of the proximal pancreatic duct measuring up to 7 mm. This is similar to the prior study and is therefore likely chronic. Subtle nodularity along the vaginal cuff with a few adjacent prominent lower mesenteric lymph nodes remains unchanged. Dominant mesenteric lymph node measures 6 mm. IMPRESSION: 1. Progressive inflammatory change/edema within the avi hepatis surrounding the persistent periportal/upper retroperitoneal lymphadenopathy. One of the enlarged periportal lymph nodes is now necrotic. This favors a neoplastic process. However, the progressive inflammatory change/edema raises the possibility of a superimposed infectious process. 2. There is mild thickening and enhancement within the common bile duct and cystic duct which could be reactive to the adjacent lymphadenopathy or represent an ascending cholangitis. Correlation with LFTs recommended. 3. Cholelithiasis again noted. There is mild pericholecystic fat stranding. This is likely reactive to the adjacent periportal abnormality. A developing acute cholecystitis is not excluded. 4. Periportal lymphadenopathy results in mild mass effect along the main portal vein and traversing proximal duodenum. 5. Subtle nodularity along the vaginal cuff with a few adjacent prominent lower mesenteric lymph nodes remains unchanged. 6. A few scattered hypodense lesions within the pancreas with mild dilatation of the proximal pancreatic duct. This is similar to the prior study. These favor small side branch intraductal papillary mucinous neoplasms. 7. Additional findings as described above. ACT 112: Negative or not required by law. Electronically signed by: Ajith Longoria M.D. 01/19/2023 4:48 PM Code Status & VTE Plan VTE Prophylaxis Plan VTE Prophylaxis will be ordered: Yes
--- NOTE | 2023-01-19 23:22 | Magnetic Resonance Report ---
Exam(s): MRI MRCP EXAM: MR Abdomen Without Intravenous Contrast, MRCP Protocol CLINICAL HISTORY: Reason for exam: RUQ abdominal pain. TECHNIQUE: Multiplanar magnetic resonance images of the abdomen without intravenous contrast using MRCP protocol. COMPARISON: No relevant prior studies available. FINDINGS: Bile ducts: The CBD is nondilated. Multiple cysts along the pancreatic duct measuring up to 1 cm. Multiple cysts along the distal aspect of the CBD measuring up to 8.2 mm. No stones. Gallbladder: Multiple gallstones with pericholecystic fluid. No wall thickening. Liver: Small hepatic cysts measuring up to 13 mm. Pancreas: Unremarkable. No ductal dilation. Spleen: Unremarkable. No splenomegaly. Adrenals: Unremarkable. No mass. Kidneys and ureters: Unremarkable. No hydronephrosis. Stomach and bowel: Unremarkable. No obstruction. IMPRESSION: Multiple gallstones with pericholecystic fluid. No wall thickening. If high clinical suspicion for acute cholecystitis recommend nuclear medicine HIDA scan for further evaluation The CBD is nondilated. Multiple cysts along the pancreatic duct measuring up to 1 cm. Multiple cysts along the distal aspect of the CBD measuring up to 8.2 mm likely represents side branch intraductal papillary mucinous neoplasms. Progressive edema in the avi hepatis with surrounding edema and adenopathy this favors a neoplastic process, however, progresses inflammatory changes/edema should also be suspected. Electronically signed by: Meghan Walters MD 01/19/23 23:21 PM
[2023-01-20] MEDS ORDERED: POLYETHYLENE (MIRALAX) 17 GM PACK PO PRN (00:12)
[2023-01-20] MEDS: D5W AND NSS 1,000 ML IV SCH ×3 (00:21→20:41)
[2023-01-20] MEDS: HYDROmorphone INJ 0.5 MG/0.5 ML SYR IV PRN ×5 (00:54→20:58)
[2023-01-20] MEDS: ERTAPENEM SODIUM 1,000 MG in SYRINGE 0 ML IV SCH (01:00)
[2023-01-20] MEDS: ACETAMINOPHEN 325 MG TAB PO PRN ×3 (06:17→20:41)
[2023-01-20 07:43] LABS: Basophils # (auto) 0.02 K/uL (0.00-0.20); Basophils % (auto) 0.4 %; Eosinophils # (auto) 0.06 K/uL (0.00-0.50); Eosinophils % (auto) 1.1 %; Hematocrit (blood only) 36.5 % (37.0-47.0); Hemoglobin 11.9 g/dl (12.0-16.0); Immature Granulocytes # (auto) 0.02 K/uL (0.01-0.20); Immature Granulocytes % (auto) 0.4 %; Lymphocytes # (auto) 0.76 K/uL (1.20-3.40); Lymphocytes % (auto) 14.5 %; Mean Corpuscular Hemoglobin 29.2 pg (25.0-34.0); Mean Corpuscular Hgb Conc 32.6 g/dL (32.0-36.0); Mean Corpuscular Volume 89.7 fL (80.0-100.0); Monocytes # (auto) 1.04 K/uL (0.11-0.59); Monocytes % (auto) 19.8 %; Neutrophils # (auto) 3.35 K/uL (1.40-6.50); Neutrophils % (auto) 63.8 %; Platelet Count 117 K/uL (130-400); RDW Coefficient of Variation 12.8 % (11.5-14.5); RDW Standard Deviation 42.1 fL (36.4-46.3); Red Blood Count 4.07 M/uL (4.20-5.40); White Blood Count 5.25 K/ul (4.8-10.8)
[2023-01-20 07:56] LABS: Albumin Level 3.3 gm/dl (3.4-5.0); Bilirubin Direct 0.1 mg/dl (0-0.2); Bilirubin,Total 0.7 mg/dl (0.2-1.0); Calcium 9.2 mg/dl (8.6-10.3); Creatinine Clr Calc Pharmacy 55.1 ml/min; Est GFR (African American) 84.8 ml/min; Est GFR (Non-African American) 73.1 ml/min; Magnesium 1.6 mg/dl (1.7-2.4); Potassium 3.5 mmol/L (3.5-5.1); Total Protein 5.7 gm/dl (6.0-8.3)
[2023-01-20] MEDS: METOPROLOL TARTRATE 25 MG TAB PO SCH ×2 (08:26→20:41)
[2023-01-20] MEDS: CYANOCOBALAMIN (B-12) 500 MCG TABLET PO SCH (08:26)
[2023-01-20] MEDS: APIXABAN 5 MG TABLET PO SCH ×2 (10:27→20:41)
--- NOTE | 2023-01-20 12:27 | Hospitalist Progress Note ---
Date of Service January 20, 2023 Assessment & Plan (1) Abdominal pain, acute, right upper quadrant: Plan: 72-year-old female with past med significant for hypercholesterolemia, prediabetes, atrial fibrillation, multiple metastatic carcinoid tumors initially diagnosed in 2010 and recurred in 2013, history of ductal carcinoma in situ of breast, CKD stage III presents with right upper quadrant abdominal pain. Right upper quad abdominal pain Gallstones Possible cholecystitis versus cholangitis versus progressing metastatic carcinoid tumor No leukocytosis, lactic acid is 1.4 LFTs and lipase are okay Will keep her n.p.o. IV fluids IV invanz IV Dilaudid as needed IV antiemetics as needed MRCP no obvious cholecystitis. HIDA scan ordered. Discussed with [facility]-called and talked with and and was notified that no transfer today. Pain control. will call back tomorrow and see how patient is doing and decide at that time.Ph No To Call : [phone]. HIDA scan will likely be done tmrw, will allow clear liquid diet for now Pain seems to be controlled at this time, w/ pain meds History of A-fib Continue metoprolol On Eliquis Will hold if plan for surgery. Prediabetes Will follow HbA1c levels History of multiple metastatic carcinoid tumors Initial diagnosed in 2010 and recurrence in 2013 Had surgeries Had PRRT retreatment in 2018 and was stable But in MRI scan in October 2022 some progression of disease was noted Currently under observation with repeat MRI scan and follow-up coming week in few days and as per patient there is a plan for repeat PRRT treatment History of ductal carcinoma in situ of breast S/p partial left mastectomy 2014 and radiation treatment CKD stage III Presented creatinine 1.06 Will follow labs DVT prophylaxis SCDs , eliquis Disposition Med/surg Full code Admission and Anticipated Discharge Date Admission Date: January 19, 2023 Subjective Pt seen in follow up of RUQ pain, 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 Admitting physician, Dr. Espinoza contacted [facility] - no transfer at this time. HIDA scan pending Review of Systems Review of Systems: All systems reviewed & are unremarkable except as noted in Subjective Physical Exam Physical Exam: General- WD/WN F in NAD Head- atraumatic Eyes- PERRL. ENT- oropharynx clear Neck- supple Lungs- clear to auscultation no wheezing or crackles. Heart- regular rhythm; no murmur, no gallop. Abdomen- normal bowel sounds, soft, + tenderness in RUQ. No rebound tenderness. Extremities- no pretibial edema, no erythema seen. Neuro- alert, oriented x 3; PERRL, EOMI; no facial palsy; no dysarthria; moves extremities Skin- warm & dry Results & Data Results & Data Vital Signs (Past 12 Hours) Vital Signs Temp Pulse Resp BP Pulse Ox O2 Del Method 01/20/23 07:56 37.1 C 66 16 131/71 94 Room Air 01/20/23 07:35 Room Air Laboratory Results 01/20/23 01/19/23 01/19/23 Range/Units 07:20 16:13 15:35 WBC 5.25 7.62 (4.8-10.8) K/ul RBC 4.07 L 4.72 (4.20-5.40) M/uL Hgb 11.9 L 14.0 (12.0-16.0) g/dl Hct 36.5 L 42.3 (37.0-47.0) % MCV 89.7 89.6 (80.0-100.0) fL MCH 29.2 29.7 (25.0-34.0) pg MCHC 32.6 33.1 (32.0-36.0) g/dL RDW Std Deviation 42.1 41.7 (36.4-46.3) fL RDW Coeff of Katelyn 12.8 12.7 (11.5-14.5) % Plt Count 117 L 157 (130-400) K/uL MPV 11.0 11.0 (9.4-12.4) fL Immature Gran % (Auto) 0.4 0.3 % Neut % (Auto) 63.8 67.8 % Lymph % (Auto) 14.5 17.2 % [place] % (Auto) 19.8 13.8 % Eos % (Auto) 1.1 0.5 % Baso % (Auto) 0.4 0.4 % Neut # (Auto) 3.35 5.17 (1.40-6.50) K/uL Lymph # (Auto) 0.76 L 1.31 (1.20-3.40) K/uL [place] # (Auto) 1.04 H 1.05 H (0.11-0.59) K/uL Eos # (Auto) 0.06 0.04 (0.00-0.50) K/uL Baso # (Auto) 0.02 0.03 (0.00-0.20) K/uL Immature Gran # (Auto) 0.02 0.02 (0.01-0.20) K/uL Sodium 138 139 (136-145) mmol/L Potassium 3.5 3.7 (3.5-5.1) mmol/L Chloride 105 101 (98-107) mmol/L Carbon Dioxide 29 30 (21-32) mmol/L Anion Gap 4 8 (3-11) BUN 8 10 (6-23) mg/dl Creatinine 0.80 1.06 (0.6-1.2) mg/dl Est Cr Clr Drug Dosing 55.1 41.6 ml/min Est GFR ( Amer) 84.8 60.3 ml/min Est GFR (Non-Af Amer) 73.1 52.0 ml/min BUN/Creatinine Ratio 10.0 9.4 L (10-20) Glucose 140 H 109 H (70-99(Fasting)) mg/dl Lactate 1.4 (0.4-2.0) mmol/L Calcium 9.2 10.5 H (8.6-10.3) mg/dl Magnesium 1.6 L (1.7-2.4) mg/dl Total Bilirubin 0.7 0.9 (0.2-1.0) mg/dl Direct Bilirubin 0.1 (0-0.2) mg/dl AST 10 L 16 (13-39) U/L ALT 7 10 (7-52) U/L Alkaline Phosphatase 67 91 (34-104) U/L Total Protein 5.7 L D 7.4 (6.0-8.3) gm/dl Albumin 3.3 L 4.4 (3.4-5.0) gm/dl Globulin 3.0 (2.5-4.0) gm/dl Albumin/Globulin Ratio 1.5 (0.9-2) Lipase 13 (11-82) U/L Urine Color Yellow Urine Appearance Clear (Clear) Urine pH 5.0 (4.5-7.5) Ur Specific [place] 1.010 (1.000-1.030) Urine Protein Negative (Negative) Urine Glucose (UA) Negative (Negative) Urine Ketones Trace H (Negative) Urine Blood Negative (Negative) Urine Nitrite Negative (Negative) Urine Bilirubin Negative (Negative) Urine Urobilinogen Negative (Negative) Ur Leukocyte Esterase Negative (Negative) Medications Administered Current Inpatient Medications Acetaminophen (Acetaminophen 325 Mg Tab) 650 mg PO Q4H PRN PRN Reason: pain/fever Stop: 02/19/23 00:11 Last Admin: 01/20/23 06:17 Dose: 650 mg Apixaban (Apixaban 5 Mg Tablet) 5 mg PO BID ANGELICA Stop: 02/19/23 09:29 Last Admin: 01/20/23 10:27 Dose: 5 mg Atorvastatin Calcium (Atorvastatin 10 Mg Tab) 10 mg PO QPM ANGELICA Stop: 02/19/23 20:59 Cyanocobalamin (Cyanocobalamin (B-12) 500 Mcg Tablet) 1,000 mcg PO QAM ANGELICA Stop: 02/19/23 08:59 Last Admin: 01/20/23 08:26 Dose: 1,000 mcg Hydromorphone HCl (Hydromorphone Inj 0.5 Mg/0.5 Ml Syr) 0.5 mg IV Q3H PRN PRN Reason: Pain Stop: 02/03/23 00:11 Last Admin: 01/20/23 12:19 Dose: 0.5 mg Dextrose/Sodium Chloride (D5w And Nss) 1,000 mls @ 100 mls/hr IV .Q10H ANGELICA Stop: 02/19/23 00:11 Last Admin: 01/20/23 10:27 Dose: 100 mls/hr Ertapenem 1,000 mg/ Syringe 10 mls @ 2 mls/min IV Q24H ANGELICA Stop: 01/30/23 00:59 Last Admin: 01/20/23 01:00 Dose: 2 mls/min Magnesium Sulfate/Dextrose (Magnesium Sulfate / D5w) 1 gm in 100 mls @ 50 mls/h r IV ONE ONE Stop: 01/20/23 14:53 Potassium Chloride (K John / Wtr) 10 meq in 100 mls @ 100 mls/hr IV Q1H ANGELICA Stop: 01/20/23 14:59 Metoprolol Tartrate (Metoprolol Tartrate 25 Mg Tab) 12.5 mg PO BID ANGELICA Stop: 02/19/23 08:59 Last Admin: 01/20/23 08:26 Dose: 12.5 mg Ondansetron HCl (Ondansetron Inj 2 Mg/Ml 2 Ml Vial) 4 mg IV Q6H PRN PRN Reason: Nausea Stop: 02/19/23 00:11 Polyethylene Glycol (Polyethylene (Miralax) 17 Gm Pack) 17 gm PO DAILY PRN PRN Reason: Constipation Stop: 02/19/23 00:11
[2023-01-20] MEDS ORDERED: MAGNESIUM SULFATE / D5W 1 GM/100 ML BAG IV ONE (13:15)
[2023-01-20] MEDS: POTASSIUM CHLORIDE / WTR 10 MEQ/100 ML PLCT IV SCH ×2 (13:15→14:14)
[2023-01-20] MEDS: ONDANSETRON INJ 2 MG/ML 2 ML VIAL IV PRN (18:03)
[2023-01-20] MEDS: ATORVASTATIN 10 MG TAB PO SCH (20:41)
[2023-01-21] MEDS: HYDROmorphone INJ 0.5 MG/0.5 ML SYR IV PRN ×4 (00:18→23:26)
[2023-01-21] MEDS: ERTAPENEM SODIUM 1,000 MG in SYRINGE 0 ML IV SCH (00:18)
[2023-01-21] MEDS: D5W AND NSS 1,000 ML IV SCH (05:43)
[2023-01-21 07:27] LABS: Hematocrit (blood only) 34.9 % (37.0-47.0); Hemoglobin 11.5 g/dl (12.0-16.0); Mean Corpuscular Hemoglobin 29.6 pg (25.0-34.0); Mean Corpuscular Volume 89.7 fL (80.0-100.0); Platelet Count 121 K/uL (130-400); RDW Standard Deviation 42.5 fL (36.4-46.3); Red Blood Count 3.89 M/uL (4.20-5.40)
[2023-01-21 07:49] LABS: Albumin Globulin Ratio 1.4 (0.9-2); Albumin Level 3.3 gm/dl (3.4-5.0); BUN Creatinine Ratio 7.1 (10-20); Bilirubin,Total 0.5 mg/dl (0.2-1.0); Calcium 9.1 mg/dl (8.6-10.3); Creatinine Clr Calc Pharmacy 52.5 ml/min; Est GFR (African American) 79.9 ml/min; Globulin 2.4 gm/dl (2.5-4.0); Magnesium 1.8 mg/dl (1.7-2.4); Phosphorus 2.7 mg/dl (2.5-4.9); Potassium 3.4 mmol/L (3.5-5.1); Total Protein 5.7 gm/dl (6.0-8.3)
[2023-01-21] MEDS: APIXABAN 5 MG TABLET PO SCH ×2 (08:02→21:00)
[2023-01-21] MEDS: CYANOCOBALAMIN (B-12) 500 MCG TABLET PO SCH (08:03)
[2023-01-21] MEDS: METOPROLOL TARTRATE 25 MG TAB PO SCH ×2 (08:03→21:00)
--- NOTE | 2023-01-21 08:08 | Hospitalist Progress Note ---
Date of Service January 21, 2023 Assessment & Plan (1) Abdominal pain, acute, right upper quadrant: Plan: 72-year-old female with past med significant for hypercholesterolemia, prediabetes, atrial fibrillation, multiple metastatic carcinoid tumors initially diagnosed in 2010 and recurred in 2013, history of ductal carcinoma in situ of breast, CKD stage III presents with right upper quadrant abdominal pain. Right upper quad abdominal pain Gallstones Possible cholecystitis versus cholangitis versus progressing metastatic carcinoid tumor No leukocytosis, lactic acid is 1.4 LFTs and lipase are okay Will keep her n.p.o. IV fluids IV invanz IV Dilaudid as needed IV antiemetics as needed MRCP no obvious cholecystitis. HIDA scan ordered. Discussed with [facility]-called and talked with and and was notified that no transfer today. Pain control. will call back tomorrow and see how patient is doing and decide at that time.Ph No To Call : [phone]. 01/20 - HIDA scan will likely be done tmrw, will allow clear liquid diet for now Pain seems to be controlled at this time, w/ pain meds 01/21 HIDA scan pending Contacted Dr. Quach (surgeon familiar with the pt and requested by the pt). He can see the pt tomorrow. History of A-fib Continue metoprolol On Eliquis Will hold if plan for surgery. Prediabetes Will follow HbA1c levels History of multiple metastatic carcinoid tumors Initial diagnosed in 2010 and recurrence in 2013 Had surgeries Had PRRT retreatment in 2018 and was stable But in MRI scan in October 2022 some progression of disease was noted Currently under observation with repeat MRI scan and follow-up coming week in few days and as per patient there is a plan for repeat PRRT treatment History of ductal carcinoma in situ of breast S/p partial left mastectomy 2014 and radiation treatment CKD stage III Presented creatinine 1.06 Will follow labs DVT prophylaxis SCDs , eliquis Disposition Med/surg Full code Admission and Anticipated Discharge Date Admission Date: January 19, 2023 Subjective Pt seen in follow up of RUQ pain, 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 Espinoza contacted cancer center at time of admission - no transfer at this time. HIDA scan pending Contacted Dr. Quach today - he can see the pt tomorrow (01/22/2023) Review of Systems Review of Systems: All systems reviewed & are unremarkable except as noted in Subjective Physical Exam Physical Exam: General- WD/WN F in NAD Head- atraumatic Eyes- PERRL. ENT- oropharynx clear Neck- supple Lungs- clear to auscultation no wheezing or crackles. Heart- regular rhythm; no murmur, no gallop. Abdomen- normal bowel sounds, soft, + tenderness in RUQ. No rebound tenderness. Extremities- no pretibial edema, no erythema seen. Neuro- alert, oriented x 3; PERRL, EOMI; no facial palsy; no dysarthria; moves extremities Skin- warm & dry Results & Data Results & Data Vital Signs (Past 12 Hours) Vital Signs Temp Pulse Resp BP Pulse Ox O2 Del Method 01/21/23 08:01 37.3 C 81 18 151/72 H 95 Room Air 01/21/23 00:18 37.1 C 01/20/23 20:39 37.7 C H 78 16 143/75 H 96 Room Air Laboratory Results 01/21/23 Range/Units 06:21 WBC 5.10 (4.8-10.8) K/ul RBC 3.89 L (4.20-5.40) M/uL Hgb 11.5 L (12.0-16.0) g/dl Hct 34.9 L (37.0-47.0) % MCV 89.7 (80.0-100.0) fL MCH 29.6 (25.0-34.0) pg MCHC 33.0 (32.0-36.0) g/dL RDW Std Deviation 42.5 (36.4-46.3) fL RDW Coeff of Katelyn 13.0 (11.5-14.5) % Plt Count 121 L (130-400) K/uL MPV 11.0 (9.4-12.4) fL Sodium 140 (136-145) mmol/L Potassium 3.4 L (3.5-5.1) mmol/L Chloride 105 (98-107) mmol/L Carbon Dioxide 30 (21-32) mmol/L Anion Gap 5 (3-11) BUN 6 (6-23) mg/dl Creatinine 0.84 (0.6-1.2) mg/dl Est Cr Clr Drug Dosing 52.5 ml/min Est GFR ( Amer) 79.9 ml/min Est GFR (Non-Af Amer) 69.0 ml/min BUN/Creatinine Ratio 7.1 L (10-20) Glucose 121 H (70-99(Fasting)) mg/dl Calcium 9.1 (8.6-10.3) mg/dl Phosphorus 2.7 (2.5-4.9) mg/dl Magnesium 1.8 (1.7-2.4) mg/dl Total Bilirubin 0.5 (0.2-1.0) mg/dl AST 10 L (13-39) U/L ALT 6 L (7-52) U/L Alkaline Phosphatase 65 (34-104) U/L Total Protein 5.7 L (6.0-8.3) gm/dl Albumin 3.3 L (3.4-5.0) gm/dl Globulin 2.4 L (2.5-4.0) gm/dl Albumin/Globulin Ratio 1.4 (0.9-2) Medications Administered Current Inpatient Medications Acetaminophen (Acetaminophen 325 Mg Tab) 650 mg PO Q4H PRN PRN Reason: pain/fever Stop: 02/19/23 00:11 Last Admin: 01/20/23 20:41 Dose: 650 mg Apixaban (Apixaban 5 Mg Tablet) 5 mg PO BID ANGELICA Stop: 02/19/23 09:29 Last Admin: 01/21/23 08:02 Dose: 5 mg Atorvastatin Calcium (Atorvastatin 10 Mg Tab) 10 mg PO QPM ANGELICA Stop: 02/19/23 20:59 Last Admin: 01/20/23 20:41 Dose: 10 mg Cyanocobalamin (Cyanocobalamin (B-12) 500 Mcg Tablet) 1,000 mcg PO QAM ANGELICA Stop: 02/19/23 08:59 Last Admin: 01/21/23 08:03 Dose: 1,000 mcg Hydromorphone HCl (Hydromorphone Inj 0.5 Mg/0.5 Ml Syr) 0.5 mg IV Q3H PRN PRN Reason: Pain Stop: 02/03/23 00:11 Last Admin: 01/21/23 08:04 Dose: 0.5 mg Dextrose/Sodium Chloride (D5w And Nss) 1,000 mls @ 100 mls/hr IV .Q10H ANGELICA Stop: 02/19/23 00:11 Last Admin: 01/21/23 05:43 Dose: 100 mls/hr Ertapenem 1,000 mg/ Syringe 10 mls @ 2 mls/min IV Q24H ANGELICA Stop: 01/30/23 00:59 Last Admin: 01/21/23 00:18 Dose: 2 mls/min Potassium Chloride (K John / Wtr) 10 meq in 100 mls @ 100 mls/hr IV Q1H [facility] Stop: 01/21/23 10:14 Metoprolol Tartrate (Metoprolol Tartrate 25 Mg Tab) 12.5 mg PO BID [facility] Stop: 02/19/23 08:59 Last Admin: 01/21/23 08:03 Dose: 12.5 mg Ondansetron HCl (Ondansetron Inj 2 Mg/Ml 2 Ml Vial) 4 mg IV Q6H PRN PRN Reason: Nausea Stop: 02/19/23 00:11 Last Admin: 01/20/23 18:03 Dose: 4 mg Polyethylene Glycol (Polyethylene (Miralax) 17 Gm Pack) 17 gm PO DAILY PRN PRN Reason: Constipation Stop: 02/19/23 00:11
[2023-01-21] MEDS: ONDANSETRON INJ 2 MG/ML 2 ML VIAL IV PRN (08:11)
[2023-01-21] MEDS: POTASSIUM CHLORIDE / WTR 10 MEQ/100 ML PLCT IV SCH ×2 (09:19→10:13)
[2023-01-21] MEDS ORDERED: SINCALIDE IV ONE (13:45)
[2023-01-21] MEDS ORDERED: SODIUM CHLORIDE 0.9% IV ONE (13:45)
[2023-01-21] MEDS ORDERED: MoRPHine SULFATE 2 MG/ML CARP ONE (15:15)
--- NOTE | 2023-01-21 15:46 | Communication Note ---
Date of Service: January 21, 2023 New consult placed for general surgery. Attempted to see patient however she is still in radiology for HIDA scan. Spoke with Dr. Quach, he will see patient tomorrow.
--- NOTE | 2023-01-21 16:20 | Nuclear Medicine Report ---
NUCLEAR HEPATOBILIARY SCAN CLINICAL HISTORY: Right upper quadrant abdominal pain. COMPARISON STUDY: Abdominal CT and MRCP dated 01/19/2023. TECHNIQUE: Dynamic images of the liver and anterior abdomen were obtained every 5 minutes for a total of 60 minutes following the IV administration of 4.4 mCi of technetium 99m Mebrofenin. The gallblad enrique was not visualized at 60 minutes. The patient then received 2 mg of IV morphine. Comment with add itional imaging performed every 5 minutes for an additional 30 minutes. Ejection fraction imaging cou ld not be performed. FINDINGS: The hepatobiliary scan shows prompt and homogeneous hepatic uptake. There is visualized act ivity within the intra and extrahepatic biliary tree at 10 minutes. There is normal biliary to bowel transit, with small bowel visualized by 20 minutes. The gallbladder is not visualized at 60 minutes. There is delayed visualization of the gallbladder seen at 80 minutes following morphine administrati on. IMPRESSION: 1. The gallbladder is visualized at 80 minutes following morphine administration. There is no scintig raphic evidence of cystic duct obstruction/acute cholecystitis. 2. Delayed tracer uptake in the gallbladder may be related to gallbladder dysfunction. Correlate clin ically. ACT 112: Negative or not required by law. Electronically signed by: Mohamud Fallon M.D. 01/21/2023 4:19 PM
[2023-01-21] MEDS: ATORVASTATIN 10 MG TAB PO SCH (21:00)
[2023-01-21] MEDS: ACETAMINOPHEN 325 MG TAB PO PRN (22:41)
[2023-01-22] MEDS: ERTAPENEM SODIUM 1,000 MG in SYRINGE 0 ML IV SCH (00:44)
[2023-01-22 06:27] LABS: Hematocrit (blood only) 31.7 % (37.0-47.0); Hemoglobin 10.4 g/dl (12.0-16.0); Mean Corpuscular Hgb Conc 32.8 g/dL (32.0-36.0); Mean Corpuscular Volume 91.4 fL (80.0-100.0); Mean Platelet Volume 11.3 fL (9.4-12.4); Platelet Count 120 K/uL (130-400); RDW Coefficient of Variation 12.6 % (11.5-14.5); RDW Standard Deviation 42.1 fL (36.4-46.3); Red Blood Count 3.47 M/uL (4.20-5.40); White Blood Count 3.48 K/ul (4.8-10.8)
[2023-01-22] MEDS ORDERED: bisacodyL 5 MG TABEC PO ONE (06:42)
[2023-01-22 07:02] LABS: Albumin Globulin Ratio 1.4 (0.9-2); BUN Creatinine Ratio 6.7 (10-20); Bilirubin,Total 0.5 mg/dl (0.2-1.0); Calcium 8.9 mg/dl (8.6-10.3); Est GFR (African American) 73.5 ml/min; Est GFR (Non-African American) 63.4 ml/min; Globulin 2.2 gm/dl (2.5-4.0); Magnesium 1.7 mg/dl (1.7-2.4); Phosphorus 3.6 mg/dl (2.5-4.9); Potassium 3.7 mmol/L (3.5-5.1); Total Protein 5.2 gm/dl (6.0-8.3)
--- NOTE | 2023-01-22 07:02 | Surgery Consultation ---
Date of Consultation January 22, 2023 Assessment & Plan (1) Abdominal pain, acute, right upper quadrant: Patient has had a longstanding history of cholelithiasis may have had an acute exacerbation in the past and most likely had a biliary colic the day after Thanksgiving and this is resolving She is scheduled to be seen tomorrow at [facility] where she has had all her chemotherapies and has been followed closely by them At this point there is no indication that the gallbladder is the primary culprit for symptomatology and may have been initially the day after Thanksgiving but now her discomfort may be most related to the necrotic lymph node In the avi hepatis area that shows some necrosis I have asked the patient to stay away from greasy foods spicy food and fatty foods and anything along the cabbage family to try to to minimize the chances of triggering the gallbladder issue At this point I see no indication to proceed with surgery and in fact if it came to the point that the gallbladder issue needs to be addressed acutely in the future she may be a candidate for percutaneous cholecystostomy tube All question answered Plan No indication to address the gallbladder issue at this time If this situation would become acute to the point of cholecystitis is the primary culprit then she would be a candidate for percutaneous cholecystostomy tube rather than surgery given the extent of her primary malignancy We will follow the patient History of Present Illness Reason for Consultation: Possible cholecystitis Attending Physician: Carson Betts MD History of Present Illness Is Regina is a very pleasant 72-year-old female unfortunately for having 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 presently under therapy from [facility] day after thanks given start experiencing pain in the upper abdomen going to the right side and back She is known to have cholelithiasis may have been symptomatic 1 time in the past and she attributed this this most recent episode to her Thanksgiving meal She denies any vomiting although she was nauseated She has not had a bowel movement about 48 hours and in fact this is unusual for her since she usually moves her bowels once or twice a day The patient underwent a CT scan of the abdomen and pelvis on 01/19/2023 which showed inflammatory changes surrounding retroperitoneal lymphadenopathy in the avi hepatis one of the lymph nodes appears necrotic also some mild thickening of the cystic duct could be reactive to the adjacent lymphadenopathy cholelithiasis with mild pericholecystic stranding likely reactive She underwent an MRCP on the which showed progressive edema in the avi hepatis with surrounding edema and adenopathy favor neoplastic process Similarly on 01/19/2023 she underwent a hepatobiliary scan which revealed the gallbladder was visualized at 80 minutes no evidence of any cystic duct obstruction or cholecystitis delayed tracer uptake in the gallbladder may be related to gallbladder dysfunction Laboratory on admission showed to have no white count elevation no left shift and no liver enzymes elevation Compared to when she first came in on the she feels much better the pain is subsided she has no nausea at this time Allergies Allergy/AdvReac Type Severity Reaction Status Date / Time pneumococcal vaccine Allergy Severe REDNESS, Verified 01/19/23 19:57 SWELLING AT SITE aloe Allergy Intermediate RASH Verified 01/19/23 19:57 latex Allergy Intermediate MOUTH Verified 01/19/23 19:57 SORES (AT DENTIST) Penicillins Allergy Intermediate RASH Verified 01/19/23 19:57 capecitabine Allergy Mild Rash Verified 01/19/23 19:57 cefuroxime AdvReac Mild C. DIFF Verified 01/19/23 19:57 nickel AdvReac Mild Rash Verified 01/19/23 19:57 Home Medications Medication Instructions Recorded Confirmed Type atorvastatin 10 mg tablet 10 mg PO QPM 05/06/18 01/19/23 History cyanocobalamin (vitamin B-12) 1,000 mcg sublingual QAM 10/22/21 01/19/23 History 1,000 mcg sublingual tablet ondansetron HCl 8 mg tablet 8 mg PO Q8H PRN Nausea 10/22/21 01/19/23 History prochlorperazine maleate 5 mg 5 mg PO TID PRN Nausea 10/22/21 01/19/23 History tablet (Compazine) apixaban 5 mg tablet (Eliquis) 5 mg PO BID #60 tabs 10/24/21 01/19/23 Rx metoprolol tartrate 25 mg tablet 12.5 mg (1/2 x 25 mg) PO BID #30 10/24/21 01/19/23 Rx tabs cholecalciferol (vitamin D3) 1,250 50,000 unit PO WK 01/19/23 01/19/23 History mcg (50,000 unit) capsule Patient History Medical History Atrial fibrillation Dx 09/[address] 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 Will start chemo following left TKA. Surgical History H/O exploratory laparotomy SBO release x3 Exploratory Laparotomy, THAIS, small bowel resection (08/21/18): Glidescope#3, EFF 7.5 at [facility]. Atraumatic. No issues noted per post-op anesthesia progress note. H/O exploratory laparotomy Exploratory Laparotomy, Lysis of Adhesions, Side to Side Ilealcolonic Anastomosis, Biopsy Abdominal Implant with Frozen Section, Repair Incisional Hernia Repair with Compartment Separation H/O: hysterectomy History of carpal tunnel surgery History of lumpectomy of left breast S/P laparotomy Diagnostic lap 01/22/11 Dr. Quach Family History Father Diabetes Sister Diabetes Mother Diabetes Grandmother (Maternal) Family hx of colon cancer Social History Smoking Status: Never smoker Second Hand Exposure: No; Do You Dip or Chew Tobacco: No; Hx Alcohol Use: No Hx Substance Use: No Preferred Language: Setswana Communication Ability: Effective Microfilmer Required: No Beliefs That Will Affect Care: None marital status: Current Living Situation: Spouse Other Information That Helps Us Care for You: No Feels Safe at Home: Yes Assistive Devices: None Physical Exam Physical Exam: Alert coherent very pleasant in no distress Moving around without any discomfort The sclera is nonicteric The abdomen minimally distended no localized tenderness does have some guarding most right of the epigastric area no tenderness on deep palpation underneath the liver laterally Results & Data Vital Signs (Past 12 Hours) Vital Signs Temp Pulse Resp BP Pulse Ox O2 Del Method 01/21/23 19:37 37.5 C 75 16 147/78 H 95 Room Air PG Care Time/CCT Total # of Minutes Spent Total Time Spent with Patient: Total time spent is greater than 50% in coordination of care (as documented) at patient's floor/unit and/or counseling patient: Coding Level of Care Code 14349 IN/OBS CONSULT LVL 3,45M Diagnoses Abdominal pain, acute, right upper quadrant R10.11
[2023-01-22] MEDS: METOPROLOL TARTRATE 25 MG TAB PO SCH (08:02)
[2023-01-22] MEDS: APIXABAN 5 MG TABLET PO SCH (08:02)
[2023-01-22] MEDS: CYANOCOBALAMIN (B-12) 500 MCG TABLET PO SCH (08:03)
--- NOTE | 2023-01-22 13:12 | Discharge Summary ---
Date of Service January 22, 2023 Admission HPI Per Admitting Provider 72-year-old female with past med significant for hypercholesterolemia, prediabetes, atrial fibrillation, multiple metastatic carcinoid tumors initially diagnosed in 2010 and recurred in 2013, history of ductal carcinoma in situ of breast, CKD stage III presents with right upper quadrant abdominal pain. Patient states she woke up on Saturday morning with severe right upper quadrant abdominal pain associate with nausea. No fevers. Normal bowel movements. Normal bladder movements. No chest pain or shortness of breath. No cough. No blurred visions. Ambulating okay. Patient had similar pain in November and was seen by PCP. Ultrasound was done Gallstones were seen but no acute cholecystitis was found. Patient knows that she has gallstones for some time because of scans she gets for carcinoid tumor. Patient follows with [facility] [place], [place] for metastatic carcinoid tumor. She had multiple surgeries. She had a PRRT treatment in 2018. Since then her cancers seems to be stable but in May of this year showed some slow progression on CAT scan. In October again she had MRI scan which showed some new lesions in the liver and plan was to observe and she has appointment coming week for repeat MRI scan. Patient states if she needs surgery she want to be seen by Dr. Quach and also she wants to notify her oncologist Dr. Indira Perez at [facility]. Past medical history. As mentioned above Past surgical history Per [facility] records:.diagnostic laparoscopy, laparotomy, small-bowel resection of approximately 2.5 feet, appendectomy on 01/22/2011 at [facility]. - laparotomy, total abdominal hysterectomy with bilateral salpingo-oophorectomy, bilateral pelvic and periaortic lymphadenectomy, removal of left pelvic sidewall nodule, optimal cytoreductive surgery of all gross macroscopic disease for bilateral ovarian masses, para-aortic lymphadenopathy by Dr. Bucio on 10/13/2013 at [facility] - Sandostatin every 4 weeks (07/02/2014, 07/30/2014), changed to Lanreotide (09/08/2014 - 12/27/2014) due to bloating, and diarrhea. - small bowel resection about [address] Quach at [facility] in 12/2014 for SBO. [facility] records: Breast biopsy, carpal tunnel surgery, colonoscopy, dental surgery, EGD, exploratory abdomen in 2010, and 2013. Left partial mastectomy in 2014. Left total knee replacement in May 2022. Social history. . No smoking. Alcohol occasional. No drug use. Family history. Maternal cousin had breast cancer. Paternal cousin with breast cancer. Mother had breast cancer. Mother had carcinoid tumor in the abdomen. Maternal grandmother had colon cancer. Father had lymphoma, diabetes, CHF. Sister had CAD. Sister had stroke. Admission Exam Per Admitting Provider General- Not in distress Head- atraumatic Eyes- PERRL. ENT- oropharynx clear Neck- supple, no JVD.No carotid bruit. Lungs- clear to auscultation no wheezing or crackles. Heart- regular rhythm; no murmur, no gallop. Abdomen- normal bowel sounds, soft, tenderness in RUQ. No rebound tenderness. Extremities- no pretibial edema, no erythema seen. 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 ENT- oropharynx clear Neck- supple Lungs- clear to auscultation no wheezing or crackles. Heart- regular rhythm; no murmur, no gallop. Abdomen- normal bowel sounds, soft, + mild tenderness in RUQ (much improved). No rebound tenderness. Extremities- no pretibial edema, no erythema seen. Neuro- alert, oriented x 3; PERRL, EOMI; no facial palsy; no dysarthria; moves extremities Skin- warm & dry Discharge Data Allergies Allergy/AdvReac Type Severity Reaction Status Date / Time pneumococcal vaccine Allergy Severe REDNESS, Verified 01/19/23 19:57 SWELLING AT SITE aloe Allergy Intermediate RASH Verified 01/19/23 19:57 latex Allergy Intermediate MOUTH Verified 01/19/23 19:57 SORES (AT DENTIST) Penicillins Allergy Intermediate RASH Verified 01/19/23 19:57 capecitabine Allergy Mild Rash Verified 01/19/23 19:57 cefuroxime AdvReac Mild C. DIFF Verified 01/19/23 19:57 nickel AdvReac Mild Rash Verified 11/25/23 19:57 Consultations 01/19/23 21:21 ED Decision to Admit Stat 01/22/23 08:00 Consult General Surgery Routine Ordered Studies 01/19/23 15:05 CT abd pelvis IV con only Stat FINDINGS: Bibasilar linear densities consistent with subsegmental atelectasis are scarring. No pneumoperitoneum. No pneumatosis. No suspicious lytic or blastic osseous lesions. Small fat-containing bilateral inguinal hernias again noted. There is a stable 8 mm nodule/diverticulum at the gastric fundus on image 33. Subtle nodular contour to the liver suggestive of early cirrhosis. There are few scattered hypodense lesions seen throughout the liver which remain unchanged. These favor cysts. Dominant lesion within the right hepatic lobe measures 18 mm. There is also a lobular 13 mm hypodense focus within the left hepatic lobe adjacent to the gallbladder fossa on image 102. This is also stable and therefore favors a benign lesion. The spleen and adrenal glands unremarkable. Bilateral cortical renal scarring remains unchanged. No h ydronephrosis. Calcified plaque within the normal caliber abdominal aorta. No pelvic adenopathy. Trace pelvic fluid is noted. The bladder is unremarkable. Prior hysterectomy. There are surgical clips within the retroperitoneum and pelvic sidewalls. Colonic diverticulosis. No evidence for acute diverticulitis. No evidence for bowel obstruction. Small bowel anastomosis again noted within the right lower quadrant. The appendix is likely surgically absent. Cholelithiasis again noted. No significant gallbladder wall thickening. However, there is mild pericholecystic fat stranding. There is again noted periportal/upper retroperitoneal lymphadenopathy. One of these lymph nodes is now necrotic best seen on image 81 which measures 2.1 cm. This results in mild mass effect along the patent main portal vein. No intrahepatic bile duct dilatation. There is mild thickening and enhancement within the common bile duct and cystic duct best seen on image 85. The common bile duct remains normal in caliber. Inflammatory change/edema at the avi hepatis has also progressed. The dominant retrocaval lymph nodes in the prior study has essentially resolved in the interval. Focal narrowing within the proximal duodenum due to the mass effect from the adjacent inflammatory change and gallbladder. However, no evidence for an obstruction. There are few scattered subcentimeter hypodensities within the pancreas with dilatation of the proximal pancreatic duct measuring up to 7 mm. This is similar to the prior study and is therefore likely chronic. Subtle nodularity along the vaginal cuff with a few adjacent prominent lower mesenteric lymph nodes remains unchanged. Dominant mesenteric lymph node measures 6 mm. IMPRESSION: 1. Progressive inflammatory change/edema within the avi hepatis surrounding t he persistent periportal/upper retroperitoneal lymphadenopathy. One of the enlarged periportal lymph nodes is now necrotic. This favors a neoplastic process. However, the progressive inflammatory change/edema raises the possibility of a superimposed infectious process. 2. There is mild thickening and enhancement within the common bile duct and cystic duct which could be reactive to the adjacent lymphadenopathy or represent an ascending cholangitis. Correlation with LFTs recommended. 3. Cholelithiasis again noted. There is mild pericholecystic fat stranding. This is likely reactive to the adjacent periportal abnormality. A developing acute cholecystitis is not excluded. 4. Periportal lymphadenopathy results in mild mass effect along the main portal vein and traversing proximal duodenum. 5. Subtle nodularity along the vaginal cuff with a few adjacent prominent lower mesenteric lymph nodes remains unchanged. 6. A few scattered hypodense lesions within the pancreas with mild dilatation of the proximal pancreatic duct. This is similar to the prior study. These favor small side branch intraductal papillary mucinous neoplasms. 7. Additional findings as described above. 01/19/23 20:05 MR MRCP Stat FINDINGS: Bile ducts: The CBD is nondilated. Multiple cysts along the pancreatic duct measuring up to 1 cm. Multiple cysts along the distal aspect of the CBD measuring up to 8.2 mm. No stones. Gallbladder: Multiple gallstones with pericholecystic fluid. No wall thickening. Liver: Small hepatic cysts measuring up to 13 mm. Pancreas: Unremarkable. No ductal dilation. Spleen: Unremarkable. No splenomegaly. Adrenals: Unremarkable. No mass. Kidneys and ureters: Unremarkable. No hydronephrosis. Stomach and bowel: Unremarkable. No obstruction. IMPRESSION: Multiple gallstones with pericholecystic fluid. No wall thickening. If high clinical suspicion for acute cholecystitis recommend nuclear medicine HIDA scan for further evaluation The CBD is nondilated. Multiple cysts along the pancreatic duct measuring up to 1 cm. Multiple cysts along the distal aspect of the CBD measuring up to 8.2 mm likely represents side branch intraductal papillary mucinous neoplasms. Progressive edema in the avi hepatis with surrounding edema and adenopathy this favors a neoplastic process, however, progresses inflammatory changes/edema should also be suspected. Hospital Course (1) Abdominal pain, acute, right upper quadrant: 72-year-old female with past med significant for hypercholesterolemia, prediabetes, atrial fibrillation, multiple metastatic carcinoid tumors initially diagnosed in 2010 and recurred in 2013, history of ductal carcinoma in situ of breast, CKD stage III presents with right upper quadrant abdominal pain. Right upper quad abdominal pain Gallstones Possible cholecystitis versus cholangitis versus progressing metastatic carcinoid tumor No leukocytosis, lactic acid is 1.4 LFTs and lipase are wnl Initially n.p.o. -> advanced to clear liquid diet IV fluids IV invanz IV Dilaudid as needed IV antiemetics as needed MRCP no obvious cholecystitis. HIDA scan ordered. Admitting provider, Dr. Espinoza discussed with [facility]- with and and was notified that no transfer today. Pain control. will call back tomorrow and see how patient is doing and decide at that time.Ph No To Call : [phone]. HIDA scan obtained - 1. The gallbladder is visualized at 80 minutes following morphine administration. There is no scintigraphic evidence of cystic duct obstruction/acute cholecystitis. 2. Delayed tracer uptake in the gallbladder may be related to gallbladder d ysfunction. Correlate clinically. Contacted Dr. Quach (surgeon familiar with the pt and requested by the pt) on 01/21/2023. He was able to see the pt today (01/22/2023) and discuss with. -- No indication to address the gallbladder issue at this time If this situation would become acute to the point of cholecystitis is the primary culprit then she would be a candidate for percutaneous cholecystostomy tube rather than surgery given the extent of her primary malignancy History of A-fib Continue metoprolol On Eliquis Prediabetes Will follow HbA1c levels History of multiple metastatic carcinoid tumors Initial diagnosed in 2010 and recurrence in 2013 Had surgeries Had PRRT retreatment in 2018 and was stable But in MRI scan in October 2022 some progression of disease was noted Currently under observation with repeat MRI scan and follow-up coming week in few days and as per patient there is a plan for repeat PRRT treatment Follow up with oncology History of ductal carcinoma in situ of breast S/p partial left mastectomy 2014 and radiation treatment CKD stage III Presented creatinine 1.06 cont. 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 Avoid fatty, fried or spicy foods. For pain you can take tylenol 1000mg three times a day, max daily dose is 3,000 mg. For more severe pain you can take oxycodone 5 mg as needed as prescribed. Pending Studies at Discharge: No Stand-Alone Forms: My [facility]OW[facility], Pain - Opioid Pain Management, Smoking Cessation Medications and DC Order Prescriptions: New oxycodone 5 mg tablet 5 mg PO Q6H PRN (Reason: pain) Qty: 14 0RF Continued atorvastatin 10 mg tablet 10 mg PO QPM cyanocobalamin (vitamin B-12) 1,000 mcg Tablet, Sublingual 1,000 mcg SUBLINGUAL QAM ondansetron HCl 8 mg Tablet 8 mg PO Q8H PRN (Reason: Nausea) prochlorperazine maleate [Compazine] 5 mg Tablet 5 mg PO TID PRN (Reason: Nausea) Eliquis 5 mg tablet 5 mg PO BID Qty: 60 1RF metoprolol tartrate 25 mg Tablet 12.5 mg PO BID Qty: 30 1RF cholecalciferol (vitamin D3) 1,250 mcg (50,000 unit) capsule 50,000 unit PO WK Rx Instructions: Takes Q Sat Discharge Orders: Discharge Order (Routine); Ordered 01/22/23 Ordered By: Carson Betts Admission Data Admit Date/Time: 01/19/23 22:04 Attending Provider: Carson Betts Admit Provider: Vamsi Espinoza Primary Care Provider: Justyna Lee Other Providers: Vamsi Espinoza; Ga Quach
== END 2023-01-22 14:41 | disposition home or self-care (01) | DRG 445 ==
LOC: ED 15:00 → 3E 22:04